=== PATIENT | male | born 1945 | race Caucasian/White ===

== ENCOUNTER 2020-09-20 12:16 | Inpatient (IN) | payer MEDICARE, MEDICAID ==
--- NOTE | 2020-09-20 12:52 | EDM.PDOC ---
ED HPI GENERAL MEDICAL PROBLEM - General Chief Complaint: General Stated Complaint: WEAK,TREMORS,BACK PAIN, NOT EATING OR DRINKING Time Seen by Provider: 09/20/20 12:36 Source of Information: Reports: Patient, Family History Limitations: Reports: No Limitations - History of Present Illness INITIAL COMMENTS - FREE TEXT/NARRATIVE: The patient presents with left lower back pain. He said he did fall a couple days ago. He has no other complaints but his family says he has generalized weakness and he is not drinking or eating much. He denies fever, headache, chest pain, cough, shortness of breath, abdominal pain, nausea or vomiting. He has a history of CABG. His family says this has been going on for about a week. His oxygen saturations are in the lower 90s. He has no known lung problems. Onset: Gradual Duration: Week(s): Severity: Moderate Improves with: Reports: None Worsens with: Reports: None Associated Symptoms: Reports: No Other Symptoms Middle Back Pain Score (Numeric/FACES): 5 - Related Data Allergies Allergy/AdvReac Type Severity Reaction Status Date / Time No Known Allergies Allergy Verified 09/20/20 12:32 Home Meds: Home Meds Allopurinol [Zyloprim] 100 mg PO DAILY 09/20/20 [History] Aspirin [Adult Aspirin Regimen] 81 mg PO DAILY 09/20/20 [History] Metoprolol Tartrate 25 mg PO BID 09/20/20 [History] Pantoprazole [ProTONIX IV] 40 mg OP DAILY 09/20/20 [History] Sertraline [Zoloft] 50 mg PO DAILY 09/20/20 [History] Simvastatin 40 mg PO DAILY 09/20/20 [History] Past Medical History Cardiovascular History: Reports: High Cholesterol, Hypertension Musculoskeletal History: Reports: Gout Social & Family History - Family History Family Medical History: No Pertinent Family History - Tobacco Use Tobacco Use Status *Q: Never Tobacco User - Caffeine Use Caffeine Use: Reports: Soda - Recreational Drug Use Recreational Drug Use: No ED ROS GENERAL - Review of Systems Review Of Systems: See Below Constitutional: Reports: Malaise, Weakness, Fatigue. Denies: Fever, Chills HEENT: Reports: No Symptoms Respiratory: Reports: No Symptoms Cardiovascular: Reports: No Symptoms Endocrine: Reports: No Symptoms GI/Abdominal: Reports: No Symptoms ED EXAM, GENERAL - Physical Exam Exam: See Below Exam Limited By: No Limitations General Appearance: Alert, No Apparent Distress Ears: Normal External Exam Nose: Normal Inspection Head: Atraumatic, Normocephalic Neck: Normal Inspection Respiratory/Chest: No Respiratory Distress, Lungs Clear, Normal Breath Sounds Cardiovascular: Regular Rate, Rhythm, No Edema, No Murmur GI/Abdominal: Soft, Non-Tender, No Organomegaly, No Mass Back Exam: Normal Inspection Extremities: Normal Inspection #1 Interpretation EKG Date: 09/20/20 Time: 13:17 Rhythm: NSR Rate (Beats/Min): 77 [place]: LAD-Left [place] Deviation P-Wave: Present QRS: Normal ST-T: Normal QT: Normal Course - Vital Signs Last Recorded V/S: Last Vital Signs Temp 99.0 F 09/20/20 14:26 Pulse 80 09/20/20 14:26 Resp 18 09/20/20 14:26 BP 137/80 09/20/20 14:26 Pulse Ox 95 09/20/20 14:26 - Orders/Labs/Meds Orders: Active Orders 24 hr Category Date Time Status Cardiac Monitoring [RC] . DIRECTED Care 09/20/20 12:59 Active EKG Documentation Completion [RC] STAT Care 09/20/20 13:00 Active Oxygen Therapy [RC] PRN Care 09/20/20 12:59 Active Peripheral IV Care [RC] . DIRECTED Care 09/20/20 13:00 Active CULTURE BLOOD [BC] Stat Lab 09/20/20 14:50 Received CULTURE BLOOD [BC] Stat Lab 09/20/20 15:00 Received CULTURE URINE [RM] Stat Lab 09/20/20 14:56 Received Sodium Chloride 0.9% [Normal Saline] 1,000 ml Med 09/20/20 13:00 Active IV .BOLUS Sodium Chloride 0.9% [Saline Flush] Med 09/20/20 12:59 Active 10 ml FLUSH ASDIRECTED PRN Blood Culture x2 Reflex Set [OM.PC] Stat Oth 09/20/20 14:21 Ordered Peripheral IV Insertion Adult [OM.PC] Stat Oth 09/20/20 12:59 Ordered Medication Orders Sodium Chloride (Normal Saline) 1,000 mls @ 1,000 mls/hr IV .BOLUS DEJA Last Admin: 09/20/20 13:40 Dose: 1,000 mls/hr Documented by: NATY Sodium Chloride (Saline Flush) 10 ml FLUSH ASDIRECTED PRN PRN Reason: Keep Vein Open Last Admin: 09/20/20 13:41 Dose: 10 ml Documented by: NATY Labs: Laboratory Tests 09/20/20 09/20/20 09/20/20 Range/Units 13:13 13:30 13:30 WBC 7.81 (4.23-9.07) K/mm3 RBC 5.17 (4.63-6.08) M/mm3 Hgb 16.2 (13.7-17.5) gm/dl Hct 45.5 (40.1-51.0) % MCV 88.0 (79.0-92.2) fl MCH 31.3 (25.7-32.2) pg MCHC 35.6 H (32.2-35.5) g/dl RDW Std Deviation 45.1 H (35.1-43.9) fL Plt Count 202 (163-337) K/mm3 MPV 10.6 (9.4-12.3) fl Neut % (Auto) 85.1 H (34.0-67.9) % Lymph % (Auto) 7.2 L (21.8-53.1) % Bee % (Auto) 7.2 (5.3-12.2) % Eos % (Auto) 0 L (0.8-7.0) Baso % (Auto) 0.1 (0.1-1.2) % Neut # (Auto) 6.65 H (1.78-5.38) K/mm3 Lymph # (Auto) 0.56 L (1.32-3.57) K/mm3 Bee # (Auto) 0.56 (0.30-0.82) K/mm3 Eos # (Auto) 0.00 L (0.04-0.54) K/mm3 Baso # (Auto) 0.01 (0.01-0.08) K/mm3 Manual Slide Review Abnormal smear D-Dimer, Quantitative (0.19-0.50) mg/L Sodium 132 L (136-145) mEq/L Potassium 3.0 L (3.5-5.1) mEq/L Chloride 98 (98-107) mEq/L Carbon Dioxide 24 (21-32) mEq/L Anion Gap 13.0 (5-15) BUN 24 H (7-18) mg/dL Creatinine 1.5 H (0.7-1.3) mg/dL Est Cr Clr Drug Dosing 38.15 mL/min Estimated GFR (MDRD) 46 (>60) mL/min BUN/Creatinine Ratio 16.0 (14-18) Glucose 105 (83-115) mg/dL Lactic Acid (0.4-2.0) mmol/L Calcium 8.9 (8.5-10.1) mg/dL Ferritin (26-388) ng/ml Total Bilirubin 2.2 H (0.2-1.0) mg/dL AST 45 H (15-37) U/L ALT 39 (16-63) U/L Alkaline Phosphatase 79 (46-116) U/L Lactate Dehydrogenase (85-227) U/L Troponin I 0.028 (0.00-0.056) ng/mL C-Reactive Protein 6.1 H* (<1.0) mg/dL Total Protein 7.5 (6.4-8.2) g/dl Albumin 3.4 (3.4-5.0) g/dl Globulin 4.1 gm/dL Albumin/Globulin Ratio 0.8 L (1-2) Urine Color (Yellow) Urine Appearance (Clear) Urine pH (5.0-8.0) Ur Specific [place] (1.005-1.030) Urine Protein (Negative) Urine Glucose (UA) (Negative) Urine Ketones (Negative) Urine Occult Blood (Negative) Urine Nitrite (Negative) Urine Bilirubin (Negative) Urine Urobilinogen (0.2-1.0) Ur Leukocyte Esterase (Negative) Urine RBC (0-5) /hpf Urine WBC (0-5) /hpf Ur Epithelial Cells (0-5) /hpf Urine Bacteria (FEW) /hpf Fine Granular Casts (0-5) /lpf Urine Mucus (FEW) /hpf SARS-CoV-2 RNA ([facility]) Positive H (NEGATIVE) 09/20/20 09/20/20 09/20/20 Range/Units 13:47 14:10 14:10 WBC (4.23-9.07) K/mm3 RBC (4.63-6.08) M/mm3 Hgb (13.7-17.5) gm/dl Hct (40.1-51.0) % MCV (79.0-92.2) fl MCH (25.7-32.2) pg MCHC (32.2-35.5) g/dl RDW Std Deviation (35.1-43.9) fL Plt Count (163-337) K/mm3 MPV (9.4-12.3) fl Neut % (Auto) (34.0-67.9) % Lymph % (Auto) (21.8-53.1) % Bee % (Auto) (5.3-12.2) % Eos % (Auto) (0.8-7.0) Baso % (Auto) (0.1-1.2) % Neut # (Auto) (1.78-5.38) K/mm3 Lymph # (Auto) (1.32-3.57) K/mm3 Bee # (Auto) (0.30-0.82) K/mm3 Eos # (Auto) (0.04-0.54) K/mm3 Baso # (Auto) (0.01-0.08) K/mm3 Manual Slide Review D-Dimer, Quantitative 1.06 H (0.19-0.50) mg/L Sodium (136-145) mEq/L Potassium (3.5-5.1) mEq/L Chloride (98-107) mEq/L Carbon Dioxide (21-32) mEq/L Anion Gap (5-15) BUN (7-18) mg/dL Creatinine (0.7-1.3) mg/dL Est Cr Clr Drug Dosing mL/min Estimated GFR (MDRD) (>60) mL/min BUN/Creatinine Ratio (14-18) Glucose (83-115) mg/dL Lactic Acid (0.4-2.0) mmol/L Calcium (8.5-10.1) mg/dL Ferritin (26-388) ng/ml Total Bilirubin (0.2-1.0) mg/dL AST (15-37) U/L ALT (16-63) U/L Alkaline Phosphatase (46-116) U/L Lactate Dehydrogenase 364 H (85-227) U/L Troponin I (0.00-0.056) ng/mL C-Reactive Protein (<1.0) mg/dL Total Protein (6.4-8.2) g/dl Albumin (3.4-5.0) g/dl Globulin gm/dL Albumin/Globulin Ratio (1-2) Urine Color Dark yellow (Yellow) Urine Appearance Clear (Clear) Urine pH 5.5 (5.0-8.0) Ur Specific [place] 1.020 (1.005-1.030) Urine Protein 1+ H (Negative) Urine Glucose (UA) Negative (Negative) Urine Ketones Trace H (Negative) Urine Occult Blood Negative (Negative) Urine Nitrite Negative (Negative) Urine Bilirubin Negative (Negative) Urine Urobilinogen 0.2 (0.2-1.0) Ur Leukocyte Esterase Negative (Negative) Urine RBC 0-5 (0-5) /hpf Urine WBC 0-5 (0-5) /hpf Ur Epithelial Cells Not seen (0-5) /hpf Urine Bacteria Many H (FEW) /hpf Fine Granular Casts 0-5 (0-5) /lpf Urine Mucus Few (FEW) /hpf SARS-CoV-2 RNA ([facility]) (NEGATIVE) 09/20/20 09/20/20 Range/Units 14:10 14:50 WBC (4.23-9.07) K/mm3 RBC (4.63-6.08) M/mm3 Hgb (13.7-17.5) gm/dl Hct (40.1-51.0) % MCV (79.0-92.2) fl MCH (25.7-32.2) pg MCHC (32.2-35.5) g/dl RDW Std Deviation (35.1-43.9) fL Plt Count (163-337) K/mm3 MPV (9.4-12.3) fl Neut % (Auto) (34.0-67.9) % Lymph % (Auto) (21.8-53.1) % Bee % (Auto) (5.3-12.2) % Eos % (Auto) (0.8-7.0) Baso % (Auto) (0.1-1.2) % Neut # (Auto) (1.78-5.38) K/mm3 Lymph # (Auto) (1.32-3.57) K/mm3 Bee # (Auto) (0.30-0.82) K/mm3 Eos # (Auto) (0.04-0.54) K/mm3 Baso # (Auto) (0.01-0.08) K/mm3 Manual Slide Review D-Dimer, Quantitative (0.19-0.50) mg/L Sodium (136-145) mEq/L Potassium (3.5-5.1) mEq/L Chloride (98-107) mEq/L Carbon Dioxide (21-32) mEq/L Anion Gap (5-15) BUN (7-18) mg/dL Creatinine (0.7-1.3) mg/dL Est Cr Clr Drug Dosing mL/min Estimated GFR (MDRD) (>60) mL/min BUN/Creatinine Ratio (14-18) Glucose (83-115) mg/dL Lactic Acid 1.7 (0.4-2.0) mmol/L Calcium (8.5-10.1) mg/dL Ferritin 1845 H (26-388) ng/ml Total Bilirubin (0.2-1.0) mg/dL AST (15-37) U/L ALT (16-63) U/L Alkaline Phosphatase (46-116) U/L Lactate Dehydrogenase (85-227) U/L Troponin I (0.00-0.056) ng/mL C-Reactive Protein (<1.0) mg/dL Total Protein (6.4-8.2) g/dl Albumin (3.4-5.0) g/dl Globulin gm/dL Albumin/Globulin Ratio (1-2) Urine Color (Yellow) Urine Appearance (Clear) Urine pH (5.0-8.0) Ur Specific [place] (1.005-1.030) Urine Protein (Negative) Urine Glucose (UA) (Negative) Urine Ketones (Negative) Urine Occult Blood (Negative) Urine Nitrite (Negative) Urine Bilirubin (Negative) Urine Urobilinogen (0.2-1.0) Ur Leukocyte Esterase (Negative) Urine RBC (0-5) /hpf Urine WBC (0-5) /hpf Ur Epithelial Cells (0-5) /hpf Urine Bacteria (FEW) /hpf Fine Granular Casts (0-5) /lpf Urine Mucus (FEW) /hpf SARS-CoV-2 RNA ([facility]) (NEGATIVE) Meds: Medications Generic Name Dose Route Start Last Admin Trade Name Freq PRN Reason Stop Dose Admin Sodium Chloride 1,000 mls @ 1,000 mls/hr 09/20/20 13:00 09/20/20 13:40 Normal Saline IV 1,000 mls/hr .BOLUS DEJA Administration Sodium Chloride 10 ml 09/20/20 12:59 09/20/20 13:41 Saline Flush FLUSH 10 ml ASDIRECTED PRN Administration Keep Vein Open Discontinued Medications Generic Name Dose Route Start Last Admin Trade Name Brad PRN Reason Stop Dose Admin Dexamethasone 6 mg 09/20/20 14:22 09/20/20 15:01 Decadron IVPUSH 09/20/20 14:23 6 mg ONETIME ONE Administration Dexamethasone Confirm 09/20/20 15:00 09/20/20 15:07 Decadron Administered 09/20/20 15:01 Not Given Dose 4 mg .ROUTE .STK-MED ONE Remdesivir 200 mg/ Sodium 250 mls @ 250 mls/hr 09/20/20 14:22 09/20/20 15:06 Chloride IV 09/20/20 14:23 250 mls/hr ONETIME ONE Administration - Re-Assessments/Exams Free Text/Narrative Re-Assessment/Exam: 09/20/20 13:46 I ordered an IV NS 1L bolus, O2 per NC as needed, EKG, CXR, CT of his back, abdomen and pelvis, labs and COVID 19. 09/20/20 15:03 His CXR shows bilateral infiltrates. His CBC looks good. His D-dimer is elevated at 1.06. His UA shows bacteria but no other sign of infection. I will culture that urine. The CT of his abdomen and pelvis shows increased density within both lung bases. Difficult to exclude bilateral pneumonia. Nothing acute is otherwise seen. CT of his lumbar spine shows diffuse degenerative change. Most prominent findings are moderate central canal stenosis at L4-5 and L3-4. Scattered areas of neural foraminal narrowing are seen. He is COVID 19 positive. I have ordered dexamethasone 6mg IV and remdesivir 200mg IV. 09/20/20 15:42 His Na is low at 132. His K is low at 3. His creatinine is elevated at 1.5. His total bili is elevated at 2.2. His AST is elevated at 45. His ferritin is elevated at 1845. His CRP is positive at 6.1. His LDH is elevated at 364. His troponin is negative. I feel he needs to be admitted. I talked to Dr Brooks and he agreed to the admission. Departure - Departure Time of Disposition: 15:50 Disposition: Admitted As Inpatient 67 Condition: Serious Clinical Impression: COVID-19, Pneumonia due to COVID-19 virus, Hypoxia, Confusion, Hypokalemia, Hyponatremia, Renal insufficiency - Discharge Information Referrals: Boone Carlisle MD [Primary Care Provider] - Forms: ED Department Discharge Sepsis Event Note (ED) - Evaluation Sepsis Screening Result: No Definite Risk - Focused Exam Vital Signs: Vital Signs Temp Pulse Resp BP Pulse Ox Pulse Ox 09/20/20 14:26 99.0 F 80 18 137/80 95 09/20/20 13:22 95 09/20/20 12:27 99.2 F 78 21 H 129/82 90 L - My Orders Last 24 Hours: My Active Orders 09/20/20 12:59 Cardiac Monitoring [RC] . DIRECTED Oxygen Therapy [RC] PRN Sodium Chloride 0.9% [Saline Flush] 10 ml FLUSH ASDIRECTED PRN Peripheral IV Insertion Adult [OM.PC] Stat 09/20/20 13:00 EKG Documentation Completion [RC] STAT Peripheral IV Care [RC] . DIRECTED Sodium Chloride 0.9% [Normal Saline] 1,000 ml IV .BOLUS 09/20/20 14:21 Blood Culture x2 Reflex Set [OM.PC] Stat 09/20/20 14:50 CULTURE BLOOD [BC] Stat 09/20/20 14:56 CULTURE URINE [RM] Stat 09/20/20 15:00 CULTURE BLOOD [BC] Stat - Assessment/Plan Last 24 Hours: My Active Orders 09/20/20 12:59 Cardiac Monitoring [RC] . DIRECTED Oxygen Therapy [RC] PRN Sodium Chloride 0.9% [Saline Flush] 10 ml FLUSH ASDIRECTED PRN Peripheral IV Insertion Adult [OM.PC] Stat 09/20/20 13:00 EKG Documentation Completion [RC] STAT Peripheral IV Care [RC] . DIRECTED Sodium Chloride 0.9% [Normal Saline] 1,000 ml IV .BOLUS 09/20/20 14:21 Blood Culture x2 Reflex Set [OM.PC] Stat 09/20/20 14:50 CULTURE BLOOD [BC] Stat 09/20/20 14:56 CULTURE URINE [RM] Stat 09/20/20 15:00 CULTURE BLOOD [BC] Stat
[2020-09-20] MEDS ORDERED: Sodium Chloride 0.9% 1,000 ML IV SCH ×2 (13:00→17:15)
[2020-09-20] MEDS: Sodium Chloride 0.9% 10 ML Syringe FLUSH PRN (13:41)
--- NOTE | 2020-09-20 14:01 | CR ---
Chest: Portable view of the chest was obtained. Comparison: No previous study. Prior chest x-ray 11/04/13 and 08/06/13. Increased density is noted within the right mid lung as well as perihilar regions. Slight increased density is seen within the left midlung and left lower lung. Heart size is stable. Tortuous thoracic aorta is noted which is stable. Previous sternotomy is seen. Bony structures are grossly intact. Impression: 1. Areas of increased density within both sides of the chest suspicious for multifocal pneumonia. Please rule out any symptoms of COVID exposure. Diagnostic code #3
[2020-09-20] MEDS ORDERED: REMDESIVIR 200 MG in Sodium Chloride 0.9% 250 ML IV ONE ×2 (14:22→19:14)
[2020-09-20] MEDS ORDERED: Dexamethasone 4 MG/ML SDV IVPUSH ONE (14:22)
--- NOTE | 2020-09-20 14:58 | CT ---
CT abdomen and pelvis Technique: Multiple axial sections were obtained from above the dome of the diaphragm inferiorly to the pubic symphysis. Intravenous and oral contrast not utilized. Study also performed in AP and lateral projections. Comparison: Previous CT abdomen and pelvis study of 11/04/13. Findings: Increased density is seen within both lung bases. Liver shows no discrete abnormality. Surgical clips are seen along the anterior liver. Gallbladder is not appreciated. Spleen appears within normal limits. Kidneys showing no hydronephrosis. There are several very minimal calcifications within the right kidney. No ureteral dilatation or ureteral stone is appreciated. Adrenal glands show no nodule. Pancreas shows no discrete abnormality. Aorta shows atherosclerotic change without aneurysm. Atherosclerotic change continues into both renal vessels and superior mesenteric artery and celiac artery. Atherosclerotic change is noted within the iliac vessels. No aneurysm is seen. No retroperitoneal adenopathy or mesenteric abnormalities are seen. No pelvic mass or adenopathy is seen. Bladder is slightly enlarged with no discrete pelvic mass or adenopathy noted. Small fat-containing right inguinal hernia is present. Appendix is not definitely visualized. No bowel wall thickening is appreciated. Bone window settings were reviewed which show degenerative change most prominent within the lower lumbar spine. No acute osseous finding is appreciated. Impression: 1. Increased density within both lung bases. Difficult to exclude bilateral pneumonia. 2. Findings as noted above. Nothing acute is otherwise seen. Diagnostic code #3
[2020-09-20] MEDS ORDERED: Dexamethasone 4 MG/ML SDV ONE (15:00)
--- NOTE | 2020-09-20 15:03 | CT ---
CT lumbar spine Technique: Multiple axial sections were obtained from above the T11-12 disc through the L5-S1 disc. Reconstructed sagittal and coronal images were obtained. Comparison: Previous MRI lumbar spine study of 12/04/14. Findings: T11-12: Mild osteophytes are seen. Posteriorly no central canal stenosis or neural foraminal stenosis is seen. T12-L1: Mild disc space narrowing is noted. No central canal stenosis or neural foraminal stenosis is seen. L1-2: Mild disc space narrowing is seen. Minimal circumferential disc bulge is present. Posterior disc maintains concave margin. Minimal degenerative apophyseal change is seen. Neural foramina appear to be patent where the nerve roots exit. L2-3: Posterior disc space narrowing is seen. Mild circumferential disc bulge is seen. Posterior disc maintains concave margin. Mild degenerative apophyseal change is noted. No central canal stenosis or discrete neural foraminal stenosis is seen. L3-4: Mild disc space narrowing is seen posteriorly. Circumferential disc bulge is seen with vacuum disc phenomena. Thickening of the ligamentum flavum is seen with moderately severe degenerative apophyseal change. Findings cause moderate central canal stenosis. Both neural foramina slightly touch a bulging disc outside the neural foramina, more prominent on the right side. L4-5: Disc space narrowing with vacuum disc phenomena is seen. Circumferential disc bulge is present. There is severe degenerative apophyseal change with thickening of the ligamentum flavum causing moderate central canal stenosis. Left-sided neural foramina is narrowed. Right nerve root appears to touch degenerative disc bulgeing/spurring outside the neural foramina. L5-S1: Severe disc space narrowing and vacuum phenomena is seen. Posterior spurring is also noted. Minimal central canal stenosis is seen. Neural foramina appear patent where the nerve roots exit. Moderate degenerative apophyseal change is seen. No acute fracture is appreciated. Diffuse endplate osteophytes are seen anteriorly. Impression: 1. Diffuse degenerative change as noted above. Most prominent findings are moderate central canal stenosis at L4-5 and L3-4. Scattered areas of neural foraminal narrowing are seen. Diagnostic code #3
[2020-09-20] MEDS: Potassium Chloride 10 MEQ in Premix Bag 1 BAG IV SCH ×4 (16:29→20:16)
--- NOTE | 2020-09-20 19:00 | PCM.HP.2 ---
H&P History of Present Illness - General Date of Service: 09/20/20 Admit Problem/Dx: Admission Diagnosis/Problem Admission Diagnosis/Problem Pneumonia/covid /weakness/anorexia Source of Information: EMS, Provider History Limitations: Reports: Altered Mental Status - History of Present Illness Initial Comments - Free Text/Narative: 74 year old gentleman who resides at [facility] has been weak and sick for about week. minimal chills and no fever but sats low 80s on room air . does not currently c/o sob at rest on o2 but poor historian. aox4 and denies vomiting but not eating for most of week. he has smell l and taste he states. [facility] of [facility] 8 years ago. no sick contacts per his hx. 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 ros essentially negative but family relates not himself and mild cough /dizzines weakness and anorexia . covid screen pos. ferritan 1800/d dimer .86. trop normala nd lactic acid normal / na 129 and k 3.0 . discussed treatments for covid and he is aware of serious illness and would like treatment . Onset of Symptoms: Reports: Gradual Symptom Onset Date: 09/12/20 Duration of Symptoms: Reports: Day(s): (7) Severity: Moderate Improves with: Reports: None Worsens with: Reports: Breathing, Movement Context: Denies: Sick Contact, Travel Associated Symptoms: Reports: Confusion, Fever/Chills, Loss of Appetite, Malaise, Nausea/Vomiting, Weakness Middle Back Pain Score (Numeric/FACES): 5 - Related Data Allergies/Adverse Reactions: Allergies Allergy/AdvReac Type Severity Reaction Status Date / Time No Known Allergies Allergy Verified 09/20/20 12:32 Home Medications: Home Meds Allopurinol [Zyloprim] 100 mg PO DAILY 09/20/20 [History] Aspirin [Adult Aspirin Regimen] 81 mg PO DAILY 09/20/20 [History] Metoprolol Tartrate 25 mg PO BID 09/20/20 [History] Pantoprazole [ProTONIX IV] 40 mg OP DAILY 09/20/20 [History] Sertraline [Zoloft] 50 mg PO DAILY 09/20/20 [History] Simvastatin 40 mg PO DAILY 09/20/20 [History] Past Medical History Cardiovascular History: Reports: High Cholesterol, Hypertension Musculoskeletal History: Reports: Gout Social & Family History - Family History Family Medical History: No Pertinent Family History - Tobacco Use Tobacco Use Status *Q: Never Tobacco User - Caffeine Use Caffeine Use: Reports: Soda - Recreational Drug Use Recreational Drug Use: No H&P Review of Systems - Review of Systems: Review Of Systems: See Below General: Reports: Chills, Malaise, Weakness, Fatigue, Decreased Appetite HEENT: Reports: No Symptoms Pulmonary: Reports: No Symptoms, Shortness of Breath Cardiovascular: Reports: Dyspnea on Exertion Gastrointestinal: Reports: Anorexia, Decreased Appetite, Nausea Genitourinary: Reports: No Symptoms Musculoskeletal: Reports: No Symptoms Skin: Reports: No Symptoms Psychiatric: Reports: Confusion Neurological: Reports: Weakness Hematologic/Lymphatic: Reports: No Symptoms Immunologic: Reports: No Symptoms Exam - Exam Exam: See Below - Vital Signs Vital Signs: Last Vital Signs Temp 36.3 C 09/20/20 17:56 Pulse 61 09/20/20 16:31 Resp 22 H 09/20/20 18:45 BP 139/75 09/20/20 18:45 Pulse Ox 95 09/20/20 18:45 Weight: 81.647 kg - Exam Quality Assessment: Supplemental Oxygen General: Alert, Oriented, 4 HEENT: PERRLA, Hearing Intact, Mucosa Moist & [place], Nares Patent, Normal Nasal Septum, Posterior Pharynx Clear, Conjunctiva Clear, EOMI, EACs Clear, TMs Clear Neck: Supple, Trachea Midline, 2 Lungs: Clear to Auscultation, Normal Respiratory Effort Cardiovascular: Regular Rate, Regular Rhythm GI/Abdominal Exam: Normal Bowel Sounds, Soft, Non-Tender, No Organomegaly, No Distention, No Abnormal Bruit, No Mass, Pelvis Stable (Male) Exam: No Hernia, Normal Inspection, Normal Prostate, Circumcised Rectal (Males) Exam: Normal Exam, Normal Rectal Tone, Prostate Normal Back Exam: Normal Inspection, Full Range of Motion, NT Extremities: Normal Inspection, Normal Range of Motion, Non-Tender, No Pedal Edema, Normal Capillary Refill Skin: Warm, Dry, Intact Neurological: Cranial Nerves Intact, Reflexes Equal Bilateral Neuro Extensive - Mental Status: Alert, Oriented x3, Normal Mood/Affect, Normal Cognition Neuro Extensive - Motor, Sensory, Reflexes: CN II-XII Intact, Normal Gait, Normal Reflexes Psychiatric: Alert, Normal Affect, Normal Mood - Patient Data Lab Results Last 24 hrs: Laboratory Results - last 24 hr 12/12/20 12/12/20 12/12/20 Range/Units 13:13 13:30 13:30 WBC 7.81 (4.23-9.07) K/mm3 RBC 5.17 (4.63-6.08) M/mm3 Hgb 16.2 (13.7-17.5) gm/dl Hct 45.5 (40.1-51.0) % MCV 88.0 (79.0-92.2) fl MCH 31.3 (25.7-32.2) pg MCHC 35.6 H (32.2-35.5) g/dl RDW Std Deviation 45.1 H (35.1-43.9) fL Plt Count 202 (163-337) K/mm3 MPV 10.6 (9.4-12.3) fl Neut % (Auto) 85.1 H (34.0-67.9) % Lymph % (Auto) 7.2 L (21.8-53.1) % [place] % (Auto) 7.2 (5.3-12.2) % Eos % (Auto) 0 L (0.8-7.0) Baso % (Auto) 0.1 (0.1-1.2) % Neut # (Auto) 6.65 H (1.78-5.38) K/mm3 Lymph # (Auto) 0.56 L (1.32-3.57) K/mm3 [place] # (Auto) 0.56 (0.30-0.82) K/mm3 Eos # (Auto) 0.00 L (0.04-0.54) K/mm3 Baso # (Auto) 0.01 (0.01-0.08) K/mm3 Manual Slide Review Abnormal smear D-Dimer, Quantitative (0.19-0.50) mg/L Sodium 132 L (136-145) mEq/L Potassium 3.0 L (3.5-5.1) mEq/L Chloride 98 (98-107) mEq/L Carbon Dioxide 24 (21-32) mEq/L Anion Gap 13.0 (5-15) BUN 24 H (7-18) mg/dL Creatinine 1.5 H (0.7-1.3) mg/dL Est Cr Clr Drug Dosing 38.15 mL/min Estimated GFR (MDRD) 46 (>60) mL/min BUN/Creatinine Ratio 16.0 (14-18) Glucose 105 (83-115) mg/dL Lactic Acid (0.4-2.0) mmol/L Calcium 8.9 (8.5-10.1) mg/dL Ferritin (26-388) ng/ml Total Bilirubin 2.2 H (0.2-1.0) mg/dL AST 45 H (15-37) U/L ALT 39 (16-63) U/L Alkaline Phosphatase 79 (46-116) U/L Lactate Dehydrogenase (85-227) U/L Troponin I 0.028 (0.00-0.056) ng/mL C-Reactive Protein 6.1 H* (<1.0) mg/dL Total Protein 7.5 (6.4-8.2) g/dl Albumin 3.4 (3.4-5.0) g/dl Globulin 4.1 gm/dL Albumin/Globulin Ratio 0.8 L (1-2) Urine Color (Yellow) Urine Appearance (Clear) Urine pH (5.0-8.0) Ur Specific [place] (1.005-1.030) Urine Protein (Negative) Urine Glucose (UA) (Negative) Urine Ketones (Negative) Urine Occult Blood (Negative) Urine Nitrite (Negative) Urine Bilirubin (Negative) Urine Urobilinogen (0.2-1.0) Ur Leukocyte Esterase (Negative) Urine RBC (0-5) /hpf Urine WBC (0-5) /hpf Ur Epithelial Cells (0-5) /hpf Urine Bacteria (FEW) /hpf Fine Granular Casts (0-5) /lpf Urine Mucus (FEW) /hpf SARS-CoV-2 RNA ([facility]) Positive H (NEGATIVE) 09/20/20 09/20/20 09/20/20 Range/Units 13:47 14:10 14:10 WBC (4.23-9.07) K/mm3 RBC (4.63-6.08) M/mm3 Hgb (13.7-17.5) gm/dl Hct (40.1-51.0) % MCV (79.0-92.2) fl MCH (25.7-32.2) pg MCHC (32.2-35.5) g/dl RDW Std Deviation (35.1-43.9) fL Plt Count (163-337) K/mm3 MPV (9.4-12.3) fl Neut % (Auto) (34.0-67.9) % Lymph % (Auto) (21.8-53.1) % [place] % (Auto) (5.3-12.2) % Eos % (Auto) (0.8-7.0) Baso % (Auto) (0.1-1.2) % Neut # (Auto) (1.78-5.38) K/mm3 Lymph # (Auto) (1.32-3.57) K/mm3 [place] # (Auto) (0.30-0.82) K/mm3 Eos # (Auto) (0.04-0.54) K/mm3 Baso # (Auto) (0.01-0.08) K/mm3 Manual Slide Review D-Dimer, Quantitative 1.06 H (0.19-0.50) mg/L Sodium (136-145) mEq/L Potassium (3.5-5.1) mEq/L Chloride (98-107) mEq/L Carbon Dioxide (21-32) mEq/L Anion Gap (5-15) BUN (7-18) mg/dL Creatinine (0.7-1.3) mg/dL Est Cr Clr Drug Dosing mL/min Estimated GFR (MDRD) (>60) mL/min BUN/Creatinine Ratio (14-18) Glucose (83-115) mg/dL Lactic Acid (0.4-2.0) mmol/L Calcium (8.5-10.1) mg/dL Ferritin (26-388) ng/ml Total Bilirubin (0.2-1.0) mg/dL AST (15-37) U/L ALT (16-63) U/L Alkaline Phosphatase (46-116) U/L Lactate Dehydrogenase 364 H (85-227) U/L Troponin I (0.00-0.056) ng/mL C-Reactive Protein (<1.0) mg/dL Total Protein (6.4-8.2) g/dl Albumin (3.4-5.0) g/dl Globulin gm/dL Albumin/Globulin Ratio (1-2) Urine Color Dark yellow (Yellow) Urine Appearance Clear (Clear) Urine pH 5.5 (5.0-8.0) Ur Specific [place] 1.020 (1.005-1.030) Urine Protein 1+ H (Negative) Urine Glucose (UA) Negative (Negative) Urine Ketones Trace H (Negative) Urine Occult Blood Negative (Negative) Urine Nitrite Negative (Negative) Urine Bilirubin Negative (Negative) Urine Urobilinogen 0.2 (0.2-1.0) Ur Leukocyte Esterase Negative (Negative) Urine RBC 0-5 (0-5) /hpf Urine WBC 0-5 (0-5) /hpf Ur Epithelial Cells Not seen (0-5) /hpf Urine Bacteria Many H (FEW) /hpf Fine Granular Casts 0-5 (0-5) /lpf Urine Mucus Few (FEW) /hpf SARS-CoV-2 RNA ([facility]) (NEGATIVE) 09/20/20 09/20/20 Range/Units 14:10 14:50 WBC (4.23-9.07) K/mm3 RBC (4.63-6.08) M/mm3 Hgb (13.7-17.5) gm/dl Hct (40.1-51.0) % MCV (79.0-92.2) fl MCH (25.7-32.2) pg MCHC (32.2-35.5) g/dl RDW Std Deviation (35.1-43.9) fL Plt Count (163-337) K/mm3 MPV (9.4-12.3) fl Neut % (Auto) (34.0-67.9) % Lymph % (Auto) (21.8-53.1) % [place] % (Auto) (5.3-12.2) % Eos % (Auto) (0.8-7.0) Baso % (Auto) (0.1-1.2) % Neut # (Auto) (1.78-5.38) K/mm3 Lymph # (Auto) (1.32-3.57) K/mm3 [place] # (Auto) (0.30-0.82) K/mm3 Eos # (Auto) (0.04-0.54) K/mm3 Baso # (Auto) (0.01-0.08) K/mm3 Manual Slide Review D-Dimer, Quantitative (0.19-0.50) mg/L Sodium (136-145) mEq/L Potassium (3.5-5.1) mEq/L Chloride (98-107) mEq/L Carbon Dioxide (21-32) mEq/L Anion Gap (5-15) BUN (7-18) mg/dL Creatinine (0.7-1.3) mg/dL Est Cr Clr Drug Dosing mL/min Estimated GFR (MDRD) (>60) mL/min BUN/Creatinine Ratio (14-18) Glucose (83-115) mg/dL Lactic Acid 1.7 (0.4-2.0) mmol/L Calcium (8.5-10.1) mg/dL Ferritin 1845 H (26-388) ng/ml Total Bilirubin (0.2-1.0) mg/dL AST (15-37) U/L ALT (16-63) U/L Alkaline Phosphatase (46-116) U/L Lactate Dehydrogenase (85-227) U/L Troponin I (0.00-0.056) ng/mL C-Reactive Protein (<1.0) mg/dL Total Protein (6.4-8.2) g/dl Albumin (3.4-5.0) g/dl Globulin gm/dL Albumin/Globulin Ratio (1-2) Urine Color (Yellow) Urine Appearance (Clear) Urine pH (5.0-8.0) Ur Specific [place] (1.005-1.030) Urine Protein (Negative) Urine Glucose (UA) (Negative) Urine Ketones (Negative) Urine Occult Blood (Negative) Urine Nitrite (Negative) Urine Bilirubin (Negative) Urine Urobilinogen (0.2-1.0) Ur Leukocyte Esterase (Negative) Urine RBC (0-5) /hpf Urine WBC (0-5) /hpf Ur Epithelial Cells (0-5) /hpf Urine Bacteria (FEW) /hpf Fine Granular Casts (0-5) /lpf Urine Mucus (FEW) /hpf SARS-CoV-2 RNA ([facility]) (NEGATIVE) Result Diagrams: 09/20/20 13:30 09/20/20 13:30 Sepsis Event Note - Evaluation Sepsis Screening Result: No Definite Risk - Focused Exam Vital Signs: Vital Signs Temp Pulse Resp BP BP Pulse Ox Pulse Ox 09/20/20 18:45 22 H 139/75 95 09/20/20 17:56 36.3 C 22 H 133/70 96 09/20/20 16:31 36.6 C 61 20 126/60 97 09/20/20 14:26 37.2 C 80 18 137/80 95 09/20/20 13:22 95 09/20/20 12:27 37.3 C 78 21 H 129/82 90 L - Problem List (1) COVID-19 SNOMED Code(s): 687413800 ICD Code: U07.1 - COVID-19 Status: Acute Priority: High Current Visit: Yes Onset Date: ~09/12/20 (2) Confusion SNOMED Code(s): 392237382 ICD Code: R41.0 - DISORIENTATION, UNSPECIFIED Status: Acute Priority: Low Current Visit: Yes Onset Date: ~09/20/20 (3) Hypokalemia SNOMED Code(s): 05940262 ICD Code: E87.6 - HYPOKALEMIA Status: Acute Priority: Medium Current Visit: Yes Onset Date: ~09/20/20 (4) Hyponatremia SNOMED Code(s): 62758166 ICD Code: E87.1 - HYPO-OSMOLALITY AND HYPONATREMIA Status: Acute Current Visit: Yes (5) Hypoxia SNOMED Code(s): 508011416 ICD Code: R09.02 - HYPOXEMIA Status: Acute Priority: Medium Current Visit: Yes Onset Date: ~09/20/20 (6) Renal insufficiency SNOMED Code(s): 173833924, 073312862 ICD Code: N28.9 - DISORDER OF KIDNEY AND URETER, UNSPECIFIED Status: Acute Priority: Medium Current Visit: Yes Onset Date: ~09/20/20 Problem List Initiated/Reviewed/Updated: Yes Orders Last 24hrs: Active Orders 24 hr Category Date Time Status Admission Status [Patient Status] [ADT] Routine ADT 09/20/20 17:27 Active Cardiac Monitoring [RC] . DIRECTED Care 09/20/20 12:59 Active Oxygen Therapy [RC] PRN Care 09/20/20 12:59 Active CULTURE BLOOD [BC] Stat Lab 09/20/20 14:50 Received CULTURE BLOOD [BC] Stat Lab 09/20/20 15:00 Received CULTURE URINE [RM] Stat Lab 09/20/20 14:56 Received Potassium Chloride [KCl 10 MEQ in Water 100 ML] 10 meq Med 09/20/20 16:00 Active Premix Bag 1 bag IV Q1H Sodium Chloride 0.9% [Normal Saline] 1,000 ml Med 09/20/20 13:00 Active IV .BOLUS Sodium Chloride 0.9% [Normal Saline] 1,000 ml Med 09/20/20 17:15 Active IV ASDIRECTED Sodium Chloride 0.9% [Saline Flush] Med 09/20/20 12:59 Active 10 ml FLUSH ASDIRECTED PRN Blood Culture x2 Reflex Set [OM.PC] Stat Oth 09/20/20 14:21 Ordered Peripheral IV Insertion Adult [OM.PC] Stat Oth 09/20/20 12:59 Ordered Medication Orders Sodium Chloride (Normal Saline) 1,000 mls @ 1,000 mls/hr IV .BOLUS DEJA Last Admin: 09/20/20 13:40 Dose: 1,000 mls/hr Documented by: NATY Potassium Chloride 10 meq/ (Premix) 100 mls @ 100 mls/hr IV Q1H DEJA Stop: 09/20/20 19:59 Last Admin: 09/20/20 18:06 Dose: 100 mls/hr Documented by: Infusion: 09/20/20 17:29 Dose: 100 mls/hr Documented by: Admin: 09/20/20 16:29 Dose: 100 mls/hr Documented by: NATY Sodium Chloride (Normal Saline) 1,000 mls @ 75 mls/hr IV ASDIRECTED DEJA Last Admin: 09/20/20 17:15 Dose: 75 mls/hr Documented by: NATY Sodium Chloride (Saline Flush) 10 ml FLUSH ASDIRECTED PRN PRN Reason: Keep Vein Open Last Admin: 09/20/20 13:41 Dose: 10 ml Documented by: NATY Assessment/Plan Comment:: 74 year old with covid pneumonia and hypoxia. mild dehydration weakness. anorexia /chills [place] and dizziness hx of cad and hypertension s/p cabg hx of hyperlipidemia - Mortality Measure Prognosis:: Good
[2020-09-20] MEDS ORDERED: diphenhydrAMINE 25 MG Cap PO ONE (19:10)
[2020-09-20] MEDS ORDERED: Acetaminophen 325 MG Tab PO ONE (19:10)
[2020-09-20] MEDS: Metoprolol Tartrate 25 MG Tab PO SCH (20:19)
[2020-09-21] MEDS ORDERED: REMDESIVIR 100 MG in Sodium Chloride 0.9% 100 ML IV SCH (09:00)
[2020-09-21] MEDS ORDERED: Pantoprazole 40 MG Vial SCH (09:00)
[2020-09-21] MEDS: Sertraline 50 MG Tab PO SCH (09:03)
[2020-09-21] MEDS: Dexamethasone 4 MG Tab PO SCH (09:04)
[2020-09-21] MEDS: Allopurinol 100 MG Tab PO SCH (09:04)
[2020-09-21] MEDS: Aspirin 81 MG Tab.EC PO SCH (09:06)
[2020-09-21] MEDS: Simvastatin 40 MG Tab PO SCH (09:13)
[2020-09-21] MEDS: Metoprolol Tartrate 25 MG Tab PO SCH (09:21)
--- NOTE | 2020-09-21 09:48 | PCM.PN ---
- General Info Date of Service: 09/21/20 Admission Dx/Problem (Free Text): Admission Diagnosis/Problem Admission Diagnosis/Problem Pneumonia/covid /weakness/anorexia Functional Status: Reports: Pain Controlled, Tolerating Diet, Ambulating, Urinating (Straight cathetered last night ), Incentive Spirometry (Ordered ), Other (Acapella ordered ). Denies: New Symptoms - Review of Systems General: Reports: Weakness, Fatigue, Malaise. Denies: Fever, Chills HEENT: Reports: No Symptoms. Denies: Headaches, Sore Throat Pulmonary: Reports: Shortness of Breath, Cough. Denies: Pleuritic Chest Pain, Sputum, Wheezing Cardiovascular: Reports: Dyspnea on Exertion. Denies: Chest Pain, Edema Gastrointestinal: Reports: No Symptoms. Denies: Abdominal Pain, Constipation, Diarrhea, Nausea, Vomiting Genitourinary: Reports: Retention. Denies: Pain Musculoskeletal: Reports: No Symptoms Skin: Reports: No Symptoms Neurological: Reports: Confusion (Unsure of baseline ), Weakness Psychiatric: Reports: No Symptoms - Patient Data Vitals - Most Recent: Last Vital Signs Temp 96.1 F L 09/21/20 04:00 Pulse 44 L 09/21/20 09:21 Resp 20 09/21/20 04:00 BP 146/74 H 09/21/20 04:00 Pulse Ox 95 09/21/20 04:00 Weight - Most Recent: 177 lb 8 oz I&O - Last 24 Hours: Intake & Output 09/20/20 09/21/20 09/21/20 22:59 06:59 14:59 Intake Total 300 1700 100 Output Total 1450 Balance 300 250 100 Lab Results Last 24 Hours: Laboratory Results - last 24 hr 09/20/20 09/20/20 09/20/20 Range/Units 13:13 13:30 13:30 WBC 7.81 (4.23-9.07) K/mm3 RBC 5.17 (4.63-6.08) M/mm3 Hgb 16.2 (13.7-17.5) gm/dl Hct 45.5 (40.1-51.0) % MCV 88.0 (79.0-92.2) fl MCH 31.3 (25.7-32.2) pg MCHC 35.6 H (32.2-35.5) g/dl RDW Std Deviation 45.1 H (35.1-43.9) fL Plt Count 202 (163-337) K/mm3 MPV 10.6 (9.4-12.3) fl Neut % (Auto) 85.1 H (34.0-67.9) % Lymph % (Auto) 7.2 L (21.8-53.1) % [place] % (Auto) 7.2 (5.3-12.2) % Eos % (Auto) 0 L (0.8-7.0) Baso % (Auto) 0.1 (0.1-1.2) % Neut # (Auto) 6.65 H (1.78-5.38) K/mm3 Lymph # (Auto) 0.56 L (1.32-3.57) K/mm3 [place] # (Auto) 0.56 (0.30-0.82) K/mm3 Eos # (Auto) 0.00 L (0.04-0.54) K/mm3 Baso # (Auto) 0.01 (0.01-0.08) K/mm3 Manual Slide Review Abnormal smear D-Dimer, Quantitative (0.19-0.50) mg/L Sodium 132 L (136-145) mEq/L Potassium 3.0 L (3.5-5.1) mEq/L Chloride 98 (98-107) mEq/L Carbon Dioxide 24 (21-32) mEq/L Anion Gap 13.0 (5-15) BUN 24 H (7-18) mg/dL Creatinine 1.5 H (0.7-1.3) mg/dL Est Cr Clr Drug Dosing 38.15 mL/min Estimated GFR (MDRD) 46 (>60) mL/min BUN/Creatinine Ratio 16.0 (14-18) Glucose 105 (83-115) mg/dL Lactic Acid (0.4-2.0) mmol/L Calcium 8.9 (8.5-10.1) mg/dL Ferritin (26-388) ng/ml Total Bilirubin 2.2 H (0.2-1.0) mg/dL AST 45 H (15-37) U/L ALT 39 (16-63) U/L Alkaline Phosphatase 79 (46-116) U/L Lactate Dehydrogenase (85-227) U/L Troponin I 0.028 (0.00-0.056) ng/mL C-Reactive Protein 6.1 H* (<1.0) mg/dL Total Protein 7.5 (6.4-8.2) g/dl Albumin 3.4 (3.4-5.0) g/dl Globulin 4.1 gm/dL Albumin/Globulin Ratio 0.8 L (1-2) Urine Color (Yellow) Urine Appearance (Clear) Urine pH (5.0-8.0) Ur Specific [place] (1.005-1.030) Urine Protein (Negative) Urine Glucose (UA) (Negative) Urine Ketones (Negative) Urine Occult Blood (Negative) Urine Nitrite (Negative) Urine Bilirubin (Negative) Urine Urobilinogen (0.2-1.0) Ur Leukocyte Esterase (Negative) Urine RBC (0-5) /hpf Urine WBC (0-5) /hpf Ur Epithelial Cells (0-5) /hpf Urine Bacteria (FEW) /hpf Fine Granular Casts (0-5) /lpf Urine Mucus (FEW) /hpf SARS-CoV-2 RNA ([facility]) Positive H (NEGATIVE) Blood Type 09/20/20 09/20/20 09/20/20 Range/Units 13:30 13:47 14:10 WBC (4.23-9.07) K/mm3 RBC (4.63-6.08) M/mm3 Hgb (13.7-17.5) gm/dl Hct (40.1-51.0) % MCV (79.0-92.2) fl MCH (25.7-32.2) pg MCHC (32.2-35.5) g/dl RDW Std Deviation (35.1-43.9) fL Plt Count (163-337) K/mm3 MPV (9.4-12.3) fl Neut % (Auto) (34.0-67.9) % Lymph % (Auto) (21.8-53.1) % [place] % (Auto) (5.3-12.2) % Eos % (Auto) (0.8-7.0) Baso % (Auto) (0.1-1.2) % Neut # (Auto) (1.78-5.38) K/mm3 Lymph # (Auto) (1.32-3.57) K/mm3 [place] # (Auto) (0.30-0.82) K/mm3 Eos # (Auto) (0.04-0.54) K/mm3 Baso # (Auto) (0.01-0.08) K/mm3 Manual Slide Review D-Dimer, Quantitative 1.06 H (0.19-0.50) mg/L Sodium (136-145) mEq/L Potassium (3.5-5.1) mEq/L Chloride (98-107) mEq/L Carbon Dioxide (21-32) mEq/L Anion Gap (5-15) BUN (7-18) mg/dL Creatinine (0.7-1.3) mg/dL Est Cr Clr Drug Dosing mL/min Estimated GFR (MDRD) (>60) mL/min BUN/Creatinine Ratio (14-18) Glucose (83-115) mg/dL Lactic Acid (0.4-2.0) mmol/L Calcium (8.5-10.1) mg/dL Ferritin (26-388) ng/ml Total Bilirubin (0.2-1.0) mg/dL AST (15-37) U/L ALT (16-63) U/L Alkaline Phosphatase (46-116) U/L Lactate Dehydrogenase (85-227) U/L Troponin I (0.00-0.056) ng/mL C-Reactive Protein (<1.0) mg/dL Total Protein (6.4-8.2) g/dl Albumin (3.4-5.0) g/dl Globulin gm/dL Albumin/Globulin Ratio (1-2) Urine Color Dark yellow (Yellow) Urine Appearance Clear (Clear) Urine pH 5.5 (5.0-8.0) Ur Specific [place] 1.020 (1.005-1.030) Urine Protein 1+ H (Negative) Urine Glucose (UA) Negative (Negative) Urine Ketones Trace H (Negative) Urine Occult Blood Negative (Negative) Urine Nitrite Negative (Negative) Urine Bilirubin Negative (Negative) Urine Urobilinogen 0.2 (0.2-1.0) Ur Leukocyte Esterase Negative (Negative) Urine RBC 0-5 (0-5) /hpf Urine WBC 0-5 (0-5) /hpf Ur Epithelial Cells Not seen (0-5) /hpf Urine Bacteria Many H (FEW) /hpf Fine Granular Casts 0-5 (0-5) /lpf Urine Mucus Few (FEW) /hpf SARS-CoV-2 RNA ([facility]) (NEGATIVE) Blood Type A POSITIVE 09/20/20 09/20/20 09/20/20 Range/Units 14:10 14:10 14:50 WBC (4.23-9.07) K/mm3 RBC (4.63-6.08) M/mm3 Hgb (13.7-17.5) gm/dl Hct (40.1-51.0) % MCV (79.0-92.2) fl MCH (25.7-32.2) pg MCHC (32.2-35.5) g/dl RDW Std Deviation (35.1-43.9) fL Plt Count (163-337) K/mm3 MPV (9.4-12.3) fl Neut % (Auto) (34.0-67.9) % Lymph % (Auto) (21.8-53.1) % [place] % (Auto) (5.3-12.2) % Eos % (Auto) (0.8-7.0) Baso % (Auto) (0.1-1.2) % Neut # (Auto) (1.78-5.38) K/mm3 Lymph # (Auto) (1.32-3.57) K/mm3 [place] # (Auto) (0.30-0.82) K/mm3 Eos # (Auto) (0.04-0.54) K/mm3 Baso # (Auto) (0.01-0.08) K/mm3 Manual Slide Review D-Dimer, Quantitative (0.19-0.50) mg/L Sodium (136-145) mEq/L Potassium (3.5-5.1) mEq/L Chloride (98-107) mEq/L Carbon Dioxide (21-32) mEq/L Anion Gap (5-15) BUN (7-18) mg/dL Creatinine (0.7-1.3) mg/dL Est Cr Clr Drug Dosing mL/min Estimated GFR (MDRD) (>60) mL/min BUN/Creatinine Ratio (14-18) Glucose (83-115) mg/dL Lactic Acid 1.7 (0.4-2.0) mmol/L Calcium (8.5-10.1) mg/dL Ferritin 1845 H (26-388) ng/ml Total Bilirubin (0.2-1.0) mg/dL AST (15-37) U/L ALT (16-63) U/L Alkaline Phosphatase (46-116) U/L Lactate Dehydrogenase 364 H (85-227) U/L Troponin I (0.00-0.056) ng/mL C-Reactive Protein (<1.0) mg/dL Total Protein (6.4-8.2) g/dl Albumin (3.4-5.0) g/dl Globulin gm/dL Albumin/Globulin Ratio (1-2) Urine Color (Yellow) Urine Appearance (Clear) Urine pH (5.0-8.0) Ur Specific [place] (1.005-1.030) Urine Protein (Negative) Urine Glucose (UA) (Negative) Urine Ketones (Negative) Urine Occult Blood (Negative) Urine Nitrite (Negative) Urine Bilirubin (Negative) Urine Urobilinogen (0.2-1.0) Ur Leukocyte Esterase (Negative) Urine RBC (0-5) /hpf Urine WBC (0-5) /hpf Ur Epithelial Cells (0-5) /hpf Urine Bacteria (FEW) /hpf Fine Granular Casts (0-5) /lpf Urine Mucus (FEW) /hpf SARS-CoV-2 RNA ([facility]) (NEGATIVE) Blood Type 09/21/20 09/21/20 09/21/20 Range/Units 05:46 05:46 05:46 WBC 5.87 (4.23-9.07) K/mm3 RBC 4.48 L (4.63-6.08) M/mm3 Hgb 13.8 D (13.7-17.5) gm/dl Hct 40.3 (40.1-51.0) % MCV 90.0 (79.0-92.2) fl MCH 30.8 (25.7-32.2) pg MCHC 34.2 (32.2-35.5) g/dl RDW Std Deviation 44.8 H (35.1-43.9) fL Plt Count 169 (163-337) K/mm3 MPV 10.1 (9.4-12.3) fl Neut % (Auto) 86.1 H (34.0-67.9) % Lymph % (Auto) 7.7 L (21.8-53.1) % [place] % (Auto) 5.6 (5.3-12.2) % Eos % (Auto) 0.2 L (0.8-7.0) Baso % (Auto) 0.2 (0.1-1.2) % Neut # (Auto) 5.06 (1.78-5.38) K/mm3 Lymph # (Auto) 0.45 L (1.32-3.57) K/mm3 [place] # (Auto) 0.33 (0.30-0.82) K/mm3 Eos # (Auto) 0.01 L (0.04-0.54) K/mm3 Baso # (Auto) 0.01 (0.01-0.08) K/mm3 Manual Slide Review Abnormal smear D-Dimer, Quantitative 0.92 H (0.19-0.50) mg/L Sodium 139 (136-145) mEq/L Potassium 3.7 (3.5-5.1) mEq/L Chloride 106 (98-107) mEq/L Carbon Dioxide 22 (21-32) mEq/L Anion Gap 14.7 (5-15) BUN 24 H (7-18) mg/dL Creatinine 1.1 (0.7-1.3) mg/dL Est Cr Clr Drug Dosing 52.03 mL/min Estimated GFR (MDRD) > 60 (>60) mL/min BUN/Creatinine Ratio 21.8 H (14-18) Glucose 130 H (83-115) mg/dL Lactic Acid (0.4-2.0) mmol/L Calcium 8.5 (8.5-10.1) mg/dL Ferritin (26-388) ng/ml Total Bilirubin 1.2 H (0.2-1.0) mg/dL AST 34 (15-37) U/L ALT 29 (16-63) U/L Alkaline Phosphatase 61 (46-116) U/L Lactate Dehydrogenase 306 H (85-227) U/L Troponin I (0.00-0.056) ng/mL C-Reactive Protein 6.6 H* (<1.0) mg/dL Total Protein 6.2 L (6.4-8.2) g/dl Albumin 2.7 L (3.4-5.0) g/dl Globulin 3.5 gm/dL Albumin/Globulin Ratio 0.8 L (1-2) Urine Color (Yellow) Urine Appearance (Clear) Urine pH (5.0-8.0) Ur Specific [place] (1.005-1.030) Urine Protein (Negative) Urine Glucose (UA) (Negative) Urine Ketones (Negative) Urine Occult Blood (Negative) Urine Nitrite (Negative) Urine Bilirubin (Negative) Urine Urobilinogen (0.2-1.0) Ur Leukocyte Esterase (Negative) Urine RBC (0-5) /hpf Urine WBC (0-5) /hpf Ur Epithelial Cells (0-5) /hpf Urine Bacteria (FEW) /hpf Fine Granular Casts (0-5) /lpf Urine Mucus (FEW) /hpf SARS-CoV-2 RNA ([facility]) (NEGATIVE) Blood Type 09/21/20 Range/Units 05:46 WBC (4.23-9.07) K/mm3 RBC (4.63-6.08) M/mm3 Hgb (13.7-17.5) gm/dl Hct (40.1-51.0) % MCV (79.0-92.2) fl MCH (25.7-32.2) pg MCHC (32.2-35.5) g/dl RDW Std Deviation (35.1-43.9) fL Plt Count (163-337) K/mm3 MPV (9.4-12.3) fl Neut % (Auto) (34.0-67.9) % Lymph % (Auto) (21.8-53.1) % [place] % (Auto) (5.3-12.2) % Eos % (Auto) (0.8-7.0) Baso % (Auto) (0.1-1.2) % Neut # (Auto) (1.78-5.38) K/mm3 Lymph # (Auto) (1.32-3.57) K/mm3 [place] # (Auto) (0.30-0.82) K/mm3 Eos # (Auto) (0.04-0.54) K/mm3 Baso # (Auto) (0.01-0.08) K/mm3 Manual Slide Review D-Dimer, Quantitative (0.19-0.50) mg/L Sodium (136-145) mEq/L Potassium (3.5-5.1) mEq/L Chloride (98-107) mEq/L Carbon Dioxide (21-32) mEq/L Anion Gap (5-15) BUN (7-18) mg/dL Creatinine (0.7-1.3) mg/dL Est Cr Clr Drug Dosing mL/min Estimated GFR (MDRD) (>60) mL/min BUN/Creatinine Ratio (14-18) Glucose (83-115) mg/dL Lactic Acid (0.4-2.0) mmol/L Calcium (8.5-10.1) mg/dL Ferritin 1551 H (26-388) ng/ml Total Bilirubin (0.2-1.0) mg/dL AST (15-37) U/L ALT (16-63) U/L Alkaline Phosphatase (46-116) U/L Lactate Dehydrogenase (85-227) U/L Troponin I (0.00-0.056) ng/mL C-Reactive Protein (<1.0) mg/dL Total Protein (6.4-8.2) g/dl Albumin (3.4-5.0) g/dl Globulin gm/dL Albumin/Globulin Ratio (1-2) Urine Color (Yellow) Urine Appearance (Clear) Urine pH (5.0-8.0) Ur Specific [place] (1.005-1.030) Urine Protein (Negative) Urine Glucose (UA) (Negative) Urine Ketones (Negative) Urine Occult Blood (Negative) Urine Nitrite (Negative) Urine Bilirubin (Negative) Urine Urobilinogen (0.2-1.0) Ur Leukocyte Esterase (Negative) Urine RBC (0-5) /hpf Urine WBC (0-5) /hpf Ur Epithelial Cells (0-5) /hpf Urine Bacteria (FEW) /hpf Fine Granular Casts (0-5) /lpf Urine Mucus (FEW) /hpf SARS-CoV-2 RNA ([facility]) (NEGATIVE) Blood Type Med Orders - Current: Current Medications Allopurinol (Zyloprim) 100 mg PO DAILY [facility] Last Admin: 09/21/20 09:04 Dose: 100 mg Documented by: Aspirin (Halfprin) 81 mg PO DAILY [facility] Last Admin: 09/21/20 09:06 Dose: 81 mg Documented by: Dexamethasone (Dexamethasone) 6 mg PO DAILY [facility] Stop: 09/30/20 09:01 Last Admin: 09/21/20 09:04 Dose: 6 mg Documented by: Sodium Chloride (Normal Saline) 1,000 mls @ 1,000 mls/hr IV .BOLUS [facility] Last Admin: 09/20/20 13:40 Dose: 1,000 mls/hr Documented by: Sodium Chloride (Normal Saline) 1,000 mls @ 75 mls/hr IV ASDIRECTED [facility] Last Admin: 09/20/20 17:15 Dose: 75 mls/hr Documented by: Remdesivir 100 mg/ Sodium (Chloride) 100 mls @ 100 mls/hr IV Q24H [facility] Stop: 09/24/20 15:59 Metoprolol Tartrate (Lopressor) 25 mg PO BID [facility] Last Admin: 09/21/20 09:21 Dose: Not Given Documented by: Pantoprazole Sodium (Protonix Iv) 40 mg .XX DAILY [facility] Last Admin: 09/21/20 09:05 Dose: 40 mg Documented by: Sertraline HCl (Zoloft) 50 mg PO DAILY [facility] Last Admin: 09/21/20 09:03 Dose: 50 mg Documented by: Simvastatin (Zocor) 40 mg PO DAILY [facility] Last Admin: 09/21/20 09:13 Dose: 40 mg Documented by: Sodium Chloride (Saline Flush) 10 ml FLUSH ASDIRECTED PRN PRN Reason: Keep Vein Open Last Admin: 09/20/20 13:41 Dose: 10 ml Documented by: Discontinued Medications Acetaminophen (Tylenol) 650 mg PO ONCALL ONE Stop: 09/20/20 19:11 Last Admin: 09/20/20 21:36 Dose: 650 mg Documented by: Dexamethasone (Decadron) 6 mg IVPUSH ONETIME ONE Stop: 09/20/20 14:23 Last Admin: 09/20/20 15:01 Dose: 6 mg Documented by: Dexamethasone (Decadron) Confirm Administered Dose 4 mg .ROUTE .STK-MED ONE Stop: 09/20/20 15:01 Last Admin: 09/20/20 15:07 Dose: Not Given Documented by: Diphenhydramine HCl (Benadryl) 25 mg PO ONCALL ONE Stop: 09/20/20 19:11 Last Admin: 09/20/20 21:37 Dose: 25 mg Documented by: Remdesivir 200 mg/ Sodium (Chloride) 250 mls @ 250 mls/hr IV ONETIME ONE Stop: 09/20/20 14:23 Last Admin: 09/20/20 15:06 Dose: 250 mls/hr Documented by: Potassium Chloride 10 meq/ (Premix) 100 mls @ 100 mls/hr IV Q1H [facility] Stop: 09/20/20 19:59 Last Admin: 09/20/20 20:16 Dose: 100 mls/hr Documented by: Remdesivir 100 mg/ Sodium (Chloride) 100 mls @ 100 mls/hr IV DAILY [facility] Stop: 09/24/20 09:59 - Exam Quality Assessment: Supplemental Oxygen (2L ), DVT Prophylaxis General: Alert, Oriented, Cooperative, No Acute Distress HEENT: Pupils Equal, Pupils Reactive, Mucous Membr. Moist/[place] Neck: Supple, Trachea Midline Lungs: Normal Respiratory Effort, Decreased Breath Sounds Cardiovascular: Regular Rhythm, Bradycardia GI/Abdominal Exam: Normal Bowel Sounds, Soft, Non-Tender, No Distention (Male) Exam: Deferred Back Exam: Normal Inspection, Full Range of Motion Extremities: Normal Inspection, Normal Range of Motion, Non-Tender, No Pedal Edema, Normal Capillary Refill Skin: Warm, Dry, Intact Neurological: No New Focal Deficit Psy/Mental Status: Alert. No: Normal Affect (Flat ) Sepsis Event Note - Evaluation Sepsis Screening Result: No Definite Risk - Focused Exam Vital Signs: Vital Signs Temp Temp Pulse Pulse Resp BP Pulse Ox 09/21/20 09:21 44 L 09/21/20 04:00 96.1 F L 49 L 20 146/74 H 95 09/20/20 22:29 97.0 F 44 L 18 110/66 - Problem List & Annotations (1) COVID-19 SNOMED Code(s): 702567692 Code(s): U07.1 - COVID-19 Status: Acute Priority: High Current Visit: Yes Onset Date: ~09/12/20 (2) Confusion SNOMED Code(s): 985044705 Code(s): R41.0 - DISORIENTATION, UNSPECIFIED Status: Acute Priority: Low Current Visit: Yes Onset Date: ~09/20/20 (3) Hypokalemia SNOMED Code(s): 60257375 Code(s): E87.6 - HYPOKALEMIA Status: Resolved Priority: Medium Current Visit: Yes Onset Date: ~09/20/20 (4) Hyponatremia SNOMED Code(s): 66567167 Code(s): E87.1 - HYPO-OSMOLALITY AND HYPONATREMIA Status: Resolved Priority: High Current Visit: Yes (5) Hypoxia SNOMED Code(s): 261872290 Code(s): R09.02 - HYPOXEMIA Status: Acute Priority: High Current Visit: Yes Onset Date: ~09/20/20 (6) Pneumonia due to COVID-19 virus SNOMED Code(s): 660514452289239580 Code(s): U07.1 - COVID-19; J12.89 - OTHER VIRAL PNEUMONIA Status: Acute Priority: High Current Visit: Yes (7) Renal insufficiency SNOMED Code(s): 858523246, 879240545 Code(s): N28.9 - DISORDER OF KIDNEY AND URETER, UNSPECIFIED Status: Resolved Priority: Medium Current Visit: Yes Onset Date: ~09/20/20 (8) Generalized weakness SNOMED Code(s): 75299454 Code(s): R53.1 - WEAKNESS Status: Acute Priority: High Current Visit: Yes (9) Bradycardia SNOMED Code(s): 77201210 Code(s): R00.1 - BRADYCARDIA, UNSPECIFIED Status: Acute Priority: High Current Visit: Yes (10) Urine retention SNOMED Code(s): 975100346 Code(s): R33.9 - RETENTION OF URINE, UNSPECIFIED Status: Acute Priority: High Current Visit: Yes - Problem List Review Problem List Initiated/Reviewed/Updated: Yes - Assessment Assessment:: 09/21/2020 * Electrolytes back WNL * D-Dimer 0.92 (improved) * CRP 6.6 * Given convalescent plasma on 09/20/2020 * Requiring 2L oxygen via NC * HR in 40's * Will decrease home metoprolol dosing * Noted to have over 1L of urine retention overnight and straight catheterized * Starting flomax * Bladder scans as needed * Patient reports often only voids once a day * No patient or nursing concerns * Reports he feels better, but still weak * Continue current treatment plan and monitor HR - Plan Plan:: COVID-19 - diagnosed 09/20/20 in ED Hypoxia Confusion Generalized Weakness * Given convalescent plasma on 09/20/2020 * Dexamethasone 6mg - day 11/19 * Remdesivir day 2/ * Acapella/IS * Consult RT * CM/SW consult * PT/OT * Consult mercury recoverer * Ambulate around room when able * Encourage proning * PRN Tylenol for fever/pain * Monitor daily labs * D-Dimer Q48 hr * Check Vitamin D, BNP, phosphorous tomorrow * Blood cultures pending * Airborne/contact precautions * Oxygen as needed with goal saturations between 88-94% Bradycardia * Decrease dosing of Metoprolol and monitor * Telemetry Urine retention * Bladder scan as needed * Start flomax * Monitor need for dale caterer * Consider urology follow-up at discharge * UA obtained in ED - Awaiting urine culture Hypokalemia, resolved Hyponatremia, resolved Renal insufficiency, resolved PCP: Dr. Carlisle Code status: DVT prophylaxis: Lovenox GI prophylaxis: Home PPI Social: Patient lives with spouse in an apartment on [address] here in [place] Disposition: Admitted to ICU as [facility] overflow for treatment of COVID-19 and electrolyte abnormalities. LOS >96 hrs anticipated due to duration of treatment. Prognosis: Good
[2020-09-21] MEDS ORDERED: Acetaminophen 325 MG Tab PO PRN (10:01)
[2020-09-21] MEDS: Enoxaparin 40 MG/0.4 ML Syringe SUBCUT SCH (11:10)
[2020-09-21] MEDS ORDERED: Metoprolol Tartrate 25 MG Tab PO SCH (11:30)
[2020-09-21] MEDS ORDERED: Tamsulosin 0.4 MG Cap.ER PO ONE (11:34)
[2020-09-21] MEDS: REMDESIVIR 100 MG in Sodium Chloride 0.9% 100 ML IV SCH (15:29)
[2020-09-21] MEDS ORDERED: Famotidine 20 MG Tab PO SCH (21:00)
[2020-09-22] MEDS: Aspirin 81 MG Tab.EC PO SCH (09:00)
[2020-09-22] MEDS: Dexamethasone 4 MG Tab PO SCH (09:01)
[2020-09-22] MEDS: Simvastatin 40 MG Tab PO SCH (09:01)
[2020-09-22] MEDS: Pantoprazole 40 MG Tab.CR PO SCH (09:02)
[2020-09-22] MEDS: Allopurinol 100 MG Tab PO SCH (09:02)
[2020-09-22] MEDS: Sertraline 50 MG Tab PO SCH (09:03)
[2020-09-22] MEDS: Enoxaparin 40 MG/0.4 ML Syringe SUBCUT SCH (09:03)
[2020-09-22 09:22] LABS: VITAMIN D,25-HYDROXY 16.1 ng/ml (30.0-100.0)
[2020-09-22] MEDS ORDERED: Tamsulosin 0.4 MG Cap.ER PO SCH (10:00)
--- NOTE | 2020-09-22 11:22 | CR ---
Chest: Portable view of the chest was obtained. Comparison: Prior CT abdomen partially showing the lung bases dated 09/20/20 and chest x-ray of 09/20/20. Increasing density is noted within the right upper and left upper lung. Slight density within both lung bases. Heart size and mediastinum are stable. Prior sternotomy is noted. Bony structures are grossly intact. Impression: 1. Increasing parenchymal densities on both sides of the chest raising the possibility of COVID pneumonia. Diagnostic code #3
[2020-09-22] MEDS: Potassium Chloride 20 MEQ Tab.ER PO SCH ×3 (11:24→17:51)
[2020-09-22] MEDS: Cholecalciferol (Vitamin D3) 5,000 UNIT Cap PO SCH (13:18)
--- NOTE | 2020-09-22 15:31 | PCM.PN ---
- General Info Date of Service: 09/22/20 Admission Dx/Problem (Free Text): Admission Diagnosis/Problem Admission Diagnosis/Problem Pneumonia/covid /weakness/anorexia Subjective Update: Patient denies having any complaints. States he feels well denies cough shortness of breath, nausea vomiting, diarrhea, or loss of taste or smell. Has been using his incentive spirometer. Arizmendi catheter was placed last evening due to patient's residual urine of around 1400 mL and inability to void. Patient will likely need to see urology as an outpatient. Reports to me that he may be only voids once a day when at home, and does not ever feel the urge to go. States when he does feel the urge and cannot void it does not bother him and that he just goes to watch TV. Functional Status: Reports: Pain Controlled, Tolerating Diet, Ambulating, Incentive Spirometry. Denies: Urinating (Arizmendi catheter) - Review of Systems General: Reports: No Symptoms HEENT: Reports: No Symptoms Pulmonary: Reports: No Symptoms. Denies: Shortness of Breath, Pleuritic Chest Pain, Cough, Sputum, Wheezing Cardiovascular: Reports: No Symptoms Gastrointestinal: Reports: No Symptoms Genitourinary: Reports: Retention Musculoskeletal: Reports: No Symptoms Skin: Reports: No Symptoms Neurological: Reports: No Symptoms Psychiatric: Reports: No Symptoms - Patient Data Vitals - Most Recent: Last Vital Signs Temp 97.3 F 09/22/20 10:00 Pulse 68 09/22/20 10:00 Resp 25 H 09/22/20 10:00 BP 132/69 09/22/20 10:00 Pulse Ox 95 09/22/20 10:00 Weight - Most Recent: 177 lb I&O - Last 24 Hours: Intake & Output 09/22/20 09/22/20 09/22/20 06:59 14:59 22:59 Intake Total 120 Output Total 750 525 Balance -750 -405 Lab Results Last 24 Hours: Laboratory Results - last 24 hr 09/22/20 09/22/20 09/22/20 Range/Units 05:24 05:24 05:24 WBC 11.29 H (4.23-9.07) K/mm3 RBC 4.38 L (4.63-6.08) M/mm3 Hgb 13.6 L (13.7-17.5) gm/dl Hct 39.2 L (40.1-51.0) % MCV 89.5 (79.0-92.2) fl MCH 31.1 (25.7-32.2) pg MCHC 34.7 (32.2-35.5) g/dl RDW Std Deviation 44.3 H (35.1-43.9) fL Plt Count 202 (163-337) K/mm3 MPV 10.7 (9.4-12.3) fl Neut % (Auto) 89.9 H (34.0-67.9) % Lymph % (Auto) 4.8 L (21.8-53.1) % [place] % (Auto) 5.0 L (5.3-12.2) % Eos % (Auto) 0 L (0.8-7.0) Baso % (Auto) 0.1 (0.1-1.2) % Neut # (Auto) 10.16 H (1.78-5.38) K/mm3 Lymph # (Auto) 0.54 L (1.32-3.57) K/mm3 [place]ctor # (Auto) 0.56 (0.30-0.82) K/mm3 Eos # (Auto) 0.00 L (0.04-0.54) K/mm3 Baso # (Auto) 0.01 (0.01-0.08) K/mm3 Manual Slide Review Abnormal smear Sodium 137 (136-145) mEq/L Potassium 3.2 L (3.5-5.1) mEq/L Chloride 106 (98-107) mEq/L Carbon Dioxide 21 (21-32) mEq/L Anion Gap 13.2 (5-15) BUN 23 H (7-18) mg/dL Creatinine 1.1 (0.7-1.3) mg/dL Est Cr Clr Drug Dosing 52.03 mL/min Estimated GFR (MDRD) > 60 (>60) mL/min BUN/Creatinine Ratio 20.9 H (14-18) Glucose 119 H (83-115) mg/dL Calcium 8.4 L (8.5-10.1) mg/dL Phosphorus 2.1 L (2.6-4.7) mg/dL Magnesium 2.1 (1.8-2.4) mg/dl Total Bilirubin 0.8 (0.2-1.0) mg/dL AST 31 (15-37) U/L ALT 25 (16-63) U/L Alkaline Phosphatase 51 (46-116) U/L C-Reactive Protein 3.7 H* (<1.0) mg/dL NT-Pro-B Natriuret Pep 1278 H (0-125) pg/mL Total Protein 5.8 L (6.4-8.2) g/dl Albumin 2.5 L (3.4-5.0) g/dl Globulin 3.3 gm/dL Albumin/Globulin Ratio 0.8 L (1-2) Vitamin D 25-Hydroxy 16.1 L (30.0-100.0) ng/ml Harsha Results Last 24 Hours: Microbiology 09/20/20 15:00 Aerobic Blood Culture - Preliminary Blood - Venous - Lab Draw NO GROWTH AFTER 2 DAYS Anaerobic Blood Culture - Preliminary NO GROWTH AFTER 2 DAYS 09/20/20 14:50 Aerobic Blood Culture - Preliminary Blood - Venous NO GROWTH AFTER 2 DAYS Anaerobic Blood Culture - Preliminary NO GROWTH AFTER 2 DAYS 09/20/20 14:56 Urine Culture - Final Urine, Catheterized NO GROWTH AFTER 2 DAYS Med Orders - Current: Current Medications Acetaminophen (Tylenol) 650 mg PO Q6H PRN PRN Reason: Fever/pain Allopurinol (Zyloprim) 100 mg PO DAILY [facility] Last Admin: 09/22/20 09:02 Dose: 100 mg Documented by: Aspirin (Halfprin) 81 mg PO DAILY [facility] Last Admin: 09/22/20 09:00 Dose: 81 mg Documented by: Cholecalciferol (Vitamin D3) 5,000 unit PO DAILY [facility] Last Admin: 09/22/20 13:18 Dose: 5,000 unit Documented by: Dexamethasone (Dexamethasone) 6 mg PO DAILY [facility] Stop: 09/29/20 09:01 Last Admin: 09/22/20 09:01 Dose: 6 mg Documented by: Enoxaparin Sodium (Lovenox) 40 mg SUBCUT DAILY [facility] Last Admin: 09/22/20 09:03 Dose: 40 mg Documented by: Sodium Chloride (Normal Saline) 1,000 mls @ 1,000 mls/hr IV .BOLUS [facility] Last Admin: 09/20/20 13:40 Dose: 1,000 mls/hr Documented by: Remdesivir 100 mg/ Sodium (Chloride) 100 mls @ 100 mls/hr IV Q24H [facility] Stop: 09/24/20 15:59 Last Admin: 09/21/20 15:29 Dose: 100 mls/hr Documented by: Pantoprazole Sodium (Protonix) 40 mg PO DAILY [facility] Last Admin: 09/22/20 09:02 Dose: 40 mg Documented by: Potassium Chloride (Klor-Con M20) 40 meq PO Q4H [facility] Stop: 09/22/20 17:16 Last Admin: 09/22/20 13:18 Dose: 40 meq Documented by: Sertraline HCl (Zoloft) 50 mg PO DAILY [facility] Last Admin: 09/22/20 09:03 Dose: 50 mg Documented by: Simvastatin (Zocor) 40 mg PO DAILY [facility] Last Admin: 09/22/20 09:01 Dose: 40 mg Documented by: Sodium Chloride (Saline Flush) 10 ml FLUSH ASDIRECTED PRN PRN Reason: Keep Vein Open Last Admin: 09/20/20 13:41 Dose: 10 ml Documented by: Tamsulosin HCl (Flomax) 0.4 mg PO PCBREAKFAST [facility] Last Admin: 09/22/20 09:02 Dose: 0.4 mg Documented by: Discontinued Medications Acetaminophen (Tylenol) 650 mg PO ONCALL ONE Stop: 09/20/20 19:11 Last Admin: 09/20/20 21:36 Dose: 650 mg Documented by: Dexamethasone (Decadron) 6 mg IVPUSH ONETIME ONE Stop: 09/20/20 14:23 Last Admin: 09/20/20 15:01 Dose: 6 mg Documented by: Dexamethasone (Decadron) Confirm Administered Dose 4 mg .ROUTE .STK-MED ONE Stop: 09/20/20 15:01 Last Admin: 09/20/20 15:07 Dose: Not Given Documented by: Diphenhydramine HCl (Benadryl) 25 mg PO ONCALL ONE Stop: 09/20/20 19:11 Last Admin: 09/20/20 21:37 Dose: 25 mg Documented by: Famotidine (Pepcid) 20 mg PO BID [facility] Remdesivir 200 mg/ Sodium (Chloride) 250 mls @ 250 mls/hr IV ONETIME ONE Stop: 09/20/20 14:23 Last Admin: 09/20/20 15:06 Dose: 250 mls/hr Documented by: Potassium Chloride 10 meq/ (Premix) 100 mls @ 100 mls/hr IV Q1H [facility] Stop: 09/20/20 19:59 Last Admin: 09/20/20 20:16 Dose: 100 mls/hr Documented by: Sodium Chloride (Normal Saline) 1,000 mls @ 75 mls/hr IV ASDIRECTED [facility] Last Admin: 09/20/20 17:15 Dose: 75 mls/hr Documented by: Remdesivir 100 mg/ Sodium (Chloride) 100 mls @ 100 mls/hr IV DAILY [facility] Stop: 09/24/20 09:59 Metoprolol Tartrate (Lopressor) 25 mg PO BID [facility] Last Admin: 09/21/20 09:21 Dose: Not Given Documented by: Metoprolol Tartrate (Lopressor) 12.5 mg PO Q12H [facility] Last Admin: 09/21/20 12:46 Dose: Not Given Documented by: Pantoprazole Sodium (Protonix Iv) 40 mg .XX DAILY [facility] Last Admin: 09/21/20 09:05 Dose: 40 mg Documented by: Tamsulosin HCl (Flomax) 0.4 mg PO ONETIME ONE Stop: 09/21/20 11:35 Last Admin: 09/21/20 12:19 Dose: 0.4 mg Documented by: - Exam Quality Assessment: Supplemental Oxygen (2 L per nasal cannula), Urine Catheter, DVT Prophylaxis (Lovenox) General: Alert, Oriented, Cooperative, No Acute Distress HEENT: Pupils Equal, Pupils Reactive, Mucous Membr. Moist/[place] Neck: Supple, Trachea Midline. No: Lymphadenopathy Lungs: Normal Respiratory Effort, Decreased Breath Sounds Cardiovascular: Regular Rate, Regular Rhythm, No Murmurs GI/Abdominal Exam: Normal Bowel Sounds, Soft, Non-Tender, No Distention (Male) Exam: Deferred Back Exam: Normal Inspection, Full Range of Motion Extremities: Normal Inspection, Normal Range of Motion, Non-Tender, No Pedal Edema, Normal Capillary Refill Peripheral Pulses: 2+: Radial (L), Radial (R), Dorsalis Pedis (L), Dorsalis Pedis (R) Skin: Warm, Dry, Intact Neurological: No New Focal Deficit Psy/Mental Status: Alert, Normal Affect, Normal Mood Sepsis Event Note - Evaluation Sepsis Screening Result: No Definite Risk - Focused Exam Vital Signs: Vital Signs Temp Pulse Resp BP Pulse Ox 09/22/20 10:00 97.3 F 68 25 H 132/69 95 09/22/20 04:00 97.3 F 18 124/70 92 L - Problem List & Annotations (1) COVID-19 SNOMED Code(s): 678080869 Code(s): U07.1 - COVID-19 Status: Acute Priority: High Current Visit: Yes Onset Date: ~09/12/20 (2) Confusion SNOMED Code(s): 358473378 Code(s): R41.0 - DISORIENTATION, UNSPECIFIED Status: Acute Priority: Low Current Visit: Yes Onset Date: ~09/20/20 (3) Generalized weakness SNOMED Code(s): 91184148 Code(s): R53.1 - WEAKNESS Status: Acute Priority: High Current Visit: Yes (4) Hypoxia SNOMED Code(s): 282742258 Code(s): R09.02 - HYPOXEMIA Status: Acute Priority: High Current Visit: Yes Onset Date: ~09/20/20 (5) Pneumonia due to COVID-19 virus SNOMED Code(s): 382702536466460976 Code(s): U07.1 - COVID-19; J12.89 - OTHER VIRAL PNEUMONIA Status: Acute Priority: High Current Visit: Yes (6) Urine retention SNOMED Code(s): 706016366 Code(s): R33.9 - RETENTION OF URINE, UNSPECIFIED Status: Acute Priority: High Current Visit: Yes (7) Hypokalemia SNOMED Code(s): 15714384 Code(s): E87.6 - HYPOKALEMIA Status: Resolved Priority: Medium Current Visit: Yes Onset Date: ~09/20/20 (8) Hyponatremia SNOMED Code(s): 05079613 Code(s): E87.1 - HYPO-OSMOLALITY AND HYPONATREMIA Status: Resolved Priority: High Current Visit: Yes (9) Renal insufficiency SNOMED Code(s): 638610124, 181327021 Code(s): N28.9 - DISORDER OF KIDNEY AND URETER, UNSPECIFIED Status: Resolved Priority: Medium Current Visit: Yes Onset Date: ~09/20/20 - Problem List Review Problem List Initiated/Reviewed/Updated: Yes - My Orders Last 24 Hours: My Active Orders 09/22/20 05:24 PROCALCITONIN [REF] Stat 09/22/20 09:15 Potassium Chloride [Klor-Con M20] 40 meq PO Q4H 09/22/20 12:45 Cholecalciferol (Vitamin D3) [Vitamin D3] 5,000 unit PO DAILY - Assessment Assessment:: 09/21/2020 * Electrolytes back WNL * D-Dimer 0.92 (improved) * CRP 6.6 * Given convalescent plasma on 09/20/2020 * Requiring 2L oxygen via [place] * HR in 40's * Will decrease home metoprolol dosing * Noted to have over 1L of urine retention overnight and straight catheterized * Starting flomax * Bladder scans as needed * Patient reports often only voids once a day * No patient or nursing concerns * Reports he feels better, but still weak * Continue current treatment plan and monitor HR 09/22/2020 * Electrolytes back WNL * Given convalescent plasma on 09/20/2020 * Requiring 2L oxygen via [place] * Arizmendi catheter placed over night due to urinary retention * Starting flomax * will need to see urology as an outpatient * Patient reports often only voids once a day * No patient or nursing concerns * Reports he feels better, but still weak * Continue current treatment plan and monitor HR * K+ 3.2 * Vitamin D level 16.1 * HR in the 50's - Plan Plan:: COVID-19 - diagnosed 09/20/20 in ED Hypoxia Confusion Generalized Weakness * Given convalescent plasma on 09/20/2020 * Dexamethasone 6mg - day 12/17 * Remdesivir day 3 * Acapella/IS * Consult RT * CM/SW consult * PT/OT * 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 Carlisle Code status: DVT prophylaxis: Lovenox GI prophylaxis: Home PPI Social: Patient lives with spouse in an apartment on [address] [place] Disposition: Admitted to ICU as [facility] overflow for treatment of COVID-19 and electrolyte abnormalities. LOS >96 hrs anticipated due to duration of treatment. Prognosis: Good
[2020-09-22] MEDS: REMDESIVIR 100 MG in Sodium Chloride 0.9% 100 ML IV SCH (16:03)
--- NOTE | 2020-09-23 07:39 | PCM.PN ---
- General Info Date of Service: 09/23/20 Admission Dx/Problem (Free Text): Admission Diagnosis/Problem Admission Diagnosis/Problem Pneumonia/covid /weakness/anorexia Subjective Update: In to see John. He reports he feels pretty good. He remains on 3L of oxygen. He has been utilizing his IS and acapella. WBC is 9.8 today. D-Dimer is 1.72. CRP is 2.8. Procalcitonin was 0.10. Will continue current treatment plan. Functional Status: Reports: Pain Controlled, Tolerating Diet, Ambulating, Urinating, Incentive Spirometry, Other (Acapella ). Denies: New Symptoms - Review of Systems General: Reports: No Symptoms. Denies: Fever, Weakness, Fatigue, Malaise, Chills HEENT: Reports: No Symptoms. Denies: Headaches, Sore Throat Pulmonary: Reports: No Symptoms. Denies: Shortness of Breath, Cough, Sputum, Wheezing Cardiovascular: Reports: No Symptoms. Denies: Chest Pain, Palpitations, Dyspnea on Exertion, Edema Gastrointestinal: Reports: No Symptoms. Denies: Abdominal Pain, Constipation, Diarrhea, Nausea, Vomiting Genitourinary: Reports: No Symptoms. Denies: Pain Musculoskeletal: Reports: No Symptoms Skin: Reports: No Symptoms. Denies: Cyanosis Neurological: Reports: No Symptoms. Denies: Confusion, Difficulty Walking, Weakness, Gait Disturbance Psychiatric: Reports: No Symptoms - Patient Data Vitals - Most Recent: Last Vital Signs Temp 98.7 F 09/23/20 03:39 Pulse 63 09/23/20 03:39 Resp 24 H 09/23/20 03:39 BP 135/94 H 09/23/20 03:39 Pulse Ox 95 09/23/20 06:25 Weight - Most Recent: 175 lb 1 oz I&O - Last 24 Hours: Intake & Output 09/22/20 09/23/20 09/23/20 22:59 06:59 14:59 Intake Total 220 400 Output Total 810 700 Balance -590 -300 Lab Results Last 24 Hours: Laboratory Results - last 24 hr 09/22/20 09/22/20 09/22/20 Range/Units 05:24 05:24 05:24 WBC (4.23-9.07) K/mm3 RBC (4.63-6.08) M/mm3 Hgb (13.7-17.5) gm/dl Hct (40.1-51.0) % MCV (79.0-92.2) fl MCH (25.7-32.2) pg MCHC (32.2-35.5) g/dl RDW Std Deviation (35.1-43.9) fL Plt Count (163-337) K/mm3 MPV (9.4-12.3) fl Neut % (Auto) (34.0-67.9) % Lymph % (Auto) (21.8-53.1) % Archuleta % (Auto) (5.3-12.2) % Eos % (Auto) (0.8-7.0) Baso % (Auto) (0.1-1.2) % Neut # (Auto) (1.78-5.38) K/mm3 Lymph # (Auto) (1.32-3.57) K/mm3 Archuleta # (Auto) (0.30-0.82) K/mm3 Eos # (Auto) (0.04-0.54) K/mm3 Baso # (Auto) (0.01-0.08) K/mm3 Manual Slide Review Sodium (136-145) mEq/L Potassium (3.5-5.1) mEq/L Chloride (98-107) mEq/L Carbon Dioxide (21-32) mEq/L Anion Gap (5-15) BUN (7-18) mg/dL Creatinine (0.7-1.3) mg/dL Est Cr Clr Drug Dosing mL/min Estimated GFR (MDRD) (>60) mL/min BUN/Creatinine Ratio (14-18) Glucose (83-115) mg/dL Calcium (8.5-10.1) mg/dL Magnesium (1.8-2.4) mg/dl Total Bilirubin (0.2-1.0) mg/dL AST (15-37) U/L ALT (16-63) U/L Alkaline Phosphatase (46-116) U/L C-Reactive Protein (<1.0) mg/dL NT-Pro-B Natriuret Pep 1278 H (0-125) pg/mL Total Protein (6.4-8.2) g/dl Albumin (3.4-5.0) g/dl Globulin gm/dL Albumin/Globulin Ratio (1-2) Vitamin D 25-Hydroxy 16.1 L (30.0-100.0) ng/ml Procalcitonin 0.10 H ng/mL 09/23/20 09/23/20 Range/Units 04:52 04:52 WBC 9.08 H (4.23-9.07) K/mm3 RBC 4.64 (4.63-6.08) M/mm3 Hgb 14.4 (13.7-17.5) gm/dl Hct 41.9 (40.1-51.0) % MCV 90.3 (79.0-92.2) fl MCH 31.0 (25.7-32.2) pg MCHC 34.4 (32.2-35.5) g/dl RDW Std Deviation 45.7 H (35.1-43.9) fL Plt Count 232 (163-337) K/mm3 MPV 10.6 (9.4-12.3) fl Neut % (Auto) 84.2 H (34.0-67.9) % Lymph % (Auto) 7.0 L (21.8-53.1) % Archule[place] % (Auto) 8.0 (5.3-12.2) % Eos % (Auto) 0 L (0.8-7.0) Baso % (Auto) 0.1 (0.1-1.2) % Neut # (Auto) 7.64 H (1.78-5.38) K/mm3 Lymph # (Auto) 0.64 L (1.32-3.57) K/mm3 Archuleta # (Auto) 0.73 (0.30-0.82) K/mm3 Eos # (Auto) 0.00 L (0.04-0.54) K/mm3 Baso # (Auto) 0.01 (0.01-0.08) K/mm3 Manual Slide Review Abnormal smear Sodium 138 (136-145) mEq/L Potassium 4.5 (3.5-5.1) mEq/L Chloride 106 (98-107) mEq/L Carbon Dioxide 20 L (21-32) mEq/L Anion Gap 16.5 H (5-15) BUN 22 H (7-18) mg/dL Creatinine 1.3 (0.7-1.3) mg/dL Est Cr Clr Drug Dosing 45.67 mL/min Estimated GFR (MDRD) 54 (>60) mL/min BUN/Creatinine Ratio 16.9 (14-18) Glucose 96 (83-115) mg/dL Calcium 8.6 (8.5-10.1) mg/dL Magnesium 2.2 (1.8-2.4) mg/dl Total Bilirubin 0.9 (0.2-1.0) mg/dL AST 32 (15-37) U/L ALT 27 (16-63) U/L Alkaline Phosphatase 59 (46-116) U/L C-Reactive Protein 2.8 H* (<1.0) mg/dL NT-Pro-B Natriuret Pep (0-125) pg/mL Total Protein 6.0 L (6.4-8.2) g/dl Albumin 2.6 L (3.4-5.0) g/dl Globulin 3.4 gm/dL Albumin/Globulin Ratio 0.8 L (1-2) Vitamin D 25-Hydroxy (30.0-100.0) ng/ml Procalcitonin ng/mL Harsha Results Last 24 Hours: Microbiology 09/20/20 15:00 Aerobic Blood Culture - Preliminary Blood - Venous - Lab Draw NO GROWTH AFTER 2 DAYS Anaerobic Blood Culture - Preliminary NO GROWTH AFTER 2 DAYS 09/20/20 14:50 Aerobic Blood Culture - Preliminary Blood - Venous NO GROWTH AFTER 2 DAYS Anaerobic Blood Culture - Preliminary NO GROWTH AFTER 2 DAYS 09/20/20 14:56 Urine Culture - Final Urine, Catheterized NO GROWTH AFTER 2 DAYS Med Orders - Current: Current Medications Acetaminophen (Tylenol) 650 mg PO Q6H PRN PRN Reason: Fever/pain Allopurinol (Zyloprim) 100 mg PO DAILY [facility] Last Admin: 09/22/20 09:02 Dose: 100 mg Documented by: Aspirin (Halfprin) 81 mg PO DAILY [facility] Last Admin: 09/22/20 09:00 Dose: 81 mg Documented by: Cholecalciferol (Vitamin D3) 5,000 unit PO DAILY [facility] Last Admin: 09/22/20 13:18 Dose: 5,000 unit Documented by: Dexamethasone (Dexamethasone) 6 mg PO DAILY [facility] Stop: 09/29/20 09:01 Last Admin: 09/22/20 09:01 Dose: 6 mg Documented by: Enoxaparin Sodium (Lovenox) 40 mg SUBCUT DAILY [facility] Last Admin: 09/22/20 09:03 Dose: 40 mg Documented by: Sodium Chloride (Normal Saline) 1,000 mls @ 1,000 mls/hr IV .BOLUS [facility] Last Admin: 09/20/20 13:40 Dose: 1,000 mls/hr Documented by: Remdesivir 100 mg/ Sodium (Chloride) 100 mls @ 100 mls/hr IV Q24H DEJA Stop: 09/24/20 15:59 Last Admin: 09/22/20 16:03 Dose: 100 mls/hr Documented by: Pantoprazole Sodium (Protonix) 40 mg PO DAILY [facility] Last Admin: 09/22/20 09:02 Dose: 40 mg Documented by: Sertraline HCl (Zoloft) 50 mg PO DAILY [facility] Last Admin: 09/22/20 09:03 Dose: 50 mg Documented by: Simvastatin (Zocor) 40 mg PO DAILY [facility] Last Admin: 09/22/20 09:01 Dose: 40 mg Documented by: Sodium Chloride (Saline Flush) 10 ml FLUSH ASDIRECTED PRN PRN Reason: Keep Vein Open Last Admin: 09/20/20 13:41 Dose: 10 ml Documented by: Tamsulosin HCl (Flomax) 0.4 mg PO PCBREAKFAST [facility] Last Admin: 09/22/20 09:02 Dose: 0.4 mg Documented by: Discontinued Medications Acetaminophen (Tylenol) 650 mg PO ONCALL ONE Stop: 09/20/20 19:11 Last Admin: 09/20/20 21:36 Dose: 650 mg Documented by: Dexamethasone (Decadron) 6 mg IVPUSH ONETIME ONE Stop: 09/20/20 14:23 Last Admin: 09/20/20 15:01 Dose: 6 mg Documented by: Dexamethasone (Decadron) Confirm Administered Dose 4 mg .ROUTE .STK-MED ONE Stop: 09/20/20 15:01 Last Admin: 09/20/20 15:07 Dose: Not Given Documented by: Diphenhydramine HCl (Benadryl) 25 mg PO ONCALL ONE Stop: 09/20/20 19:11 Last Admin: 09/20/20 21:37 Dose: 25 mg Documented by: Famotidine (Pepcid) 20 mg PO BID [facility] Remdesivir 200 mg/ Sodium (Chloride) 250 mls @ 250 mls/hr IV ONETIME ONE Stop: 09/20/20 14:23 Last Admin: 09/20/20 15:06 Dose: 250 mls/hr Documented by: Potassium Chloride 10 meq/ (Premix) 100 mls @ 100 mls/hr IV Q1H [facility] Stop: 09/20/20 19:59 Last Admin: 09/20/20 20:16 Dose: 100 mls/hr Documented by: Sodium Chloride (Normal Saline) 1,000 mls @ 75 mls/hr IV ASDIRECTED [facility] Last Admin: 09/20/20 17:15 Dose: 75 mls/hr Documented by: Remdesivir 100 mg/ Sodium (Chloride) 100 mls @ 100 mls/hr IV DAILY [facility] Stop: 09/24/20 09:59 Metoprolol Tartrate (Lopressor) 25 mg PO BID [facility] Last Admin: 09/21/20 09:21 Dose: Not Given Documented by: Metoprolol Tartrate (Lopressor) 12.5 mg PO Q12H [facility] Last Admin: 09/21/20 12:46 Dose: Not Given Documented by: Pantoprazole Sodium (Protonix Iv) 40 mg .XX DAILY [facility] Last Admin: 09/21/20 09:05 Dose: 40 mg Documented by: Potassium Chloride (Klor-Con M20) 40 meq PO Q4H [facility] Stop: 09/22/20 17:16 Last Admin: 09/22/20 17:51 Dose: 40 meq Documented by: Tamsulosin HCl (Flomax) 0.4 mg PO ONETIME ONE Stop: 09/21/20 11:35 Last Admin: 09/21/20 12:19 Dose: 0.4 mg Documented by: - Exam Quality Assessment: Supplemental Oxygen (3L ), Urine Catheter, DVT Prophylaxis General: Alert, Oriented, Cooperative, No Acute Distress HEENT: Pupils Equal, Pupils Reactive, Mucous Membr. Moist/[place] Neck: Supple, Trachea Midline Lungs: Normal Respiratory Effort, Decreased Breath Sounds. No: Crackles, Rhonchi, Wheezing Cardiovascular: Regular Rate, Regular Rhythm GI/Abdominal Exam: Normal Bowel Sounds, Soft, Non-Tender, No Organomegaly, No Distention, No Abnormal Bruit, No Mass, Pelvis Stable (Male) Exam: Deferred Back Exam: Normal Inspection, Full Range of Motion Extremities: Normal Inspection, Normal Range of Motion, Non-Tender, No Pedal Edema, Normal Capillary Refill Skin: Warm, Dry, Intact Neurological: No New Focal Deficit Psy/Mental Status: Alert, Normal Affect, Normal Mood Sepsis Event Note - Evaluation Sepsis Screening Result: No Definite Risk - Focused Exam Vital Signs: Vital Signs Temp Pulse Resp BP BP Pulse Ox Pulse Ox 09/23/20 06:25 95 09/23/20 05:28 91 L 09/23/20 03:39 98.7 F 63 24 H 135/94 H 92 L 09/22/20 20:17 94 L 09/22/20 20:11 98.6 F 59 L 24 H 154/86 H 93 L - Problem List & Annotations (1) COVID-19 SNOMED Code(s): 682688385 Code(s): U07.1 - COVID-19 Status: Acute Priority: High Current Visit: Yes Onset Date: ~09/12/20 (2) Confusion SNOMED Code(s): 441229255 Code(s): R41.0 - DISORIENTATION, UNSPECIFIED Status: Acute Priority: Low Current Visit: Yes Onset Date: ~09/20/20 (3) Hypokalemia SNOMED Code(s): 10907437 Code(s): E87.6 - HYPOKALEMIA Status: Resolved Priority: Medium Current Visit: Yes Onset Date: ~09/20/20 (4) Hyponatremia SNOMED Code(s): 38990109 Code(s): E87.1 - HYPO-OSMOLALITY AND HYPONATREMIA Status: Resolved Priority: High Current Visit: Yes (5) Hypoxia SNOMED Code(s): 623221716 Code(s): R09.02 - HYPOXEMIA Status: Acute Priority: High Current Visit: Yes Onset Date: ~09/20/20 (6) Pneumonia due to COVID-19 virus SNOMED Code(s): 404585653554230956 Code(s): U07.1 - COVID-19; J12.89 - OTHER VIRAL PNEUMONIA Status: Acute Priority: High Current Visit: Yes (7) Renal insufficiency SNOMED Code(s): 135407252, 713635770 Code(s): N28.9 - DISORDER OF KIDNEY AND URETER, UNSPECIFIED Status: Resolved Priority: Medium Current Visit: Yes Onset Date: ~09/20/20 (8) Generalized weakness SNOMED Code(s): 28434897 Code(s): R53.1 - WEAKNESS Status: Acute Priority: High Current Visit: Yes (9) Bradycardia SNOMED Code(s): 65023956 Code(s): R00.1 - BRADYCARDIA, UNSPECIFIED Status: Acute Priority: High Current Visit: Yes (10) Urine retention SNOMED Code(s): 399928417 Code(s): R33.9 - RETENTION OF URINE, UNSPECIFIED Status: Acute Priority: High Current Visit: Yes - Problem List Review Problem List Initiated/Reviewed/Updated: Yes - My Orders Last 24 Hours: My Active Orders 09/22/20 09:00 Pantoprazole [ProTONIX] 40 mg PO DAILY 09/22/20 10:00 Tamsulosin [Flomax] 0.4 mg PO PCBREAKFAST 09/23/20 04:52 DD [D-DIMER QUANTITATIVE] [COAG] Q48H 09/24/20 05:11 CBC WITH AUTO DIFF [HEME] AM CMP [COMPREHENSIVE METABOLIC PN,CMP] [CHEM] AM CRP [C-REACTIVE PROTEIN] [CHEM] AM MAGNESIUM [CHEM] AM 09/25/20 05:11 CBC WITH AUTO DIFF [HEME] AM CMP [COMPREHENSIVE METABOLIC PN,CMP] [CHEM] AM CRP [C-REACTIVE PROTEIN] [CHEM] AM MAGNESIUM [CHEM] AM 09/25/20 09:57 DD [D-DIMER QUANTITATIVE] [COAG] Q48H 09/27/20 09:57 DD [D-DIMER QUANTITATIVE] [COAG] Q48H - Assessment Assessment:: 09/21/2020 * Electrolytes back WNL * D-Dimer 0.92 (improved) * CRP 6.6 * Given convalescent plasma on 09/20/2020 * Requiring 2L oxygen via [place] * HR in 40's * Will decrease home metoprolol dosing * Noted to have over 1L of urine retention overnight and straight catheterized * Starting flomax * Bladder scans as needed * Patient reports often only voids once a day * No patient or nursing concerns * Reports he feels better, but still weak * Continue current treatment plan and monitor HR 09/22/2020 * Electrolytes back WNL * Given convalescent plasma on 09/20/2020 * Requiring 2L oxygen via [place] * Dale catheter placed over night due to urinary retention * Starting flomax * will need to see urology as an outpatient * Patient reports often only voids once a day * No patient or nursing concerns * Reports he feels better, but still weak * Continue current treatment plan and monitor HR * K+ 3.2 * Vitamin D level 16.1 * HR in the 50's 09/23/2020 * Labs remain stable * WBC 9.08 * D-dimer 1.72 * CRP 2.8 * Procalcitonin was 0.1 * UA and blood cultures negative thus far * Continue dale catheter * Reports he feels better today * HR in 60-70's with stoppage of metoprolol * On 3L oxygen * Continue current treatment plan - Plan Plan:: COVID-19 - diagnosed 09/20/20 in ED Hypoxia Confusion Generalized Weakness * Given convalescent plasma on 09/20/2020 * Dexamethasone 6mg - day 01/17 * Remdesivir day 01/12 * Acapella/IS * Consult RT * CM/SW consult * PT/OT * Consult chief compliance officer * Ambulate around room when able * Encourage proning * PRN Tylenol for fever/pain * Monitor daily labs * D-Dimer Q48 hr * Blood cultures negative * Airborne/contact precautions * Oxygen as needed with goal saturations between 88-94% Bradycardia * Stopped Metoprolol and monitor * Telemetry * HR in the 50's on admission; 60-70's now Urine retention * Start flomax * Dale catheter in place * Will need urology follow-up at discharge * UA obtained in ED - UC shows no growth Hypokalemia, resolved Hyponatremia, resolved Renal insufficiency, resolved PCP: Dr. Carlisle Code status: DVT prophylaxis: Lovenox GI prophylaxis: Home PPI Social: Patient lives with spouse in an apartment on [address] here in [place] Disposition: Admitted to ICU as MSP overflow for treatment of COVID-19 and electrolyte abnormalities. LOS >96 hrs anticipated due to duration of treatment. Prognosis: Good
[2020-09-23] MEDS: Cholecalciferol (Vitamin D3) 5,000 UNIT Cap PO SCH (08:02)
[2020-09-23] MEDS: Enoxaparin 40 MG/0.4 ML Syringe SUBCUT SCH (08:02)
[2020-09-23] MEDS: Sertraline 50 MG Tab PO SCH (08:02)
[2020-09-23] MEDS: Aspirin 81 MG Tab.EC PO SCH (08:02)
[2020-09-23] MEDS: Allopurinol 100 MG Tab PO SCH (08:03)
[2020-09-23] MEDS: Simvastatin 40 MG Tab PO SCH (08:03)
[2020-09-23] MEDS: Dexamethasone 4 MG Tab PO SCH (08:03)
[2020-09-23] MEDS: Pantoprazole 40 MG Tab.CR PO SCH (08:03)
[2020-09-23] MEDS: Tamsulosin 0.4 MG Cap.ER PO SCH (08:17)
[2020-09-23] MEDS: REMDESIVIR 100 MG in Sodium Chloride 0.9% 100 ML IV SCH (15:00)
[2020-09-24] MEDS: Allopurinol 100 MG Tab PO SCH (08:09)
[2020-09-24] MEDS: Pantoprazole 40 MG Tab.CR PO SCH (08:10)
[2020-09-24] MEDS: Aspirin 81 MG Tab.EC PO SCH (08:10)
[2020-09-24] MEDS: Cholecalciferol (Vitamin D3) 5,000 UNIT Cap PO SCH (08:11)
[2020-09-24] MEDS: Simvastatin 40 MG Tab PO SCH (08:11)
[2020-09-24] MEDS: Tamsulosin 0.4 MG Cap.ER PO SCH (08:11)
[2020-09-24] MEDS: Dexamethasone 4 MG Tab PO SCH (08:12)
[2020-09-24] MEDS: Sertraline 50 MG Tab PO SCH (08:12)
[2020-09-24] MEDS: Enoxaparin 40 MG/0.4 ML Syringe SUBCUT SCH (08:13)
[2020-09-24] MEDS: Sodium Chloride 0.9% 10 ML Syringe FLUSH PRN (08:15)
--- NOTE | 2020-09-24 09:49 | PCM.PN ---
- General Info Date of Service: 09/24/20 Admission Dx/Problem (Free Text): Admission Diagnosis/Problem Admission Diagnosis/Problem Pneumonia/covid /weakness/anorexia Subjective Update: In to see John. He reports he feels a bit better today. His oxygen demand has increased. He has been utilizing his IS and acapella. WBC remains elevated. Unsure if this is due to worsening PNA or steroids. Will start 3 days of azithromycin and 5 days of rocephin. Otherwise doing ok overall. Urine catheter remains in place. Remains bradycardic. Functional Status: Reports: Pain Controlled, Tolerating Diet, Ambulating, Urinating, Incentive Spirometry, Other (acapella ). Denies: New Symptoms - Review of Systems General: Reports: Weakness. Denies: Fever, Fatigue, Malaise, Chills HEENT: Reports: No Symptoms. Denies: Headaches, Sore Throat Pulmonary: Reports: Shortness of Breath, Cough. Denies: Sputum, Wheezing Cardiovascular: Reports: Dyspnea on Exertion. Denies: Chest Pain, Palpitations, Edema Gastrointestinal: Reports: No Symptoms. Denies: Abdominal Pain, Constipation, Diarrhea, Nausea, Vomiting Genitourinary: Reports: No Symptoms. Denies: Pain Musculoskeletal: Reports: No Symptoms Skin: Reports: No Symptoms. Denies: Cyanosis Neurological: Reports: No Symptoms. Denies: Confusion, Difficulty Walking, Gait Disturbance Psychiatric: Reports: No Symptoms - Patient Data Vitals - Most Recent: Last Vital Signs Temp 97.9 F 09/24/20 07:23 Pulse 50 L 09/24/20 07:23 Resp 24 H 09/24/20 07:23 BP 130/66 09/24/20 07:23 Pulse Ox 96 09/24/20 08:28 Weight - Most Recent: 172 lb 3.2 oz I&O - Last 24 Hours: Intake & Output 09/23/20 09/24/20 09/24/20 22:59 06:59 14:59 Intake Total 460 250 Output Total 1050 Balance 460 -800 Lab Results Last 24 Hours: Laboratory Results - last 24 hr 09/23/20 09/24/20 09/24/20 Range/Units 04:52 04:42 04:42 WBC 10.33 H (4.23-9.07) K/mm3 RBC 4.87 (4.63-6.08) M/mm3 Hgb 15.2 (13.7-17.5) gm/dl Hct 44.2 (40.1-51.0) % MCV 90.8 (79.0-92.2) fl MCH 31.2 (25.7-32.2) pg MCHC 34.4 (32.2-35.5) g/dl RDW Std Deviation 46.6 H (35.1-43.9) fL Plt Count 273 (163-337) K/mm3 MPV 10.4 (9.4-12.3) fl Neut % (Auto) 83.8 H (34.0-67.9) % Lymph % (Auto) 7.8 L (21.8-53.1) % Brooks % (Auto) 6.7 (5.3-12.2) % Eos % (Auto) 0.1 L (0.8-7.0) Baso % (Auto) 0.2 (0.1-1.2) % Neut # (Auto) 8.66 H (1.78-5.38) K/mm3 Lymph # (Auto) 0.81 L (1.32-3.57) K/mm3 Brooks # (Auto) 0.69 (0.30-0.82) K/mm3 Eos # (Auto) 0.01 L (0.04-0.54) K/mm3 Baso # (Auto) 0.02 (0.01-0.08) K/mm3 Manual Slide Review Abnormal smear D-Dimer, Quantitative 1.72 H (0.19-0.50) mg/L Sodium 139 (136-145) mEq/L Potassium 4.0 (3.5-5.1) mEq/L Chloride 106 (98-107) mEq/L Carbon Dioxide 24 (21-32) mEq/L Anion Gap 13.0 (5-15) BUN 24 H (7-18) mg/dL Creatinine 1.2 (0.7-1.3) mg/dL Est Cr Clr Drug Dosing 49.47 mL/min Estimated GFR (MDRD) 59 (>60) mL/min BUN/Creatinine Ratio 20.0 H (14-18) Glucose 119 H (83-115) mg/dL Calcium 9.1 (8.5-10.1) mg/dL Magnesium 2.4 (1.8-2.4) mg/dl Total Bilirubin 0.8 (0.2-1.0) mg/dL AST 47 H (15-37) U/L ALT 39 (16-63) U/L Alkaline Phosphatase 67 (46-116) U/L C-Reactive Protein 3.3 H* (<1.0) mg/dL Total Protein 6.4 (6.4-8.2) g/dl Albumin 2.7 L (3.4-5.0) g/dl Globulin 3.7 gm/dL Albumin/Globulin Ratio 0.7 L (1-2) Harsha Results Last 24 Hours: Microbiology 09/20/20 15:00 Aerobic Blood Culture - Preliminary Blood - Venous - Lab Draw NO GROWTH AFTER 3 DAYS Anaerobic Blood Culture - Preliminary NO GROWTH AFTER 3 DAYS 09/20/20 14:50 Aerobic Blood Culture - Preliminary Blood - Venous NO GROWTH AFTER 3 DAYS Anaerobic Blood Culture - Preliminary NO GROWTH AFTER 3 DAYS Med Orders - Current: Current Medications Acetaminophen (Tylenol) 650 mg PO Q6H PRN PRN Reason: Fever/pain Allopurinol (Zyloprim) 100 mg PO DAILY [facility] Last Admin: 09/24/20 08:09 Dose: 100 mg Documented by: Aspirin (Halfprin) 81 mg PO DAILY [facility] Last Admin: 09/24/20 08:10 Dose: 81 mg Documented by: Cholecalciferol (Vitamin D3) 5,000 unit PO DAILY [facility] Last Admin: 09/24/20 08:11 Dose: 5,000 unit Documented by: Dexamethasone (Dexamethasone) 6 mg PO DAILY [facility] Stop: 09/29/20 09:01 Last Admin: 09/24/20 08:12 Dose: 6 mg Documented by: Enoxaparin Sodium (Lovenox) 40 mg SUBCUT DAILY [facility] Last Admin: 09/24/20 08:13 Dose: 40 mg Documented by: Remdesivir 100 mg/ Sodium (Chloride) 100 mls @ 100 mls/hr IV Q24H [facility] Stop: 09/24/20 15:59 Last Infusion: 09/23/20 17:21 Dose: Infused Documented by: Pantoprazole Sodium (Protonix) 40 mg PO DAILY [facility] Last Admin: 09/24/20 08:10 Dose: 40 mg Documented by: Sertraline HCl (Zoloft) 50 mg PO DAILY [facility] Last Admin: 09/24/20 08:12 Dose: 50 mg Documented by: Simvastatin (Zocor) 40 mg PO DAILY [facility] Last Admin: 09/24/20 08:11 Dose: 40 mg Documented by: Sodium Chloride (Saline Flush) 10 ml FLUSH ASDIRECTED PRN PRN Reason: Keep Vein Open Last Admin: 09/24/20 08:15 Dose: 10 ml Documented by: Tamsulosin HCl (Flomax) 0.4 mg PO DAILY [facility] Last Admin: 09/24/20 08:11 Dose: 0.4 mg Documented by: Discontinued Medications Acetaminophen (Tylenol) 650 mg PO ONCALL ONE Stop: 09/20/20 19:11 Last Admin: 09/20/20 21:36 Dose: 650 mg Documented by: Dexamethasone (Decadron) 6 mg IVPUSH ONETIME ONE Stop: 09/20/20 14:23 Last Admin: 09/20/20 15:01 Dose: 6 mg Documented by: Dexamethasone (Decadron) Confirm Administered Dose 4 mg .ROUTE .STK-MED ONE Stop: 09/20/20 15:01 Last Admin: 09/20/20 15:07 Dose: Not Given Documented by: Diphenhydramine HCl (Benadryl) 25 mg PO ONCALL ONE Stop: 09/20/20 19:11 Last Admin: 09/20/20 21:37 Dose: 25 mg Documented by: Famotidine (Pepcid) 20 mg PO BID [facility] Sodium Chloride (Normal Saline) 1,000 mls @ 1,000 mls/hr IV .BOLUS [facility] Last Admin: 09/20/20 13:40 Dose: 1,000 mls/hr Documented by: Remdesivir 200 mg/ Sodium (Chloride) 250 mls @ 250 mls/hr IV ONETIME ONE Stop: 09/20/20 14:23 Last Admin: 09/20/20 15:06 Dose: 250 mls/hr Documented by: Potassium Chloride 10 meq/ (Premix) 100 mls @ 100 mls/hr IV Q1H [facility] Stop: 09/20/20 19:59 Last Admin: 09/20/20 20:16 Dose: 100 mls/hr Documented by: Sodium Chloride (Normal Saline) 1,000 mls @ 75 mls/hr IV ASDIRECTED [facility] Last Admin: 09/20/20 17:15 Dose: 75 mls/hr Documented by: Remdesivir 100 mg/ Sodium (Chloride) 100 mls @ 100 mls/hr IV DAILY [facility] Stop: 09/24/20 09:59 Metoprolol Tartrate (Lopressor) 25 mg PO BID [facility] Last Admin: 09/21/20 09:21 Dose: Not Given Documented by: Metoprolol Tartrate (Lopressor) 12.5 mg PO Q12H [facility] Last Admin: 09/21/20 12:46 Dose: Not Given Documented by: Pantoprazole Sodium (Protonix Iv) 40 mg .XX DAILY [facility] Last Admin: 09/21/20 09:05 Dose: 40 mg Documented by: Potassium Chloride (Klor-Con M20) 40 meq PO Q4H [facility] Stop: 09/22/20 17:16 Last Admin: 09/22/20 17:51 Dose: 40 meq Documented by: Tamsulosin HCl (Flomax) 0.4 mg PO PCBREAKFAST [facility] Last Admin: 09/22/20 09:02 Dose: 0.4 mg Documented by: Tamsulosin HCl (Flomax) 0.4 mg PO ONETIME ONE Stop: 09/21/20 11:35 Last Admin: 09/21/20 12:19 Dose: 0.4 mg Documented by: - Exam Quality Assessment: Supplemental Oxygen (4L ), Urine Catheter, DVT Prophylaxis General: Alert, Oriented, Cooperative, No Acute Distress HEENT: Pupils Equal, Pupils Reactive, Mucous Membr. Moist/[place] Neck: Supple, Trachea Midline Lungs: Normal Respiratory Effort, Decreased Breath Sounds, Rhonchi. No: Wheezing Cardiovascular: Regular Rhythm, Bradycardia GI/Abdominal Exam: Normal Bowel Sounds, Soft, Non-Tender, No Distention (Male) Exam: Deferred Back Exam: Normal Inspection, Full Range of Motion Extremities: Normal Inspection, Normal Range of Motion, Non-Tender, No Pedal Edema, Normal Capillary Refill Peripheral Pulses: 2+: Radial (L), Radial (R), Dorsalis Pedis (L), Dorsalis Pedis (R) Skin: Warm, Dry, Intact Neurological: No New Focal Deficit Psy/Mental Status: Alert, Other (flat affect ) Sepsis Event Note - Evaluation Sepsis Screening Result: No Definite Risk - Focused Exam Vital Signs: Vital Signs Temp Pulse Resp BP Pulse Ox Pulse Ox 09/24/20 08:28 96 09/24/20 07:23 97.9 F 50 L 24 H 130/66 89 L 09/24/20 06:13 92 L 09/24/20 04:38 97.9 F 54 L 20 116/60 85 L - Problem List & Annotations (1) COVID-19 SNOMED Code(s): 620367787 Code(s): U07.1 - COVID-19 Status: Acute Priority: High Current Visit: Yes Onset Date: ~09/12/20 (2) Confusion SNOMED Code(s): 955716923 Code(s): R41.0 - DISORIENTATION, UNSPECIFIED Status: Acute Priority: Low Current Visit: Yes Onset Date: ~09/20/20 (3) Hypokalemia SNOMED Code(s): 96954676 Code(s): E87.6 - HYPOKALEMIA Status: Resolved Priority: Medium Current Visit: Yes Onset Date: ~09/20/20 (4) Hyponatremia SNOMED Code(s): 60835137 Code(s): E87.1 - HYPO-OSMOLALITY AND HYPONATREMIA Status: Resolved Priority: High Current Visit: Yes (5) Hypoxia SNOMED Code(s): 491505400 Code(s): R09.02 - HYPOXEMIA Status: Acute Priority: High Current Visit: Yes Onset Date: ~09/20/20 (6) Pneumonia due to COVID-19 virus SNOMED Code(s): 006705389139557753 Code(s): U07.1 - COVID-19; J12.89 - OTHER VIRAL PNEUMONIA Status: Acute Priority: High Current Visit: Yes (7) Renal insufficiency SNOMED Code(s): 994233944, 964888191 Code(s): N28.9 - DISORDER OF KIDNEY AND URETER, UNSPECIFIED Status: Resolved Priority: Medium Current Visit: Yes Onset Date: ~09/20/20 (8) Generalized weakness SNOMED Code(s): 03165449 Code(s): R53.1 - WEAKNESS Status: Acute Priority: High Current Visit: Yes (9) Bradycardia SNOMED Code(s): 20175331 Code(s): R00.1 - BRADYCARDIA, UNSPECIFIED Status: Acute Priority: High Current Visit: Yes (10) Urine retention SNOMED Code(s): 251215852 Code(s): R33.9 - RETENTION OF URINE, UNSPECIFIED Status: Acute Priority: High Current Visit: Yes - Problem List Review Problem List Initiated/Reviewed/Updated: Yes - My Orders Last 24 Hours: My Active Orders 09/23/20 09:00 Tamsulosin [Flomax] 0.4 mg PO DAILY 09/25/20 05:11 CBC WITH AUTO DIFF [HEME] AM CMP [COMPREHENSIVE METABOLIC PN,CMP] [CHEM] AM CRP [C-REACTIVE PROTEIN] [CHEM] AM MAGNESIUM [CHEM] AM 09/25/20 09:57 DD [D-DIMER QUANTITATIVE] [COAG] Q48H 09/27/20 09:57 DD [D-DIMER QUANTITATIVE] [COAG] Q48H - Assessment Assessment:: 09/21/2020 * Electrolytes back WNL * D-Dimer 0.92 (improved) * CRP 6.6 * Given convalescent plasma on 09/20/2020 * Requiring 2L oxygen via [place] * HR in 40's * Will decrease home metoprolol dosing * Noted to have over 1L of urine retention overnight and straight catheterized * Starting flomax * Bladder scans as needed * Patient reports often only voids once a day * No patient or nursing concerns * Reports he feels better, but still weak * Continue current treatment plan and monitor HR 09/22/2020 * Electrolytes back WNL * Given convalescent plasma on 09/20/2020 * Requiring 2L oxygen via [place] * Dale catheter placed over night due to urinary retention * Starting flomax * will need to see urology as an outpatient * Patient reports often only voids once a day * No patient or nursing concerns * Reports he feels better, but still weak * Continue current treatment plan and monitor HR * K+ 3.2 * Vitamin D level 16.1 * HR in the 50's 09/23/2020 * Labs remain stable * WBC 9.08 * D-dimer 1.72 * CRP 2.8 * Procalcitonin was 0.1 * UA and blood cultures negative thus far * Continue dale catheter * Reports he feels better today * HR in 60-70's with stoppage of metoprolol * On 3L oxygen * Continue current treatment plan 09/24/2020 * Labs * WBC remains elevated at 10.33 * Creatinine 1.2 * GFR 59 * CRP 3.3 * Continue dale catheter * HR Low 50's off metoprolol * On 4L oxygen * Repeat CXR stable to mildly worse * Add azithromycin and rocephin * Continue dexamethasone - Plan Plan:: COVID-19 - diagnosed 09/20/20 in ED Hypoxia Confusion Generalized Weakness * Given convalescent plasma on 09/20/2020 * Dexamethasone 6mg - day 02/16 * Remdesivir - day 02/11 * Start Rocephin - day 10/14 * Start azithromycin - day 10/12 * Acapella/IS * Consult RT * CM/SW consult * PT/OT * Consult bottling line attendant * Ambulate around room when able * Encourage proning * PRN Tylenol for fever/pain * Monitor daily labs * D-Dimer Q48 hr * Blood cultures negative * Airborne/contact precautions * Oxygen as needed with goal saturations between 88-94% Bradycardia * Stopped Metoprolol and monitor * Telemetry * HR in the 50's on admission; 60-70's now Urine retention * Start flomax * Dale catheter in place * Will need urology follow-up at discharge * UA obtained in ED - UC shows no growth Hypokalemia, resolved Hyponatremia, resolved Renal insufficiency, resolved PCP: Dr. Carlisle Code status: DVT prophylaxis: Lovenox GI prophylaxis: Home PPI Social: Patient lives with spouse in an apartment on [address] here in [place] Disposition: Admitted to ICU as [facility] overflow for treatment of COVID-19 and electrolyte abnormalities. LOS >96 hrs anticipated due to duration of treatment. Prognosis: Good
--- NOTE | 2020-09-24 10:39 | CR ---
Chest: Portable view of the chest was obtained. Comparison: Prior chest x-ray of 09/22/20. Findings: Increased density within both sides of the chest is seen. Findings are felt to be fairly stable from prior study when allowing for differences in technique. Heart size is within normal limits. Tortuous thoracic aorta is seen. Prior sternotomy is noted. Impression: 1. Increased density within both sides of the chest believed to be stable from prior study when allowing for differences in technique. 2. Other stable findings as noted above. Diagnostic code #3
[2020-09-24] MEDS: Azithromycin 250 MG Tab PO SCH (11:45)
[2020-09-24] MEDS: cefTRIAXone 2 GM in Sodium Chloride 0.9% 100 ML IV SCH (11:45)
[2020-09-24] MEDS: REMDESIVIR 100 MG in Sodium Chloride 0.9% 100 ML IV SCH (15:19)
--- NOTE | 2020-09-25 07:31 | PCM.PN ---
- General Info Date of Service: 09/25/20 Admission Dx/Problem (Free Text): Admission Diagnosis/Problem Admission Diagnosis/Problem Pneumonia/covid /weakness/anorexia Subjective Update: In to see John. He is sitting up in the chair. He reports he feels better than yesterday. Continuing ABX and dexamethasone treatment. He is on 3L today. Will remain hospitalized until completing ABX treatment and further weaning of oxygen. WBC increased today but CRP lower. Renal function improved. D-dimer 0.59 today. Functional Status: Reports: Pain Controlled, Tolerating Diet, Ambulating, Urinating, Incentive Spirometry, Other (Acapella ). Denies: New Symptoms - Review of Systems General: Reports: No Symptoms. Denies: Fever, Weakness, Fatigue, Malaise, Chills HEENT: Reports: No Symptoms. Denies: Headaches, Sore Throat Pulmonary: Reports: Shortness of Breath, Cough. Denies: Pleuritic Chest Pain, Sputum, Wheezing Cardiovascular: Reports: Dyspnea on Exertion. Denies: Chest Pain, Palpitations, Edema Gastrointestinal: Reports: No Symptoms. Denies: Abdominal Pain, Constipation, Diarrhea, Nausea, Vomiting Genitourinary: Reports: No Symptoms. Denies: Pain Musculoskeletal: Reports: No Symptoms Skin: Reports: No Symptoms. Denies: Cyanosis Neurological: Reports: No Symptoms. Denies: Confusion, Numbness, Seizure, Syncope, Tingling, Difficulty Walking, Weakness, Gait Disturbance Psychiatric: Reports: No Symptoms - Patient Data Vitals - Most Recent: Last Vital Signs Temp 97.2 F 09/25/20 02:32 Pulse 46 L 09/25/20 02:32 Resp 16 09/25/20 02:32 BP 127/55 L 09/25/20 02:32 Pulse Ox 90 L 09/25/20 02:32 Weight - Most Recent: 174 lb 4.8 oz I&O - Last 24 Hours: Intake & Output 09/24/20 09/25/20 09/25/20 22:59 06:59 14:59 Intake Total 1440 700 Output Total 650 1050 Balance 790 -350 Lab Results Last 24 Hours: Laboratory Results - last 24 hr 09/24/20 09/25/20 09/25/20 Range/Units 04:42 04:14 04:14 WBC 11.51 H (4.23-9.07) K/mm3 RBC 4.62 L (4.63-6.08) M/mm3 Hgb 14.3 (13.7-17.5) gm/dl Hct 41.9 (40.1-51.0) % MCV 90.7 (79.0-92.2) fl MCH 31.0 (25.7-32.2) pg MCHC 34.1 (32.2-35.5) g/dl RDW Std Deviation 45.9 H (35.1-43.9) fL Plt Count 264 (163-337) K/mm3 MPV 10.4 (9.4-12.3) fl Neut % (Auto) 86.2 H (34.0-67.9) % Lymph % (Auto) 5.9 L (21.8-53.1) % [place] % (Auto) 6.1 (5.3-12.2) % Eos % (Auto) 0.3 L (0.8-7.0) Baso % (Auto) 0.1 (0.1-1.2) % Neut # (Auto) 9.93 H (1.78-5.38) K/mm3 Lymph # (Auto) 0.68 L (1.32-3.57) K/mm3 [place] # (Auto) 0.70 (0.30-0.82) K/mm3 Eos # (Auto) 0.03 L (0.04-0.54) K/mm3 Baso # (Auto) 0.01 (0.01-0.08) K/mm3 Manual Slide Review Abnormal smear Abnormal smear D-Dimer, Quantitative (0.19-0.50) mg/L Sodium 136 (136-145) mEq/L Potassium 3.8 (3.5-5.1) mEq/L Chloride 104 (98-107) mEq/L Carbon Dioxide 24 (21-32) mEq/L Anion Gap 11.8 (5-15) BUN 26 H (7-18) mg/dL Creatinine 1.1 (0.7-1.3) mg/dL Est Cr Clr Drug Dosing 53.97 mL/min Estimated GFR (MDRD) > 60 (>60) mL/min BUN/Creatinine Ratio 23.6 H (14-18) Glucose 112 (83-115) mg/dL Calcium 8.8 (8.5-10.1) mg/dL Magnesium 2.2 (1.8-2.4) mg/dl Total Bilirubin 0.5 (0.2-1.0) mg/dL AST 28 (15-37) U/L ALT 28 (16-63) U/L Alkaline Phosphatase 62 (46-116) U/L C-Reactive Protein 2.9 H* (<1.0) mg/dL Total Protein 6.0 L (6.4-8.2) g/dl Albumin 2.5 L (3.4-5.0) g/dl Globulin 3.5 gm/dL Albumin/Globulin Ratio 0.7 L (1-2) 09/25/20 Range/Units 04:14 WBC (4.23-9.07) K/mm3 RBC (4.63-6.08) M/mm3 Hgb (13.7-17.5) gm/dl Hct (40.1-51.0) % MCV (79.0-92.2) fl MCH (25.7-32.2) pg MCHC (32.2-35.5) g/dl RDW Std Deviation (35.1-43.9) fL Plt Count (163-337) K/mm3 MPV (9.4-12.3) fl Neut % (Auto) (34.0-67.9) % Lymph % (Auto) (21.8-53.1) % [place] % (Auto) (5.3-12.2) % Eos % (Auto) (0.8-7.0) Baso % (Auto) (0.1-1.2) % Neut # (Auto) (1.78-5.38) K/mm3 Lymph # (Auto) (1.32-3.57) K/mm3 [place] # (Auto) (0.30-0.82) K/mm3 Eos # (Auto) (0.04-0.54) K/mm3 Baso # (Auto) (0.01-0.08) K/mm3 Manual Slide Review D-Dimer, Quantitative 0.49 (0.19-0.50) mg/L Sodium (136-145) mEq/L Potassium (3.5-5.1) mEq/L Chloride (98-107) mEq/L Carbon Dioxide (21-32) mEq/L Anion Gap (5-15) BUN (7-18) mg/dL Creatinine (0.7-1.3) mg/dL Est Cr Clr Drug Dosing mL/min Estimated GFR (MDRD) (>60) mL/min BUN/Creatinine Ratio (14-18) Glucose (83-115) mg/dL Calcium (8.5-10.1) mg/dL Magnesium (1.8-2.4) mg/dl Total Bilirubin (0.2-1.0) mg/dL AST (15-37) U/L ALT (16-63) U/L Alkaline Phosphatase (46-116) U/L C-Reactive Protein (<1.0) mg/dL Total Protein (6.4-8.2) g/dl Albumin (3.4-5.0) g/dl Globulin gm/dL Albumin/Globulin Ratio (1-2) Harsha Results Last 24 Hours: Microbiology 09/20/20 15:00 Aerobic Blood Culture - Preliminary Blood - Venous - Lab Draw NO GROWTH AFTER 4 DAYS Anaerobic Blood Culture - Preliminary NO GROWTH AFTER 4 DAYS 09/20/20 14:50 Aerobic Blood Culture - Preliminary Blood - Venous NO GROWTH AFTER 4 DAYS Anaerobic Blood Culture - Preliminary NO GROWTH AFTER 4 DAYS Med Orders - Current: Current Medications Acetaminophen (Tylenol) 650 mg PO Q6H PRN PRN Reason: Fever/pain Allopurinol (Zyloprim) 100 mg PO DAILY [facility] Last Admin: 09/24/20 08:09 Dose: 100 mg Documented by: Aspirin (Halfprin) 81 mg PO DAILY [facility] Last Admin: 09/24/20 08:10 Dose: 81 mg Documented by: Azithromycin (Zithromax) 500 mg PO DAILY [facility] Stop: 09/26/20 09:01 Last Admin: 09/24/20 11:45 Dose: 500 mg Documented by: Cholecalciferol (Vitamin D3) 5,000 unit PO DAILY [facility] Last Admin: 09/24/20 08:11 Dose: 5,000 unit Documented by: Dexamethasone (Dexamethasone) 6 mg PO DAILY [facility] Stop: 09/29/20 09:01 Last Admin: 09/24/20 08:12 Dose: 6 mg Documented by: Enoxaparin Sodium (Lovenox) 40 mg SUBCUT DAILY [facility] Last Admin: 09/24/20 08:13 Dose: 40 mg Documented by: Ceftriaxone Sodium 2 gm/ (Sodium Chloride) 100 mls @ 200 mls/hr IV Q24H [facility] Stop: 09/28/20 11:29 Last Admin: 09/24/20 11:45 Dose: 200 mls/hr Documented by: Pantoprazole Sodium (Protonix) 40 mg PO DAILY [facility] Last Admin: 09/24/20 08:10 Dose: 40 mg Documented by: Sertraline HCl (Zoloft) 50 mg PO DAILY [facility] Last Admin: 09/24/20 08:12 Dose: 50 mg Documented by: Simvastatin (Zocor) 40 mg PO DAILY [facility] Last Admin: 09/24/20 08:11 Dose: 40 mg Documented by: Sodium Chloride (Saline Flush) 10 ml FLUSH ASDIRECTED PRN PRN Reason: Keep Vein Open Last Admin: 09/24/20 08:15 Dose: 10 ml Documented by: Tamsulosin HCl (Flomax) 0.4 mg PO DAILY [facility] Last Admin: 09/24/20 08:11 Dose: 0.4 mg Documented by: Discontinued Medications Acetaminophen (Tylenol) 650 mg PO ONCALL ONE Stop: 09/20/20 19:11 Last Admin: 09/20/20 21:36 Dose: 650 mg Documented by: Dexamethasone (Decadron) 6 mg IVPUSH ONETIME ONE Stop: 09/20/20 14:23 Last Admin: 09/20/20 15:01 Dose: 6 mg Documented by: Dexamethasone (Decadron) Confirm Administered Dose 4 mg .ROUTE .STK-MED ONE Stop: 09/20/20 15:01 Last Admin: 09/20/20 15:07 Dose: Not Given Documented by: Diphenhydramine HCl (Benadryl) 25 mg PO ONCALL ONE Stop: 09/20/20 19:11 Last Admin: 09/20/20 21:37 Dose: 25 mg Documented by: Famotidine (Pepcid) 20 mg PO BID [facility] Sodium Chloride (Normal Saline) 1,000 mls @ 1,000 mls/hr IV .BOLUS [facility] Last Admin: 09/20/20 13:40 Dose: 1,000 mls/hr Documented by: Remdesivir 200 mg/ Sodium (Chloride) 250 mls @ 250 mls/hr IV ONETIME ONE Stop: 09/20/20 14:23 Last Admin: 09/20/20 15:06 Dose: 250 mls/hr Documented by: Potassium Chloride 10 meq/ (Premix) 100 mls @ 100 mls/hr IV Q1H [facility] Stop: 09/20/20 19:59 Last Admin: 09/20/20 20:16 Dose: 100 mls/hr Documented by: Sodium Chloride (Normal Saline) 1,000 mls @ 75 mls/hr IV ASDIRECTED [facility] Last Admin: 09/20/20 17:15 Dose: 75 mls/hr Documented by: Remdesivir 100 mg/ Sodium (Chloride) 100 mls @ 100 mls/hr IV DAILY [facility] Stop: 09/24/20 09:59 Remdesivir 100 mg/ Sodium (Chloride) 100 mls @ 100 mls/hr IV Q24H [facility] Stop: 09/24/20 15:59 Last Admin: 09/24/20 15:19 Dose: 100 mls/hr Documented by: Metoprolol Tartrate (Lopressor) 25 mg PO BID [facility] Last Admin: 09/21/20 09:21 Dose: Not Given Documented by: Metoprolol Tartrate (Lopressor) 12.5 mg PO Q12H [facility] Last Admin: 09/21/20 12:46 Dose: Not Given Documented by: Pantoprazole Sodium (Protonix Iv) 40 mg .XX DAILY [facility] Last Admin: 09/21/20 09:05 Dose: 40 mg Documented by: Potassium Chloride (Klor-Con M20) 40 meq PO Q4H [facility] Stop: 09/22/20 17:16 Last Admin: 09/22/20 17:51 Dose: 40 meq Documented by: Tamsulosin HCl (Flomax) 0.4 mg PO PCBREAKFAST [facility] Last Admin: 09/22/20 09:02 Dose: 0.4 mg Documented by: Tamsulosin HCl (Flomax) 0.4 mg PO ONETIME ONE Stop: 09/21/20 11:35 Last Admin: 09/21/20 12:19 Dose: 0.4 mg Documented by: - Exam Quality Assessment: Supplemental Oxygen (3L), Urine Catheter, DVT Prophylaxis General: Alert, Oriented, Cooperative, No Acute Distress HEENT: Pupils Equal, Pupils Reactive, Mucous Membr. Moist/[place] Neck: Supple, Trachea Midline Lungs: Normal Respiratory Effort, Decreased Breath Sounds. No: Crackles, Rhonchi Cardiovascular: Regular Rate, Regular Rhythm GI/Abdominal Exam: Normal Bowel Sounds, Soft, Non-Tender, No Distention (Male) Exam: Deferred Back Exam: Normal Inspection, Full Range of Motion Extremities: Normal Inspection, Normal Range of Motion, Non-Tender, No Pedal Edema, Normal Capillary Refill Peripheral Pulses: 2+: Radial (L), Radial (R), Dorsalis Pedis (L), Dorsalis Pedis (R) Skin: Warm, Dry, Intact Neurological: No New Focal Deficit Psy/Mental Status: Alert. No: Normal Affect (flat ) Sepsis Event Note - Evaluation Sepsis Screening Result: No Definite Risk - Focused Exam Vital Signs: Vital Signs Temp Pulse Pulse Resp BP BP Pulse Ox 09/25/20 02:32 97.2 F 46 L 16 127/55 L 90 L 09/24/20 20:18 09/24/20 20:10 53 L 12 135/86 90 L 09/24/20 20:00 53 L 12 135/86 90 L Pulse Ox 09/25/20 02:32 09/24/20 20:18 90 L 09/24/20 20:10 09/24/20 20:00 - Problem List & Annotations (1) COVID-19 SNOMED Code(s): 570598811 Code(s): U07.1 - COVID-19 Status: Acute Priority: High Current Visit: Yes Onset Date: ~09/12/20 (2) Confusion SNOMED Code(s): 337272041 Code(s): R41.0 - DISORIENTATION, UNSPECIFIED Status: Acute Priority: Low Current Visit: Yes Onset Date: ~09/20/20 (3) Hypokalemia SNOMED Code(s): 01356608 Code(s): E87.6 - HYPOKALEMIA Status: Resolved Priority: Medium Current Visit: Yes Onset Date: ~09/20/20 (4) Hyponatremia SNOMED Code(s): 33960616 Code(s): E87.1 - HYPO-OSMOLALITY AND HYPONATREMIA Status: Resolved Priority: High Current Visit: Yes (5) Hypoxia SNOMED Code(s): 726074190 Code(s): R09.02 - HYPOXEMIA Status: Acute Priority: High Current Visit: Yes Onset Date: ~09/20/20 (6) Pneumonia due to COVID-19 virus SNOMED Code(s): 801928068024948064 Code(s): U07.1 - COVID-19; J12.89 - OTHER VIRAL PNEUMONIA Status: Acute Priority: High Current Visit: Yes (7) Renal insufficiency SNOMED Code(s): 222392982, 051026862 Code(s): N28.9 - DISORDER OF KIDNEY AND URETER, UNSPECIFIED Status: Resolved Priority: Medium Current Visit: Yes Onset Date: ~09/20/20 (8) Generalized weakness SNOMED Code(s): 92715395 Code(s): R53.1 - WEAKNESS Status: Acute Priority: High Current Visit: Yes (9) Bradycardia SNOMED Code(s): 81047882 Code(s): R00.1 - BRADYCARDIA, UNSPECIFIED Status: Acute Priority: High Current Visit: Yes (10) Urine retention SNOMED Code(s): 495715521 Code(s): R33.9 - RETENTION OF URINE, UNSPECIFIED Status: Acute Priority: High Current Visit: Yes - Problem List Review Problem List Initiated/Reviewed/Updated: Yes - My Orders Last 24 Hours: My Active Orders 09/24/20 11:00 Azithromycin [Zithromax] 500 mg PO DAILY cefTRIAXone [Rocephin] 2 gm Sodium Chloride 0.9% [Normal Saline] 100 ml IV Q24H 09/27/20 09:57 DD [D-DIMER QUANTITATIVE] [COAG] Q48H - Assessment Assessment:: 09/21/2020 * Electrolytes back WNL * D-Dimer 0.92 (improved) * CRP 6.6 * Given convalescent plasma on 09/20/2020 * Requiring 2L oxygen via [place] * HR in 40's * Will decrease home metoprolol dosing * Noted to have over 1L of urine retention overnight and straight catheterized * Starting flomax * Bladder scans as needed * Patient reports often only voids once a day * No patient or nursing concerns * Reports he feels better, but still weak * Continue current treatment plan and monitor HR 09/22/2020 * Electrolytes back WNL * Given convalescent plasma on 09/20/2020 * Requiring 2L oxygen via [place] * Dale catheter placed over night due to urinary retention * Starting flomax * will need to see urology as an outpatient * Patient reports often only voids once a day * No patient or nursing concerns * Reports he feels better, but still weak * Continue current treatment plan and monitor HR * K+ 3.2 * Vitamin D level 16.1 * HR in the 50's 09/23/2020 * Labs remain stable * WBC 9.08 * D-dimer 1.72 * CRP 2.8 * Procalcitonin was 0.1 * UA and blood cultures negative thus far * Continue dale catheter * Reports he feels better today * HR in 60-70's with stoppage of metoprolol * On 3L oxygen * Continue current treatment plan 09/24/2020 * Labs * WBC remains elevated at 10.33 * Creatinine 1.2 * GFR 59 * CRP 3.3 * Continue dale catheter * HR Low 50's off metoprolol * On 4L oxygen * Repeat CXR stable to mildly worse * Add azithromycin and rocephin * Continue dexamethasone 09/25/2020 * Labs * WBC elevated at 11.59 * D-dimer WNL at 0.49 * GFR >60 * CRP 2.9 * Continue dale catheter * HR upper 40-50s of metoprolol * Requiring 3L oxygen today * Continue current treatment plan * Completed remdesivir treatment - Plan Plan:: COVID-19 - diagnosed 09/20/20 in ED Hypoxia Confusion Generalized Weakness * Given convalescent plasma on 09/20/2020 * Dexamethasone 6mg - day 03/19 * Completed Remdesivir * Rocephin - day 11/14 * Azithromycin - day 2/3 * Acapella/IS * Consult RT * CM/SW consult * PT/OT * Consult sales and marketing manager * Ambulate around room when able * Encourage proning * PRN Tylenol for fever/pain * Monitor daily labs * D-Dimer Q48 hr * Blood cultures negative * Airborne/contact precautions * Oxygen as needed with goal saturations between 88-94% Bradycardia * Stopped Metoprolol and monitor * Telemetry * HR in the 50's on admission Urine retention * Continue Flomax * Dale catheter in place * Will need urology follow-up at discharge * UA obtained in ED - UC shows no growth Hypokalemia, resolved Hyponatremia, resolved Renal insufficiency, resolved PCP: Dr. Carlisle Code status: DVT prophylaxis: Lovenox GI prophylaxis: Home PPI Social: Patient lives with spouse in an apartment on [address] here in [place] Disposition: Admitted to ICU as MSP overflow for treatment of COVID-19 and electrolyte abnormalities. LOS >96 hrs due to duration of COVID-19 treatment. Prognosis: Good
[2020-09-25] MEDS: Azithromycin 250 MG Tab PO SCH (09:26)
[2020-09-25] MEDS: Simvastatin 40 MG Tab PO SCH (09:26)
[2020-09-25] MEDS: Tamsulosin 0.4 MG Cap.ER PO SCH (09:27)
[2020-09-25] MEDS: Sertraline 50 MG Tab PO SCH (09:27)
[2020-09-25] MEDS: Aspirin 81 MG Tab.EC PO SCH (09:27)
[2020-09-25] MEDS: Cholecalciferol (Vitamin D3) 5,000 UNIT Cap PO SCH (09:27)
[2020-09-25] MEDS: Pantoprazole 40 MG Tab.CR PO SCH (09:27)
[2020-09-25] MEDS: Enoxaparin 40 MG/0.4 ML Syringe SUBCUT SCH (09:28)
[2020-09-25] MEDS: Dexamethasone 4 MG Tab PO SCH (09:28)
[2020-09-25] MEDS: Allopurinol 100 MG Tab PO SCH (09:28)
[2020-09-25] MEDS: cefTRIAXone 2 GM in Sodium Chloride 0.9% 100 ML IV SCH (10:33)
--- NOTE | 2020-09-26 07:16 | PCM.PN ---
- General Info Date of Service: 09/26/20 Admission Dx/Problem (Free Text): Admission Diagnosis/Problem Admission Diagnosis/Problem Pneumonia/covid /weakness/anorexia Subjective Update: In to see John. He is lying in bed and watching TV. We discussed importance of IS/Acapella. Dale was removed yesterday after the patient reported he will not follow-up with urology and he will not be going to [place] for follow-up. He was straight catheterized this AM. Nursing will continue to monitor bladder status with bladder scans. We discussed how depending on how his goes we may have no other option than to re-insert the dale catheter. Otherwise his oxygen demand has increased to 5 overnight and 4 today. Continuing current treatment. Functional Status: Reports: Pain Controlled, Tolerating Diet, Ambulating, Urinating, Incentive Spirometry, Other (acapella ). Denies: New Symptoms - Review of Systems General: Reports: Weakness, Fatigue, Malaise. Denies: Fever, Chills HEENT: Reports: No Symptoms. Denies: Headaches, Sore Throat Pulmonary: Reports: Shortness of Breath, Cough. Denies: Pleuritic Chest Pain, Sputum, Wheezing Cardiovascular: Reports: No Symptoms, Dyspnea on Exertion. Denies: Chest Pain, Palpitations, Edema Gastrointestinal: Reports: No Symptoms. Denies: Abdominal Pain, Constipation, Diarrhea, Nausea, Vomiting Genitourinary: Reports: No Symptoms. Denies: Pain Musculoskeletal: Reports: No Symptoms Skin: Reports: No Symptoms. Denies: Cyanosis Neurological: Reports: No Symptoms. Denies: Confusion Psychiatric: Reports: No Symptoms - Patient Data Vitals - Most Recent: Last Vital Signs Temp 98.8 F 09/25/20 15:17 Pulse 67 09/25/20 15:17 Resp 16 09/25/20 15:17 BP 125/88 09/25/20 15:17 Pulse Ox 93 L 09/26/20 05:40 Weight - Most Recent: 169 lb 14.4 oz I&O - Last 24 Hours: Intake & Output 09/25/20 09/26/20 09/26/20 22:59 06:59 14:59 Intake Total 1840 120 Output Total 900 464 Balance 940 -344 Harsha Results Last 24 Hours: Microbiology 09/20/20 15:00 Aerobic Blood Culture - Preliminary Blood - Venous - Lab Draw NO GROWTH AFTER 5 DAYS Anaerobic Blood Culture - Preliminary NO GROWTH AFTER 5 DAYS 09/20/20 14:50 Aerobic Blood Culture - Preliminary Blood - Venous NO GROWTH AFTER 5 DAYS Anaerobic Blood Culture - Preliminary NO GROWTH AFTER 5 DAYS Med Orders - Current: Current Medications Acetaminophen (Tylenol) 650 mg PO Q6H PRN PRN Reason: Fever/pain Allopurinol (Zyloprim) 100 mg PO DAILY [facility] Last Admin: 09/25/20 09:28 Dose: 100 mg Documented by: Aspirin (Halfprin) 81 mg PO DAILY [facility] Last Admin: 09/25/20 09:27 Dose: 81 mg Documented by: Azithromycin (Zithromax) 500 mg PO DAILY [facility] Stop: 09/26/20 09:01 Last Admin: 09/25/20 09:26 Dose: 500 mg Documented by: Cholecalciferol (Vitamin D3) 5,000 unit PO DAILY [facility] Last Admin: 09/25/20 09:27 Dose: 5,000 unit Documented by: Dexamethasone (Dexamethasone) 6 mg PO DAILY [facility] Stop: 09/29/20 09:01 Last Admin: 09/25/20 09:28 Dose: 6 mg Documented by: Enoxaparin Sodium (Lovenox) 40 mg SUBCUT DAILY [facility] Last Admin: 09/25/20 09:28 Dose: 40 mg Documented by: Ceftriaxone Sodium 2 gm/ (Sodium Chloride) 100 mls @ 200 mls/hr IV Q24H [facility] Stop: 09/28/20 11:29 Last Admin: 09/25/20 10:33 Dose: 200 mls/hr Documented by: Pantoprazole Sodium (Protonix) 40 mg PO DAILY [facility] Last Admin: 09/25/20 09:27 Dose: 40 mg Documented by: Sertraline HCl (Zoloft) 50 mg PO DAILY [facility] Last Admin: 09/25/20 09:27 Dose: 50 mg Documented by: Simvastatin (Zocor) 40 mg PO DAILY [facility] Last Admin: 09/25/20 09:26 Dose: 40 mg Documented by: Sodium Chloride (Saline Flush) 10 ml FLUSH ASDIRECTED PRN PRN Reason: Keep Vein Open Last Admin: 09/24/20 08:15 Dose: 10 ml Documented by: Tamsulosin HCl (Flomax) 0.4 mg PO DAILY [facility] Last Admin: 09/25/20 09:27 Dose: 0.4 mg Documented by: Discontinued Medications Acetaminophen (Tylenol) 650 mg PO ONCALL ONE Stop: 09/20/20 19:11 Last Admin: 09/20/20 21:36 Dose: 650 mg Documented by: Dexamethasone (Decadron) 6 mg IVPUSH ONETIME ONE Stop: 09/20/20 14:23 Last Admin: 09/20/20 15:01 Dose: 6 mg Documented by: Dexamethasone (Decadron) Confirm Administered Dose 4 mg .ROUTE .STK-MED ONE Stop: 09/20/20 15:01 Last Admin: 09/20/20 15:07 Dose: Not Given Documented by: Diphenhydramine HCl (Benadryl) 25 mg PO ONCALL ONE Stop: 09/20/20 19:11 Last Admin: 09/20/20 21:37 Dose: 25 mg Documented by: Famotidine (Pepcid) 20 mg PO BID [facility] Sodium Chloride (Normal Saline) 1,000 mls @ 1,000 mls/hr IV .BOLUS [facility] Last Admin: 09/20/20 13:40 Dose: 1,000 mls/hr Documented by: Remdesivir 200 mg/ Sodium (Chloride) 250 mls @ 250 mls/hr IV ONETIME ONE Stop: 09/20/20 14:23 Last Admin: 09/20/20 15:06 Dose: 250 mls/hr Documented by: Potassium Chloride 10 meq/ (Premix) 100 mls @ 100 mls/hr IV Q1H [facility] Stop: 09/20/20 19:59 Last Admin: 09/20/20 20:16 Dose: 100 mls/hr Documented by: Sodium Chloride (Normal Saline) 1,000 mls @ 75 mls/hr IV ASDIRECTED [facility] Last Admin: 09/20/20 17:15 Dose: 75 mls/hr Documented by: Remdesivir 100 mg/ Sodium (Chloride) 100 mls @ 100 mls/hr IV DAILY [facility] Stop: 09/24/20 09:59 Remdesivir 100 mg/ Sodium (Chloride) 100 mls @ 100 mls/hr IV Q24H [facility] Stop: 09/24/20 15:59 Last Admin: 09/24/20 15:19 Dose: 100 mls/hr Documented by: Metoprolol Tartrate (Lopressor) 25 mg PO BID [facility] Last Admin: 09/21/20 09:21 Dose: Not Given Documented by: Metoprolol Tartrate (Lopressor) 12.5 mg PO Q12H [facility] Last Admin: 09/21/20 12:46 Dose: Not Given Documented by: Pantoprazole Sodium (Protonix Iv) 40 mg .XX DAILY [facility] Last Admin: 09/21/20 09:05 Dose: 40 mg Documented by: Potassium Chloride (Klor-Con M20) 40 meq PO Q4H [facility] Stop: 09/22/20 17:16 Last Admin: 09/22/20 17:51 Dose: 40 meq Documented by: Tamsulosin HCl (Flomax) 0.4 mg PO PCBREAKFAST [facility] Last Admin: 09/22/20 09:02 Dose: 0.4 mg Documented by: Tamsulosin HCl (Flomax) 0.4 mg PO ONETIME ONE Stop: 09/21/20 11:35 Last Admin: 09/21/20 12:19 Dose: 0.4 mg Documented by: - Exam Quality Assessment: Supplemental Oxygen (4L ), DVT Prophylaxis. No: Urine Catheter General: Alert, Oriented, Cooperative, No Acute Distress HEENT: Pupils Equal, Pupils Reactive, Mucous Membr. Moist/[place]: Supple, Trachea Midline Lungs: Normal Respiratory Effort, Decreased Breath Sounds Cardiovascular: Regular Rate, Regular Rhythm GI/Abdominal Exam: Normal Bowel Sounds, Soft, Non-Tender, No Distention (Male) Exam: Deferred Back Exam: Normal Inspection, Full Range of Motion Extremities: Normal Inspection, Normal Range of Motion, Non-Tender, No Pedal Edema, Normal Capillary Refill Skin: Warm, Dry, Intact Neurological: No New Focal Deficit Psy/Mental Status: Alert. No: Normal Affect (flat ) Sepsis Event Note - Evaluation Sepsis Screening Result: No Definite Risk - Focused Exam Vital Signs: Vital Signs Pulse Ox 09/26/20 05:40 93 L 09/25/20 21:41 90 L - Problem List & Annotations (1) COVID-19 SNOMED Code(s): 931027609 Code(s): U07.1 - COVID-19 Status: Acute Priority: High Current Visit: Yes Onset Date: ~09/12/20 (2) Confusion SNOMED Code(s): 621085034 Code(s): R41.0 - DISORIENTATION, UNSPECIFIED Status: Acute Priority: Low Current Visit: Yes Onset Date: ~09/20/20 (3) Hypokalemia SNOMED Code(s): 32595885 Code(s): E87.6 - HYPOKALEMIA Status: Resolved Priority: Medium Current Visit: Yes Onset Date: ~09/20/20 (4) Hyponatremia SNOMED Code(s): 58891661 Code(s): E87.1 - HYPO-OSMOLALITY AND HYPONATREMIA Status: Resolved Priority: High Current Visit: Yes (5) Hypoxia SNOMED Code(s): 287476554 Code(s): R09.02 - HYPOXEMIA Status: Acute Priority: High Current Visit: Yes Onset Date: ~09/20/20 (6) Pneumonia due to COVID-19 virus SNOMED Code(s): 608319585467167586 Code(s): U07.1 - COVID-19; J12.89 - OTHER VIRAL PNEUMONIA Status: Acute Priority: High Current Visit: Yes (7) Renal insufficiency SNOMED Code(s): 277141260, 942030691 Code(s): N28.9 - DISORDER OF KIDNEY AND URETER, UNSPECIFIED Status: Resolved Priority: Medium Current Visit: Yes Onset Date: ~09/20/20 (8) Generalized weakness SNOMED Code(s): 78718854 Code(s): R53.1 - WEAKNESS Status: Acute Priority: High Current Visit: Yes (9) Bradycardia SNOMED Code(s): 86685775 Code(s): R00.1 - BRADYCARDIA, UNSPECIFIED Status: Acute Priority: High Current Visit: Yes (10) Urine retention SNOMED Code(s): 443036219 Code(s): R33.9 - RETENTION OF URINE, UNSPECIFIED Status: Acute Priority: High Current Visit: Yes - Problem List Review Problem List Initiated/Reviewed/Updated: Yes - My Orders Last 24 Hours: My Active Orders 09/27/20 05:11 BASIC METABOLIC PANEL,BMP [CHEM] AM CBC WITH AUTO DIFF [HEME] AM MAGNESIUM [CHEM] AM 09/27/20 09:57 DD [D-DIMER QUANTITATIVE] [COAG] Q48H - Assessment Assessment:: 09/21/2020 * Electrolytes back WNL * D-Dimer 0.92 (improved) * CRP 6.6 * Given convalescent plasma on 09/20/2020 * Requiring 2L oxygen via [place] * HR in 40's * Will decrease home metoprolol dosing * Noted to have over 1L of urine retention overnight and straight catheterized * Starting flomax * Bladder scans as needed * Patient reports often only voids once a day * No patient or nursing concerns * Reports he feels better, but still weak * Continue current treatment plan and monitor HR 09/22/2020 * Electrolytes back WNL * Given convalescent plasma on 09/20/2020 * Requiring 2L oxygen via [place] * Dale catheter placed over night due to urinary retention * Starting flomax * will need to see urology as an outpatient * Patient reports often only voids once a day * No patient or nursing concerns * Reports he feels better, but still weak * Continue current treatment plan and monitor HR * K+ 3.2 * Vitamin D level 16.1 * HR in the 50's 09/23/2020 * Labs remain stable * WBC 9.08 * D-dimer 1.72 * CRP 2.8 * Procalcitonin was 0.1 * UA and blood cultures negative thus far * Continue dale catheter * Reports he feels better today * HR in 60-70's with stoppage of metoprolol * On 3L oxygen * Continue current treatment plan 09/24/2020 * Labs * WBC remains elevated at 10.33 * Creatinine 1.2 * GFR 59 * CRP 3.3 * Continue dale catheter * HR Low 50's off metoprolol * On 4L oxygen * Repeat CXR stable to mildly worse * Add azithromycin and rocephin * Continue dexamethasone 09/25/2020 * Labs * WBC elevated at 11.59 * D-dimer WNL at 0.49 * GFR >60 * CRP 2.9 * Continue dale catheter * HR upper 40-50s of metoprolol * Requiring 3L oxygen today * Continue current treatment plan * Completed remdesivir treatment 09/26/2020 * No labs obtained today * Repeat labs tomorrow * Dale catheter pulled yesterday, continue to monitor need for replacement * Requiring 4L oxygen today * Continue current treatment plan * Completed remdesivir * HR remains in 50's * Completed azithromycin * No complaints and reports he feels better today. - Plan Plan:: COVID-19 - diagnosed 09/20/20 in ED Hypoxia Confusion Generalized Weakness * Given convalescent plasma on 09/20/2020 * Dexamethasone 6mg - day 04/18 * Completed Remdesivir * Rocephin - day 3 * Completed Azithromycin * Acapella/IS * Consult RT * CM/SW consult * PT/OT * Consult [employer] * Ambulate around room when able * Encourage proning * PRN Tylenol for fever/pain * Monitor daily labs * D-Dimer Q48 hr * Blood cultures negative * Airborne/contact precautions * Oxygen as needed with goal saturations between 88-94% Bradycardia * Stopped Metoprolol and monitor * Telemetry * HR in the 50's on admission Urine retention * Continue Flomax * Dale catheter removed 09/25/20 * Will need urology follow-up at discharge * UA obtained in ED - UC shows no growth Hypokalemia, resolved Hyponatremia, resolved Renal insufficiency, resolved PCP: Dr. Carlisle Code status: DVT prophylaxis: Lovenox GI prophylaxis: Home PPI Social: Patient lives with spouse in an apartment on [address] [facility]. here in [place] Disposition: Admitted to ICU as MSP overflow for treatment of COVID-19 and electrolyte abnormalities. LOS >96 hrs due to duration of COVID-19 treatment. Prognosis: Good
[2020-09-26] MEDS: Enoxaparin 40 MG/0.4 ML Syringe SUBCUT SCH (08:13)
[2020-09-26] MEDS: Aspirin 81 MG Tab.EC PO SCH (08:15)
[2020-09-26] MEDS: Pantoprazole 40 MG Tab.CR PO SCH (08:15)
[2020-09-26] MEDS: Azithromycin 250 MG Tab PO SCH (08:15)
[2020-09-26] MEDS: Dexamethasone 4 MG Tab PO SCH (08:15)
[2020-09-26] MEDS: Simvastatin 40 MG Tab PO SCH (08:16)
[2020-09-26] MEDS: Tamsulosin 0.4 MG Cap.ER PO SCH (08:16)
[2020-09-26] MEDS: Allopurinol 100 MG Tab PO SCH (08:16)
[2020-09-26] MEDS: Sertraline 50 MG Tab PO SCH (08:16)
[2020-09-26] MEDS: Cholecalciferol (Vitamin D3) 5,000 UNIT Cap PO SCH (08:17)
[2020-09-26] MEDS: cefTRIAXone 2 GM in Sodium Chloride 0.9% 100 ML IV SCH (11:23)
--- NOTE | 2020-09-27 06:28 | PCM.PN ---
- General Info Date of Service: 09/27/20 Admission Dx/Problem (Free Text): Admission Diagnosis/Problem Admission Diagnosis/Problem Pneumonia/covid /weakness/anorexia Subjective Update: No significant overnight issues except he was not able to void on his own. Urinary catheter was put in this AM due to urinary retention. He is afebrile. He remains on 4L NC sating adequately. He has no fever or chills. He has no complaints. Functional Status: Reports: Pain Controlled, Tolerating Diet, Ambulating, Urinating, New Symptoms - Review of Systems General: Reports: Malaise. Denies: Fever Pulmonary: Denies: Shortness of Breath, Cough Cardiovascular: Denies: Chest Pain Gastrointestinal: Denies: Abdominal Pain, Nausea, Vomiting Genitourinary: Reports: Retention Musculoskeletal: Denies: Joint Pain Skin: Denies: Rash Neurological: Denies: Weakness Psychiatric: Denies: Depression, Anxiety - Patient Data Vitals - Most Recent: Last Vital Signs Temp 36.4 C 09/26/20 15:57 Pulse 51 L 09/26/20 15:57 Resp 16 09/26/20 15:57 BP 126/81 09/26/20 15:57 Pulse Ox 95 09/26/20 20:51 Weight - Most Recent: 76.294 kg I&O - Last 24 Hours: Intake & Output 09/26/20 09/26/20 09/27/20 14:59 22:59 06:59 Intake Total 400 1000 480 Output Total 820 2 Balance 400 180 478 Lab Results Last 24 Hours: Laboratory Results - last 24 hr 09/27/20 Range/Units 05:24 WBC 13.10 H (4.23-9.07) K/mm3 RBC 5.24 (4.63-6.08) M/mm3 Hgb 16.0 D (13.7-17.5) gm/dl Hct 48.1 (40.1-51.0) % MCV 91.8 (79.0-92.2) fl MCH 30.5 (25.7-32.2) pg MCHC 33.3 (32.2-35.5) g/dl RDW Std Deviation 47.2 H (35.1-43.9) fL Plt Count 433 H D (163-337) K/mm3 MPV 10.2 (9.4-12.3) fl Neut % (Auto) 78.9 H (34.0-67.9) % Lymph % (Auto) 7.7 L (21.8-53.1) % [place] % (Auto) 8.8 (5.3-12.2) % Eos % (Auto) 0.4 L (0.8-7.0) Baso % (Auto) 0.2 (0.1-1.2) % Neut # (Auto) 10.35 H (1.78-5.38) K/mm3 Lymph # (Auto) 1.01 L (1.32-3.57) K/mm3 [place] # (Auto) 1.15 H (0.30-0.82) K/mm3 Eos # (Auto) 0.05 (0.04-0.54) K/mm3 Baso # (Auto) 0.02 (0.01-0.08) K/mm3 [place] Results Last 24 Hours: Microbiology 09/20/20 15:00 Aerobic Blood Culture - Preliminary Blood - Venous - Lab Draw NO GROWTH AFTER 6 DAYS Anaerobic Blood Culture - Preliminary NO GROWTH AFTER 6 DAYS 09/20/20 14:50 Aerobic Blood Culture - Preliminary Blood - Venous NO GROWTH AFTER 6 DAYS Anaerobic Blood Culture - Preliminary NO GROWTH AFTER 6 DAYS Med Orders - Current: Current Medications Acetaminophen (Tylenol) 650 mg PO Q6H PRN PRN Reason: Fever/pain Allopurinol (Zyloprim) 100 mg PO DAILY [facility] Last Admin: 09/26/20 08:16 Dose: 100 mg Documented by: Aspirin (Halfprin) 81 mg PO DAILY [facility] Last Admin: 09/26/20 08:15 Dose: 81 mg Documented by: Cholecalciferol (Vitamin D3) 5,000 unit PO DAILY [facility] Last Admin: 09/26/20 08:17 Dose: 5,000 unit Documented by: Dexamethasone (Dexamethasone) 6 mg PO DAILY [facility] Stop: 09/29/20 09:01 Last Admin: 09/26/20 08:15 Dose: 6 mg Documented by: Enoxaparin Sodium (Lovenox) 40 mg SUBCUT DAILY [facility] Last Admin: 09/26/20 08:13 Dose: 40 mg Documented by: Ceftriaxone Sodium 2 gm/ (Sodium Chloride) 100 mls @ 200 mls/hr IV Q24H [facility] Stop: 09/28/20 11:29 Last Admin: 09/26/20 11:23 Dose: 200 mls/hr Documented by: Pantoprazole Sodium (Protonix) 40 mg PO DAILY [facility] Last Admin: 09/26/20 08:15 Dose: 40 mg Documented by: Sertraline HCl (Zoloft) 50 mg PO DAILY [facility] Last Admin: 09/26/20 08:16 Dose: 50 mg Documented by: Simvastatin (Zocor) 40 mg PO DAILY [facility] Last Admin: 09/26/20 08:16 Dose: 40 mg Documented by: Sodium Chloride (Saline Flush) 10 ml FLUSH ASDIRECTED PRN PRN Reason: Keep Vein Open Last Admin: 09/24/20 08:15 Dose: 10 ml Documented by: Tamsulosin HCl (Flomax) 0.4 mg PO DAILY [facility] Last Admin: 09/26/20 08:16 Dose: 0.4 mg Documented by: Discontinued Medications Acetaminophen (Tylenol) 650 mg PO ONCALL ONE Stop: 09/20/20 19:11 Last Admin: 09/20/20 21:36 Dose: 650 mg Documented by: Azithromycin (Zithromax) 500 mg PO DAILY [facility] Stop: 09/26/20 09:01 Last Admin: 09/26/20 08:15 Dose: 500 mg Documented by: Dexamethasone (Decadron) 6 mg IVPUSH ONETIME ONE Stop: 09/20/20 14:23 Last Admin: 09/20/20 15:01 Dose: 6 mg Documented by: Dexamethasone (Decadron) Confirm Administered Dose 4 mg .ROUTE .STK-MED ONE Stop: 09/20/20 15:01 Last Admin: 09/20/20 15:07 Dose: Not Given Documented by: Diphenhydramine HCl (Benadryl) 25 mg PO ONCALL ONE Stop: 09/20/20 19:11 Last Admin: 09/20/20 21:37 Dose: 25 mg Documented by: Famotidine (Pepcid) 20 mg PO BID [facility] Sodium Chloride (Normal Saline) 1,000 mls @ 1,000 mls/hr IV .BOLUS [facility] Last Admin: 09/20/20 13:40 Dose: 1,000 mls/hr Documented by: Remdesivir 200 mg/ Sodium (Chloride) 250 mls @ 250 mls/hr IV ONETIME ONE Stop: 09/20/20 14:23 Last Admin: 09/20/20 15:06 Dose: 250 mls/hr Documented by: Potassium Chloride 10 meq/ (Premix) 100 mls @ 100 mls/hr IV Q1H [facility] Stop: 09/20/20 19:59 Last Admin: 09/20/20 20:16 Dose: 100 mls/hr Documented by: Sodium Chloride (Normal Saline) 1,000 mls @ 75 mls/hr IV ASDIRECTED [facility] Last Admin: 09/20/20 17:15 Dose: 75 mls/hr Documented by: Remdesivir 100 mg/ Sodium (Chloride) 100 mls @ 100 mls/hr IV DAILY [facility] Stop: 09/24/20 09:59 Remdesivir 100 mg/ Sodium (Chloride) 100 mls @ 100 mls/hr IV Q24H [facility] Stop: 09/24/20 15:59 Last Admin: 09/24/20 15:19 Dose: 100 mls/hr Documented by: Metoprolol Tartrate (Lopressor) 25 mg PO BID [facility] Last Admin: 09/21/20 09:21 Dose: Not Given Documented by: Metoprolol Tartrate (Lopressor) 12.5 mg PO Q12H [facility] Last Admin: 09/21/20 12:46 Dose: Not Given Documented by: Pantoprazole Sodium (Protonix Iv) 40 mg .XX DAILY [facility] Last Admin: 09/21/20 09:05 Dose: 40 mg Documented by: Potassium Chloride (Klor-Con M20) 40 meq PO Q4H [facility] Stop: 09/22/20 17:16 Last Admin: 09/22/20 17:51 Dose: 40 meq Documented by: Tamsulosin HCl (Flomax) 0.4 mg PO PCBREAKFAST [facility] Last Admin: 09/22/20 09:02 Dose: 0.4 mg Documented by: Tamsulosin HCl (Flomax) 0.4 mg PO ONETIME ONE Stop: 09/21/20 11:35 Last Admin: 09/21/20 12:19 Dose: 0.4 mg Documented by: - Exam Quality Assessment: Supplemental Oxygen General: Alert, Cooperative, No Acute Distress HEENT: Pupils Equal, Pupils Reactive, EOMI, Mucous Membr. Moist/[place] Neck: Supple Lungs: Clear to Auscultation, Normal Respiratory Effort Cardiovascular: Regular Rate, Regular Rhythm GI/Abdominal Exam: Normal Bowel Sounds, Soft, Non-Tender, No Organomegaly, No Distention, No Abnormal Bruit (Male) Exam: Other (urinary catheter) Back Exam: Normal Inspection, Decreased Range of Motion Extremities: Normal Inspection, Normal Range of Motion, Non-Tender, No Pedal Edema, Normal Capillary Refill Peripheral Pulses: 2+: Dorsalis Pedis (L), Dorsalis Pedis (R) Skin: Warm, Dry, Intact Neurological: No New Focal Deficit Psy/Mental Status: Alert, Normal Affect, Normal Mood Sepsis Event Note - Evaluation Sepsis Screening Result: No Definite Risk - Focused Exam Vital Signs: Vital Signs Pulse Ox 09/26/20 20:51 95 - Problem List Review Problem List Initiated/Reviewed/Updated: Yes - My Orders Last 24 Hours: My Active Orders 09/26/20 20:15 Insert Urinary Catheter [OM.PC] PRN 09/27/20 06:04 Urinary Catheter Assessment [RC] ASDIRECTED 09/27/20 06:15 Insert Dale Catheter [Insert Urinary Catheter] [OM.PC] Q24H - Assessment Assessment:: 09/21/2020 * Electrolytes back WNL * D-Dimer 0.92 (improved) * CRP 6.6 * Given convalescent plasma on 09/20/2020 * Requiring 2L oxygen via NC * HR in 40's * Will decrease home metoprolol dosing * Noted to have over 1L of urine retention overnight and straight catheterized * Starting flomax * Bladder scans as needed * Patient reports often only voids once a day * No patient or nursing concerns * Reports he feels better, but still weak * Continue current treatment plan and monitor HR 09/22/2020 * Electrolytes back WNL * Given convalescent plasma on 09/20/2020 * Requiring 2L oxygen via [place] * Dale catheter placed over night due to urinary retention * Starting flomax * will need to see urology as an outpatient * Patient reports often only voids once a day * No patient or nursing concerns * Reports he feels better, but still weak * Continue current treatment plan and monitor HR * K+ 3.2 * Vitamin D level 16.1 * HR in the 50's 09/23/2020 * Labs remain stable * WBC 9.08 * D-dimer 1.72 * CRP 2.8 * Procalcitonin was 0.1 * UA and blood cultures negative thus far * Continue dale catheter * Reports he feels better today * HR in 60-70's with stoppage of metoprolol * On 3L oxygen * Continue current treatment plan 09/24/2020 * Labs * WBC remains elevated at 10.33 * Creatinine 1.2 * GFR 59 * CRP 3.3 * Continue dale catheter * HR Low 50's off metoprolol * On 4L oxygen * Repeat CXR stable to mildly worse * Add azithromycin and rocephin * Continue dexamethasone 09/25/2020 * Labs * WBC elevated at 11.59 * D-dimer WNL at 0.49 * GFR >60 * CRP 2.9 * Continue dale catheter * HR upper 40-50s of metoprolol * Requiring 3L oxygen today * Continue current treatment plan * Completed remdesivir treatment 09/26/2020 * No labs obtained today * Repeat labs tomorrow * Dale catheter pulled yesterday, continue to monitor need for replacement * Requiring 4L oxygen today * Continue current treatment plan * Completed remdesivir * HR remains in 50's * Completed azithromycin * No complaints and reports he feels better today. 09/27/2020 * Continue current treatment * He was retaining urine considerably, dale catheter was re-inserted early this morning * Still on requiring 4L oxygen to achieve adequate oxygenation * Continue current treatment plan * Completed remdesivir and azithromycin * Start zinc oral supplement * IS as directed and encourage beside pulmo exercise * HR remains in the upper 40s-50's * Encourage proning * DVT prophylaxis: Lovenox 40mg subQ BID * LOS > 96hrs, he needs more time with treatment; unable to wean down to lower level of required O2 - Plan Plan:: COVID-19 - diagnosed 09/20/20 in ED Hypoxia, on 4L [place] Confusion, resolved Vit D Deficiency, POA Leukocytosis, POA Generalized Weakness, 2/2 acute illness * Given convalescent plasma on 09/20/2020 * Dexamethasone 6mg - day 05/19 * Completed Remdesivir and azithromycin * Rocephin - day 01/12 * Acapella/IS * Consult RT/PT/OT * CM/SW consult for d/c planning * Consult warehouse analyst * Ambulate around room when able * Encourage proning * PRN Tylenol for fever/pain * Monitor daily labs * D-Dimer Q48 hr * Blood cultures negative * Airborne/contact precautions * Titrate to come off supplemental O2 * Oxygen as needed with goal saturations between 88-94% Bradycardia * Stopped Metoprolol and monitor * Telemetry * HR in the upper 40s-50's Urine retention * Continue Flomax * Dale catheter removed 09/25/20-but unable to void and was retaining urine considerably * Catheter re-inserted mixer runner hours * Will need urology follow-up at discharge * UA obtained in ED - UC shows no growth Hypokalemia, resolved Hyponatremia, resolved Renal insufficiency, resolved PCP: Dr. Carlisle Code status: DVT prophylaxis: Lovenox GI prophylaxis: Home PPI Social: Patient lives with spouse in an apartment on [address] here in [place] Disposition: Admitted to ICU as [facility]SP overflow for treatment of COVID-19 and electrolyte abnormalities. LOS >96 hrs due to duration of COVID-19 treatment. Prognosis: Good
[2020-09-27] MEDS: Enoxaparin 40 MG/0.4 ML Syringe SUBCUT SCH (08:38)
[2020-09-27] MEDS: Cholecalciferol (Vitamin D3) 5,000 UNIT Cap PO SCH (08:38)
[2020-09-27] MEDS: Aspirin 81 MG Tab.EC PO SCH (08:38)
[2020-09-27] MEDS: Dexamethasone 4 MG Tab PO SCH (08:39)
[2020-09-27] MEDS: Tamsulosin 0.4 MG Cap.ER PO SCH (08:39)
[2020-09-27] MEDS: Pantoprazole 40 MG Tab.CR PO SCH (08:39)
[2020-09-27] MEDS: Allopurinol 100 MG Tab PO SCH (08:40)
[2020-09-27] MEDS: Sertraline 50 MG Tab PO SCH (08:41)
[2020-09-27] MEDS: Simvastatin 40 MG Tab PO SCH (08:41)
[2020-09-27] MEDS: cefTRIAXone 2 GM in Sodium Chloride 0.9% 100 ML IV SCH (10:51)
[2020-09-28] MEDS: Cholecalciferol (Vitamin D3) 5,000 UNIT Cap PO SCH (10:14)
[2020-09-28] MEDS: Aspirin 81 MG Tab.EC PO SCH (10:14)
[2020-09-28] MEDS: Enoxaparin 40 MG/0.4 ML Syringe SUBCUT SCH (10:14)
[2020-09-28] MEDS: Pantoprazole 40 MG Tab.CR PO SCH (10:14)
[2020-09-28] MEDS: Dexamethasone 4 MG Tab PO SCH (10:14)
[2020-09-28] MEDS: Sertraline 50 MG Tab PO SCH (10:14)
[2020-09-28] MEDS: cefTRIAXone 2 GM in Sodium Chloride 0.9% 100 ML IV SCH (10:15)
[2020-09-28] MEDS: Allopurinol 100 MG Tab PO SCH (10:15)
[2020-09-28] MEDS: Simvastatin 40 MG Tab PO SCH (10:15)
[2020-09-28] MEDS: Tamsulosin 0.4 MG Cap.ER PO SCH (10:15)
[2020-09-28] MEDS: Zinc Sulfate 220 MG Cap PO SCH (10:28)
--- NOTE | 2020-09-28 13:46 | PCM.PN ---
- General Info Date of Service: 09/28/20 Admission Dx/Problem (Free Text): Admission Diagnosis/Problem Admission Diagnosis/Problem Pneumonia/covid /weakness/anorexia Subjective Update: He had an uneventful night. He states he feels pretty good. He has no acute issues or complaints. He remains on 4L NC sating adequately. He has no fever or chills. No GI/ complaints. Per nurse he had dark stool on 2 separate BMs last night. His Hgb is stable at 16.0. He is afebrile with WBC of 13.10. Functional Status: Reports: Pain Controlled, Tolerating Diet, Urinating, New Symptoms (melena) - Review of Systems General: Denies: Fever, Weakness, Chills HEENT: Denies: Contact Lenses Pulmonary: Denies: Shortness of Breath, Cough Cardiovascular: Denies: Chest Pain, Palpitations Gastrointestinal: Denies: Abdominal Pain, Constipation, Diarrhea, Hematochezia, Melena, Nausea, Vomiting Genitourinary: Reports: Retention. Denies: Frequency, Incontinence Musculoskeletal: Denies: Joint Pain Skin: Denies: Pruritis, Rash Neurological: Reports: Gait Disturbance. Denies: Confusion, Dizziness, Trouble Speaking Psychiatric: Denies: Depression, Anxiety, Agitation - Patient Data Vitals - Most Recent: Last Vital Signs Temp 36.4 C 09/28/20 07:43 Pulse 45 L 09/28/20 07:43 Resp 18 09/28/20 07:43 BP 151/78 H 09/28/20 07:43 Pulse Ox 93 L 09/28/20 07:43 Weight - Most Recent: 76.43 kg I&O - Last 24 Hours: Intake & Output 09/27/20 09/28/20 09/28/20 22:59 06:59 14:59 Intake Total 1320 120 240 Output Total 350 722 Balance 970 -602 240 Harsha Results Last 24 Hours: Microbiology 09/20/20 15:00 Aerobic Blood Culture - Final Blood - Venous - Lab Draw NO GROWTH AFTER 7 DAYS Anaerobic Blood Culture - Final NO GROWTH AFTER 7 DAYS 09/20/20 14:50 Aerobic Blood Culture - Final Blood - Venous NO GROWTH AFTER 7 DAYS Anaerobic Blood Culture - Final NO GROWTH AFTER 7 DAYS Med Orders - Current: Current Medications Acetaminophen (Tylenol) 650 mg PO Q6H PRN PRN Reason: Fever/pain Allopurinol (Zyloprim) 100 mg PO DAILY [facility] Last Admin: 09/28/20 10:15 Dose: 100 mg Documented by: Aspirin (Halfprin) 81 mg PO DAILY [facility] Last Admin: 09/28/20 10:14 Dose: 81 mg Documented by: Cholecalciferol (Vitamin D3) 5,000 unit PO DAILY [facility] Last Admin: 09/28/20 10:14 Dose: 5,000 unit Documented by: Dexamethasone (Dexamethasone) 6 mg PO DAILY [facility] Stop: 09/29/20 09:01 Last Admin: 09/28/20 10:14 Dose: 6 mg Documented by: Enoxaparin Sodium (Lovenox) 40 mg SUBCUT DAILY [facility] Last Admin: 09/28/20 10:14 Dose: 40 mg Documented by: Pantoprazole Sodium (Protonix) 40 mg PO DAILY [facility] Last Admin: 09/28/20 10:14 Dose: 40 mg Documented by: Sertraline HCl (Zoloft) 50 mg PO DAILY [facility] Last Admin: 09/28/20 10:14 Dose: 50 mg Documented by: Simvastatin (Zocor) 40 mg PO DAILY [facility] Last Admin: 09/28/20 10:15 Dose: 40 mg Documented by: Sodium Chloride (Saline Flush) 10 ml FLUSH ASDIRECTED PRN PRN Reason: Keep Vein Open Last Admin: 09/24/20 08:15 Dose: 10 ml Documented by: Tamsulosin HCl (Flomax) 0.4 mg PO DAILY [facility] Last Admin: 09/28/20 10:15 Dose: 0.4 mg Documented by: Zinc Sulfate (Zincate) 220 mg PO DAILY [facility] Last Admin: 09/28/20 10:28 Dose: 220 mg Documented by: Discontinued Medications Acetaminophen (Tylenol) 650 mg PO ONCALL ONE Stop: 09/20/20 19:11 Last Admin: 09/20/20 21:36 Dose: 650 mg Documented by: Azithromycin (Zithromax) 500 mg PO DAILY [facility] Stop: 09/26/20 09:01 Last Admin: 09/26/20 08:15 Dose: 500 mg Documented by: Dexamethasone (Decadron) 6 mg IVPUSH ONETIME ONE Stop: 09/20/20 14:23 Last Admin: 09/20/20 15:01 Dose: 6 mg Documented by: Dexamethasone (Decadron) Confirm Administered Dose 4 mg .ROUTE .[facility] ONE Stop: 09/20/20 15:01 Last Admin: 09/20/20 15:07 Dose: Not Given Documented by: Diphenhydramine HCl (Benadryl) 25 mg PO ONCALL ONE Stop: 09/20/20 19:11 Last Admin: 09/20/20 21:37 Dose: 25 mg Documented by: Famotidine (Pepcid) 20 mg PO BID [facility] Sodium Chloride (Normal Saline) 1,000 mls @ 1,000 mls/hr IV .BOLUS [facility] Last Admin: 09/20/20 13:40 Dose: 1,000 mls/hr Documented by: Remdesivir 200 mg/ Sodium (Chloride) 250 mls @ 250 mls/hr IV ONETIME ONE Stop: 09/20/20 14:23 Last Admin: 09/20/20 15:06 Dose: 250 mls/hr Documented by: Potassium Chloride 10 meq/ (Premix) 100 mls @ 100 mls/hr IV Q1H [facility] Stop: 09/20/20 19:59 Last Admin: 09/20/20 20:16 Dose: 100 mls/hr Documented by: Sodium Chloride (Normal Saline) 1,000 mls @ 75 mls/hr IV ASDIRECTED [facility] Last Admin: 09/20/20 17:15 Dose: 75 mls/hr Documented by: Remdesivir 100 mg/ Sodium (Chloride) 100 mls @ 100 mls/hr IV DAILY [facility] Stop: 09/24/20 09:59 Remdesivir 100 mg/ Sodium (Chloride) 100 mls @ 100 mls/hr IV Q24H [facility] Stop: 09/24/20 15:59 Last Admin: 09/24/20 15:19 Dose: 100 mls/hr Documented by: Ceftriaxone Sodium 2 gm/ (Sodium Chloride) 100 mls @ 200 mls/hr IV Q24H [facility] Stop: 09/28/20 11:29 Last Admin: 09/28/20 10:15 Dose: 200 mls/hr Documented by: Metoprolol Tartrate (Lopressor) 25 mg PO BID [facility] Last Admin: 09/21/20 09:21 Dose: Not Given Documented by: Metoprolol Tartrate (Lopressor) 12.5 mg PO Q12H [facility] Last Admin: 09/21/20 12:46 Dose: Not Given Documented by: Pantoprazole Sodium (Protonix Iv) 40 mg .XX DAILY [facility] Last Admin: 09/21/20 09:05 Dose: 40 mg Documented by: Potassium Chloride (Klor-Con M20) 40 meq PO Q4H [facility] Stop: 09/22/20 17:16 Last Admin: 09/22/20 17:51 Dose: 40 meq Documented by: Tamsulosin HCl (Flomax) 0.4 mg PO PCBREAKFAST [facility] Last Admin: 09/22/20 09:02 Dose: 0.4 mg Documented by: Tamsulosin HCl (Flomax) 0.4 mg PO ONETIME ONE Stop: 09/21/20 11:35 Last Admin: 09/21/20 12:19 Dose: 0.4 mg Documented by: - Exam Quality Assessment: Supplemental Oxygen, Urine Catheter, DVT Prophylaxis General: Alert, Cooperative, No Acute Distress HEENT: Pupils Equal, Pupils Reactive, EOMI, Mucous Membr. Moist/[place] Neck: Supple Lungs: Normal Respiratory Effort, Decreased Breath Sounds Cardiovascular: Regular Rate, Regular Rhythm GI/Abdominal Exam: Normal Bowel Sounds, Soft, Non-Tender, No Organomegaly, No Distention, No Abnormal Bruit, No Mass (Male) Exam: Deferred, Other (has urinary catheter) Back Exam: Normal Inspection, Decreased Range of Motion Extremities: Normal Inspection, Normal Range of Motion, Non-Tender, No Pedal Edema, Normal Capillary Refill Peripheral Pulses: 2+: Dorsalis Pedis (L), Dorsalis Pedis (R) Skin: Warm, Dry, Intact Neurological: No New Focal Deficit Psy/Mental Status: Alert, Normal Affect, Normal Mood Sepsis Event Note - Evaluation Sepsis Screening Result: No Definite Risk - Focused Exam Vital Signs: Vital Signs Temp Pulse Resp BP Pulse Ox Pulse Ox 09/28/20 07:43 36.4 C 45 L 18 151/78 H 93 L 09/28/20 06:17 92 L 09/28/20 05:22 36.7 C 51 L 23 H 127/65 95 - Problem List Review Problem List Initiated/Reviewed/Updated: Yes - My Orders Last 24 Hours: My Active Orders 09/28/20 09:00 Zinc Sulfate [Zincate] 220 mg PO DAILY - Assessment Assessment:: 09/21/2020 * Electrolytes back WNL * D-Dimer 0.92 (improved) * CRP 6.6 * Given convalescent plasma on 09/20/2020 * Requiring 2L oxygen via NC * HR in 40's * Will decrease home metoprolol dosing * Noted to have over 1L of urine retention overnight and straight catheterized * Starting flomax * Bladder scans as needed * Patient reports often only voids once a day * No patient or nursing concerns * Reports he feels better, but still weak * Continue current treatment plan and monitor HR 09/22/2020 * Electrolytes back WNL * Given convalescent plasma on 09/20/2020 * Requiring 2L oxygen via NC * Dale catheter placed over night due to urinary retention * Starting flomax * will need to see urology as an outpatient * Patient reports often only voids once a day * No patient or nursing concerns * Reports he feels better, but still weak * Continue current treatment plan and monitor HR * K+ 3.2 * Vitamin D level 16.1 * HR in the 50's 09/23/2020 * Labs remain stable * WBC 9.08 * D-dimer 1.72 * CRP 2.8 * Procalcitonin was 0.1 * UA and blood cultures negative thus far * Continue dale catheter * Reports he feels better today * HR in 60-70's with stoppage of metoprolol * On 3L oxygen * Continue current treatment plan 09/24/2020 * Labs * WBC remains elevated at 10.33 * Creatinine 1.2 * GFR 59 * CRP 3.3 * Continue dale catheter * HR Low 50's off metoprolol * On 4L oxygen * Repeat CXR stable to mildly worse * Add azithromycin and rocephin * Continue dexamethasone 09/25/2020 * Labs * WBC elevated at 11.59 * D-dimer WNL at 0.49 * GFR >60 * CRP 2.9 * Continue dale catheter * HR upper 40-50s of metoprolol * Requiring 3L oxygen today * Continue current treatment plan * Completed remdesivir treatment 09/26/2020 * No labs obtained today * Repeat labs tomorrow * Dale catheter pulled yesterday, continue to monitor need for replacement * Requiring 4L oxygen today * Continue current treatment plan * Completed remdesivir * HR remains in 50's * Completed azithromycin * No complaints and reports he feels better today. 09/27/2020 * Continue current treatment * He was retaining urine considerably, dale catheter was re-inserted early this morning * Still on requiring 4L oxygen to achieve adequate oxygenation * Continue current treatment plan * Completed remdesivir and azithromycin * Start zinc oral supplement * IS as directed and encourage beside pulmo exercise * HR remains in the upper 40s-50's * Encourage proning * DVT prophylaxis: Lovenox 40mg subQ BID * LOS > 96hrs, he needs more time with treatment; unable to wean down to lower level of required O2 09/28/2020 * Continue current treatment * He was retaining urine considerably, dale catheter was re-inserted early this morning * Still on 4L oxygen * Continue current treatment plan * Completed remdesivir and azithromycin * Continue zinc oral supplement * Encourage to use IS as directed and encourage beside pulmo exercise * HR remains in the upper 40s-50's * Encourage proning * DVT prophylaxis: Lovenox 40mg subQ BID * SW/CM for d/c planning * May benefit with rehab/snf if patient is agreeable * LOS > 96hrs, he needs more time with treatment; unable to wean down to lower level of required O2 - Plan Plan:: COVID-19 - diagnosed 09/20/20 in ED Hypoxia, on 4L NC Confusion, resolved Vit D Deficiency, POA Leukocytosis, POA Generalized Weakness, 2/2 acute illness * Given convalescent plasma on 09/20/2020 * Dexamethasone 6mg - day 05/19 * Completed Remdesivir and azithromycin * Rocephin - day 01/12 * Acapella/IS * Consult RT/PT/OT * CM/SW consult for d/c planning * Consult nursing program director * Ambulate around room when able * Encourage proning * PRN Tylenol for fever/pain * Monitor daily labs * D-Dimer Q48 hr * Blood cultures negative * Airborne/contact precautions * Titrate to come off supplemental O2 * Oxygen as needed with goal saturations between 88-94% Bradycardia * Stopped Metoprolol and monitor * Telemetry * HR in the upper 40s-50's * Repeat EKG * Consider 2D echo Urine retention * Continue Flomax * Dale catheter removed 09/25/20-but unable to void and was retaining urine considerably * Catheter re-inserted octave board assembler hours * Will need urology follow-up at discharge * UA obtained in ED - shows no growth Hypokalemia, resolved Hyponatremia, resolved Renal insufficiency, resolved PCP: Dr. Carlisle Code status: DVT prophylaxis: Lovenox GI prophylaxis: Home PPI Social: Patient lives with spouse in an apartment on [address] here in [place] Disposition: Admitted to ICU as MSP overflow for treatment of COVID-19 and electrolyte abnormalities. LOS >96 hrs due to duration of COVID-19 treatment. Prognosis: Good
--- NOTE | 2020-09-29 08:12 | PCM.PN ---
- General Info Date of Service: 09/29/20 Admission Dx/Problem (Free Text): Admission Diagnosis/Problem Admission Diagnosis/Problem Pneumonia/covid /weakness/anorexia Subjective Update: In to see John. He is laying in bed watching TV. He is down to 2L on oxygen. No complaints or concerns. Continue to encourage frequent IS/Acapella usage. No nursing concerns or complaints. Will re-check labs tomorrow. Functional Status: Reports: Pain Controlled, Tolerating Diet, Ambulating, Urinating (dale in place. ). Denies: Incentive Spirometry - Review of Systems General: Reports: No Symptoms. Denies: Fever, Weakness, Fatigue, Malaise, Chills, Night Sweats HEENT: Reports: No Symptoms. Denies: Headaches, Sore Throat Pulmonary: Reports: No Symptoms. Denies: Shortness of Breath, Wheezing Cardiovascular: Reports: Dyspnea on Exertion. Denies: Chest Pain, Palpitations Gastrointestinal: Reports: No Symptoms. Denies: Abdominal Pain, Constipation, Diarrhea, Nausea Genitourinary: Reports: Retention, Other (Dale in place ). Denies: Pain Musculoskeletal: Reports: No Symptoms Skin: Reports: No Symptoms. Denies: Cyanosis Neurological: Reports: No Symptoms. Denies: Confusion, Difficulty Walking, Gait Disturbance Psychiatric: Reports: No Symptoms - Patient Data Vitals - Most Recent: Last Vital Signs Temp 97.3 F 09/29/20 07:53 Pulse 59 L 09/29/20 07:53 Resp 20 09/29/20 07:53 BP 131/72 09/29/20 07:53 Pulse Ox 92 L 09/29/20 07:53 Weight - Most Recent: 170 lb 8 oz I&O - Last 24 Hours: Intake & Output 09/28/20 09/29/20 09/29/20 22:59 06:59 14:59 Intake Total 1460 575 Output Total 350 1050 Balance 1110 -475 Med Orders - Current: Current Medications Acetaminophen (Tylenol) 650 mg PO Q6H PRN PRN Reason: Fever/pain Allopurinol (Zyloprim) 100 mg PO DAILY [facility] Last Admin: 09/28/20 10:15 Dose: 100 mg Documented by: Aspirin (Halfprin) 81 mg PO DAILY [facility] Last Admin: 09/28/20 10:14 Dose: 81 mg Documented by: Cholecalciferol (Vitamin D3) 5,000 unit PO DAILY [facility] Last Admin: 09/28/20 10:14 Dose: 5,000 unit Documented by: Dexamethasone (Dexamethasone) 6 mg PO DAILY [facility] Stop: 09/29/20 09:01 Last Admin: 09/28/20 10:14 Dose: 6 mg Documented by: Enoxaparin Sodium (Lovenox) 40 mg SUBCUT DAILY [facility] Last Admin: 09/28/20 10:14 Dose: 40 mg Documented by: Pantoprazole Sodium (Protonix) 40 mg PO DAILY [facility] Last Admin: 09/28/20 10:14 Dose: 40 mg Documented by: Sertraline HCl (Zoloft) 50 mg PO DAILY [facility] Last Admin: 09/28/20 10:14 Dose: 50 mg Documented by: Simvastatin (Zocor) 40 mg PO DAILY [facility] Last Admin: 09/28/20 10:15 Dose: 40 mg Documented by: Sodium Chloride (Saline Flush) 10 ml FLUSH ASDIRECTED PRN PRN Reason: Keep Vein Open Last Admin: 09/24/20 08:15 Dose: 10 ml Documented by: Tamsulosin HCl (Flomax) 0.4 mg PO DAILY [facility] Last Admin: 09/28/20 10:15 Dose: 0.4 mg Documented by: Zinc Sulfate (Zincate) 220 mg PO DAILY [facility] Last Admin: 09/28/20 10:28 Dose: 220 mg Documented by: Discontinued Medications Acetaminophen (Tylenol) 650 mg PO ONCALL ONE Stop: 09/20/20 19:11 Last Admin: 09/20/20 21:36 Dose: 650 mg Documented by: Azithromycin (Zithromax) 500 mg PO DAILY [facility] Stop: 09/26/20 09:01 Last Admin: 09/26/20 08:15 Dose: 500 mg Documented by: Dexamethasone (Decadron) 6 mg IVPUSH ONETIME ONE Stop: 09/20/20 14:23 Last Admin: 09/20/20 15:01 Dose: 6 mg Documented by: Dexamethasone (Decadron) Confirm Administered Dose 4 mg .ROUTE .STK-MED ONE Stop: 09/20/20 15:01 Last Admin: 09/20/20 15:07 Dose: Not Given Documented by: Diphenhydramine HCl (Benadryl) 25 mg PO ONCALL ONE Stop: 09/20/20 19:11 Last Admin: 09/20/20 21:37 Dose: 25 mg Documented by: Famotidine (Pepcid) 20 mg PO BID [facility] Sodium Chloride (Normal Saline) 1,000 mls @ 1,000 mls/hr IV .BOLUS [facility] Last Admin: 09/20/20 13:40 Dose: 1,000 mls/hr Documented by: Remdesivir 200 mg/ Sodium (Chloride) 250 mls @ 250 mls/hr IV ONETIME ONE Stop: 09/20/20 14:23 Last Admin: 09/20/20 15:06 Dose: 250 mls/hr Documented by: Potassium Chloride 10 meq/ (Premix) 100 mls @ 100 mls/hr IV Q1H [facility] Stop: 09/20/20 19:59 Last Admin: 09/20/20 20:16 Dose: 100 mls/hr Documented by: Sodium Chloride (Normal Saline) 1,000 mls @ 75 mls/hr IV ASDIRECTED [facility] Last Admin: 09/20/20 17:15 Dose: 75 mls/hr Documented by: Remdesivir 100 mg/ Sodium (Chloride) 100 mls @ 100 mls/hr IV DAILY [facility] Stop: 09/24/20 09:59 Remdesivir 100 mg/ Sodium (Chloride) 100 mls @ 100 mls/hr IV Q24H [facility] Stop: 09/24/20 15:59 Last Admin: 09/24/20 15:19 Dose: 100 mls/hr Documented by: Ceftriaxone Sodium 2 gm/ (Sodium Chloride) 100 mls @ 200 mls/hr IV Q24H [facility] Stop: 09/28/20 11:29 Last Admin: 09/28/20 10:15 Dose: 200 mls/hr Documented by: Metoprolol Tartrate (Lopressor) 25 mg PO BID [facility] Last Admin: 09/21/20 09:21 Dose: Not Given Documented by: Metoprolol Tartrate (Lopressor) 12.5 mg PO Q12H [facility] Last Admin: 09/21/20 12:46 Dose: Not Given Documented by: Pantoprazole Sodium (Protonix Iv) 40 mg .XX DAILY [facility] Last Admin: 09/21/20 09:05 Dose: 40 mg Documented by: Potassium Chloride (Klor-Con M20) 40 meq PO Q4H [facility] Stop: 09/22/20 17:16 Last Admin: 09/22/20 17:51 Dose: 40 meq Documented by: Tamsulosin HCl (Flomax) 0.4 mg PO PCBREAKFAST DEJA Last Admin: 09/22/20 09:02 Dose: 0.4 mg Documented by: Tamsulosin HCl (Flomax) 0.4 mg PO ONETIME ONE Stop: 09/21/20 11:35 Last Admin: 09/21/20 12:19 Dose: 0.4 mg Documented by: - Exam Quality Assessment: Supplemental Oxygen (2L ), Urine Catheter, DVT Prophylaxis General: Alert, Cooperative, No Acute Distress HEENT: Pupils Equal, Pupils Reactive, Mucous Membr. Moist/[place] Neck: Supple, Trachea Midline Lungs: Normal Respiratory Effort, Decreased Breath Sounds Cardiovascular: Regular Rate, Regular Rhythm GI/Abdominal Exam: Normal Bowel Sounds, Soft, Non-Tender, No Organomegaly (Male) Exam: Deferred Back Exam: Normal Inspection, Full Range of Motion Extremities: Normal Inspection, Normal Range of Motion, Non-Tender, No Pedal Edema, Normal Capillary Refill Peripheral Pulses: 2+: Radial (L), Radial (R), Dorsalis Pedis (L), Dorsalis Pedis (R) Skin: Warm, Dry, Intact Neurological: No New Focal Deficit Psy/Mental Status: Alert, Normal Affect, Normal Mood Sepsis Event Note - Evaluation Sepsis Screening Result: No Definite Risk - Focused Exam Vital Signs: Vital Signs Temp Temp Pulse Resp BP Pulse Ox 09/29/20 07:53 97.3 F 59 L 20 131/72 92 L 09/29/20 04:46 97.9 F 45 L 12 134/74 91 L 09/29/20 01:56 97.6 F 09/29/20 00:59 52 L 12 133/74 95 09/28/20 22:11 97.2 F 51 L 16 130/71 93 L - Problem List & Annotations (1) COVID-19 SNOMED Code(s): 707978423 Code(s): U07.1 - COVID-19 Status: Acute Priority: High Current Visit: Yes Onset Date: ~09/12/20 (2) Confusion SNOMED Code(s): 560406031 Code(s): R41.0 - DISORIENTATION, UNSPECIFIED Status: Acute Priority: Low Current Visit: Yes Onset Date: ~09/20/20 (3) Hypokalemia SNOMED Code(s): 17212033 Code(s): E87.6 - HYPOKALEMIA Status: Resolved Priority: Medium Current Visit: Yes Onset Date: ~09/20/20 (4) Hyponatremia SNOMED Code(s): 48571895 Code(s): E87.1 - HYPO-OSMOLALITY AND HYPONATREMIA Status: Resolved Priority: High Current Visit: Yes (5) Hypoxia SNOMED Code(s): 233714555 Code(s): R09.02 - HYPOXEMIA Status: Acute Priority: High Current Visit: Yes Onset Date: ~09/20/20 (6) Pneumonia due to COVID-19 virus SNOMED Code(s): 210829390136897202 Code(s): U07.1 - COVID-19; J12.89 - OTHER VIRAL PNEUMONIA Status: Acute Priority: High Current Visit: Yes (7) Renal insufficiency SNOMED Code(s): 723070459, 562610813 Code(s): N28.9 - DISORDER OF KIDNEY AND URETER, UNSPECIFIED Status: R esolved Priority: Medium Current Visit: Yes Onset Date: ~09/20/20 (8) Generalized weakness SNOMED Code(s): 28807924 Code(s): R53.1 - WEAKNESS Status: Acute Priority: High Current Visit: Yes (9) Bradycardia SNOMED Code(s): 66940591 Code(s): R00.1 - BRADYCARDIA, UNSPECIFIED Status: Acute Priority: High Current Visit: Yes (10) Urine retention SNOMED Code(s): 739141776 Code(s): R33.9 - RETENTION OF URINE, UNSPECIFIED Status: Acute Priority: High Current Visit: Yes - Problem List Review Problem List Initiated/Reviewed/Updated: Yes - Assessment Assessment:: 09/21/2020 * Electrolytes back WNL * D-Dimer 0.92 (improved) * CRP 6.6 * Given convalescent plasma on 09/20/2020 * Requiring 2L oxygen via [place] * HR in 40's * Will decrease home metoprolol dosing * Noted to have over 1L of urine retention overnight and straight catheterized * Starting flomax * Bladder scans as needed * Patient reports often only voids once a day * No patient or nursing concerns * Reports he feels better, but still weak * Continue current treatment plan and monitor HR 09/22/2020 * Electrolytes back WNL * Given convalescent plasma on 09/20/2020 * Requiring 2L oxygen via [place] * Dale catheter placed over night due to urinary retention * Starting flomax * will need to see urology as an outpatient * Patient reports often only voids once a day * No patient or nursing concerns * Reports he feels better, but still weak * Continue current treatment plan and monitor HR * K+ 3.2 * Vitamin D level 16.1 * HR in the 50's 09/23/2020 * Labs remain stable * WBC 9.08 * D-dimer 1.72 * CRP 2.8 * Procalcitonin was 0.1 * UA and blood cultures negative thus far * Continue dale catheter * Reports he feels better today * HR in 60-70's with stoppage of metoprolol * On 3L oxygen * Continue current treatment plan 09/24/2020 * Labs * WBC remains elevated at 10.33 * Creatinine 1.2 * GFR 59 * CRP 3.3 * Continue dale catheter * HR Low 50's off metoprolol * On 4L oxygen * Repeat CXR stable to mildly worse * Add azithromycin and rocephin * Continue dexamethasone 09/25/2020 * Labs * WBC elevated at 11.59 * D-dimer WNL at 0.49 * GFR >60 * CRP 2.9 * Continue dale catheter * HR upper 40-50s of metoprolol * Requiring 3L oxygen today * Continue current treatment plan * Completed remdesivir treatment 09/26/2020 * No labs obtained today * Repeat labs tomorrow * Dale catheter pulled yesterday, continue to monitor need for replacement * Requiring 4L oxygen today * Continue current treatment plan * Completed remdesivir * HR remains in 50's * Completed azithromycin * No complaints and reports he feels better today. 09/27/2020 * Continue current treatment * He was retaining urine considerably, dale catheter was re-inserted early this morning * Still on requiring 4L oxygen to achieve adequate oxygenation * Continue current treatment plan * Completed remdesivir and azithromycin * Start zinc oral supplement * IS as directed and encourage beside pulmo exercise * HR remains in the upper 40s-50's * Encourage proning * DVT prophylaxis: Lovenox 40mg subQ BID * LOS > 96hrs, he needs more time with treatment; unable to wean down to lower level of required O2 09/28/2020 * Continue current treatment * He was retaining urine considerably, dale catheter was re-inserted early this morning * Still on 4L oxygen * Continue current treatment plan * Completed remdesivir and azithromycin * Continue zinc oral supplement * Encourage to use IS as directed and encourage beside pulmo exercise * HR remains in the upper 40s-50's * Encourage proning * DVT prophylaxis: Lovenox 40mg subQ BID * SW/CM for d/c planning * May benefit with rehab/snf if patient is agreeable * LOS > 96hrs, he needs more time with treatment; unable to wean down to lower level of required O2 09/29/2020 * Continue attempting to wean oxygen * Continue dale catheter * Urology consultation needed at discharge * Completed dexamethasone, remdesivier, azithromycin, and Rocephin * Continues to utilize IS/Acapella * Remains bradycardic * 12-lead EKG obtained yesterday * Echo obtained today and pending * No complaints today and states he feels ok * Repeat labs tomorrow - Plan Plan:: COVID-19 - diagnosed 09/20/20 in ED Hypoxia, on 4L [place] Confusion, resolved Vit D Deficiency, POA Leukocytosis, POA Generalized Weakness, 2/2 acute illness * Given convalescent plasma on 09/20/2020 * Completed Remdesivir, dexamethasone, rocephin and azithromycin * Acapella/IS * Consult RT/PT/OT * CM/SW consult for d/c planning * Consult document management analyst * Ambulate around room when able * Encourage proning * PRN Tylenol for fever/pain * Monitor daily labs * D-Dimer Q48 hr * Blood cultures negative * Airborne/contact precautions * Titrate to come off supplemental O2 * Oxygen as needed with goal saturations between 88-94% Bradycardia * Stopped Metoprolol and monitor * Telemetry * HR in the upper 40s-50's * Obtain echo - pending Urine retention * Continue Flomax * Dale catheter removed 09/25/20-but unable to void and was retaining urine considerably * Catheter re-inserted engineering mechanic hours * Will need urology follow-up at discharge * UA obtained in ED - UC shows no growth Hypokalemia, resolved Hyponatremia, resolved Renal insufficiency, resolved PCP: Dr. Carlisle Code status: DVT prophylaxis: Lovenox GI prophylaxis: Home PPI Social: Patient lives with spouse in an [address] here in [place] Disposition: Admitted to ICU as [facility] overflow for treatment of COVID-19 and electrolyte abnormalities. LOS >96 hrs due to duration of COVID-19 treatment. Prognosis: Good
[2020-09-29] MEDS: Enoxaparin 40 MG/0.4 ML Syringe SUBCUT SCH (08:30)
[2020-09-29] MEDS: Aspirin 81 MG Tab.EC PO SCH (08:30)
[2020-09-29] MEDS: Dexamethasone 4 MG Tab PO SCH (08:31)
[2020-09-29] MEDS: Simvastatin 40 MG Tab PO SCH (08:31)
[2020-09-29] MEDS: Cholecalciferol (Vitamin D3) 5,000 UNIT Cap PO SCH (08:32)
[2020-09-29] MEDS: Tamsulosin 0.4 MG Cap.ER PO SCH (08:32)
[2020-09-29] MEDS: Pantoprazole 40 MG Tab.CR PO SCH (08:32)
[2020-09-29] MEDS: Zinc Sulfate 220 MG Cap PO SCH (08:32)
[2020-09-29] MEDS: Allopurinol 100 MG Tab PO SCH (08:32)
[2020-09-29] MEDS: Sertraline 50 MG Tab PO SCH (08:32)
--- NOTE | 2020-09-30 08:14 | PCM.PN ---
- General Info Date of Service: 09/30/20 Admission Dx/Problem (Free Text): Admission Diagnosis/Problem Admission Diagnosis/Problem Pneumonia/covid /weakness/anorexia Subjective Update: In to see John. He is doing very well and was weaned off of oxygen today. He has completed his COVID-19 treatment. The concern has been discharge disposition as the patient lives at home with his , who is currently hospitalized. It is felt by the patients that he will not do well alone at home by himself. It is reported that a local [employer] group has been providing a significant amount of assistance for John and his prior to this hospitalization. Social work has been working on placement at [facility] for both the patient and his . He will likely be ready for discharge pending placement tomorrow. Dale remains in place. Echo returned today and results are noted. He has had several large periods of bradycardia with HR in the 40's-50's, however he is asymptomatic at these times. Nursing reports 4 watery stools in past 24 hours. This is likely COVID-19 related but will check for C-diff as patient has had antibiotics. Functional Status: Reports: Pain Controlled, Tolerating Diet, Ambulating, Urinating, Incentive Spirometry, Other (acapella). Denies: New Symptoms - Review of Systems General: Reports: No Symptoms. Denies: Fever, Weakness, Fatigue, Malaise, Chills HEENT: Reports: No Symptoms. Denies: Headaches, Sore Throat Pulmonary: Reports: No Symptoms. Denies: Shortness of Breath, Cough, Sputum, Wheezing Cardiovascular: Reports: No Symptoms, Dyspnea on Exertion. Denies: Chest Pain, Palpitations, Edema Gastrointestinal: Reports: Diarrhea. Denies: Abdominal Pain, Constipation, Nausea, Vomiting Genitourinary: Reports: Retention. Denies: Pain Musculoskeletal: Reports: No Symptoms. Denies: Neck Pain Skin: Reports: No Symptoms Neurological: Reports: No Symptoms. Denies: Confusion, Difficulty Walking, Gait Disturbance Psychiatric: Reports: No Symptoms - Patient Data Vitals - Most Recent: Last Vital Signs Temp 98.2 F 09/30/20 03:58 Pulse 52 L 09/30/20 04:02 Resp 14 09/30/20 03:58 BP 152/81 H 09/30/20 03:58 Pulse Ox 90 L 09/30/20 06:09 Weight - Most Recent: 169 lb 9.6 oz I&O - Last 24 Hours: Intake & Output 09/29/20 09/30/20 09/30/20 22:59 06:59 14:59 Intake Total 1120 600 Output Total 650 850 Balance 470 -250 Lab Results Last 24 Hours: Laboratory Results - last 24 hr 09/30/20 09/30/20 Range/Units 04:48 04:48 WBC 17.27 H (4.23-9.07) K/mm3 RBC 4.73 (4.63-6.08) M/mm3 Hgb 14.7 (13.7-17.5) gm/dl Hct 44.1 (40.1-51.0) % MCV 93.2 H (79.0-92.2) fl MCH 31.1 (25.7-32.2) pg MCHC 33.3 (32.2-35.5) g/dl RDW Std Deviation 46.6 H (35.1-43.9) fL Plt Count 365 H (163-337) K/mm3 MPV 10.0 (9.4-12.3) fl Neut % (Auto) 87.0 H (34.0-67.9) % Lymph % (Auto) 4.5 L (21.8-53.1) % [place] % (Auto) 5.7 (5.3-12.2) % Eos % (Auto) 0.1 L (0.8-7.0) Baso % (Auto) 0.1 (0.1-1.2) % Neut # (Auto) 15.05 H (1.78-5.38) K/mm3 Lymph # (Auto) 0.77 L (1.32-3.57) K/mm3 [place] # (Auto) 0.98 H (0.30-0.82) K/mm3 Eos # (Auto) 0.01 L (0.04-0.54) K/mm3 Baso # (Auto) 0.01 (0.01-0.08) K/mm3 Manual Slide Review Abnormal smear Sodium 137 (136-145) mEq/L Potassium 4.0 (3.5-5.1) mEq/L Chloride 104 (98-107) mEq/L Carbon Dioxide 27 (21-32) mEq/L Anion Gap 10.0 (5-15) BUN 31 H (7-18) mg/dL Creatinine 1.2 (0.7-1.3) mg/dL Est Cr Clr Drug Dosing 49.47 mL/min Estimated GFR (MDRD) 59 (>60) mL/min BUN/Creatinine Ratio 25.8 H (14-18) Glucose 121 H (83-115) mg/dL Calcium 9.0 (8.5-10.1) mg/dL Phosphorus 3.2 (2.6-4.7) mg/dL Magnesium 2.3 (1.8-2.4) mg/dl Med Orders - Current: Current Medications Acetaminophen (Tylenol) 650 mg PO Q6H PRN PRN Reason: Fever/pain Allopurinol (Zyloprim) 100 mg PO DAILY [facility] Last Admin: 09/29/20 08:32 Dose: 100 mg Documented by: Aspirin (Halfprin) 81 mg PO DAILY [facility] Last Admin: 09/29/20 08:30 Dose: 81 mg Documented by: Cholecalciferol (Vitamin D3) 5,000 unit PO DAILY [facility] Last Admin: 09/29/20 08:32 Dose: 5,000 unit Documented by: Enoxaparin Sodium (Lovenox) 40 mg SUBCUT DAILY [facility] Last Admin: 09/29/20 08:30 Dose: 40 mg Documented by: Pantoprazole Sodium (Protonix) 40 mg PO DAILY [facility] Last Admin: 09/29/20 08:32 Dose: 40 mg Documented by: Sertraline HCl (Zoloft) 50 mg PO DAILY [facility] Last Admin: 09/29/20 08:32 Dose: 50 mg Documented by: Simvastatin (Zocor) 40 mg PO DAILY [facility] Last Admin: 09/29/20 08:31 Dose: 40 mg Documented by: Sodium Chloride (Saline Flush) 10 ml FLUSH ASDIRECTED PRN PRN Reason: Keep Vein Open Last Admin: 09/24/20 08:15 Dose: 10 ml Documented by: Tamsulosin HCl (Flomax) 0.4 mg PO DAILY [facility] Last Admin: 09/29/20 08:32 Dose: 0.4 mg Documented by: Zinc Sulfate (Zincate) 220 mg PO DAILY [facility] Last Admin: 09/29/20 08:32 Dose: 220 mg Documented by: Discontinued Medications Acetaminophen (Tylenol) 650 mg PO ONCALL ONE Stop: 09/20/20 19:11 Last Admin: 09/20/20 21:36 Dose: 650 mg Documented by: Azithromycin (Zithromax) 500 mg PO DAILY DEJA Stop: 09/26/20 09:01 Last Admin: 09/26/20 08:15 Dose: 500 mg Documented by: Dexamethasone (Decadron) 6 mg IVPUSH ONETIME ONE Stop: 09/20/20 14:23 Last Admin: 09/20/20 15:01 Dose: 6 mg Documented by: Dexamethasone (Decadron) Confirm Administered Dose 4 mg .ROUTE .STK-MED ONE Stop: 09/20/20 15:01 Last Admin: 09/20/20 15:07 Dose: Not Given Documented by: Dexamethasone (Dexamethasone) 6 mg PO DAILY DEJA Stop: 09/29/20 09:01 Last Admin: 09/29/20 08:31 Dose: 6 mg Documented by: Diphenhydramine HCl (Benadryl) 25 mg PO ONCALL ONE Stop: 09/20/20 19:11 Last Admin: 09/20/20 21:37 Dose: 25 mg Documented by: Famotidine (Pepcid) 20 mg PO BID [facility] Sodium Chloride (Normal Saline) 1,000 mls @ 1,000 mls/hr IV .BOLUS [facility] Last Admin: 09/20/20 13:40 Dose: 1,000 mls/hr Documented by: Remdesivir 200 mg/ Sodium (Chloride) 250 mls @ 250 mls/hr IV ONETIME ONE Stop: 09/20/20 14:23 Last Admin: 09/20/20 15:06 Dose: 250 mls/hr Documented by: Potassium Chloride 10 meq/ (Premix) 100 mls @ 100 mls/hr IV Q1H DEJA Stop: 09/20/20 19:59 Last Admin: 09/20/20 20:16 Dose: 100 mls/hr Documented by: Sodium Chloride (Normal Saline) 1,000 mls @ 75 mls/hr IV ASDIRECTED [facility] Last Admin: 09/20/20 17:15 Dose: 75 mls/hr Documented by: Remdesivir 100 mg/ Sodium (Chloride) 100 mls @ 100 mls/hr IV DAILY DEJA Stop: 09/24/20 09:59 Remdesivir 100 mg/ Sodium (Chloride) 100 mls @ 100 mls/hr IV Q24H [facility] Stop: 09/24/20 15:59 Last Admin: 09/24/20 15:19 Dose: 100 mls/hr Documented by: Ceftriaxone Sodium 2 gm/ (Sodium Chloride) 100 mls @ 200 mls/hr IV Q24H [facility] Stop: 09/28/20 11:29 Last Admin: 09/28/20 10:15 Dose: 200 mls/hr Documented by: Metoprolol Tartrate (Lopressor) 25 mg PO BID [facility] Last Admin: 09/21/20 09:21 Dose: Not Given Documented by: Metoprolol Tartrate (Lopressor) 12.5 mg PO Q12H [facility] Last Admin: 09/21/20 12:46 Dose: Not Given Documented by: Pantoprazole Sodium (Protonix Iv) 40 mg .XX DAILY [facility] Last Admin: 09/21/20 09:05 Dose: 40 mg Documented by: Potassium Chloride (Klor-Con M20) 40 meq PO Q4H [facility] Stop: 09/22/20 17:16 Last Admin: 09/22/20 17:51 Dose: 40 meq Documented by: Tamsulosin HCl (Flomax) 0.4 mg PO PCBREAKFAST [facility] Last Admin: 09/22/20 09:02 Dose: 0.4 mg Documented by: Tamsulosin HCl (Flomax) 0.4 mg PO ONETIME ONE Stop: 09/21/20 11:35 Last Admin: 09/21/20 12:19 Dose: 0.4 mg Documented by: - Exam Quality Assessment: Urine Catheter, DVT Prophylaxis. No: Supplemental Oxygen General: Alert, Oriented, Cooperative, No Acute Distress HEENT: Pupils Equal, Pupils Reactive, Mucous Membr. Moist/[place] Neck: Supple, Trachea Midline Lungs: Normal Respiratory Effort, Decreased Breath Sounds Cardiovascular: Regular Rate, Regular Rhythm GI/Abdominal Exam: Normal Bowel Sounds, Soft, Non-Tender, No Distention, No Abnormal Bruit (Male) Exam: Deferred Back Exam: Normal Inspection, Full Range of Motion Extremities: Normal Inspection, Normal Range of Motion, Non-Tender, No Pedal Edema, Normal Capillary Refill Skin: Warm, Dry, Intact Neurological: No New Focal Deficit Psy/Mental Status: Alert, Normal Affect, Normal Mood Sepsis Event Note - Evaluation Sepsis Screening Result: No Definite Risk - Focused Exam Vital Signs: Vital Signs Temp Pulse Resp BP Pulse Ox Pulse Ox 09/30/20 06:09 90 L 09/30/20 04:02 52 L 90 L 09/30/20 04:00 90 L 09/30/20 03:58 98.2 F 50 L 14 152/81 H 93 L 09/29/20 21:11 94 L 09/29/20 20:48 65 12 137/77 93 L - Problem List & Annotations (1) COVID-19 SNOMED Code(s): 928583453 Code(s): U07.1 - COVID-19 Status: Acute Priority: High Current Visit: Yes Onset Date: ~09/12/20 (2) Confusion SNOMED Code(s): 561457963 Code(s): R41.0 - DISORIENTATION, UNSPECIFIED Status: Acute Priority: Low Current Visit: Yes Onset Date: ~09/20/20 (3) Hypokalemia SNOMED Code(s): 18274182 Code(s): E87.6 - HYPOKALEMIA Status: Resolved Priority: Medium Current Visit: Yes Onset Date: ~09/20/20 (4) Hyponatremia SNOMED Code(s): 68671814 Code(s): E87.1 - HYPO-OSMOLALITY AND HYPONATREMIA Status: Resolved Priority: High Current Visit: Yes (5) Hypoxia SNOMED Code(s): 122727696 Code(s): R09.02 - HYPOXEMIA Status: Acute Priority: High Current Visit: Yes Onset Date: ~09/20/20 (6) Pneumonia due to COVID-19 virus SNOMED Code(s): 992734099304047838 Code(s): U07.1 - COVID-19; J12.89 - OTHER VIRAL PNEUMONIA Status: Acute Priority: High Current Visit: Yes (7) Renal insufficiency SNOMED Code(s): 867029470, 004124514 Code(s): N28.9 - DISORDER OF KIDNEY AND URETER, UNSPECIFIED Status: Resolved Priority: Medium Current Visit: Yes Onset Date: ~09/20/20 (8) Generalized weakness SNOMED Code(s): 18216841 Code(s): R53.1 - WEAKNESS Status: Acute Priority: High Current Visit: Yes (9) Bradycardia SNOMED Code(s): 07700108 Code(s): R00.1 - BRADYCARDIA, UNSPECIFIED Status: Acute Priority: High Current Visit: Yes (10) Urine retention SNOMED Code(s): 675209434 Code(s): R33.9 - RETENTION OF URINE, UNSPECIFIED Status: Acute Priority: High Current Visit: Yes (11) Diarrhea SNOMED Code(s): 43877978 Code(s): R19.7 - DIARRHEA, UNSPECIFIED Status: Acute Priority: High Current Visit: Yes Qualifiers: Diarrhea type: unspecified type Qualified Code(s): R19.7 - Diarrhea, unspecified - Problem List Review Problem List Initiated/Reviewed/Updated: Yes - Assessment Assessment:: 09/21/2020 * Electrolytes back WNL * D-Dimer 0.92 (improved) * CRP 6.6 * Given convalescent plasma on 09/20/2020 * Requiring 2L oxygen via NC * HR in 40's * Will decrease home metoprolol dosing * Noted to have over 1L of urine retention overnight and straight catheterized * Starting flomax * Bladder scans as needed * Patient reports often only voids once a day * No patient or nursing concerns * Reports he feels better, but still weak * Continue current treatment plan and monitor HR 09/22/2020 * Electrolytes back WNL * Given convalescent plasma on 09/20/2020 * Requiring 2L oxygen via NC * Dale catheter placed over night due to urinary retention * Starting flomax * will need to see urology as an outpatient * Patient reports often only voids once a day * No patient or nursing concerns * Reports he feels better, but still weak * Continue current treatment plan and monitor HR * K+ 3.2 * Vitamin D level 16.1 * HR in the 50's 09/23/2020 * Labs remain stable * WBC 9.08 * D-dimer 1.72 * CRP 2.8 * Procalcitonin was 0.1 * UA and blood cultures negative thus far * Continue dale catheter * Reports he feels better today * HR in 60-70's with stoppage of metoprolol * On 3L oxygen * Continue current treatment plan 09/24/2020 * Labs * WBC remains elevated at 10.33 * Creatinine 1.2 * GFR 59 * CRP 3.3 * Continue dale catheter * HR Low 50's off metoprolol * On 4L oxygen * Repeat CXR stable to mildly worse * Add azithromycin and rocephin * Continue dexamethasone 09/25/2020 * Labs * WBC elevated at 11.59 * D-dimer WNL at 0.49 * GFR >60 * CRP 2.9 * Continue dale catheter * HR upper 40-50s of metoprolol * Requiring 3L oxygen today * Continue current treatment plan * Completed remdesivir treatment 09/26/2020 * No labs obtained today * Repeat labs tomorrow * Dale catheter pulled yesterday, continue to monitor need for replacement * Requiring 4L oxygen today * Continue current treatment plan * Completed remdesivir * HR remains in 50's * Completed azithromycin * No complaints and reports he feels better today. 09/27/2020 * Continue current treatment * He was retaining urine considerably, dale catheter was re-inserted early this morning * Still on requiring 4L oxygen to achieve adequate oxygenation * Continue current treatment plan * Completed remdesivir and azithromycin * Start zinc oral supplement * IS as directed and encourage beside pulmo exercise * HR remains in the upper 40s-50's * Encourage proning * DVT prophylaxis: Lovenox 40mg subQ BID * LOS > 96hrs, he needs more time with treatment; unable to wean down to lower level of required O2 09/28/2020 * Continue current treatment * He was retaining urine considerably, dale catheter was re-inserted early this morning * Still on 4L oxygen * Continue current treatment plan * Completed remdesivir and azithromycin * Continue zinc oral supplement * Encourage to use IS as directed and encourage beside pulmo exercise * HR remains in the upper 40s-50's * Encourage proning * DVT prophylaxis: Lovenox 40mg subQ BID * SW/ for d/c planning * May benefit with rehab/snf if patient is agreeable * LOS > 96hrs, he needs more time with treatment; unable to wean down to lower level of required O2 09/29/2020 * Continue attempting to wean oxygen * Continue dale catheter * Urology consultation needed at discharge * Completed dexamethasone, remdesivier, azithromycin, and Rocephin * Continues to utilize IS/Acapella * Remains bradycardic * 12-lead EKG obtained yesterday * Echo obtained today and pending * No complaints today and states he feels ok * Repeat labs tomorrow 09/30/2020 * Was weaned off of oxygen today * Continues to need dale catheter * Continues to utilize IS/Acapella * No complaints today * Echo obtained 09/20/2020 * 1. LVEF, by visual estimation, is 55 to 60% * 2. Impaired relaxation (Grade 1) pattern of LV diastolic filling * 3. Normal right ventricular systolic function * 4. The aortic valve is structurally normal and tricuspid * 5. Trace mitral valve regurgitation * 6. Trace tricuspid valve regurgitation * 7. No regional wall motion abnormalities * Labs today: * WBC 17.27 (steroids) * Hgb 14.7 * Sodium 137 * Potassium 4.0 * GFR 59 * Phosphorous 3.2 * Magnesium 2.3 * No need for lab draw tomorrow - Plan Plan:: COVID-19 - diagnosed 09/20/20 in ED Hypoxia, on 4L NC Confusion, resolved Vit D Deficiency, POA Leukocytosis, POA Generalized Weakness, 2/2 acute illness * Given convalescent plasma on 09/20/2020 * Completed Remdesivir, dexamethasone, rocephin and azithromycin * Acapella/IS * Consult RT/PT/OT * CM/SW consult for d/c planning * Consult plaster block layer * Ambulate around room when able * Encourage proning * PRN Tylenol for fever/pain * Monitor daily labs * D-Dimer Q48 hr * Blood cultures negative * Airborne/contact precautions * Titrate to come off supplemental O2 * Oxygen as needed with goal saturations between 88-94% Bradycardia * Stopped Metoprolol and monitor * Telemetry * HR in the upper 40s-50's * Obtained echo * Asymptomatic - will continue to monitor Diarrhea * 4 watery stools in past 24 hours * Likely COVID-19 related * Will test for C-Diff as patient has had antibiotics * Contact precautions Urine retention * Continue Flomax * Dale catheter removed 09/25/20-but unable to void and was retaining urine con siderably * 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 Carlisle Code status: DVT prophylaxis: Lovenox GI prophylaxis: Home PPI Social: Patient lives with spouse in an apartment on [address] here in [place] Disposition: Admitted to ICU as MSP overflow for treatment of COVID-19 and electrolyte abnormalities. LOS >96 hrs due to duration of COVID-19 treatment. Prognosis: Good
[2020-09-30] MEDS: Enoxaparin 40 MG/0.4 ML Syringe SUBCUT SCH (08:39)
[2020-09-30] MEDS: Allopurinol 100 MG Tab PO SCH (08:40)
[2020-09-30] MEDS: Tamsulosin 0.4 MG Cap.ER PO SCH (08:40)
[2020-09-30] MEDS: Cholecalciferol (Vitamin D3) 5,000 UNIT Cap PO SCH (08:40)
[2020-09-30] MEDS: Zinc Sulfate 220 MG Cap PO SCH (08:40)
[2020-09-30] MEDS: Aspirin 81 MG Tab.EC PO SCH (08:40)
[2020-09-30] MEDS: Simvastatin 40 MG Tab PO SCH (08:40)
[2020-09-30] MEDS: Pantoprazole 40 MG Tab.CR PO SCH (08:40)
[2020-09-30] MEDS: Sertraline 50 MG Tab PO SCH (08:40)
--- NOTE | 2020-10-01 07:19 | PCM.PN ---
- General Info Date of Service: 10/01/20 Admission Dx/Problem (Free Text): Admission Diagnosis/Problem Admission Diagnosis/Problem Pneumonia/covid /weakness/anorexia Subjective Update: In to see John. He has no complaints. Nursing reports his diarrhea has lessened substantially. He did not have any BMs until today. He remains off of oxygen. He is cleared for discharge pending placement. Functional Status: Reports: Pain Controlled, Tolerating Diet, Ambulating, Urinating, Incentive Spirometry, Other (Acapella ). Denies: New Symptoms - Review of Systems General: Reports: No Symptoms. Denies: Fever, Weakness, Fatigue, Malaise, Chills HEENT: Reports: No Symptoms. Denies: Headaches, Sore Throat Pulmonary: Reports: No Symptoms. Denies: Shortness of Breath, Cough, Sputum, Wheezing Cardiovascular: Reports: No Symptoms. Denies: Chest Pain, Palpitations, Dyspnea on Exertion, Edema Gastrointestinal: Reports: No Symptoms. Denies: Abdominal Pain, Constipation, Diarrhea, Nausea, Vomiting Genitourinary: Reports: No Symptoms. Denies: Pain Musculoskeletal: Reports: No Symptoms Skin: Reports: No Symptoms. Denies: Cyanosis Neurological: Reports: No Symptoms. Denies: Difficulty Walking, Gait Di sturbance Psychiatric: Reports: No Symptoms - Patient Data Vitals - Most Recent: Last Vital Signs Temp 97.5 F 10/01/20 02:51 Pulse 67 10/01/20 02:51 Resp 18 10/01/20 02:51 BP 113/74 10/01/20 02:51 Pulse Ox 92 L 10/01/20 02:51 Weight - Most Recent: 170 lb I&O - Last 24 Hours: Intake & Output 09/30/20 10/01/20 10/01/20 22:59 06:59 14:59 Intake Total 1240 Output Total 500 Balance 740 Med Orders - Current: Current Medications Acetaminophen (Tylenol) 650 mg PO Q6H PRN PRN Reason: Fever/pain Allopurinol (Zyloprim) 100 mg PO DAILY [facility] Last Admin: 09/30/20 08:40 Dose: 100 mg Documented by: Aspirin (Halfprin) 81 mg PO DAILY [facility] Last Admin: 09/30/20 08:40 Dose: 81 mg Documented by: Cholecalciferol (Vitamin D3) 5,000 unit PO DAILY [facility] Last Admin: 09/30/20 08:40 Dose: 5,000 unit Documented by: Enoxaparin Sodium (Lovenox) 40 mg SUBCUT DAILY [facility] Last Admin: 09/30/20 08:39 Dose: 40 mg Documented by: Pantoprazole Sodium (Protonix) 40 mg PO DAILY [facility] Last Admin: 09/30/20 08:40 Dose: 40 mg Documented by: Sertraline HCl (Zoloft) 50 mg PO DAILY [facility] Last Admin: 09/30/20 08:40 Dose: 50 mg Documented by: Simvastatin (Zocor) 40 mg PO DAILY [facility] Last Admin: 09/30/20 08:40 Dose: 40 mg Documented by: Sodium Chloride (Saline Flush) 10 ml FLUSH ASDIRECTED PRN PRN Reason: Keep Vein Open Last Admin: 09/24/20 08:15 Dose: 10 ml Documented by: Tamsulosin HCl (Flomax) 0.4 mg PO DAILY [facility] Last Admin: 09/30/20 08:40 Dose: 0.4 mg Documented by: Zinc Sulfate (Zincate) 220 mg PO DAILY [facility] Last Admin: 09/30/20 08:40 Dose: 220 mg Documented by: Discontinued Medications Acetaminophen (Tylenol) 650 mg PO ONCALL ONE Stop: 09/20/20 19:11 Last Admin: 09/20/20 21:36 Dose: 650 mg Documented by: Azithromycin (Zithromax) 500 mg PO DAILY [facility] Stop: 09/26/20 09:01 Last Admin: 09/26/20 08:15 Dose: 500 mg Documented by: Dexamethasone (Decadron) 6 mg IVPUSH ONETIME ONE Stop: 09/20/20 14:23 Last Admin: 09/20/20 15:01 Dose: 6 mg Documented by: Dexamethasone (Decadron) Confirm Administered Dose 4 mg .ROUTE .STK-MED ONE Stop: 09/20/20 15:01 Last Admin: 09/20/20 15:07 Dose: Not Given Documented by: Dexamethasone (Dexamethasone) 6 mg PO DAILY [facility] Stop: 09/29/20 09:01 Last Admin: 09/29/20 08:31 Dose: 6 mg Documented by: Diphenhydramine HCl (Benadryl) 25 mg PO ONCALL ONE Stop: 09/20/20 19:11 Last Admin: 09/20/20 21:37 Dose: 25 mg Documented by: Famotidine (Pepcid) 20 mg PO BID [facility] Sodium Chloride (Normal Saline) 1,000 mls @ 1,000 mls/hr IV .BOLUS [facility] Last Admin: 09/20/20 13:40 Dose: 1,000 mls/hr Documented by: Remdesivir 200 mg/ Sodium (Chloride) 250 mls @ 250 mls/hr IV ONETIME ONE Stop: 09/20/20 14:23 Last Admin: 09/20/20 15:06 Dose: 250 mls/hr Documented by: Potassium Chloride 10 meq/ (Premix) 100 mls @ 100 mls/hr IV Q1H [facility] Stop: 09/20/20 19:59 Last Admin: 09/20/20 20:16 Dose: 100 mls/hr Documented by: Sodium Chloride (Normal Saline) 1,000 mls @ 75 mls/hr IV ASDIRECTED [facility] Last Admin: 09/20/20 17:15 Dose: 75 mls/hr Documented by: Remdesivir 100 mg/ Sodium (Chloride) 100 mls @ 100 mls/hr IV DAILY [facility] Stop: 09/24/20 09:59 Remdesivir 100 mg/ Sodium (Chloride) 100 mls @ 100 mls/hr IV Q24H [facility] Stop: 09/24/20 15:59 Last Admin: 09/24/20 15:19 Dose: 100 mls/hr Documented by: Ceftriaxone Sodium 2 gm/ (Sodium Chloride) 100 mls @ 200 mls/hr IV Q24H [facility] Stop: 09/28/20 11:29 Last Admin: 09/28/20 10:15 Dose: 200 mls/hr Documented by: Metoprolol Tartrate (Lopressor) 25 mg PO BID [facility] Last Admin: 09/21/20 09:21 Dose: Not Given Documented by: Metoprolol Tartrate (Lopressor) 12.5 mg PO Q12H [facility] Last Admin: 09/21/20 12:46 Dose: Not Given Documented by: Pantoprazole Sodium (Protonix Iv) 40 mg .XX DAILY [facility] Last Admin: 09/21/20 09:05 Dose: 40 mg Documented by: Potassium Chloride (Klor-Con M20) 40 meq PO Q4H [facility] Stop: 09/22/20 17:16 Last Admin: 09/22/20 17:51 Dose: 40 meq Documented by: Tamsulosin HCl (Flomax) 0.4 mg PO PCBREAKFAST DEJA Last Admin: 09/22/20 09:02 Dose: 0.4 mg Documented by: Tamsulosin HCl (Flomax) 0.4 mg PO ONETIME ONE Stop: 09/21/20 11:35 Last Admin: 09/21/20 12:19 Dose: 0.4 mg Documented by: - Exam Quality Assessment: Urine Catheter, DVT Prophylaxis. No: Supplemental Oxygen General: Alert, Cooperative, No Acute Distress HEENT: Pupils Equal, Pupils Reactive, Mucous Membr. Moist/[place] Neck: Supple, Trachea Midline Lungs: Normal Respiratory Effort, Decreased Breath Sounds Cardiovascular: Regular Rate, Regular Rhythm GI/Abdominal Exam: Normal Bowel Sounds, Soft, Non-Tender, No Distention (Male) Exam: Deferred Back Exam: Normal Inspection, Full Range of Motion Extremities: Normal Inspection, Normal Range of Motion, Non-Tender, No Pedal Edema, Normal Capillary Refill Skin: Warm, Dry, Intact Neurological: No New Focal Deficit Psy/Mental Status: Alert, Normal Affect, Normal Mood Sepsis Event Note - Evaluation Sepsis Screening Result: No Definite Risk - Focused Exam Vital Signs: Vital Signs Temp Pulse Resp BP Pulse Ox 10/01/20 02:51 97.5 F 67 18 113/74 92 L 09/30/20 22:52 97.7 F 56 L 17 112/68 92 L - Problem List & Annotations (1) COVID-19 SNOMED Code(s): 376238549 Code(s): U07.1 - COVID-19 Status: Acute Priority: High Current Visit: Yes Onset Date: ~09/12/20 (2) Confusion SNOMED Code(s): 988445773 Code(s): R41.0 - DISORIENTATION, UNSPECIFIED Status: Acute Priority: Low Current Visit: Yes Onset Date: ~09/20/20 (3) Hypokalemia SNOMED Code(s): 17569733 Code(s): E87.6 - HYPOKALEMIA Status: Resolved Priority: Medium Current Visit: Yes Onset Date: ~09/20/20 (4) Hyponatremia SNOMED Code(s): 24858540 Code(s): E87.1 - HYPO-OSMOLALITY AND HYPONATREMIA Status: Resolved Priority: High Current Visit: Yes (5) Hypoxia SNOMED Code(s): 397718724 Code(s): R09.02 - HYPOXEMIA Status: Acute Priority: High Current Visit: Yes Onset Date: ~09/20/20 (6) Pneumonia due to COVID-19 virus SNOMED Code(s): 390580031067175354 Code(s): U07.1 - COVID-19; J12.89 - OTHER VIRAL PNEUMONIA Status: Acute Priority: High Current Visit: Yes (7) Renal insufficiency SNOMED Code(s): 507332092, 507270701 Code(s): N28.9 - DISORDER OF KIDNEY AND URETER, UNSPECIFIED Status: Resolved Priority: Medium Current Visit: Yes Onset Date: ~09/20/20 (8) Generalized weakness SNOMED Code(s): 19505023 Code(s): R53.1 - WEAKNESS Status: Acute Priority: High Current Visit: Yes (9) Bradycardia SNOMED Code(s): 58626411 Code(s): R00.1 - BRADYCARDIA, UNSPECIFIED Status: Acute Priority: High Current Visit: Yes (10) Urine retention SNOMED Code(s): 069302323 Code(s): R33.9 - RETENTION OF URINE, UNSPECIFIED Status: Acute Priority: High Current Visit: Yes (11) Diarrhea SNOMED Code(s): 17109957 Code(s): R19.7 - DIARRHEA, UNSPECIFIED Status: Acute Priority: High Current Visit: Yes Qualifiers: Diarrhea type: unspecified type Qualified Code(s): R19.7 - Diarrhea, unspecified - Problem List Review Problem List Initiated/Reviewed/Updated: Yes - My Orders Last 24 Hours: My Active Orders 09/30/20 15:29 C DIFFICILE PCR W/REFLEX [MOLEC] Routine - Assessment Assessment:: 09/21/2020 * Electrolytes back WNL * D-Dimer 0.92 (improved) * CRP 6.6 * Given convalescent plasma on 09/20/2020 * Requiring 2L oxygen via [place] * HR in 40's * Will decrease home metoprolol dosing * Noted to have over 1L of urine retention overnight and straight catheterized * Starting flomax * Bladder scans as needed * Patient reports often only voids once a day * No patient or nursing concerns * Reports he feels better, but still weak * Continue current treatment plan and monitor HR 09/22/2020 * Electrolytes back WNL * Given convalescent plasma on 09/20/2020 * Requiring 2L oxygen via NC * Dale catheter placed over night due to urinary retention * Starting flomax * will need to see urology as an outpatient * Patient reports often only voids once a day * No patient or nursing concerns * Reports he feels better, but still weak * Continue current treatment plan and monitor HR * K+ 3.2 * Vitamin D level 16.1 * HR in the 50's 09/23/2020 * Labs remain stable * WBC 9.08 * D-dimer 1.72 * CRP 2.8 * Procalcitonin was 0.1 * UA and blood cultures negative thus far * Continue dale catheter * Reports he feels better today * HR in 60-70's with stoppage of metoprolol * On 3L oxygen * Continue current treatment plan 09/24/2020 * Labs * WBC remains elevated at 10.33 * Creatinine 1.2 * GFR 59 * CRP 3.3 * Continue dale catheter * HR Low 50's off metoprolol * On 4L oxygen * Repeat CXR stable to mildly worse * Add azithromycin and rocephin * Continue dexamethasone 09/25/2020 * Labs * WBC elevated at 11.59 * D-dimer WNL at 0.49 * GFR >60 * CRP 2.9 * Continue dale catheter * HR upper 40-50s of metoprolol * Requiring 3L oxygen today * Continue current treatment plan * Completed remdesivir treatment 09/26/2020 * No labs obtained today * Repeat labs tomorrow * Dale catheter pulled yesterday, continue to monitor need for replacement * Requiring 4L oxygen today * Continue current treatment plan * Completed remdesivir * HR remains in 50's * Completed azithromycin * No complaints and reports he feels better today. 09/27/2020 * Continue current treatment * He was retaining urine considerably, dale catheter was re-inserted early this morning * Still on requiring 4L oxygen to achieve adequate oxygenation * Continue current treatment plan * Completed remdesivir and azithromycin * Start zinc oral supplement * IS as directed and encourage beside pulmo exercise * HR remains in the upper 40s-50's * Encourage proning * DVT prophylaxis: Lovenox 40mg subQ BID * LOS > 96hrs, he needs more time with treatment; unable to wean down to lower level of required O2 09/28/2020 * Continue current treatment * He was retaining urine considerably, dale catheter was re-inserted early this morning * Still on 4L oxygen * Continue current treatment plan * Completed remdesivir and azithromycin * Continue zinc oral supplement * Encourage to use IS as directed and encourage beside pulmo exercise * HR remains in the upper 40s-50's * Encourage proning * DVT prophylaxis: Lovenox 40mg subQ BID * SW/ for d/c planning * May benefit with rehab/snf if patient is agreeable * LOS > 96hrs, he needs more time with treatment; unable to wean down to lower level of required O2 09/29/2020 * Continue attempting to wean oxygen * Continue dale catheter * Urology consultation needed at discharge * Completed dexamethasone, remdesivier, azithromycin, and Rocephin * Continues to utilize IS/Acapella * Remains bradycardic * 12-lead EKG obtained yesterday * Echo obtained today and pending * No complaints today and states he feels ok * Repeat labs tomorrow 09/30/2020 * Was weaned off of oxygen today * Continues to need dale catheter * Continues to utilize IS/Acapella * No complaints today * Echo obtained 09/20/2020 * 1. LVEF, by visual estimation, is 55 to 60% * 2. Impaired relaxation (Grade 1) pattern of LV diastolic filling * 3. Normal right ventricular systolic function * 4. The aortic valve is structurally normal and tricuspid * 5. Trace mitral valve regurgitation * 6. Trace tricuspid valve regurgitation * 7. No regional wall motion abnormalities * Labs today: * WBC 17.27 (steroids) * Hgb 14.7 * Sodium 137 * Potassium 4.0 * GFR 59 * Phosphorous 3.2 * Magnesium 2.3 * No need for lab draw tomorrow 10/01/2020 * Continues to remain off of oxygen * Continues to require dale catheter * Continues to utilize IS/Acapella * No complaints today * No labs today * Remains stable pending placement * NOEL working on [place] [facility] placement. - Plan Plan:: COVID-19 - diagnosed 09/20/20 in ED Hypoxia, on 4L NC Confusion, resolved Vit D Deficiency, POA Leukocytosis, POA Generalized Weakness, 2/2 acute illness * Given convalescent plasma on 09/20/2020 * Completed Remdesivir, dexamethasone, rocephin and azithromycin * Acapella/IS * Consult RT/PT/OT * CM/SW consult for d/c planning * Consult binman * Ambulate around room when able * Encourage proning * PRN Tylenol for fever/pain * PRN labs as indicated * Blood cultures negative * Airborne/contact precautions * Titrate to come off supplemental O2 * Oxygen as needed with goal saturations between 88-94% Bradycardia * Stopped Metoprolol and monitor * Telemetry * HR in the upper 40s-50's * Obtained echo as above * Asymptomatic - will continue to monitor Diarrhea, resolved * Resolved prior to C-diff test being collected. 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 Carlisle Code status: DVT prophylaxis: Lovenox GI prophylaxis: Home PPI Social: Patient lives with spouse in an apartment on [address] here in [place] Disposition: Admitted to ICU as MSP overflow for treatment of COVID-19 and electrolyte abnormalities. LOS >96 hrs due to duration of COVID-19 treatment. Prognosis: Good
[2020-10-01] MEDS: Aspirin 81 MG Tab.EC PO SCH (08:01)
[2020-10-01] MEDS: Cholecalciferol (Vitamin D3) 5,000 UNIT Cap PO SCH (08:01)
[2020-10-01] MEDS: Zinc Sulfate 220 MG Cap PO SCH (08:01)
[2020-10-01] MEDS: Pantoprazole 40 MG Tab.CR PO SCH (08:02)
[2020-10-01] MEDS: Sertraline 50 MG Tab PO SCH (08:02)
[2020-10-01] MEDS: Simvastatin 40 MG Tab PO SCH (08:02)
[2020-10-01] MEDS: Tamsulosin 0.4 MG Cap.ER PO SCH (08:02)
[2020-10-01] MEDS: Allopurinol 100 MG Tab PO SCH (08:02)
[2020-10-01] MEDS: Enoxaparin 40 MG/0.4 ML Syringe SUBCUT SCH (08:02)
--- NOTE | 2020-10-02 07:10 | PCM.PN ---
<Swapnil Spring - Last Filed: 10/02/20 11:49> - General Info Date of Service: 10/02/20 Admission Dx/Problem (Free Text): Admission Diagnosis/Problem Admission Diagnosis/Problem Pneumonia/covid /weakness/anorexia Subjective Update: In to see John. He is off of precautions now. He reports he feels pretty good. He remains off of oxygen. Encouraged to ambulate in hallway and continue IS/Acapella. Per patient has been accepted at [facility] and the earliest they can take him is 10/07/2020. Remains cleared for discharge pending placement. Functional Status: Reports: Pain Controlled, Tolerating Diet, Ambulating, Urinating, Incentive Spirometry, Other (Acapella ). Denies: New Symptoms - Review of Systems General: Reports: No Symptoms. Denies: Fever, Weakness, Fatigue, Malaise, Chills HEENT: Reports: No Symptoms. Denies: Headaches, Sore Throat Pulmonary: Reports: No Symptoms. Denies: Shortness of Breath, Pleuritic Chest Pain, Cough, Sputum Cardiovascular: Reports: No Symptoms. Denies: Chest Pain, Palpitations, Dyspnea on Exertion, Edema Gastrointestinal: Reports: No Symptoms. Denies: Abdominal Pain, Constipation, Diarrhea, Nausea, Vomiting Genitourinary: Reports: Retention, Other (Dale in place. ) Musculoskeletal: Reports: No Symptoms Skin: Reports: No Symptoms. Denies: Cyanosis Neurological: Reports: No Symptoms. Denies: Difficulty Walking, Weakness, Gait Disturbance Psychiatric: Reports: No Symptoms - Patient Data Vitals - Most Recent: Last Vital Signs Temp 97.9 F 10/02/20 04:46 Pulse 60 10/02/20 04:46 Resp 18 10/02/20 04:46 BP 148/80 H 10/02/20 04:46 Pulse Ox 93 L 10/02/20 04:46 Weight - Most Recent: 77.247 kg I&O - Last 24 Hours: Intake & Output 10/01/20 10/02/20 10/02/20 22:59 06:59 14:59 Intake Total 1518 400 Output Total 650 1000 Balance 868 -600 Med Orders - Current: Current Medications Acetaminophen (Tylenol) 650 mg PO Q6H PRN PRN Reason: Fever/pain Allopurinol (Zyloprim) 100 mg PO DAILY [facility] Last Admin: 10/01/20 08:02 Dose: 100 mg Documented by: Aspirin (Halfprin) 81 mg PO DAILY [facility] Last Admin: 10/01/20 08:01 Dose: 81 mg Documented by: Cholecalciferol (Vitamin D3) 5,000 unit PO DAILY [facility] Last Admin: 10/01/20 08:01 Dose: 5,000 unit Documented by: Enoxaparin Sodium (Lovenox) 40 mg SUBCUT DAILY [facility] Last Admin: 10/01/20 08:02 Dose: 40 mg Documented by: Pantoprazole Sodium (Protonix) 40 mg PO DAILY [facility] Last Admin: 10/01/20 08:02 Dose: 40 mg Documented by: Sertraline HCl (Zoloft) 50 mg PO DAILY [facility] Last Admin: 10/01/20 08:02 Dose: 50 mg Documented by: Simvastatin (Zocor) 40 mg PO DAILY [facility] Last Admin: 10/01/20 08:02 Dose: 40 mg Documented by: Sodium Chloride (Saline Flush) 10 ml FLUSH ASDIRECTED PRN PRN Reason: Keep Vein Open Last Admin: 09/24/20 08:15 Dose: 10 ml Documented by: Tamsulosin HCl (Flomax) 0.4 mg PO DAILY [facility] Last Admin: 10/01/20 08:02 Dose: 0.4 mg Documented by: Zinc Sulfate (Zincate) 220 mg PO DAILY [facility] Last Admin: 10/01/20 08:01 Dose: 220 mg Documented by: Discontinued Medications Acetaminophen (Tylenol) 650 mg PO ONCALL ONE Stop: 09/20/20 19:11 Last Admin: 09/20/20 21:36 Dose: 650 mg Documented by: Azithromycin (Zithromax) 500 mg PO DAILY [facility] Stop: 09/26/20 09:01 Last Admin: 09/26/20 08:15 Dose: 500 mg Documented by: Dexamethasone (Decadron) 6 mg IVPUSH ONETIME ONE Stop: 09/20/20 14:23 Last Admin: 09/20/20 15:01 Dose: 6 mg Documented by: Dexamethasone (Decadron) Confirm Administered Dose 4 mg .ROUTE .STK-MED ONE Stop: 09/20/20 15:01 Last Admin: 09/20/20 15:07 Dose: Not Given Documented by: Dexamethasone (Dexamethasone) 6 mg PO DAILY [facility] Stop: 09/29/20 09:01 Last Admin: 09/29/20 08:31 Dose: 6 mg Documented by: Diphenhydramine HCl (Benadryl) 25 mg PO ONCALL ONE Stop: 09/20/20 19:11 Last Admin: 09/20/20 21:37 Dose: 25 mg Documented by: Famotidine (Pepcid) 20 mg PO BID [facility] Sodium Chloride (Normal Saline) 1,000 mls @ 1,000 mls/hr IV .BOLUS [facility] Last Admin: 09/20/20 13:40 Dose: 1,000 mls/hr Documented by: Remdesivir 200 mg/ Sodium (Chloride) 250 mls @ 250 mls/hr IV ONETIME ONE Stop: 09/20/20 14:23 Last Admin: 09/20/20 15:06 Dose: 250 mls/hr Documented by: Potassium Chloride 10 meq/ (Premix) 100 mls @ 100 mls/hr IV Q1H [facility] Stop: 09/20/20 19:59 Last Admin: 09/20/20 20:16 Dose: 100 mls/hr Documented by: Sodium Chloride (Normal Saline) 1,000 mls @ 75 mls/hr IV ASDIRECTED [facility] Last Admin: 09/20/20 17:15 Dose: 75 mls/hr Documented by: Remdesivir 100 mg/ Sodium (Chloride) 100 mls @ 100 mls/hr IV DAILY [facility] Stop: 09/24/20 09:59 Remdesivir 100 mg/ Sodium (Chloride) 100 mls @ 100 mls/hr IV Q24H [facility] Stop: 09/24/20 15:59 Last Admin: 09/24/20 15:19 Dose: 100 mls/hr Documented by: Ceftriaxone Sodium 2 gm/ (Sodium Chloride) 100 mls @ 200 mls/hr IV Q24H [facility] Stop: 09/28/20 11:29 Last Admin: 09/28/20 10:15 Dose: 200 mls/hr Documented by: Metoprolol Tartrate (Lopressor) 25 mg PO BID [facility] Last Admin: 09/21/20 09:21 Dose: Not Given Documented by: Metoprolol Tartrate (Lopressor) 12.5 mg PO Q12H [facility] Last Admin: 09/21/20 12:46 Dose: Not Given Documented by: Pantoprazole Sodium (Protonix Iv) 40 mg .XX DAILY [facility] Last Admin: 09/21/20 09:05 Dose: 40 mg Documented by: Potassium Chloride (Klor-Con M20) 40 meq PO Q4H DEJA Stop: 09/22/20 17:16 Last Admin: 09/22/20 17:51 Dose: 40 meq Documented by: Tamsulosin HCl (Flomax) 0.4 mg PO PCBREAKFAST [facility] Last Admin: 09/22/20 09:02 Dose: 0.4 mg Documented by: Tamsulosin HCl (Flomax) 0.4 mg PO ONETIME ONE Stop: 09/21/20 11:35 Last Admin: 09/21/20 12:19 Dose: 0.4 mg Documented by: - Exam Quality Assessment: Urine Catheter, DVT Prophylaxis. No: Supplemental Oxygen General: Alert, Cooperative, No Acute Distress HEENT: Pupils Equal, Pupils Reactive, Mucous Membr. Moist/[place] Neck: Supple, Trachea Midline Lungs: Normal Respiratory Effort, Decreased Breath Sounds (greatly improved ) Cardiovascular: Regular Rate, Regular Rhythm GI/Abdominal Exam: Normal Bowel Sounds, Soft, Non-Tender, No Distention, No Abnormal Bruit (Male) Exam: Deferred Back Exam: Normal Inspection, Full Range of Motion Extremities: Normal Inspection, Normal Range of Motion, Non-Tender, No Pedal Edema, Normal Capillary Refill Skin: Warm, Dry, Intact Neurological: No New Focal Deficit Psy/Mental Status: Alert. No: Normal Affect (Flat) Sepsis Event Note - Evaluation Sepsis Screening Result: No Definite Risk - Focused Exam Vital Signs: Vital Signs Temp Pulse Resp BP Pulse Ox 10/02/20 04:46 97.9 F 60 18 148/80 H 93 L 10/01/20 19:21 97.3 F 81 16 116/60 93 L - Problem List & Annotations (1) COVID-19 SNOMED Code(s): 521447217 Code(s): U07.1 - COVID-19 Status: Acute Priority: High Current Visit: Yes Onset Date: ~09/12/20 (2) Confusion SNOMED Code(s): 102508645 Code(s): R41.0 - DISORIENTATION, UNSPECIFIED Status: Acute Priority: Low Current Visit: Yes Onset Date: ~09/20/20 (3) Hypokalemia SNOMED Code(s): 06546452 Code(s): E87.6 - HYPOKALEMIA Status: Resolved Priority: Medium Current Visit: Yes Onset Date: ~09/20/20 (4) Hyponatremia SNOMED Code(s): 14086658 Code(s): E87.1 - HYPO-OSMOLALITY AND HYPONATREMIA Status: Resolved Priority: High Current Visit: Yes (5) Hypoxia SNOMED Code(s): 182874610 Code(s): R09.02 - HYPOXEMIA Status: Acute Priority: High Current Visit: Yes Onset Date: ~09/20/20 (6) Pneumonia due to COVID-19 virus SNOMED Code(s): 951770392526495678 Code(s): U07.1 - COVID-19; J12.89 - OTHER VIRAL PNEUMONIA Status: Acute Priority: High Current Visit: Yes (7) Renal insufficiency SNOMED Code(s): 114254923, 011961459 Code(s): N28.9 - DISORDER OF KIDNEY AND URETER, UNSPECIFIED Status: Resolved Priority: Medium Current Visit: Yes Onset Date: ~09/20/20 (8) Generalized weakness SNOMED Code(s): 77006568 Code(s): R53.1 - WEAKNESS Status: Acute Priority: High Current Visit: Yes (9) Bradycardia SNOMED Code(s): 91436161 Code(s): R00.1 - BRADYCARDIA, UNSPECIFIED Status: Acute Priority: High Current Visit: Yes (10) Urine retention SNOMED Code(s): 432292108 Code(s): R33.9 - RETENTION OF URINE, UNSPECIFIED Status: Acute Priority: High Current Visit: Yes (11) Diarrhea SNOMED Code(s): 24850514 Code(s): R19.7 - DIARRHEA, UNSPECIFIED Status: Acute Priority: High Current Visit: Yes Qualifiers: Diarrhea type: unspecified type Qualified Code(s): R19.7 - Diarrhea, unspecified - Problem List Review Problem List Initiated/Reviewed/Updated: Yes - Assessment Assessment:: 09/21/2020 * Electrolytes back WNL * D-Dimer 0.92 (improved) * CRP 6.6 * Given convalescent plasma on 09/20/2020 * Requiring 2L oxygen via NC * HR in 40's * Will decrease home metoprolol dosing * Noted to have over 1L of urine retention overnight and straight catheterized * Starting flomax * Bladder scans as needed * Patient reports often only voids once a day * No patient or nursing concerns * Reports he feels better, but still weak * Continue current treatment plan and monitor HR 09/22/2020 * Electrolytes back WNL * Given convalescent plasma on 09/20/2020 * Requiring 2L oxygen via NC * Dale catheter placed over night due to urinary retention * Starting flomax * will need to see urology as an outpatient * Patient reports often only voids once a day * No patient or nursing concerns * Reports he feels better, but still weak * Continue current treatment plan and monitor HR * K+ 3.2 * Vitamin D level 16.1 * HR in the 50's 09/23/2020 * Labs remain stable * WBC 9.08 * D-dimer 1.72 * CRP 2.8 * Procalcitonin was 0.1 * UA and blood cultures negative thus far * Continue dale catheter * Reports he feels better today * HR in 60-70's with stoppage of metoprolol * On 3L oxygen * Continue current treatment plan 09/24/2020 * Labs * WBC remains elevated at 10.33 * Creatinine 1.2 * GFR 59 * CRP 3.3 * Continue dale catheter * HR Low 50's off metoprolol * On 4L oxygen * Repeat CXR stable to mildly worse * Add azithromycin and rocephin * Continue dexamethasone 09/25/2020 * Labs * WBC elevated at 11.59 * D-dimer WNL at 0.49 * GFR >60 * CRP 2.9 * Continue dale catheter * HR upper 40-50s of metoprolol * Requiring 3L oxygen today * Continue current treatment plan * Completed remdesivir treatment 09/26/2020 * No labs obtained today * Repeat labs tomorrow * Dale catheter pulled yesterday, continue to monitor need for replacement * Requiring 4L oxygen today * Continue current treatment plan * Completed remdesivir * HR remains in 50's * Completed azithromycin * No complaints and reports he feels better today. 09/27/2020 * Continue current treatment * He was retaining urine considerably, dale catheter was re-inserted early this morning * Still on requiring 4L oxygen to achieve adequate oxygenation * Continue current treatment plan * Completed remdesivir and azithromycin * Start zinc oral supplement * IS as directed and encourage beside pulmo exercise * HR remains in the upper 40s-50's * Encourage proning * DVT prophylaxis: Lovenox 40mg subQ BID * LOS > 96hrs, he needs more time with treatment; unable to wean down to lower level of required O2 09/28/2020 * Continue current treatment * He was retaining urine considerably, dale catheter was re-inserted early this morning * Still on 4L oxygen * Continue current treatment plan * Completed remdesivir and azithromycin * Continue zinc oral supplement * Encourage to use IS as directed and encourage beside pulmo exercise * HR remains in the upper 40s-50's * Encourage proning * DVT prophylaxis: Lovenox 40mg subQ BID * SW/ for d/c planning * May benefit with rehab/snf if patient is agreeable * LOS > 96hrs, he needs more time with treatment; unable to wean down to lower level of required O2 09/29/2020 * Continue attempting to wean oxygen * Continue dale catheter * Urology consultation needed at discharge * Completed dexamethasone, remdesivier, azithromycin, and Rocephin * Continues to utilize IS/Acapella * Remains bradycardic * 12-lead EKG obtained yesterday * Echo obtained today and pending * No complaints today and states he feels ok * Repeat labs tomorrow 09/30/2020 * Was weaned off of oxygen today * Continues to need dale catheter * Continues to utilize IS/Acapella * No complaints today * Echo obtained 09/20/2020 * 1. LVEF, by visual estimation, is 55 to 60% * 2. Impaired relaxation (Grade 1) pattern of LV diastolic filling * 3. Normal right ventricular systolic function * 4. The aortic valve is structurally normal and tricuspid * 5. Trace mitral valve regurgitation * 6. Trace tricuspid valve regurgitation * 7. No regional wall motion abnormalities * Labs today: * WBC 17.27 (steroids) * Hgb 14.7 * Sodium 137 * Potassium 4.0 * GFR 59 * Phosphorous 3.2 * Magnesium 2.3 * No need for lab draw tomorrow 10/01/2020 * Continues to remain off of oxygen * Continues to require dale catheter * Continues to utilize IS/Acapella * No complaints today * No labs today * Remains stable pending placement * SW working on [place] [facility] placement. 10/02/2020 * Remains off of oxygen * Continue dale catheter for retention * Continues to utilize acapella/IS * Removed from isolation today * Encourage ambulation outside of room * No labs obtained today * Accepted at [facility] for 10/07/2020 * Will remain inpatient until then * Completed COVID-19 treatment * Discharge pending placement * No patient or nursing concerns today. - Plan Plan:: COVID-19 - diagnosed 09/20/20 in ED Hypoxia, on 4L NC Confusion, resolved Vit D Deficiency, POA Leukocytosis, POA Generalized Weakness, 2/2 acute illness * Given convalescent plasma on 09/20/2020 * Completed Remdesivir, dexamethasone, rocephin and azithromycin * Acapella/IS * Consult RT/PT/OT * CM/SW consult for d/c planning * Consult industrial training specialist * Ambulate in hallway * Removed from isolation * Encourage proning * PRN Tylenol for fever/pain * PRN labs as indicated * Blood cultures negative * Oxygen as needed with goal saturations between 88-94% Bradycardia * Stopped Metoprolol and monitor * Telemetry * HR in the upper 40s-50's * Obtained echo as above * Asymptomatic - will continue to monitor * HR noted in 60-80's today (10/02/2020) Diarrhea, resolved * Resolved prior to C-diff test being collected. 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 Carlisle Code status: DVT prophylaxis: Lovenox GI prophylaxis: Home PPI Social: Patient lives with spouse in an apartment on [address] here in [place] Disposition: Admitted to ICU as [facility] overflow for treatment of COVID-19 and electrolyte abnormalities. LOS >96 hrs due to duration of COVID-19 treatment. Prognosis: Good <Sudhakar Mancini - Last Filed: 10/02/20 15:41> - Patient Data Vitals - Most Recent: Last Vital Signs Temp 36.5 C 10/02/20 12:17 Pulse 74 10/02/20 12:17 Resp 18 10/02/20 12:17 BP 122/71 10/02/20 12:17 Pulse Ox 91 L 10/02/20 12:17 I&O - Last 24 Hours: Intake & Output 10/02/20 10/02/20 10/02/20 06:59 14:59 22:59 Intake Total 400 360 360 Output Total 1000 Balance -600 360 360 Med Orders - Current: Current Medications Acetaminophen (Tylenol) 650 mg PO Q6H PRN PRN Reason: Fever/pain Allopurinol (Zyloprim) 100 mg PO DAILY [facility] Last Admin: 10/02/20 08:23 Dose: 100 mg Documented by: Aspirin (Halfprin) 81 mg PO DAILY [facility] Last Admin: 10/02/20 08:28 Dose: 81 mg Documented by: Cholecalciferol (Vitamin D3) 5,000 unit PO DAILY [facility] Last Admin: 10/02/20 08:22 Dose: 5,000 unit Documented by: Enoxaparin Sodium (Lovenox) 40 mg SUBCUT DAILY [facility] Last Admin: 10/02/20 08:24 Dose: 40 mg Documented by: Pantoprazole Sodium (Protonix) 40 mg PO DAILY [facility] Last Admin: 10/02/20 08:23 Dose: 40 mg Documented by: Sertraline HCl (Zoloft) 50 mg PO DAILY [facility] Last Admin: 10/02/20 08:23 Dose: 50 mg Documented by: Simvastatin (Zocor) 40 mg PO DAILY [facility] Last Admin: 10/02/20 08:23 Dose: 40 mg Documented by: Sodium Chloride (Saline Flush) 10 ml FLUSH ASDIRECTED PRN PRN Reason: Keep Vein Open Last Admin: 09/24/20 08:15 Dose: 10 ml Documented by: Tamsulosin HCl (Flomax) 0.4 mg PO DAILY [facility] Last Admin: 10/02/20 08:22 Dose: 0.4 mg Documented by: Zinc Sulfate (Zincate) 220 mg PO DAILY [facility] Last Admin: 10/02/20 08:21 Dose: 220 mg Documented by: Discontinued Medications Acetaminophen (Tylenol) 650 mg PO ONCALL ONE Stop: 09/20/20 19:11 Last Admin: 09/20/20 21:36 Dose: 650 mg Documented by: Azithromycin (Zithromax) 500 mg PO DAILY [facility] Stop: 09/26/20 09:01 Last Admin: 09/26/20 08:15 Dose: 500 mg Documented by: Dexamethasone (Decadron) 6 mg IVPUSH ONETIME ONE Stop: 09/20/20 14:23 Last Admin: 09/20/20 15:01 Dose: 6 mg Documented by: Dexamethasone (Decadron) Confirm Administered Dose 4 mg .ROUTE .STK-MED ONE Stop: 09/20/20 15:01 Last Admin: 09/20/20 15:07 Dose: Not Given Documented by: Dexamethasone (Dexamethasone) 6 mg PO DAILY [facility] Stop: 09/29/20 09:01 Last Admin: 09/29/20 08:31 Dose: 6 mg Documented by: Diphenhydramine HCl (Benadryl) 25 mg PO ONCALL ONE Stop: 09/20/20 19:11 Last Admin: 09/20/20 21:37 Dose: 25 mg Documented by: Famotidine (Pepcid) 20 mg PO BID [facility] Sodium Chloride (Normal Saline) 1,000 mls @ 1,000 mls/hr IV .BOLUS [facility] Last Admin: 09/20/20 13:40 Dose: 1,000 mls/hr Documented by: Remdesivir 200 mg/ Sodium (Chloride) 250 mls @ 250 mls/hr IV ONETIME ONE Stop: 09/20/20 14:23 Last Admin: 09/20/20 15:06 Dose: 250 mls/hr Documented by: Potassium Chloride 10 meq/ (Premix) 100 mls @ 100 mls/hr IV Q1H [facility] Stop: 09/20/20 19:59 Last Admin: 09/20/20 20:16 Dose: 100 mls/hr Documented by: Sodium Chloride (Normal Saline) 1,000 mls @ 75 mls/hr IV ASDIRECTED [facility] Last Admin: 09/20/20 17:15 Dose: 75 mls/hr Documented by: Remdesivir 100 mg/ Sodium (Chloride) 100 mls @ 100 mls/hr IV DAILY [facility] Stop: 09/24/20 09:59 Remdesivir 100 mg/ Sodium (Chloride) 100 mls @ 100 mls/hr IV Q24H [facility] Stop: 09/24/20 15:59 Last Admin: 09/24/20 15:19 Dose: 100 mls/hr Documented by: Ceftriaxone Sodium 2 gm/ (Sodium Chloride) 100 mls @ 200 mls/hr IV Q24H [facility] Stop: 09/28/20 11:29 Last Admin: 09/28/20 10:15 Dose: 200 mls/hr Documented by: Metoprolol Tartrate (Lopressor) 25 mg PO BID [facility] Last Admin: 09/21/20 09:21 Dose: Not Given Documented by: Metoprolol Tartrate (Lopressor) 12.5 mg PO Q12H [facility] Last Admin: 09/21/20 12:46 Dose: Not Given Documented by: Pantoprazole Sodium (Protonix Iv) 40 mg .XX DAILY [facility] Last Admin: 09/21/20 09:05 Dose: 40 mg Documented by: Potassium Chloride (Klor-Con M20) 40 meq PO Q4H [facility] Stop: 09/22/20 17:16 Last Admin: 09/22/20 17:51 Dose: 40 meq Documented by: Tamsulosin HCl (Flomax) 0.4 mg PO PCBREAKFAST [facility] Last Admin: 09/22/20 09:02 Dose: 0.4 mg Documented by: Tamsulosin HCl (Flomax) 0.4 mg PO ONETIME ONE Stop: 09/21/20 11:35 Last Admin: 09/21/20 12:19 Dose: 0.4 mg Documented by: Sepsis Event Note - Focused Exam Vital Signs: Vital Signs Temp Pulse Resp BP Pulse Ox 10/02/20 12:17 36.5 C 74 18 122/71 91 L 10/02/20 07:32 36.8 C 63 19 100/67 93 L 10/02/20 04:46 36.6 C 60 18 148/80 H 93 L - Plan Plan:: I have seen and evaluated the patient independently of Swapnil Spring PA-C. I have reviewed and agree with the plan of care as outlined by him for this patient. Please see orders.
[2020-10-02] MEDS: Zinc Sulfate 220 MG Cap PO SCH (08:21)
[2020-10-02] MEDS: Cholecalciferol (Vitamin D3) 5,000 UNIT Cap PO SCH (08:22)
[2020-10-02] MEDS: Tamsulosin 0.4 MG Cap.ER PO SCH (08:22)
[2020-10-02] MEDS: Simvastatin 40 MG Tab PO SCH (08:23)
[2020-10-02] MEDS: Allopurinol 100 MG Tab PO SCH (08:23)
[2020-10-02] MEDS: Sertraline 50 MG Tab PO SCH (08:23)
[2020-10-02] MEDS: Pantoprazole 40 MG Tab.CR PO SCH (08:23)
[2020-10-02] MEDS: Enoxaparin 40 MG/0.4 ML Syringe SUBCUT SCH (08:24)
[2020-10-02] MEDS: Aspirin 81 MG Tab.EC PO SCH (08:28)
[2020-10-03] MEDS: Cholecalciferol (Vitamin D3) 5,000 UNIT Cap PO SCH (08:19)
[2020-10-03] MEDS: Zinc Sulfate 220 MG Cap PO SCH (08:20)
[2020-10-03] MEDS: Tamsulosin 0.4 MG Cap.ER PO SCH (08:20)
[2020-10-03] MEDS: Simvastatin 40 MG Tab PO SCH (08:20)
[2020-10-03] MEDS: Aspirin 81 MG Tab.EC PO SCH (08:20)
[2020-10-03] MEDS: Sertraline 50 MG Tab PO SCH (08:20)
[2020-10-03] MEDS: Enoxaparin 40 MG/0.4 ML Syringe SUBCUT SCH (08:21)
[2020-10-03] MEDS: Pantoprazole 40 MG Tab.CR PO SCH (08:21)
[2020-10-03] MEDS: Allopurinol 100 MG Tab PO SCH (08:21)
--- NOTE | 2020-10-03 08:38 | PCM.PN ---
- General Info Date of Service: 10/03/20 Admission Dx/Problem (Free Text): Admission Diagnosis/Problem Admission Diagnosis/Problem Pneumonia/covid /weakness/anorexia Subjective Update: The patient is a 74-year-old gentleman who is currently on day 3 of hospitalization. He was admitted secondary to pneumonia with COVID-19 infection. The patient is off oxygen. He says that he feels pretty good. The patient says that he has been tolerating his diet and he is not in any pain. The patient is currently awaiting placement. The patient's is also in the hospital as well. Functional Status: Reports: Pain Controlled, Tolerating Diet - Review of Systems General: Reports: Weakness HEENT: Reports: No Symptoms Pulmonary: Reports: No Symptoms Cardiovascular: Reports: No Symptoms Gastrointestinal: Reports: No Symptoms Genitourinary: Reports: No Symptoms Musculoskeletal: Reports: No Symptoms Skin: Reports: No Symptoms Neurological: Reports: No Symptoms Psychiatric: Reports: No Symptoms - Patient Data Vitals - Most Recent: Last Vital Signs Temp 36.4 C 10/03/20 04:22 Pulse 57 L 10/03/20 04:22 Resp 16 10/03/20 04:22 BP 132/72 10/03/20 04:22 Pulse Ox 91 L 10/03/20 04:22 Weight - Most Recent: 77.836 kg I&O - Last 24 Hours: Intake & Output 10/02/20 10/03/20 10/03/20 22:59 06:59 14:59 Intake Total 860 450 Output Total 725 600 Balance 135 -150 Lab Results Last 24 Hours: Laboratory Results - last 24 hr 10/02/20 10/03/20 Range/Units 16:35 04:45 WBC 10.00 H (4.23-9.07) K/mm3 RBC 4.51 L (4.63-6.08) M/mm3 Hgb 14.0 (13.7-17.5) gm/dl Hct 42.2 (40.1-51.0) % MCV 93.6 H (79.0-92.2) fl MCH 31.0 (25.7-32.2) pg MCHC 33.2 (32.2-35.5) g/dl RDW Std Deviation 47.1 H (35.1-43.9) fL Plt Count 257 D (163-337) K/mm3 MPV 9.9 (9.4-12.3) fl Neut % (Auto) 75.7 H (34.0-67.9) % Lymph % (Auto) 12.0 L (21.8-53.1) % Desha % (Auto) 10.3 (5.3-12.2) % Eos % (Auto) 1.2 (0.8-7.0) Baso % (Auto) 0.1 (0.1-1.2) % Neut # (Auto) 7.57 H (1.78-5.38) K/mm3 Lymph # (Auto) 1.20 L (1.32-3.57) K/mm3 Desha # (Auto) 1.03 H (0.30-0.82) K/mm3 Eos # (Auto) 0.12 (0.04-0.54) K/mm3 Baso # (Auto) 0.01 (0.01-0.08) K/mm3 Sodium 135 L (136-145) mEq/L Potassium 4.2 (3.5-5.1) mEq/L Chloride 101 (98-107) mEq/L Carbon Dioxide 26 (21-32) mEq/L Anion Gap 12.2 (5-15) BUN 27 H (7-18) mg/dL Creatinine 1.4 H (0.7-1.3) mg/dL Est Cr Clr Drug Dosing 42.41 mL/min Estimated GFR (MDRD) 50 (>60) mL/min BUN/Creatinine Ratio 19.3 H (14-18) Glucose 118 H (83-115) mg/dL Calcium 9.2 (8.5-10.1) mg/dL Total Bilirubin 0.6 (0.2-1.0) mg/dL AST 28 (15-37) U/L ALT 40 (16-63) U/L Alkaline Phosphatase 63 (46-116) U/L Total Protein 6.2 L (6.4-8.2) g/dl Albumin 2.6 L (3.4-5.0) g/dl Globulin 3.6 gm/dL Albumin/Globulin Ratio 0.7 L (1-2) Med Orders - Current: Current Medications Acetaminophen (Tylenol) 650 mg PO Q6H PRN PRN Reason: Fever/pain Allopurinol (Zyloprim) 100 mg PO DAILY [facility] Last Admin: 10/03/20 08:21 Dose: 100 mg Documented by: Aspirin (Halfprin) 81 mg PO DAILY [facility] Last Admin: 10/03/20 08:20 Dose: 81 mg Documented by: Cholecalciferol (Vitamin D3) 5,000 unit PO DAILY [facility] Last Admin: 10/03/20 08:19 Dose: 5,000 unit Documented by: Enoxaparin Sodium (Lovenox) 40 mg SUBCUT DAILY [facility] Last Admin: 10/03/20 08:21 Dose: 40 mg Documented by: Pantoprazole Sodium (Protonix) 40 mg PO DAILY [facility] Last Admin: 10/03/20 08:21 Dose: 40 mg Documented by: Sertraline HCl (Zoloft) 50 mg PO DAILY [facility] Last Admin: 10/03/20 08:20 Dose: 50 mg Documented by: Simvastatin (Zocor) 40 mg PO DAILY [facility] Last Admin: 10/03/20 08:20 Dose: 40 mg Documented by: Sodium Chloride (Saline Flush) 10 ml FLUSH ASDIRECTED PRN PRN Reason: Keep Vein Open Last Admin: 09/24/20 08:15 Dose: 10 ml Documented by: Tamsulosin HCl (Flomax) 0.4 mg PO DAILY [facility] Last Admin: 10/03/20 08:20 Dose: 0.4 mg Documented by: Zinc Sulfate (Zincate) 220 mg PO DAILY [facility] Last Admin: 10/03/20 08:20 Dose: 220 mg Documented by: Discontinued Medications Acetaminophen (Tylenol) 650 mg PO ONCALL ONE Stop: 09/20/20 19:11 Last Admin: 09/20/20 21:36 Dose: 650 mg Documented by: Azithromycin (Zithromax) 500 mg PO DAILY [facility] Stop: 09/26/20 09:01 Last Admin: 09/26/20 08:15 Dose: 500 mg Documented by: Dexamethasone (Decadron) 6 mg IVPUSH ONETIME ONE Stop: 09/20/20 14:23 Last Admin: 09/20/20 15:01 Dose: 6 mg Documented by: Dexamethasone (Decadron) Confirm Administered Dose 4 mg .ROUTE .STK-MED ONE Stop: 09/20/20 15:01 Last Admin: 09/20/20 15:07 Dose: Not Given Documented by: Dexamethasone (Dexamethasone) 6 mg PO DAILY [facility] Stop: 09/29/20 09:01 Last Admin: 09/29/20 08:31 Dose: 6 mg Documented by: Diphenhydramine HCl (Benadryl) 25 mg PO ONCALL ONE Stop: 09/20/20 19:11 Last Admin: 09/20/20 21:37 Dose: 25 mg Documented by: Famotidine (Pepcid) 20 mg PO BID [facility] Sodium Chloride (Normal Saline) 1,000 mls @ 1,000 mls/hr IV .BOLUS [facility] Last Admin: 09/20/20 13:40 Dose: 1,000 mls/hr Documented by: Remdesivir 200 mg/ Sodium (Chloride) 250 mls @ 250 mls/hr IV ONETIME ONE Stop: 09/20/20 14:23 Last Admin: 09/20/20 15:06 Dose: 250 mls/hr Documented by: Potassium Chloride 10 meq/ (Premix) 100 mls @ 100 mls/hr IV Q1H [facility] Stop: 09/20/20 19:59 Last Admin: 09/20/20 20:16 Dose: 100 mls/hr Documented by: Sodium Chloride (Normal Saline) 1,000 mls @ 75 mls/hr IV ASDIRECTED [facility] Last Admin: 09/20/20 17:15 Dose: 75 mls/hr Documented by: Remdesivir 100 mg/ Sodium (Chloride) 100 mls @ 100 mls/hr IV DAILY [facility] Stop: 09/24/20 09:59 Remdesivir 100 mg/ Sodium (Chloride) 100 mls @ 100 mls/hr IV Q24H [facility] Stop: 09/24/20 15:59 Last Admin: 09/24/20 15:19 Dose: 100 mls/hr Documented by: Ceftriaxone Sodium 2 gm/ (Sodium Chloride) 100 mls @ 200 mls/hr IV Q24H [facility] Stop: 09/28/20 11:29 Last Admin: 09/28/20 10:15 Dose: 200 mls/hr Documented by: Metoprolol Tartrate (Lopressor) 25 mg PO BID [facility] Last Admin: 09/21/20 09:21 Dose: Not Given Documented by: Metoprolol Tartrate (Lopressor) 12.5 mg PO Q12H [facility] Last Admin: 09/21/20 12:46 Dose: Not Given Documented by: Pantoprazole Sodium (Protonix Iv) 40 mg .XX DAILY [facility] Last Admin: 09/21/20 09:05 Dose: 40 mg Documented by: Potassium Chloride (Klor-Con M20) 40 meq PO Q4H [facility] Stop: 09/22/20 17:16 Last Admin: 09/22/20 17:51 Dose: 40 meq Documented by: Tamsulosin HCl (Flomax) 0.4 mg PO PCBREAKFAST [facility] Last Admin: 09/22/20 09:02 Dose: 0.4 mg Documented by: Tamsulosin HCl (Flomax) 0.4 mg PO ONETIME ONE Stop: 09/21/20 11:35 Last Admin: 09/21/20 12:19 Dose: 0.4 mg Documented by: - Exam Quality Assessment: Urine Catheter, DVT Prophylaxis. No: Supplemental Oxygen General: Alert, Oriented, Cooperative, No Acute Distress HEENT: Pupils Equal, Pupils Reactive, EOMI. No: Mucous Membr. Moist/Pump Back (Dry) Neck: Supple, Trachea Midline Lungs: Clear to Auscultation, Normal Respiratory Effort Cardiovascular: Regular Rate, Regular Rhythm GI/Abdominal Exam: Normal Bowel Sounds, Soft, Non-Tender, No Distention (Male) Exam: Deferred Back Exam: Normal Inspection, Full Range of Motion Extremities: Normal Inspection, No Pedal Edema Skin: Warm, Dry, Intact Neurological: No New Focal Deficit Psy/Mental Status: Alert, Normal Affect, Normal Mood Sepsis Event Note - Evaluation Sepsis Screening Result: No Definite Risk - Focused Exam Vital Signs: Vital Signs Temp Pulse Resp BP Pulse Ox 10/03/20 04:22 36.4 C 57 L 16 132/72 91 L 10/03/20 00:07 36.8 C 86 18 128/73 89 L - Problem List & Annotations (1) Pneumonia due to COVID-19 virus SNOMED Code(s): 646323793467586413 Code(s): U07.1 - COVID-19; J12.89 - OTHER VIRAL PNEUMONIA Status: Acute Priority: High Current Visit: Yes (2) Hypokalemia SNOMED Code(s): 05219359 Code(s): E87.6 - HYPOKALEMIA Status: Resolved Priority: Medium Current Visit: Yes Onset Date: ~09/20/20 (3) Renal insufficiency SNOMED Code(s): 720658429, 986548597 Code(s): N28.9 - DISORDER OF KIDNEY AND URETER, UNSPECIFIED Status: Resolved Priority: Medium Current Visit: Yes Onset Date: ~09/20/20 (4) Generalized weakness SNOMED Code(s): 58792958 Code(s): R53.1 - WEAKNESS Status: Chronic Priority: High Current Visit: Yes - Problem List Review Problem List Initiated/Reviewed/Updated: Yes - Assessment Assessment:: 09/21/2020 * Electrolytes back WNL * D-Dimer 0.92 (improved) * CRP 6.6 * Given convalescent plasma on 09/20/2020 * Requiring 2L oxygen via [place] * HR in 40's * Will decrease home metoprolol dosing * Noted to have over 1L of urine retention overnight and straight catheterized * Starting flomax * Bladder scans as needed * Patient reports often only voids once a day * No patient or nursing concerns * Reports he feels better, but still weak * Continue current treatment plan and monitor HR 09/22/2020 * Electrolytes back WNL * Given convalescent plasma on 09/20/2020 * Requiring 2L oxygen via [place] * Dale catheter placed over night due to urinary retention * Starting flomax * will need to see urology as an outpatient * Patient reports often only voids once a day * No patient or nursing concerns * Reports he feels better, but still weak * Continue current treatment plan and monitor HR * K+ 3.2 * Vitamin D level 16.1 * HR in the 50's 09/23/2020 * Labs remain stable * WBC 9.08 * D-dimer 1.72 * CRP 2.8 * Procalcitonin was 0.1 * UA and blood cultures negative thus far * Continue dale catheter * Reports he feels better today * HR in 60-70's with stoppage of metoprolol * On 3L oxygen * Continue current treatment plan 09/24/2020 * Labs * WBC remains elevated at 10.33 * Creatinine 1.2 * GFR 59 * CRP 3.3 * Continue dale catheter * HR Low 50's off metoprolol * On 4L oxygen * Repeat CXR stable to mildly worse * Add azithromycin and rocephin * Continue dexamethasone 09/25/2020 * Labs * WBC elevated at 11.59 * D-dimer WNL at 0.49 * GFR >60 * CRP 2.9 * Continue dale catheter * HR upper 40-50s of metoprolol * Requiring 3L oxygen today * Continue current treatment plan * Completed remdesivir treatment 09/26/2020 * No labs obtained today * Repeat labs tomorrow * Dale catheter pulled yesterday, continue to monitor need for replacement * Requiring 4L oxygen today * Continue current treatment plan * Completed remdesivir * HR remains in 50's * Completed azithromycin * No complaints and reports he feels better today. 09/27/2020 * Continue current treatment * He was retaining urine considerably, dale catheter was re-inserted early this morning * Still on requiring 4L oxygen to achieve adequate oxygenation * Continue current treatment plan * Completed remdesivir and azithromycin * Start zinc oral supplement * IS as directed and encourage beside pulmo exercise * HR remains in the upper 40s-50's * Encourage proning * DVT prophylaxis: Lovenox 40mg subQ BID * LOS > 96hrs, he needs more time with treatment; unable to wean down to lower level of required O2 09/28/2020 * Continue current treatment * He was retaining urine considerably, dale catheter was re-inserted early this morning * Still on 4L oxygen * Continue current treatment plan * Completed remdesivir and azithromycin * Continue zinc oral supplement * Encourage to use IS as directed and encourage beside pulmo exercise * HR remains in the upper 40s-50's * Encourage proning * DVT prophylaxis: Lovenox 40mg subQ BID * SW/CM for d/c planning * May benefit with rehab/snf if patient is agreeable * LOS > 96hrs, he needs more time with treatment; unable to wean down to lower level of required O2 09/29/2020 * Continue attempting to wean oxygen * Continue dale catheter * Urology consultation needed at discharge * Completed dexamethasone, remdesivier, azithromycin, and Rocephin * Continues to utilize IS/Acapella * Remains bradycardic * 12-lead EKG obtained yesterday * Echo obtained today and pending * No complaints today and states he feels ok * Repeat labs tomorrow 09/30/2020 * Was weaned off of oxygen today * Continues to need dale catheter * Continues to utilize IS/Acapella * No complaints today * Echo obtained 09/20/2020 * 1. LVEF, by visual estimation, is 55 to 60% * 2. Impaired relaxation (Grade 1) pattern of LV diastolic filling * 3. Normal right ventricular systolic function * 4. The aortic valve is structurally normal and tricuspid * 5. Trace mitral valve regurgitation * 6. Trace tricuspid valve regurgitation * 7. No regional wall motion abnormalities * Labs today: * WBC 17.27 (steroids) * Hgb 14.7 * Sodium 137 * Potassium 4.0 * GFR 59 * Phosphorous 3.2 * Magnesium 2.3 * No need for lab draw tomorrow 10/01/2020 * Continues to remain off of oxygen * Continues to require dale catheter * Continues to utilize IS/Acapella * No complaints today * No labs today * Remains stable pending placement * SW working on [facility] placement. 10/02/2020 * Remains off of oxygen * Continue dale catheter for retention * Continues to utilize acapella/IS * Removed from isolation today * Encourage ambulation outside of room * No labs obtained today * Accepted at [facility] for 10/07/2020 * Will remain inpatient until then * Completed COVID-19 treatment * Discharge pending placement * No patient or nursing concerns today. [id number] The patient is a 74-year-old gentleman who is currently awaiting placement. He still has general fatigue and weakness. I have ordered repeat laboratory studies for the morning. The patient's previously noted hypokalemia has resolved. We will continue to monitor his electrolytes and replace as necessary. The patient also had been removed from isolation yesterday he has been encouraged to ambulate. The patient's Dale catheter will also be continued for now. - Plan Plan:: I have seen and evaluated the patient independently of Swapnil Spring PA-C. I have reviewed and agree with the plan of care as outlined by him for this patient. Please see orders.
[2020-10-04] MEDS: Aspirin 81 MG Tab.EC PO SCH (08:37)
[2020-10-04] MEDS: Tamsulosin 0.4 MG Cap.ER PO SCH (08:37)
[2020-10-04] MEDS: Allopurinol 100 MG Tab PO SCH (08:37)
[2020-10-04] MEDS: Cholecalciferol (Vitamin D3) 5,000 UNIT Cap PO SCH (08:37)
[2020-10-04] MEDS: Simvastatin 40 MG Tab PO SCH (08:38)
[2020-10-04] MEDS: Zinc Sulfate 220 MG Cap PO SCH (08:39)
[2020-10-04] MEDS: Pantoprazole 40 MG Tab.CR PO SCH (08:39)
[2020-10-04] MEDS: Enoxaparin 40 MG/0.4 ML Syringe SUBCUT SCH (08:39)
[2020-10-04] MEDS: Sertraline 50 MG Tab PO SCH (08:39)
--- NOTE | 2020-10-04 08:42 | PCM.PN ---
- General Info Date of Service: 10/04/20 Admission Dx/Problem (Free Text): Admission Diagnosis/Problem Admission Diagnosis/Problem Pneumonia/covid /weakness/anorexia Subjective Update: The patient is a 74-year-old gentleman who was admitted to acute hospitalization on September 20, 2020 due to Covid pneumonia. The patient has since recovered and is currently awaiting placement. The patient says that he is doing well today. He is denied any pain. The patient also has been tolerating his diet. Functional Status: Reports: Pain Controlled, Tolerating Diet - Review of Systems General: Reports: Weakness, Fatigue HEENT: Reports: No Symptoms Pulmonary: Reports: No Symptoms Cardiovascular: Reports: No Symptoms Gastrointestinal: Reports: No Symptoms Genitourinary: Reports: No Symptoms Musculoskeletal: Reports: No Symptoms Skin: Reports: No Symptoms Neurological: Reports: No Symptoms Psychiatric: Reports: No Symptoms - Patient Data Vitals - Most Recent: Last Vital Signs Temp 36.6 C 10/04/20 04:43 Pulse 92 10/04/20 04:43 Resp 16 10/04/20 04:43 BP 110/96 H 10/04/20 04:43 Pulse Ox 91 L 10/04/20 04:43 Weight - Most Recent: 76.793 kg I&O - Last 24 Hours: Intake & Output 10/03/20 10/04/20 10/04/20 22:59 06:59 14:59 Intake Total 1210 200 Output Total 500 550 Balance 710 -350 Med Orders - Current: Current Medications Acetaminophen (Tylenol) 650 mg PO Q6H PRN PRN Reason: Fever/pain Allopurinol (Zyloprim) 100 mg PO DAILY [facility] Last Admin: 10/03/20 08:21 Dose: 100 mg Documented by: Aspirin (Halfprin) 81 mg PO DAILY [facility] Last Admin: 10/03/20 08:20 Dose: 81 mg Documented by: Cholecalciferol (Vitamin D3) 5,000 unit PO DAILY [facility] Last Admin: 10/03/20 08:19 Dose: 5,000 unit Documented by: Enoxaparin Sodium (Lovenox) 40 mg SUBCUT DAILY [facility] Last Admin: 10/03/20 08:21 Dose: 40 mg Documented by: Pantoprazole Sodium (Protonix) 40 mg PO DAILY [facility] Last Admin: 10/03/20 08:21 Dose: 40 mg Documented by: Sertraline HCl (Zoloft) 50 mg PO DAILY [facility] Last Admin: 10/03/20 08:20 Dose: 50 mg Documented by: Simvastatin (Zocor) 40 mg PO DAILY [facility] Last Admin: 10/03/20 08:20 Dose: 40 mg Documented by: Sodium Chloride (Saline Flush) 10 ml FLUSH ASDIRECTED PRN PRN Reason: Keep Vein Open Last Admin: 09/24/20 08:15 Dose: 10 ml Documented by: Tamsulosin HCl (Flomax) 0.4 mg PO DAILY [facility] Last Admin: 10/03/20 08:20 Dose: 0.4 mg Documented by: Zinc Sulfate (Zincate) 220 mg PO DAILY [facility] Last Admin: 10/03/20 08:20 Dose: 220 mg Documented by: Discontinued Medications Acetaminophen (Tylenol) 650 mg PO ONCALL ONE Stop: 09/20/20 19:11 Last Admin: 09/20/20 21:36 Dose: 650 mg Documented by: Azithromycin (Zithromax) 500 mg PO DAILY [facility] Stop: 09/26/20 09:01 Last Admin: 09/26/20 08:15 Dose: 500 mg Documented by: Dexamethasone (Decadron) 6 mg IVPUSH ONETIME ONE Stop: 09/20/20 14:23 Last Admin: 09/20/20 15:01 Dose: 6 mg Documented by: Dexamethasone (Decadron) Confirm Administered Dose 4 mg .ROUTE .STK-MED ONE Stop: 09/20/20 15:01 Last Admin: 09/20/20 15:07 Dose: Not Given Documented by: Dexamethasone (Dexamethasone) 6 mg PO DAILY [facility] Stop: 09/29/20 09:01 Last Admin: 09/29/20 08:31 Dose: 6 mg Documented by: Diphenhydramine HCl (Benadryl) 25 mg PO ONCALL ONE Stop: 09/20/20 19:11 Last Admin: 09/20/20 21:37 Dose: 25 mg Documented by: Famotidine (Pepcid) 20 mg PO BID [facility] Sodium Chloride (Normal Saline) 1,000 mls @ 1,000 mls/hr IV .BOLUS [facility] Last Admin: 09/20/20 13:40 Dose: 1,000 mls/hr Documented by: Remdesivir 200 mg/ Sodium (Chloride) 250 mls @ 250 mls/hr IV ONETIME ONE Stop: 09/20/20 14:23 Last Admin: 09/20/20 15:06 Dose: 250 mls/hr Documented by: Potassium Chloride 10 meq/ (Premix) 100 mls @ 100 mls/hr IV Q1H [facility] Stop: 09/20/20 19:59 Last Admin: 09/20/20 20:16 Dose: 100 mls/hr Documented by: Sodium Chloride (Normal Saline) 1,000 mls @ 75 mls/hr IV ASDIRECTED [facility] Last Admin: 09/20/20 17:15 Dose: 75 mls/hr Documented by: Remdesivir 100 mg/ Sodium (Chloride) 100 mls @ 100 mls/hr IV DAILY [facility] Stop: 09/24/20 09:59 Remdesivir 100 mg/ Sodium (Chloride) 100 mls @ 100 mls/hr IV Q24H [facility] Stop: 09/24/20 15:59 Last Admin: 09/24/20 15:19 Dose: 100 mls/hr Documented by: Ceftriaxone Sodium 2 gm/ (Sodium Chloride) 100 mls @ 200 mls/hr IV Q24H [facility] Stop: 09/28/20 11:29 Last Admin: 09/28/20 10:15 Dose: 200 mls/hr Documented by: Metoprolol Tartrate (Lopressor) 25 mg PO BID [facility] Last Admin: 09/21/20 09:21 Dose: Not Given Documented by: Metoprolol Tartrate (Lopressor) 12.5 mg PO Q12H [facility] Last Admin: 09/21/20 12:46 Dose: Not Given Documented by: Pantoprazole Sodium (Protonix Iv) 40 mg .XX DAILY [facility] Last Admin: 09/21/20 09:05 Dose: 40 mg Documented by: Potassium Chloride (Klor-Con M20) 40 meq PO Q4H [facility] Stop: 09/22/20 17:16 Last Admin: 09/22/20 17:51 Dose: 40 meq Documented by: Tamsulosin HCl (Flomax) 0.4 mg PO PCBREAKFAST [facility] Last Admin: 09/22/20 09:02 Dose: 0.4 mg Documented by: Tamsulosin HCl (Flomax) 0.4 mg PO ONETIME ONE Stop: 09/21/20 11:35 Last Admin: 09/21/20 12:19 Dose: 0.4 mg Documented by: - Exam Quality Assessment: No: Supplemental Oxygen General: Alert, Oriented, Cooperative, No Acute Distress HEENT: Pupils Equal, Pupils Reactive, EOMI, Mucous Membr. Moist/[place] Neck: Supple, Trachea Midline Lungs: Clear to Auscultation, Normal Respiratory Effort Cardiovascular: Regular Rate, Regular Rhythm GI/Abdominal Exam: Normal Bowel Sounds, Soft, Non-Tender, No Distention (Male) Exam: Deferred Back Exam: Normal Inspection, Full Range of Motion Extremities: Normal Inspection, No Pedal Edema Skin: Warm, Dry, Intact Neurological: No New Focal Deficit Psy/Mental Status: Alert, Normal Affect, Normal Mood Sepsis Event Note - Evaluation Sepsis Screening Result: No Definite Risk - Focused Exam Vital Signs: Vital Signs Temp Pulse Resp BP Pulse Ox 10/04/20 04:43 36.6 C 92 16 110/96 H 91 L 10/04/20 00:11 36.8 C 54 L 16 132/69 93 L - Problem List & Annotations (1) Pneumonia due to COVID-19 virus SNOMED Code(s): 934194550792011865 Code(s): U07.1 - COVID-19; J12.89 - OTHER VIRAL PNEUMONIA Status: Resolved Priority: High Current Visit: Yes (2) Hypokalemia SNOMED Code(s): 62137792 Code(s): E87.6 - HYPOKALEMIA Status: Resolved Priority: Medium Current Visit: Yes Onset Date: ~09/20/20 (3) Renal insufficiency SNOMED Code(s): 685413395, 315262799 Code(s): N28.9 - DISORDER OF KIDNEY AND URETER, UNSPECIFIED Status: Resolved Priority: Medium Current Visit: Yes Onset Date: ~09/20/20 (4) Generalized weakness SNOMED Code(s): 21079196 Code(s): R53.1 - WEAKNESS Status: Chronic Priority: High Current Visit: Yes - Problem List Review Problem List Initiated/Reviewed/Updated: Yes - My Orders Last 24 Hours: My Active Orders 10/03/20 10:00 Patient Status [ADT] Routine - Assessment Assessment:: 09/21/2020 * Electrolytes back WNL * D-Dimer 0.92 (improved) * CRP 6.6 * Given convalescent plasma on 09/20/2020 * Requiring 2L oxygen via [place] * HR in 40's * Will decrease home metoprolol dosing * Noted to have over 1L of urine retention overnight and straight catheterized * Starting flomax * Bladder scans as needed * Patient reports often only voids once a day * No patient or nursing concerns * Reports he feels better, but still weak * Continue current treatment plan and monitor HR 09/22/2020 * Electrolytes back WNL * Given convalescent plasma on 09/20/2020 * Requiring 2L oxygen via [place] * Dale catheter placed over night due to urinary retention * Starting flomax * will need to see urology as an outpatient * Patient reports often only voids once a day * No patient or nursing concerns * Reports he feels better, but still weak * Continue current treatment plan and monitor HR * K+ 3.2 * Vitamin D level 16.1 * HR in the 50's 09/23/2020 * Labs remain stable * WBC 9.08 * D-dimer 1.72 * CRP 2.8 * Procalcitonin was 0.1 * UA and blood cultures negative thus far * Continue dale catheter * Reports he feels better today * HR in 60-70's with stoppage of metoprolol * On 3L oxygen * Continue current treatment plan 09/24/2020 * Labs * WBC remains elevated at 10.33 * Creatinine 1.2 * GFR 59 * CRP 3.3 * Continue dale catheter * HR Low 50's off metoprolol * On 4L oxygen * Repeat CXR stable to mildly worse * Add azithromycin and rocephin * Continue dexamethasone 09/25/2020 * Labs * WBC elevated at 11.59 * D-dimer WNL at 0.49 * GFR >60 * CRP 2.9 * Continue dale catheter * HR upper 40-50s of metoprolol * Requiring 3L oxygen today * Continue current treatment plan * Completed remdesivir treatment 09/26/2020 * No labs obtained today * Repeat labs tomorrow * Dale catheter pulled yesterday, continue to monitor need for replacement * Requiring 4L oxygen today * Continue current treatment plan * Completed remdesivir * HR remains in 50's * Completed azithromycin * No complaints and reports he feels better today. 09/27/2020 * Continue current treatment * He was retaining urine considerably, dale catheter was re-inserted early this morning * Still on requiring 4L oxygen to achieve adequate oxygenation * Continue current treatment plan * Completed remdesivir and azithromycin * Start zinc oral supplement * IS as directed and encourage beside pulmo exercise * HR remains in the upper 40s-50's * Encourage proning * DVT prophylaxis: Lovenox 40mg subQ BID * LOS > 96hrs, he needs more time with treatment; unable to wean down to lower level of required O2 09/28/2020 * Continue current treatment * He was retaining urine considerably, dale catheter was re-inserted early this morning * Still on 4L oxygen * Continue current treatment plan * Completed remdesivir and azithromycin * Continue zinc oral supplement * Encourage to use IS as directed and encourage beside pulmo exercise * HR remains in the upper 40s-50's * Encourage proning * DVT prophylaxis: Lovenox 40mg subQ BID * SW/ for d/c planning * May benefit with rehab/snf if patient is agreeable * LOS > 96hrs, he needs more time with treatment; unable to wean down to lower level of required O2 09/29/2020 * Continue attempting to wean oxygen * Continue dale catheter * Urology consultation needed at discharge * Completed dexamethasone, remdesivier, azithromycin, and Rocephin * Continues to utilize IS/Acapella * Remains bradycardic * 12-lead EKG obtained yesterday * Echo obtained today and pending * No complaints today and states he feels ok * Repeat labs tomorrow 09/30/2020 * Was weaned off of oxygen today * Continues to need dale catheter * Continues to utilize IS/Acapella * No complaints today * Echo obtained 09/20/2020 * 1. LVEF, by visual estimation, is 55 to 60% * 2. Impaired relaxation (Grade 1) pattern of LV diastolic filling * 3. Normal right ventricular systolic function * 4. The aortic valve is structurally normal and tricuspid * 5. Trace mitral valve regurgitation * 6. Trace tricuspid valve regurgitation * 7. No regional wall motion abnormalities * Labs today: * WBC 17.27 (steroids) * Hgb 14.7 * Sodium 137 * Potassium 4.0 * GFR 59 * Phosphorous 3.2 * Magnesium 2.3 * No need for lab draw tomorrow 10/01/2020 * Continues to remain off of oxygen * Continues to require dale catheter * Continues to utilize IS/Acapella * No complaints today * No labs today * Remains stable pending placement * SW working on [place] SHELTER placement. 10/02/2020 * Remains off of oxygen * Continue dale catheter for retention * Continues to utilize acapella/IS * Removed from isolation today * Encourage ambulation outside of room * No labs obtained today * Accepted at [facility] for 10/07/2020 * Will remain inpatient until then * Completed COVID-19 treatment * Discharge pending placement * No patient or nursing concerns today. [id number] The patient is a 74-year-old gentleman who is currently awaiting placement. He still has general fatigue and weakness. I have ordered repeat laboratory studies for the morning. The patient's previously noted hypokalemia has resolved. We will continue to monitor his electrolytes and replace as necessary. The patient also had been removed from isolation yesterday he has been encouraged to ambulate. The patient's Dale catheter will also be continued for now. 10/04/2020 The patient is a 74-year-old gentleman is currently awaiting placement. He is doing well. He has recovered from the COVID-19 pneumonia. The patient's metabolic abnormalities of also improved. Patient does have a Dale catheter and this will be continued for now. He also has been encouraged to continue to ambulate. Continue with current diet as tolerated. - Plan Plan:: I have seen and evaluated the patient independently of Swapnil Spring PA-C. I have reviewed and agree with the plan of care as outlined by him for this patient. Please see orders.
[2020-10-04] MEDS ORDERED: Ondansetron 4 MG/2 ML SDV IVPUSH PRN (09:42)
[2020-10-04] MEDS ORDERED: Sodium Chloride 0.9% 1,000 ML ONE (09:58)
[2020-10-04] MEDS ORDERED: Sodium Chloride 0.9% 500 ML IV ONE (10:45)
[2020-10-05] MEDS: Enoxaparin 40 MG/0.4 ML Syringe SUBCUT SCH (08:50)
[2020-10-05] MEDS: Pantoprazole 40 MG Tab.CR PO SCH (08:52)
[2020-10-05] MEDS: Zinc Sulfate 220 MG Cap PO SCH (08:52)
[2020-10-05] MEDS: Simvastatin 40 MG Tab PO SCH (08:52)
[2020-10-05] MEDS: Tamsulosin 0.4 MG Cap.ER PO SCH (08:52)
[2020-10-05] MEDS: Cholecalciferol (Vitamin D3) 5,000 UNIT Cap PO SCH (08:52)
[2020-10-05] MEDS: Aspirin 81 MG Tab.EC PO SCH (08:52)
[2020-10-05] MEDS: Sertraline 50 MG Tab PO SCH (08:52)
[2020-10-05] MEDS: Allopurinol 100 MG Tab PO SCH (08:52)
--- NOTE | 2020-10-05 10:12 | PCM.PN ---
- General Info Date of Service: 10/05/20 Admission Dx/Problem (Free Text): Admission Diagnosis/Problem Admission Diagnosis/Problem Pneumonia/covid /weakness/anorexia Subjective Update: The Patient is a 74-year-old gentleman who was admitted to acute hospitalization on September 20, 2020 due to pneumonia associated with COVID-19. The patient has improved. He does not require oxygen. He is currently awaiting placement. The patient has been tolerating his diet and he has denied any pain. Functional Status: Reports: Pain Controlled, Tolerating Diet - Review of Systems General: Reports: No Symptoms HEENT: Reports: No Symptoms Pulmonary: Reports: No Symptoms Cardiovascular: Reports: No Symptoms Gastrointestinal: Reports: No Symptoms Genitourinary: Reports: No Symptoms Musculoskeletal: Reports: No Symptoms Skin: Reports: No Symptoms Neurological: Reports: No Symptoms Psychiatric: Reports: No Symptoms - Patient Data Vitals - Most Recent: Last Vital Signs Temp 36.7 C 10/05/20 04:05 Pulse 59 L 10/05/20 04:05 Resp 16 10/05/20 04:05 BP 113/64 10/05/20 04:05 Pulse Ox 91 L 10/05/20 04:05 Weight - Most Recent: 77.927 kg I&O - Last 24 Hours: Intake & Output 10/04/20 10/05/20 10/05/20 22:59 06:59 14:59 Intake Total 1600 350 Output Total 550 750 Balance 1050 -400 Med Orders - Current: Current Medications Acetaminophen (Tylenol) 650 mg PO Q6H PRN PRN Reason: Fever/pain Allopurinol (Zyloprim) 100 mg PO DAILY [facility] Last Admin: 10/05/20 08:52 Dose: 100 mg Documented by: Aspirin (Halfprin) 81 mg PO DAILY [facility] Last Admin: 10/05/20 08:52 Dose: 81 mg Documented by: Cholecalciferol (Vitamin D3) 5,000 unit PO DAILY [facility] Last Admin: 10/05/20 08:52 Dose: 5,000 unit Documented by: Enoxaparin Sodium (Lovenox) 40 mg SUBCUT DAILY [facility] Last Admin: 10/05/20 08:50 Dose: 40 mg Documented by: Ondansetron HCl (Zofran) 4 mg IVPUSH Q4H PRN PRN Reason: Nausea/Vomiting Last Admin: 10/04/20 10:07 Dose: 4 mg Documented by: Pantoprazole Sodium (Protonix) 40 mg PO DAILY [facility] Last Admin: 10/05/20 08:52 Dose: 40 mg Documented by: Sertraline HCl (Zoloft) 50 mg PO DAILY [facility] Last Admin: 10/05/20 08:52 Dose: 50 mg Documented by: Simvastatin (Zocor) 40 mg PO DAILY [facility] Last Admin: 10/05/20 08:52 Dose: 40 mg Documented by: Sodium Chloride (Saline Flush) 10 ml FLUSH ASDIRECTED PRN PRN Reason: Keep Vein Open Last Admin: 09/24/20 08:15 Dose: 10 ml Documented by: Tamsulosin HCl (Flomax) 0.4 mg PO DAILY [facility] Last Admin: 10/05/20 08:52 Dose: 0.4 mg Documented by: Zinc Sulfate (Zincate) 220 mg PO DAILY [facility] Last Admin: 10/05/20 08:52 Dose: 220 mg Documented by: Discontinued Medications Acetaminophen (Tylenol) 650 mg PO ONCALL ONE Stop: 09/20/20 19:11 Last Admin: 09/20/20 21:36 Dose: 650 mg Documented by: Azithromycin (Zithromax) 500 mg PO DAILY [facility] Stop: 09/26/20 09:01 Last Admin: 09/26/20 08:15 Dose: 500 mg Documented by: Dexamethasone (Decadron) 6 mg IVPUSH ONETIME ONE Stop: 09/20/20 14:23 Last Admin: 09/20/20 15:01 Dose: 6 mg Documented by: Dexamethasone (Decadron) Confirm Administered Dose 4 mg .ROUTE .STK-MED ONE Stop: 09/20/20 15:01 Last Admin: 09/20/20 15:07 Dose: Not Given Documented by: Dexamethasone (Dexamethasone) 6 mg PO DAILY [facility] Stop: 09/29/20 09:01 Last Admin: 09/29/20 08:31 Dose: 6 mg Documented by: Diphenhydramine HCl (Benadryl) 25 mg PO ONCALL ONE Stop: 09/20/20 19:11 Last Admin: 09/20/20 21:37 Dose: 25 mg Documented by: Famotidine (Pepcid) 20 mg PO BID [facility] Sodium Chloride (Normal Saline) 1,000 mls @ 1,000 mls/hr IV .BOLUS [facility] Last Admin: 09/20/20 13:40 Dose: 1,000 mls/hr Documented by: Remdesivir 200 mg/ Sodium (Chloride) 250 mls @ 250 mls/hr IV ONETIME ONE Stop: 09/20/20 14:23 Last Admin: 09/20/20 15:06 Dose: 250 mls/hr Documented by: Potassium Chloride 10 meq/ (Premix) 100 mls @ 100 mls/hr IV Q1H [facility] Stop: 09/20/20 19:59 Last Admin: 09/20/20 20:16 Dose: 100 mls/hr Documented by: Sodium Chloride (Normal Saline) 1,000 mls @ 75 mls/hr IV ASDIRECTED [facility] Last Admin: 09/20/20 17:15 Dose: 75 mls/hr Documented by: Remdesivir 100 mg/ Sodium (Chloride) 100 mls @ 100 mls/hr IV DAILY [facility] Stop: 09/24/20 09:59 Remdesivir 100 mg/ Sodium (Chloride) 100 mls @ 100 mls/hr IV Q24H [facility] Stop: 09/24/20 15:59 Last Admin: 09/24/20 15:19 Dose: 100 mls/hr Documented by: Ceftriaxone Sodium 2 gm/ (Sodium Chloride) 100 mls @ 200 mls/hr IV Q24H [facility] Stop: 09/28/20 11:29 Last Admin: 09/28/20 10:15 Dose: 200 mls/hr Documented by: Sodium Chloride (Normal Saline) Confirm Administered Dose 1,000 mls @ as directed .ROUTE .STK-MED ONE Stop: 10/04/20 09:59 Last Admin: 10/04/20 10:04 Dose: 500 mls/hr Documented by: Sodium Chloride (Normal Saline) 500 mls @ 999 mls/hr IV .BOLUS ONE Stop: 10/04/20 11:15 Last Admin: 10/05/20 05:31 Dose: Not Given Documented by: Metoprolol Tartrate (Lopressor) 25 mg PO BID [facility] Last Admin: 09/21/20 09:21 Dose: Not Given Documented by: Metoprolol Tartrate (Lopressor) 12.5 mg PO Q12H [facility] Last Admin: 09/21/20 12:46 Dose: Not Given Documented by: Pantoprazole Sodium (Protonix Iv) 40 mg .XX DAILY [facility] Last Admin: 09/21/20 09:05 Dose: 40 mg Documented by: Potassium Chloride (Klor-Con M20) 40 meq PO Q4H [facility] Stop: 09/22/20 17:16 Last Admin: 09/22/20 17:51 Dose: 40 meq Documented by: Tamsulosin HCl (Flomax) 0.4 mg PO PCBREAKFAST [facility] Last Admin: 09/22/20 09:02 Dose: 0.4 mg Documented by: Tamsulosin HCl (Flomax) 0.4 mg PO ONETIME ONE Stop: 09/21/20 11:35 Last Admin: 09/21/20 12:19 Dose: 0.4 mg Documented by: - Exam Quality Assessment: No: Supplemental Oxygen General: Alert, Oriented, Severe Distress HEENT: Pupils Equal, Pupils Reactive, EOMI Neck: Supple, Trachea Midline Lungs: Clear to Auscultation, Normal Respiratory Effort Cardiovascular: Regular Rate, Regular Rhythm GI/Abdominal Exam: Normal Bowel Sounds, Soft, Non-Tender, No Distention (Male) Exam: Deferred Back Exam: Normal Inspection, Full Range of Motion Extremities: Normal Inspection, No Pedal Edema Skin: Warm, Dry, Intact Neurological: No New Focal Deficit Psy/Mental Status: Alert, Normal Affect Sepsis Event Note - Evaluation Sepsis Screening Result: No Definite Risk - Focused Exam Vital Signs: Vital Signs Temp Pulse Resp BP Pulse Ox 10/05/20 04:05 36.7 C 59 L 16 113/64 91 L - Problem List & Annotations (1) Pneumonia due to COVID-19 virus SNOMED Code(s): 723916279455661371 Code(s): U07.1 - COVID-19; J12.89 - OTHER VIRAL PNEUMONIA Status: Resolved Priority: High Current Visit: Yes (2) Hypokalemia SNOMED Code(s): 65906354 Code(s): E87.6 - HYPOKALEMIA Status: Resolved Priority: Medium Current Visit: Yes Onset Date: ~09/20/20 (3) Renal insufficiency SNOMED Code(s): 615878918, 984106887 Code(s): N28.9 - DISORDER OF KIDNEY AND URETER, UNSPECIFIED Status: Resolved Priority: Medium Current Visit: Yes Onset Date: ~09/20/20 (4) Generalized weakness SNOMED Code(s): 72969135 Code(s): R53.1 - WEAKNESS Status: Chronic Priority: High Current Visit: Yes - Problem List Review Problem List Initiated/Reviewed/Updated: Yes - My Orders Last 24 Hours: My Active Orders 10/04/20 09:42 Ondansetron [Zofran] 4 mg IVPUSH Q4H PRN - Assessment Assessment:: 09/21/2020 * Electrolytes back WNL * D-Dimer 0.92 (improved) * CRP 6.6 * Given convalescent plasma on 09/20/2020 * Requiring 2L oxygen via [place] * HR in 40's * Will decrease home metoprolol dosing * Noted to have over 1L of urine retention overnight and straight catheterized * Starting flomax * Bladder scans as needed * Patient reports often only voids once a day * No patient or nursing concerns * Reports he feels better, but still weak * Continue current treatment plan and monitor HR 09/22/2020 * Electrolytes back WNL * Given convalescent plasma on 09/20/2020 * Requiring 2L oxygen via [place] * Dale catheter placed over night due to urinary retention * Starting flomax * will need to see urology as an outpatient * Patient reports often only voids once a day * No patient or nursing concerns * Reports he feels better, but still weak * Continue current treatment plan and monitor HR * K+ 3.2 * Vitamin D level 16.1 * HR in the 50's 09/23/2020 * Labs remain stable * WBC 9.08 * D-dimer 1.72 * CRP 2.8 * Procalcitonin was 0.1 * UA and blood cultures negative thus far * Continue dale catheter * Reports he feels better today * HR in 60-70's with stoppage of metoprolol * On 3L oxygen * Continue current treatment plan 09/24/2020 * Labs * WBC remains elevated at 10.33 * Creatinine 1.2 * GFR 59 * CRP 3.3 * Continue dale catheter * HR Low 50's off metoprolol * On 4L oxygen * Repeat CXR stable to mildly worse * Add azithromycin and rocephin * Continue dexamethasone 09/25/2020 * Labs * WBC elevated at 11.59 * D-dimer WNL at 0.49 * GFR >60 * CRP 2.9 * Continue dale catheter * HR upper 40-50s of metoprolol * Requiring 3L oxygen today * Continue current treatment plan * Completed remdesivir treatment 09/26/2020 * No labs obtained today * Repeat labs tomorrow * Dale catheter pulled yesterday, continue to monitor need for replacement * Requiring 4L oxygen today * Continue current treatment plan * Completed remdesivir * HR remains in 50's * Completed azithromycin * No complaints and reports he feels better today. 09/27/2020 * Continue current treatment * He was retaining urine considerably, dale catheter was re-inserted early this morning * Still on requiring 4L oxygen to achieve adequate oxygenation * Continue current treatment plan * Completed remdesivir and azithromycin * Start zinc oral supplement * IS as directed and encourage beside pulmo exercise * HR remains in the upper 40s-50's * Encourage proning * DVT prophylaxis: Lovenox 40mg subQ BID * LOS > 96hrs, he needs more time with treatment; unable to wean down to lower level of required O2 09/28/2020 * Continue current treatment * He was retaining urine considerably, dale catheter was re-inserted early this morning * Still on 4L oxygen * Continue current treatment plan * Completed remdesivir and azithromycin * Continue zinc oral supplement * Encourage to use IS as directed and encourage beside pulmo exercise * HR remains in the upper 40s-50's * Encourage proning * DVT prophylaxis: Lovenox 40mg subQ BID * SW/CM for d/c planning * May benefit with rehab/snf if patient is agreeable * LOS > 96hrs, he needs more time with treatment; unable to wean down to lower level of required O2 09/29/2020 * Continue attempting to wean oxygen * Continue dale catheter * Urology consultation needed at discharge * Completed dexamethasone, remdesivier, azithromycin, and Rocephin * Continues to utilize IS/Acapella * Remains bradycardic * 12-lead EKG obtained yesterday * Echo obtained today and pending * No complaints today and states he feels ok * Repeat labs tomorrow 09/30/2020 * Was weaned off of oxygen today * Continues to need dale catheter * Continues to utilize IS/Acapella * No complaints today * Echo obtained 09/20/2020 * 1. LVEF, by visual estimation, is 55 to 60% * 2. Impaired relaxation (Grade 1) pattern of LV diastolic filling * 3. Normal right ventricular systolic function * 4. The aortic valve is structurally normal and tricuspid * 5. Trace mitral valve regurgitation * 6. Trace tricuspid valve regurgitation * 7. No regional wall motion abnormalities * Labs today: * WBC 17.27 (steroids) * Hgb 14.7 * Sodium 137 * Potassium 4.0 * GFR 59 * Phosphorous 3.2 * Magnesium 2.3 * No need for lab draw tomorrow 10/01/2020 * Continues to remain off of oxygen * Continues to require dale catheter * Continues to utilize IS/Acapella * No complaints today * No labs today * Remains stable pending placement * SW working on [facility] placement. 10/02/2020 * Remains off of oxygen * Continue dale catheter for retention * Continues to utilize acapella/IS * Removed from isolation today * Encourage ambulation outside of room * No labs obtained today * Accepted at [facility] for 10/07/2020 * Will remain inpatient until then * Completed COVID-19 treatment * Discharge pending placement * No patient or nursing concerns today. [id number] The patient is a 74-year-old gentleman who is currently awaiting placement. He still has general fatigue and weakness. I have ordered repeat laboratory studies for the morning. The patient's previously noted hypokalemia has resolved. We will continue to monitor his electrolytes and replace as necessary. The patient also had been removed from isolation yesterday he has been encouraged to ambulate. The patient's Dale catheter will also be continued for now. 10/04/2020 The patient is a 74-year-old gentleman is currently awaiting placement. He is doing well. He has recovered from the COVID-19 pneumonia. The patient's metabolic abnormalities of also improved. Patient does have a Dale catheter and this will be continued for now. He also has been encouraged to continue to ambulate. Continue with current diet as tolerated. 10/05/2020 The patient is currently awaiting placement. He has been doing well. The patient has recovered from the COVID-19 pneumonia. He has improved overall. The patient's Dale catheter will be continued for now. He is currently excited to go to placement. The patient also has been encouraged to ambulate. The patient will continue on his diet as tolerated. Anticipate discharge 10/06/2020. - Plan Plan:: I have seen and evaluated the patient independently of Swapnil Spring PA-C. I have reviewed and agree with the plan of care as outlined by him for this patient. Please see orders.
--- NOTE | 2020-10-06 07:41 | PCM.PN ---
- General Info Date of Service: 10/06/20 Admission Dx/Problem (Free Text): Admission Diagnosis/Problem Admission Diagnosis/Problem Pneumonia/covid /weakness/anorexia Functional Status: Reports: Pain Controlled, Tolerating Diet, Ambulating, Urinating, Incentive Spirometry. Denies: New Symptoms - Review of Systems General: Reports: No Symptoms. Denies: Fever, Weakness, Fatigue, Malaise, Chills HEENT: Reports: No Symptoms. Denies: Headaches, Sore Throat Pulmonary: Reports: No Symptoms. Denies: Shortness of Breath, Cough, Sputum, Wheezing Cardiovascular: Reports: No Symptoms. Denies: Chest Pain, Palpitations, Dyspnea on Exertion, Edema Gastrointestinal: Reports: No Symptoms. Denies: Abdominal Pain, Constipation, Diarrhea, Nausea, Vomiting Genitourinary: Reports: No Symptoms. Denies: Pain Musculoskeletal: Reports: No Symptoms Skin: Reports: No Symptoms. Denies: Cyanosis Neurological: Reports: No Symptoms. Denies: Confusion, Difficulty Walking, Gait Disturbance Psychiatric: Reports: No Symptoms - Patient Data Vitals - Most Recent: Last Vital Signs Temp 98.1 F 10/06/20 04:48 Pulse 51 L 10/06/20 04:48 Resp 16 10/06/20 04:48 BP 120/66 10/06/20 04:48 Pulse Ox 94 L 10/06/20 04:48 Weight - Most Recent: 172 lb 4.8 oz I&O - Last 24 Hours: Intake & Output 10/05/20 10/06/20 10/06/20 22:59 06:59 14:59 Intake Total 900 700 Output Total 250 1500 Balance 650 -800 Lab Results Last 24 Hours: Laboratory Results - last 24 hr 10/06/20 10/06/20 Range/Units 04:12 04:12 WBC 6.89 (4.23-9.07) K/mm3 RBC 4.16 L (4.63-6.08) M/mm3 Hgb 12.9 L (13.7-17.5) gm/dl Hct 39.3 L (40.1-51.0) % MCV 94.5 H (79.0-92.2) fl MCH 31.0 (25.7-32.2) pg MCHC 32.8 (32.2-35.5) g/dl RDW Std Deviation 47.7 H (35.1-43.9) fL Plt Count 195 (163-337) K/mm3 MPV 9.7 (9.4-12.3) fl Neut % (Auto) 66.4 (34.0-67.9) % Lymph % (Auto) 17.6 L (21.8-53.1) % Gilchrist % (Auto) 12.8 H (5.3-12.2) % Eos % (Auto) 2.8 (0.8-7.0) Baso % (Auto) 0.1 (0.1-1.2) % Neut # (Auto) 4.58 (1.78-5.38) K/mm3 Lymph # (Auto) 1.21 L (1.32-3.57) K/mm3 Gilchrist # (Auto) 0.88 H (0.30-0.82) K/mm3 Eos # (Auto) 0.19 (0.04-0.54) K/mm3 Baso # (Auto) 0.01 (0.01-0.08) K/mm3 Sodium 138 (136-145) mEq/L Potassium 4.0 (3.5-5.1) mEq/L Chloride 104 (98-107) mEq/L Carbon Dioxide 28 (21-32) mEq/L Anion Gap 10.0 (5-15) BUN 20 H (7-18) mg/dL Creatinine 1.3 (0.7-1.3) mg/dL Est Cr Clr Drug Dosing 45.67 mL/min Estimated GFR (MDRD) 54 (>60) mL/min BUN/Creatinine Ratio 15.4 (14-18) Glucose 99 (83-115) mg/dL Calcium 8.4 L (8.5-10.1) mg/dL Med Orders - Current: Current Medications Acetaminophen (Tylenol) 650 mg PO Q6H PRN PRN Reason: Fever/pain Allopurinol (Zyloprim) 100 mg PO DAILY [facility] Last Admin: 10/05/20 08:52 Dose: 100 mg Documented by: Aspirin (Halfprin) 81 mg PO DAILY [facility] Last Admin: 10/05/20 08:52 Dose: 81 mg Documented by: Cholecalciferol (Vitamin D3) 5,000 unit PO DAILY [facility] Last Admin: 10/05/20 08:52 Dose: 5,000 unit Documented by: Enoxaparin Sodium (Lovenox) 40 mg SUBCUT DAILY [facility] Last Admin: 10/05/20 08:50 Dose: 40 mg Documented by: Ondansetron HCl (Zofran) 4 mg IVPUSH Q4H PRN PRN Reason: Nausea/Vomiting Last Admin: 10/04/20 10:07 Dose: 4 mg Documented by: Pantoprazole Sodium (Protonix) 40 mg PO DAILY [facility] Last Admin: 10/05/20 08:52 Dose: 40 mg Documented by: Sertraline HCl (Zoloft) 50 mg PO DAILY [facility] Last Admin: 10/05/20 08:52 Dose: 50 mg Documented by: Simvastatin (Zocor) 40 mg PO DAILY [facility] Last Admin: 10/05/20 08:52 Dose: 40 mg Documented by: Sodium Chloride (Saline Flush) 10 ml FLUSH ASDIRECTED PRN PRN Reason: Keep Vein Open Last Admin: 09/24/20 08:15 Dose: 10 ml Documented by: Tamsulosin HCl (Flomax) 0.4 mg PO DAILY [facility] Last Admin: 10/05/20 08:52 Dose: 0.4 mg Documented by: Zinc Sulfate (Zincate) 220 mg PO DAILY [facility] Last Admin: 10/05/20 08:52 Dose: 220 mg Documented by: Discontinued Medications Acetaminophen (Tylenol) 650 mg PO ONCALL ONE Stop: 09/20/20 19:11 Last Admin: 09/20/20 21:36 Dose: 650 mg Documented by: Azithromycin (Zithromax) 500 mg PO DAILY [facility] Stop: 09/26/20 09:01 Last Admin: 09/26/20 08:15 Dose: 500 mg Documented by: Dexamethasone (Decadron) 6 mg IVPUSH ONETIME ONE Stop: 09/20/20 14:23 Last Admin: 09/20/20 15:01 Dose: 6 mg Documented by: Dexamethasone (Decadron) Confirm Administered Dose 4 mg .ROUTE .STK-MED ONE Stop: 09/20/20 15:01 Last Admin: 09/20/20 15:07 Dose: Not Given Documented by: Dexamethasone (Dexamethasone) 6 mg PO DAILY [facility] Stop: 09/29/20 09:01 Last Admin: 09/29/20 08:31 Dose: 6 mg Documented by: Diphenhydramine HCl (Benadryl) 25 mg PO ONCALL ONE Stop: 09/20/20 19:11 Last Admin: 09/20/20 21:37 Dose: 25 mg Documented by: Famotidine (Pepcid) 20 mg PO BID [facility] Sodium Chloride (Normal Saline) 1,000 mls @ 1,000 mls/hr IV .BOLUS [facility] Last Admin: 09/20/20 13:40 Dose: 1,000 mls/hr Documented by: Remdesivir 200 mg/ Sodium (Chloride) 250 mls @ 250 mls/hr IV ONETIME ONE Stop: 09/20/20 14:23 Last Admin: 09/20/20 15:06 Dose: 250 mls/hr Documented by: Potassium Chloride 10 meq/ (Premix) 100 mls @ 100 mls/hr IV Q1H [facility] Stop: 09/20/20 19:59 Last Admin: 09/20/20 20:16 Dose: 100 mls/hr Documented by: Sodium Chloride (Normal Saline) 1,000 mls @ 75 mls/hr IV ASDIRECTED [facility] Last Admin: 09/20/20 17:15 Dose: 75 mls/hr Documented by: Remdesivir 100 mg/ Sodium (Chloride) 100 mls @ 100 mls/hr IV DAILY [facility] Stop: 09/24/20 09:59 Remdesivir 100 mg/ Sodium (Chloride) 100 mls @ 100 mls/hr IV Q24H [facility] Stop: 09/24/20 15:59 Last Admin: 09/24/20 15:19 Dose: 100 mls/hr Documented by: Ceftriaxone Sodium 2 gm/ (Sodium Chloride) 100 mls @ 200 mls/hr IV Q24H [facility] Stop: 09/28/20 11:29 Last Admin: 09/28/20 10:15 Dose: 200 mls/hr Documented by: Sodium Chloride (Normal Saline) Confirm Administered Dose 1,000 mls @ as directed .ROUTE .STK-MED ONE Stop: 10/04/20 09:59 Last Admin: 10/04/20 10:04 Dose: 500 mls/hr Documented by: Sodium Chloride (Normal Saline) 500 mls @ 999 mls/hr IV .BOLUS ONE Stop: 10/04/20 11:15 Last Admin: 10/05/20 05:31 Dose: Not Given Documented by: Metoprolol Tartrate (Lopressor) 25 mg PO BID [facility] Last Admin: 09/21/20 09:21 Dose: Not Given Documented by: Metoprolol Tartrate (Lopressor) 12.5 mg PO Q12H [facility] Last Admin: 09/21/20 12:46 Dose: Not Given Documented by: Pantoprazole Sodium (Protonix Iv) 40 mg .XX DAILY [facility] Last Admin: 09/21/20 09:05 Dose: 40 mg Documented by: Potassium Chloride (Klor-Con M20) 40 meq PO Q4H [facility] Stop: 09/22/20 17:16 Last Admin: 09/22/20 17:51 Dose: 40 meq Documented by: Tamsulosin HCl (Flomax) 0.4 mg PO PCBREAKFAST [facility] Last Admin: 09/22/20 09:02 Dose: 0.4 mg Documented by: Tamsulosin HCl (Flomax) 0.4 mg PO ONETIME ONE Stop: 09/21/20 11:35 Last Admin: 09/21/20 12:19 Dose: 0.4 mg Documented by: - Exam Quality Assessment: DVT Prophylaxis General: Alert, Cooperative, No Acute Distress HEENT: Pupils Equal, Pupils Reactive, Mucous Membr. Moist/[place] Lungs: Clear to Auscultation, Normal Respiratory Effort Cardiovascular: Regular Rate, Regular Rhythm GI/Abdominal Exam: Normal Bowel Sounds, Soft, Non-Tender, No Distention (Male) Exam: Deferred Back Exam: Normal Inspection, Full Range of Motion Extremities: Normal Inspection, Normal Range of Motion, Non-Tender, No Pedal Edema, Normal Capillary Refill Skin: Warm, Dry, Intact Neurological: No New Focal Deficit Psy/Mental Status: Alert. No: Normal Affect (Flat ) Sepsis Event Note - Evaluation Sepsis Screening Result: No Definite Risk - Focused Exam Vital Signs: Vital Signs Temp Pulse Resp BP Pulse Ox 10/06/20 04:48 98.1 F 51 L 16 120/66 94 L - Problem List & Annotations (1) COVID-19 SNOMED Code(s): 562311366 Code(s): U07.1 - COVID-19 Status: Acute Priority: High Current Visit: Yes Onset Date: ~09/12/20 (2) Confusion SNOMED Code(s): 255268359 Code(s): R41.0 - DISORIENTATION, UNSPECIFIED Status: Acute Priority: Low Current Visit: Yes Onset Date: ~09/20/20 (3) Hypokalemia SNOMED Code(s): 72000269 Code(s): E87.6 - HYPOKALEMIA Status: Resolved Priority: Medium Current Visit: Yes Onset Date: ~09/20/20 (4) Hyponatremia SNOMED Code(s): 02826460 Code(s): E87.1 - HYPO-OSMOLALITY AND HYPONATREMIA Status: Resolved Priority: High Current Visit: Yes (5) Hypoxia SNOMED Code(s): 795717270 Code(s): R09.02 - HYPOXEMIA Status: Resolved Priority: High Current Visit: Yes Onset Date: ~09/20/20 (6) Pneumonia due to COVID-19 virus SNOMED Code(s): 201657160359065321 Code(s): U07.1 - COVID-19; J12.89 - OTHER VIRAL PNEUMONIA Status: Resolved Priority: High Current Visit: Yes (7) Renal insufficiency SNOMED Code(s): 973260488, 182487904 Code(s): N28.9 - DISORDER OF KIDNEY AND URETER, UNSPECIFIED Status: Resolved Priority: Medium Current Visit: Yes Onset Date: ~09/20/20 (8) Generalized weakness SNOMED Code(s): 69268285 Code(s): R53.1 - WEAKNESS Status: Chronic Priority: High Current Visit: Yes (9) Bradycardia SNOMED Code(s): 09100173 Code(s): R00.1 - BRADYCARDIA, UNSPECIFIED Status: Acute Priority: High Current Visit: Yes (10) Urine retention SNOMED Code(s): 408399059 Code(s): R33.9 - RETENTION OF URINE, UNSPECIFIED Status: Acute Priority: High Current Visit: Yes (11) Diarrhea SNOMED Code(s): 55882369 Code(s): R19.7 - DIARRHEA, UNSPECIFIED Status: Acute Priority: High Current Visit: Yes Qualifiers: Diarrhea type: unspecified type Qualified Code(s): R19.7 - Diarrhea, unspecified - Problem List Review Problem List Initiated/Reviewed/Updated: Yes - Assessment Assessment:: 09/21/2020 * Electrolytes back WNL * D-Dimer 0.92 (improved) * CRP 6.6 * Given convalescent plasma on 09/20/2020 * Requiring 2L oxygen via NC * HR in 40's * Will decrease home metoprolol dosing * Noted to have over 1L of urine retention overnight and straight catheterized * Starting flomax * Bladder scans as needed * Patient reports often only voids once a day * No patient or nursing concerns * Reports he feels better, but still weak * Continue current treatment plan and monitor HR 09/22/2020 * Electrolytes back WNL * Given convalescent plasma on 09/20/2020 * Requiring 2L oxygen via NC * Dale catheter placed over night due to urinary retention * Starting flomax * will need to see urology as an outpatient * Patient reports often only voids once a day * No patient or nursing concerns * Reports he feels better, but still weak * Continue current treatment plan and monitor HR * K+ 3.2 * Vitamin D level 16.1 * HR in the 50's 09/23/2020 * Labs remain stable * WBC 9.08 * D-dimer 1.72 * CRP 2.8 * Procalcitonin was 0.1 * UA and blood cultures negative thus far * Continue dale catheter * Reports he feels better today * HR in 60-70's with stoppage of metoprolol * On 3L oxygen * Continue current treatment plan 09/24/2020 * Labs * WBC remains elevated at 10.33 * Creatinine 1.2 * GFR 59 * CRP 3.3 * Continue dale catheter * HR Low 50's off metoprolol * On 4L oxygen * Repeat CXR stable to mildly worse * Add azithromycin and rocephin * Continue dexamethasone 09/25/2020 * Labs * WBC elevated at 11.59 * D-dimer WNL at 0.49 * GFR >60 * CRP 2.9 * Continue dale catheter * HR upper 40-50s of metoprolol * Requiring 3L oxygen today * Continue current treatment plan * Completed remdesivir treatment 09/26/2020 * No labs obtained today * Repeat labs tomorrow * Dale catheter pulled yesterday, continue to monitor need for replacement * Requiring 4L oxygen today * Continue current treatment plan * Completed remdesivir * HR remains in 50's * Completed azithromycin * No complaints and reports he feels better today. 09/27/2020 * Continue current treatment * He was retaining urine considerably, dale catheter was re-inserted early this morning * Still on requiring 4L oxygen to achieve adequate oxygenation * Continue current treatment plan * Completed remdesivir and azithromycin * Start zinc oral supplement * IS as directed and encourage beside pulmo exercise * HR remains in the upper 40s-50's * Encourage proning * DVT prophylaxis: Lovenox 40mg subQ BID * LOS > 96hrs, he needs more time with treatment; unable to wean down to lower level of required O2 09/28/2020 * Continue current treatment * He was retaining urine considerably, dale catheter was re-inserted early this morning * Still on 4L oxygen * Continue current treatment plan * Completed remdesivir and azithromycin * Continue zinc oral supplement * Encourage to use IS as directed and encourage beside pulmo exercise * HR remains in the upper 40s-50's * Encourage proning * DVT prophylaxis: Lovenox 40mg subQ BID * SW/ for d/c planning * May benefit with rehab/snf if patient is agreeable * LOS > 96hrs, he needs more time with treatment; unable to wean down to lower level of required O2 09/29/2020 * Continue attempting to wean oxygen * Continue dale catheter * Urology consultation needed at discharge * Completed dexamethasone, remdesivier, azithromycin, and Rocephin * Continues to utilize IS/Acapella * Remains bradycardic * 12-lead EKG obtained yesterday * Echo obtained today and pending * No complaints today and states he feels ok * Repeat labs tomorrow 09/30/2020 * Was weaned off of oxygen today * Continues to need dale catheter * Continues to utilize IS/Acapella * No complaints today * Echo obtained 09/20/2020 * 1. LVEF, by visual estimation, is 55 to 60% * 2. Impaired relaxation (Grade 1) pattern of LV diastolic filling * 3. Normal right ventricular systolic function * 4. The aortic valve is structurally normal and tricuspid * 5. Trace mitral valve regurgitation * 6. Trace tricuspid valve regurgitation * 7. No regional wall motion abnormalities * Labs today: * WBC 17.27 (steroids) * Hgb 14.7 * Sodium 137 * Potassium 4.0 * GFR 59 * Phosphorous 3.2 * Magnesium 2.3 * No need for lab draw tomorrow 10/01/2020 * Continues to remain off of oxygen * Continues to require dale catheter * Continues to utilize IS/Acapella * No complaints today * No labs today * Remains stable pending placement * SW working on [facility] [place] [facility] placement. 10/02/2020 * Remains off of oxygen * Continue dale catheter for retention * Continues to utilize acapella/IS * Removed from isolation today * Encourage ambulation outside of room * No labs obtained today * Accepted at [facility] for 10/07/2020 * Will remain inpatient until then * Completed COVID-19 treatment * Discharge pending placement * No patient or nursing concerns today. 52872/2019 The patient is a 74-year-old gentleman who is currently awaiting placement. He still has general fatigue and weakness. I have ordered repeat laboratory studies for the morning. The patient's previously noted hypokalemia has resolved. We will continue to monitor his electrolytes and replace as necessary. The patient also had been removed from isolation yesterday he has been encouraged to ambulate. The patient's Dale catheter will also be continued for now. 10/04/2020 The patient is a 74-year-old gentleman is currently awaiting placement. He is doing well. He has recovered from the COVID-19 pneumonia. The patient's metabolic abnormalities of also improved. Patient does have a Dale catheter and this will be continued for now. He also has been encouraged to continue to ambulate. Continue with current diet as tolerated. 10/05/2020 The patient is currently awaiting placement. He has been doing well. The patient has recovered from the COVID-19 pneumonia. He has improved overall. The patient's Dale catheter will be continued for now. He is currently excited to go to placement. The patient also has been encouraged to ambulate. The patient will continue on his diet as tolerated. Anticipate discharge 10/06/2020. 10/06/2020 * Remains off of oxygen * Continue dale catheter * Completed COVID-19 treatment * Accepted to [facility] with plan for discharge 10/07/2020 * Outpatient urology * Labs * WBC 6.89 * Hgb 12.9 * Plt 195 * Sodium 138 * Creatinie 1.3 * GFR 54 * Cleared for discharge pending placement * No nee for repeat labs tomorrow. - Plan Plan:: COVID-19 - diagnosed 09/20/20 in ED Hypoxia, on 4L NC Confusion, resolved Vit D Deficiency, POA Leukocytosis, POA Generalized Weakness, 2/2 acute illness * Given convalescent plasma on 09/20/2020 * Completed Remdesivir, dexamethasone, rocephin and azithromycin * Acapella/IS * Consult RT/PT/OT * CM/SW consult for d/c planning * Consult spar finisher * Ambulate in hallway * Removed from isolation * Encourage proning * PRN Tylenol for fever/pain * PRN labs as indicated * Blood cultures negative * Oxygen as needed with goal saturations between 88-94% Bradycardia * Stopped Metoprolol and monitor * Telemetry * HR in the upper 40s-50's * Obtained echo as above * Asymptomatic - will continue to monitor Diarrhea, resolved * Resolved prior to C-diff test being collected. Urine retention * Continue Flomax * Dale catheter removed 09/25/20-but unable to void and was retaining urine considerably * Catheter re-inserted hogshead hooper hours * Will need urology follow-up at discharge * UA obtained in ED - UC shows no growth Hypokalemia, resolved Hyponatremia, resolved Renal insufficiency, resolved PCP: Dr. Carlisle Code status: DVT prophylaxis: Lovenox GI prophylaxis: Home PPI Social: Patient lives with spouse in an apartment on [address] here in [place]. Planning discharge to [facility]. Disposition: Admitted to ICU as [facility] overflow for treatment of COVID-19 and electrolyte abnormalities. LOS >96 hrs due to duration of COVID-19 treatment. Prognosis: Good
[2020-10-06] MEDS: Cholecalciferol (Vitamin D3) 5,000 UNIT Cap PO SCH (08:42)
[2020-10-06] MEDS: Simvastatin 40 MG Tab PO SCH (08:42)
[2020-10-06] MEDS: Zinc Sulfate 220 MG Cap PO SCH (08:43)
[2020-10-06] MEDS: Sertraline 50 MG Tab PO SCH (08:43)
[2020-10-06] MEDS: Pantoprazole 40 MG Tab.CR PO SCH (08:43)
[2020-10-06] MEDS: Allopurinol 100 MG Tab PO SCH (08:47)
[2020-10-06] MEDS: Aspirin 81 MG Tab.EC PO SCH (08:47)
[2020-10-06] MEDS: Enoxaparin 40 MG/0.4 ML Syringe SUBCUT SCH (08:47)
[2020-10-06] MEDS: Tamsulosin 0.4 MG Cap.ER PO SCH (08:47)
[2020-10-07] MEDS: Aspirin 81 MG Tab.EC PO SCH (08:34)
[2020-10-07] MEDS: Sertraline 50 MG Tab PO SCH (08:35)
[2020-10-07] MEDS: Zinc Sulfate 220 MG Cap PO SCH (08:35)
[2020-10-07] MEDS: Pantoprazole 40 MG Tab.CR PO SCH (08:35)
[2020-10-07] MEDS: Allopurinol 100 MG Tab PO SCH (08:35)
[2020-10-07] MEDS: Cholecalciferol (Vitamin D3) 5,000 UNIT Cap PO SCH (08:35)
[2020-10-07] MEDS: Simvastatin 40 MG Tab PO SCH (08:35)
[2020-10-07] MEDS: Enoxaparin 40 MG/0.4 ML Syringe SUBCUT SCH (08:35)
[2020-10-07] MEDS: Tamsulosin 0.4 MG Cap.ER PO SCH (08:35)
--- NOTE | 2020-10-07 09:15 | PCM.DCSUM1 ---
Discharge Summary - Hospital Course HPI Initial Comments: 74 year old gentleman who resides at [facility] has been weak and sick for about week. minimal chills and no fever but sats low 80s on room air . does not currently c/o sob at rest on o2 but poor historian. aox4 and denies vomiting but not eating for most of week. he has smell l and taste he states. [facility] 8 years ago. no sick contacts per his hx. 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 ros essentially negative but family relates not himself and mild cough /dizzines weakness and anorexia . covid screen pos. ferritan 1800/d dimer .86. trop normala nd lactic acid normal / na 129 and k 3.0 . discussed treatments for covid and he is aware of serious illness and would like treatment . Diagnosis: Stroke: No - Discharge Data Discharge Date: 10/07/20 (Admit date: 09/20/2020) Discharge Disposition: DC/Tfer to Other 70 Condition: Good - Referral to Home Health Primary Care Physician: Boone Carlisle MD - Discharge Diagnosis/Problem(s) (1) COVID-19 SNOMED Code(s): 744175540 ICD Code: U07.1 - COVID-19 Status: Acute Priority: High Current Visit: Yes Onset Date: ~09/12/20 (2) Confusion SNOMED Code(s): 348934337 ICD Code: R41.0 - DISORIENTATION, UNSPECIFIED Status: Acute Priority: Low Current Visit: Yes Onset Date: ~09/20/20 (3) Hypokalemia SNOMED Code(s): 13209109 ICD Code: E87.6 - HYPOKALEMIA Status: Resolved Priority: Medium Current Visit: Yes Onset Date: ~09/20/20 (4) Hyponatremia SNOMED Code(s): 73153108 ICD Code: E87.1 - HYPO-OSMOLALITY AND HYPONATREMIA Status: Resolved Priority: High Current Visit: Yes (5) Hypoxia SNOMED Code(s): 828783018 ICD Code: R09.02 - HYPOXEMIA Status: Resolved Priority: High Current Visit: Yes Onset Date: ~09/20/20 (6) Pneumonia due to COVID-19 virus SNOMED Code(s): 381224163091087036 ICD Code: U07.1 - COVID-19; J12.89 - OTHER VIRAL PNEUMONIA Status: Resolved Priority: High Current Visit: Yes (7) Renal insufficiency SNOMED Code(s): 929270404, 156828757 ICD Code: N28.9 - DISORDER OF KIDNEY AND URETER, UNSPECIFIED Status: Resolved Priority: Medium Current Visit: Yes Onset Date: ~09/20/20 (8) Generalized weakness SNOMED Code(s): 78391678 ICD Code: R53.1 - WEAKNESS Status: Chronic Priority: High Current Visit: Yes (9) Bradycardia SNOMED Code(s): 20191725 ICD Code: R00.1 - BRADYCARDIA, UNSPECIFIED Status: Acute Priority: High Current Visit: Yes (10) Urine retention SNOMED Code(s): 829457545 ICD Code: R33.9 - RETENTION OF URINE, UNSPECIFIED Status: Acute Priority: High Current Visit: Yes (11) Diarrhea SNOMED Code(s): 79217664 ICD Code: R19.7 - DIARRHEA, UNSPECIFIED Status: Acute Priority: High Current Visit: Yes Qualifiers: Diarrhea type: unspecified type Qualified Code(s): R19.7 - Diarrhea, unspecified - Patient Summary/Data Consults: Consultations 09/21/20 09:59 Consult to Case Management/Avionics Mechanic [CONS] Routine Consult to Manager Labor Relations [CONS] Routine Consult to Occupational Therapy [OT Evaluation and Treatment] [CONS] Routine PT Evaluation and Treatment [CONS] Routine Respiratory Care Assess and Treatment [CONS] Routine Labs Pending at D/C: None Recommended Follow-up Testing/Procedures: Follow-up with primary care provider within 7-10 days of discharge, sooner if needed. Follow-up with urology as scheduled regarding dale catheter. Hospital Course: Patient was admitted to the hospital for management of his COVID-19 symptoms. He was given convalescent plasma. On admission he was noted to have his heart rate in the 40s and was on home metoprolol. This was discontinued although his heart rate was noted to be somewhat variable from 40s to 80s. On admission he was noted to have significant urine retention of over 1 L. Patient reports that he will sometimes only urinate once a day. Dale catheter was placed and he was started on Flomax. Attempted to remove Dale catheter with no success and catheter was replaced after several days. Prior to discharge appointment was made with urology in [place]. Electrolytes were replaced. Vitamin D level was quite low at 16.1 and this was supplemented. He was noted to have worsening oxygen demand and chest x-ray was stable to mildly worse. Because of this he received 3 days of azithromycin and 5 days of Rocephin. He completed 5 days of remdesivir treatment and 10 days of dexamethasone. He was also started on zinc supplement. Lovenox was increased to 40 mg subcutaneous twice daily due to his elevated D-dimer and worsening oxygen demand. Responded well to this. Echocardiogram was obtained on 09/20/2020 given his continuing bradycardia. The results were: 1. LVEF, by visual estimation, is 55 to 60% 2. Impaired relaxation (Grade 1) pattern of LV diastolic filling 3. Normal right ventricular systolic function 4. The aortic valve is structurally normal and tricuspid 5. Trace mitral valve regurgitation 6. Trace tricuspid valve regurgitation 7. No regional wall motion abnormalities. Even with his bradycardia he would remain asymptomatic. Patient's is also required to be hospitalized and in discussions with them both it came to light that they were receiving a lot of assistance at home. Apparently a local [facility] group has been doing a lot of the ADLs for them. Team was recommending assisted living and patient was ultimately accepted at [facility]. He was weaned off oxygen prior to discharge. Labs and vital signs otherwise remained stable. As mentioned prior his metoprolol was discontinued. He was discharged on 5000 unit s daily vitamin D supplementation. Was also discharged on 220 mg daily zinc supplementation. He was started on Flomax for his urinary retention at 0.4 mg daily. He does have an appointment scheduled with urology as mentioned prior after discharge. Recommend follow-up with PCP within 7 to 10 days of discharge, sooner if needed. Recommend repeat CBC, CMP, magnesium at that appointment. Consider repeat chest x-ray. Patient was instructed to continue to utilize his incentive spirometry and Acapella for at least 1 week or until symptoms resolve. He was feeling very good prior to discharge. Discharged to [place] today. - Patient Instructions Diet: Usual Diet as Tolerated Activity: As Tolerated Driving: Do Not Drive Showering/Bathing: May Shower Notify Provider of: Fever, Increased Pain, Nausea and/or Vomiting Other/Special Instructions: Follow-up with primary care provider within 7-10 days of discharge, sooner if needed. Follow-up with urology as scheduled in [place]. It is very improtant you do this as they may be able to remove your Dale Catheter. Dale care as directed. You completed treatment for your COVID-19 pneumonia while here. No new medications will be prescribed. You were taken off of isolation while here due to the length of time you had COVID-19 symptoms. Follow the rules of [place] regarding this. Resume home medications as directed. Your heart rate here was quite low so we stopped your Metoprolol. Do not continue to take this. Continue to utilize your incentive spirometer (Clear/Blue device you inhale through) and Acapella (green tube you blow through) for 1 more week minimum or until symptoms are gone. Should symtpoms return or worsen contact your primary care provider or return to the Emergency Department - Discharge Plan *PRESCRIPTION DRUG MONITORING PROGRAM REVIEWED*: No *COPY OF PRESCRIPTION DRUG MONITORING REPORT IN PATIENT KAYE: No Prescriptions/Med Rec: Tamsulosin [Flomax] 0.4 mg PO DAILY #20 cap.er Cholecalciferol (Vitamin D3) [Vitamin D3] 5,000 unit PO DAILY #20 cap Zinc Sulfate [Zincate] 220 mg PO DAILY #20 cap Home Medications: Home Meds Allopurinol [Zyloprim] 100 mg PO DAILY 09/20/20 [History] Aspirin [Adult Aspirin Regimen] 81 mg PO DAILY 09/20/20 [History] Sertraline [Zoloft] 50 mg PO DAILY 09/20/20 [History] Simvastatin 40 mg PO DAILY 09/20/20 [History] Pantoprazole Sodium [Protonix] 40 mg PO DAILY 09/21/20 [History] Cholecalciferol (Vitamin D3) [Vitamin D3] 5,000 unit PO DAILY #20 cap 10/07/20 [Rx] Tamsulosin [Flomax] 0.4 mg PO DAILY #20 cap.er 10/07/20 [Rx] Zinc Sulfate [Zincate] 220 mg PO DAILY #20 cap 10/07/20 [Rx] Oxygen Therapy Mode: Room Air Patient Handouts: Indwelling Urinary Catheter Care, Adult, COVID-19, Sepsis, Diagnosis, Adult, Acute Urinary Retention, Male, [id number] Forms: ED Department Discharge Referrals: Boone Carlisle MD [Primary Care Provider] - 10/16/20 2:30 pm (please attend the scheduled follow up appointment as listed) Shlomo Carter MD [Ordering Only Provider] - 10/21/20 11:45 am (Please arrive 15-30 minutes prior to appt. at 11:45, This appt. is in [facility] time.Bring photo ID and insurance cards.) - Discharge Summary/Plan Comment DC Time >30 min.: Yes (45 mins) - General Info Date of Service: 10/07/20 Admission Dx/Problem (Free Text: Admission Diagnosis/Problem Admission Diagnosis/Problem Pneumonia/covid /weakness/anorexia Functional Status: Reports: Pain Controlled, Tolerating Diet, Ambulating, Urinating, Incentive Spirometry, Other (acapella ). Denies: New Symptoms - Review of Systems General: Reports: No Symptoms. Denies: Fever, Weakness, Fatigue, Malaise, C hills HEENT: Reports: No Symptoms. Denies: Headaches, Sore Throat Pulmonary: Reports: No Symptoms. Denies: Shortness of Breath, Pleuritic Chest Pain, Cough, Sputum, Wheezing Cardiovascular: Reports: No Symptoms. Denies: Chest Pain, Palpitations, Dyspnea on Exertion, Edema Gastrointestinal: Reports: No Symptoms. Denies: Abdominal Pain, Constipation, Diarrhea, Nausea, Vomiting Genitourinary: Reports: No Symptoms. Denies: Pain Musculoskeletal: Reports: No Symptoms Skin: Reports: No Symptoms. Denies: Cyanosis Neurological: Reports: No Symptoms. Denies: Difficulty Walking, Gait Disturbance Psychiatric: Reports: No Symptoms - Patient Data Vitals - Most Recent: Last Vital Signs Temp 99.2 F 10/07/20 04:08 Pulse 62 10/07/20 03:44 Resp 18 10/07/20 03:44 BP 136/62 10/07/20 03:44 Pulse Ox 94 L 10/07/20 06:13 Weight - Most Recent: 170 lb I&O - Last 24 hours: Intake & Output 10/06/20 10/07/20 10/07/20 22:59 06:59 14:59 Intake Total 1220 360 Output Total 650 1200 Balance 570 -840 Med Orders - Current: Current Medications Acetaminophen (Tylenol) 650 mg PO Q6H PRN PRN Reason: Fever/pain Allopurinol (Zyloprim) 100 mg PO DAILY DEJA Last Admin: 10/07/20 08:35 Dose: 100 mg Documented by: Aspirin (Halfprin) 81 mg PO DAILY [facility] Last Admin: 10/07/20 08:34 Dose: 81 mg Documented by: Cholecalciferol (Vitamin D3) 5,000 unit PO DAILY [facility] Last Admin: 10/07/20 08:35 Dose: 5,000 unit Documented by: Enoxaparin Sodium (Lovenox) 40 mg SUBCUT DAILY [facility] Last Admin: 10/07/20 08:35 Dose: 40 mg Documented by: Ondansetron HCl (Zofran) 4 mg IVPUSH Q4H PRN PRN Reason: Nausea/Vomiting Last Admin: 10/04/20 10:07 Dose: 4 mg Documented by: Pantoprazole Sodium (Protonix) 40 mg PO DAILY [facility] Last Admin: 10/07/20 08:35 Dose: 40 mg Documented by: Sertraline HCl (Zoloft) 50 mg PO DAILY [facility] Last Admin: 10/07/20 08:35 Dose: 50 mg Documented by: Simvastatin (Zocor) 40 mg PO DAILY [facility] Last Admin: 10/07/20 08:35 Dose: 40 mg Documented by: Sodium Chloride (Saline Flush) 10 ml FLUSH ASDIRECTED PRN PRN Reason: Keep Vein Open Last Admin: 09/24/20 08:15 Dose: 10 ml Documented by: Tamsulosin HCl (Flomax) 0.4 mg PO DAILY [facility] Last Admin: 10/07/20 08:35 Dose: 0.4 mg Documented by: Zinc Sulfate (Zincate) 220 mg PO DAILY [facility] Last Admin: 10/07/20 08:35 Dose: 220 mg Documented by: Discontinued Medications Acetaminophen (Tylenol) 650 mg PO ONCALL ONE Stop: 09/20/20 19:11 Last Admin: 09/20/20 21:36 Dose: 650 mg Documented by: Azithromycin (Zithromax) 500 mg PO DAILY [facility] Stop: 09/26/20 09:01 Last Admin: 09/26/20 08:15 Dose: 500 mg Documented by: Dexamethasone (Decadron) 6 mg IVPUSH ONETIME ONE Stop: 09/20/20 14:23 Last Admin: 09/20/20 15:01 Dose: 6 mg Documented by: Dexamethasone (Decadron) Confirm Administered Dose 4 mg .ROUTE .STK-MED ONE Stop: 09/20/20 15:01 Last Admin: 09/20/20 15:07 Dose: Not Given Documented by: Dexamethasone (Dexamethasone) 6 mg PO DAILY [facility]JA Stop: 09/29/20 09:01 Last Admin: 09/29/20 08:31 Dose: 6 mg Documented by: Diphenhydramine HCl (Benadryl) 25 mg PO ONCALL ONE Stop: 09/20/20 19:11 Last Admin: 09/20/20 21:37 Dose: 25 mg Documented by: Famotidine (Pepcid) 20 mg PO BID [facility] Sodium Chloride (Normal Saline) 1,000 mls @ 1,000 mls/hr IV .BOLUS [facility] Last Admin: 09/20/20 13:40 Dose: 1,000 mls/hr Documented by: Remdesivir 200 mg/ Sodium (Chloride) 250 mls @ 250 mls/hr IV ONETIME ONE Stop: 09/20/20 14:23 Last Admin: 09/20/20 15:06 Dose: 250 mls/hr Documented by: Potassium Chloride 10 meq/ (Premix) 100 mls @ 100 mls/hr IV Q1H [facility]JA Stop: 09/20/20 19:59 Last Admin: 09/20/20 20:16 Dose: 100 mls/hr Documented by: Sodium Chloride (Normal Saline) 1,000 mls @ 75 mls/hr IV ASDIRECTED [facility] Last Admin: 09/20/20 17:15 Dose: 75 mls/hr Documented by: Remdesivir 100 mg/ Sodium (Chloride) 100 mls @ 100 mls/hr IV DAILY [facility] Stop: 09/24/20 09:59 Remdesivir 100 mg/ Sodium (Chloride) 100 mls @ 100 mls/hr IV Q24H [facility] Stop: 09/24/20 15:59 Last Admin: 09/24/20 15:19 Dose: 100 mls/hr Documented by: Ceftriaxone Sodium 2 gm/ (Sodium Chloride) 100 mls @ 200 mls/hr IV Q24H [facility] Stop: 09/28/20 11:29 Last Admin: 09/28/20 10:15 Dose: 200 mls/hr Documented by: Sodium Chloride (Normal Saline) Confirm Administered Dose 1,000 mls @ as directed .ROUTE .STK-MED ONE Stop: 10/04/20 09:59 Last Admin: 10/04/20 10:04 Dose: 500 mls/hr Documented by: Sodium Chloride (Normal Saline) 500 mls @ 999 mls/hr IV .BOLUS ONE Stop: 10/04/20 11:15 Last Admin: 10/05/20 05:31 Dose: Not Given Documented by: Metoprolol Tartrate (Lopressor) 25 mg PO BID [facility] Last Admin: 09/21/20 09:21 Dose: Not Given Documented by: Metoprolol Tartrate (Lopressor) 12.5 mg PO Q12H [facility] Last Admin: 09/21/20 12:46 Dose: Not Given Documented by: Pantoprazole Sodium (Protonix Iv) 40 mg .XX DAILY [facility] Last Admin: 09/21/20 09:05 Dose: 40 mg Documented by: Potassium Chloride (Klor-Con M20) 40 meq PO Q4H [facility] Stop: 09/22/20 17:16 Last Admin: 09/22/20 17:51 Dose: 40 meq Documented by: Tamsulosin HCl (Flomax) 0.4 mg PO PCBREAKFAST [facility] Last Admin: 09/22/20 09:02 Dose: 0.4 mg Documented by: Tamsulosin HCl (Flomax) 0.4 mg PO ONETIME ONE Stop: 09/21/20 11:35 Last Admin: 09/21/20 12:19 Dose: 0.4 mg Documented by: - Exam Quality Assessment: Reports: Urine Catheter, DVT Prophylaxis. Denies: Supplemental Oxygen General: Reports: Alert, Cooperative, No Acute Distress HEENT: Reports: Pupils Equal, Pupils Reactive, Mucous Membr. Moist/[place] Neck: Reports: Supple, Trachea Midline Lungs: Reports: Clear to Auscultation, Normal Respiratory Effort Cardiovascular: Reports: Regular Rate, Regular Rhythm GI/Abdominal Exam: Normal Bowel Sounds, Soft, Non-Tender, No Distention (Male) Exam: Deferred Rectal (Males) Exam: Deferred Back Exam: Reports: Normal Inspection, Full Range of Motion Extremities: Normal Inspection, Normal Range of Motion, Non-Tender, No Pedal Edema, Normal Capillary Refill Skin: Reports: Warm, Dry, Intact Neurological: Reports: No New Focal Deficit Psy/Mental Status: Reports: Alert. Denies: Normal Affect (Flat )
[2020-10-07 09:17] VITALS: BP 124/70; PULSE 56
== END 2020-10-07 10:00 | disposition other institution (70) | DRG 177 ==
LOC: JD.ED 12:16 → JD.ICU 17:27 → JD.MS 09-23 12:23
PROVIDERS: ADMIT Pediatrics; ATTEND Pediatrics
PROC: XW13325 Transfusion of Convalescent Plasma (Nonautologous) into Peripheral Vein, Percutaneous Approach, New Technology Group 5 (ICD-10-PCS; principal; 2020-09-20)
PROC: XW033E5 Introduction of Remdesivir Anti-infective into Peripheral Vein, Percutaneous Approach, New Technology Group 5 (ICD-10-PCS; 2020-09-20)
PROC: 8E0ZXY6 Isolation (ICD-10-PCS; 2020-09-20)
DX: U07.1 COVID-19 (principal); J12.89 Other viral pneumonia; R09.02 Hypoxemia; E87.1 Hypo-osmolality and hyponatremia; E87.6 Hypokalemia; R33.9 Retention of urine, unspecified; R41.0 Disorientation, unspecified; E78.00 Pure hypercholesterolemia, unspecified; I10 Essential (primary) hypertension; M10.9 Gout, unspecified; E86.0 Dehydration; N28.9 Disorder of kidney and ureter, unspecified; Z79.82 Long term (current) use of aspirin; Z79.899 Other long term (current) drug therapy; E55.9 Vitamin D deficiency, unspecified; R00.1 Bradycardia, unspecified
CPT/HCPCS: 36415; 71045; 72131; 74176; 80053; 81001; 82728; 83605; 83615; 84484; 85025; 85379; 86140; 86900; 86901; 87040 ×2; 87086; 93005; 94762; 96365; 96367; 96375; 99285; J1100; J3480; J7030 ×2; J7050; U0002; 36430; 51701; 51702; 51798; 80048; 82306; 83735; 83880; 84100; 84145; 93010; 93306; 94667; 94668; 94761; 97110-GO; 97110-GP; 97116-GP; 97162-GP; 97165-GO; 97530-GO; 97530-GP; 97535-GO; 99232; 99239; 99284; A9270-GY; C9113; J0696; J1650; J2405; J8540; P9017

== ENCOUNTER 2020-10-31 20:45 | Emergency (ER) | payer MEDICARE, MEDICAID ==
[2020-10-31 21:01] VITALS: BP 152/88; PULSE 76
--- NOTE | 2020-10-31 21:14 | EDM.PDOC ---
ED HPI GENERAL MEDICAL PROBLEM - General Chief Complaint: Genitourinary Problem Stated Complaint: [place] Time Seen by Provider: 10/31/20 20:49 Source of Information: Reports: Patient, Detention Records, RN Notes Reviewed History Limitations: Reports: No Limitations - History of Present Illness INITIAL COMMENTS - FREE TEXT/NARRATIVE: Patient is a 74-year-old male presenting to the emergency department with complaints of his Arizmendi catheter not draining. He is a resident of [place] assisted [facility]. Staff reports that has not been draining throughout the day. They gave him 1400 mils of fluid and no urine was returned. Bladder scan was completed in triage found to have 873 mls of urine. Patient denies fever, chills, back pain, nausea, vomiting, or abdominal pain. - Related Data Allergies Allergy/AdvReac Type Severity Reaction Status Date / Time No Known Allergies Allergy Verified 10/31/20 21:01 Home Meds: Home Meds Allopurinol [Zyloprim] 100 mg PO DAILY 09/20/20 [History] Aspirin [Adult Aspirin Regimen] 81 mg PO DAILY 09/20/20 [History] Sertraline [Zoloft] 50 mg PO DAILY 09/20/20 [History] Simvastatin 40 mg PO DAILY 09/20/20 [History] Pantoprazole Sodium [Protonix] 40 mg PO DAILY 09/21/20 [History] Cholecalciferol (Vitamin D3) [Vitamin D3] 5,000 unit PO DAILY #20 cap 10/07/20 [Rx] Tamsulosin [Flomax] 0.4 mg PO DAILY #20 cap.er 10/07/20 [Rx] Zinc Sulfate [Zincate] 220 mg PO DAILY #20 cap 10/07/20 [Rx] Past Medical History Cardiovascular History: Reports: High Cholesterol, Hypertension Genitourinary History: Reports: Retention, Urinary Musculoskeletal History: Reports: Gout - Infectious Disease History Infectious Disease History: Reports: Novel Coronavirus Social & Family History - Family History Family Medical History: No Pertinent Family History - Caffeine Use Caffeine Use: Reports: Soda ED ROS GENERAL - Review of Systems Review Of Systems: Comprehensive ROS is negative, except as noted in HPI. ED EXAM, RENAL/ - Physical Exam Exam: See Below Exam Limited By: No Limitations General Appearance: Alert, WD/WN, No Apparent Distress Respiratory/Chest: No Respiratory Distress, Lungs Clear, Normal Breath Sounds, No Accessory Muscle Use, Chest Non-Tender Cardiovascular: Normal Peripheral Pulses, Regular Rate, Rhythm, No Edema, No Gallop, No JVD, No Murmur, No Rub GI/Abdominal: Normal Bowel Sounds, Soft, Non-Tender, No Organomegaly, No Distention, No Abnormal Bruit, No Mass (Male) Exam: Other (Arizmendi catheter.) Neurological: Alert, Oriented, CN II-XII Intact, Normal Cognition, Normal Gait, Normal Reflexes, No Motor/Sensory Deficits Psychiatric: Normal Affect, Normal Mood Skin Exam: Warm, Dry, Intact, Normal Color, No Rash Course - Vital Signs Last Recorded V/S: Last Vital Signs Temp 97.6 F 10/31/20 20:50 Pulse 76 10/31/20 20:50 Resp 16 10/31/20 20:50 BP 152/88 H 10/31/20 20:50 Pulse Ox 95 10/31/20 20:50 - Re-Assessments/Exams Free Text/Narrative Re-Assessment/Exam: 10/31/20 21:11 Arizmendi catheter was irrigated and repositioned by [place] GARCIA. 900 mils of urine was drained from the bladder. Patient is comfortable and ready to go home. We will discharge him back to assisted living. Departure - Departure Time of Disposition: 21:14 Disposition: Home, Self-Care 01 Condition: Good Clinical Impression: Arizmendi catheter problem Qualifiers: Encounter type: initial encounter Qualified Code(s): T83.9XXA - Unspecified complication of genitourinary prosthetic device, implant and graft, initial encounter - Discharge Information *PRESCRIPTION DRUG MONITORING PROGRAM REVIEWED*: No *COPY OF PRESCRIPTION DRUG MONITORING REPORT IN PATIENT KAYE: No Instructions: Indwelling Urinary Catheter Care, Adult Additional Instructions: You were seen in the emergency department this evening for your Arizmendi catheter not draining. The catheter was repositioned and irrigated and 900 mils of urine were drained. It is now draining well. Recommend routine catheter care. Return to ER as needed. Sepsis Event Note (ED) - Evaluation Sepsis Screening Result: No Definite Risk - Focused Exam Vital Signs: Vital Signs Temp Pulse Resp BP Pulse Ox 10/31/20 20:50 97.6 F 76 16 152/88 H 95
== END 2020-10-31 21:40 | disposition home or self-care (01) ==
LOC: JD.ED 20:45
DX: T83.091A Other mechanical complication of indwelling urethral catheter, initial encounter (principal); E78.00 Pure hypercholesterolemia, unspecified; I10 Essential (primary) hypertension; M10.9 Gout, unspecified; Z79.82 Long term (current) use of aspirin; Z79.899 Other long term (current) drug therapy
CPT/HCPCS: 99283

== ENCOUNTER 2020-11-18 17:28 | Inpatient (IN) | payer MEDICARE, MEDICAID ==
[2020-11-18] MEDS ORDERED: Sodium Chloride 0.9% 10 ML Syringe FLUSH PRN (17:42)
[2020-11-18] MEDS ORDERED: Acetaminophen 325 MG Tab PO ONE (17:51)
--- NOTE | 2020-11-18 17:53 | EDM.PDOC ---
ED HPI GENERAL MEDICAL PROBLEM - General Chief Complaint: Fever Stated Complaint: [facility] Time Seen by Provider: 11/18/20 17:40 Source of Information: Reports: Patient, EMS Notes Reviewed, Residential Records, RN Notes Reviewed (Vital signs: Heart rate 110, temperature 101.8 F, respiratory rate of 14 breaths/min, blood pressure is 142/79, O2 sats 94% on room air.) History Limitations: Reports: Altered Mental Status - History of Present Illness INITIAL COMMENTS - FREE TEXT/NARRATIVE: Patient is a 74-year-old male who is brought into the ER by [facility] for the evaluation of a fever, weakness, and being unable to walk. Patient lives at [facility]. And it was made known that the patient was able to walk earlier today, and he had breakfast and lunch and nothing was out of sorts for him however throughout the day he began to develop a fever, we found a temperature of 101.8 F, he was reported to have been shaking. Patient himself cannot recall his current age, the current month, or the day of the week. He subsequently does not know where he is when he is asked. Patient did have COVID-19 in September 2020, and recently got his second COVID-19 vaccination on 11/17/2019, yesterday. He has not had any nausea/vomiting/diarrhea, and was able to eat everything without much difficulty. He was not given any sort of medications for the fever. Primary care provider is Dr. Carlisle. - Related Data Allergies Allergy/AdvReac Type Severity Reaction Status Date / Time No Known Allergies Allergy Verified 10/31/20 21:01 Home Meds: Home Meds Allopurinol [Zyloprim] 100 mg PO DAILY 09/20/20 [History] Aspirin [Adult Aspirin Regimen] 81 mg PO DAILY 09/20/20 [History] Sertraline [Zoloft] 50 mg PO DAILY 09/20/20 [History] Simvastatin 40 mg PO DAILY 09/20/20 [History] Pantoprazole Sodium [Protonix] 40 mg PO DAILY 09/21/20 [History] Cholecalciferol (Vitamin D3) [Vitamin D3] 5,000 unit PO DAILY #20 cap 10/07/20 [Rx] Tamsulosin [Flomax] 0.4 mg PO DAILY #20 cap.er 10/07/20 [Rx] Zinc Sulfate [Zincate] 220 mg PO DAILY #20 cap 10/07/20 [Rx] Past Medical History Cardiovascular History: Reports: High Cholesterol, Hypertension Genitourinary History: Reports: Retention, Urinary Musculoskeletal History: Reports: Gout - Infectious Disease History Infectious Disease History: Reports: Novel Coronavirus (09/20/2020) Social & Family History - Family History Family Medical History: No Pertinent Family History - Caffeine Use Caffeine Use: Reports: Soda ED ROS ENT - Review of Systems Review Of Systems: Comprehensive ROS is negative, except as noted in HPI. ED EXAM, ENT - Physical Exam Exam: See Below Exam Limited By: No Limitations General Appearance: Alert, WD/WN, No Apparent Distress Eye Exam: Bilateral Eye: EOMI, Normal Inspection, PERRL Mouth/Throat: Normal Inspection, Normal Gums, Normal Lips, Normal Oropharynx, Normal Teeth Head: Atraumatic, Normocephalic Neck: Normal Inspection, Supple, Non-Tender, Full Range of Motion Respiratory/Chest: No Respiratory Distress, Lungs Clear, Normal Breath Sounds, No Accessory Muscle Use, Chest Non-Tender Cardiovascular: Normal Peripheral Pulses, Regular Rate, Rhythm, No Edema GI/Abdominal: Normal Bowel Sounds, Soft, Non-Tender, No Distention, No Mass Extremities: Normal Inspection, Normal Capillary Refill Neurological: Alert, CN II-XII Intact (grossly), No Motor/Sensory Deficits Psychiatric: Normal Affect, Normal Mood Skin: Warm, Dry, Intact, Normal Color, No Rash #1 Interpretation EKG Date: 11/18/20 Time: 19:27 Rhythm: NSR Rate (Beats/Min): 99 [place]: Normal P-Wave: Present QRS: Normal ST-T: Normal QT: Normal EKG Interpretation Comments: No obvious ischemia or acute ST changes noted, reviewed by myself and Dr. Shah. Course - Vital Signs Last Recorded V/S: Last Vital Signs Temp 101.8 F H 11/18/20 18:40 Pulse 110 H 11/18/20 17:28 Resp 14 11/18/20 17:28 BP 142/79 H 11/18/20 17:28 Pulse Ox 94 L 11/18/20 17:28 - Orders/Labs/Meds Orders: Active Orders 24 hr Category Date Time Status EKG Documentation Completion [RC] STAT Care 11/18/20 19:17 Active Insert Arizmendi Catheter [Insert Urinary Catheter] [OM.PC] Care 11/18/20 18:50 Ordered Stat Peripheral IV Care [RC] . DIRECTED Care 11/18/20 17:44 Active Urinary Catheter Assessment [RC] ASDIRECTED Care 11/18/20 18:50 Active Chest 2V [CR] Stat Exams 11/18/20 17:43 Taken CULTURE BLOOD [BC] Stat Lab 11/18/20 18:00 Received CULTURE BLOOD [BC] Stat Lab 11/18/20 18:12 Received CULTURE URINE [RM] Routine Lab 11/18/20 18:50 Received Sodium Chloride 0.9% [Saline Flush] Med 11/18/20 17:42 Active 10 ml FLUSH ASDIRECTED PRN Blood Culture x2 Reflex Set [OM.PC] Stat Oth 11/18/20 17:43 Ordered Peripheral IV Insertion Adult [OM.PC] Routine Oth 11/18/20 17:44 Ordered Saline Lock Insert [OM.PC] Stat Oth 11/18/20 17:43 Ordered Medication Orders Sodium Chloride (Saline Flush) 10 ml FLUSH ASDIRECTED PRN PRN Reason: Keep Vein Open Last Admin: 11/18/20 18:00 Dose: 10 ml Documented by: MARLENE Labs: Laboratory Tests 11/18/20 11/18/20 11/18/20 Range/Units 18:00 18:00 18:00 WBC 12.16 H (4.23-9.07) K/mm3 RBC 4.47 L (4.63-6.08) M/mm3 Hgb 12.8 L (13.7-17.5) gm/dl Hct 39.9 L (40.1-51.0) % MCV 89.3 D (79.0-92.2) fl MCH 28.6 (25.7-32.2) pg MCHC 32.1 L (32.2-35.5) g/dl RDW Std Deviation 50.5 H (35.1-43.9) fL Plt Count 312 D (163-337) K/mm3 MPV 9.4 (9.4-12.3) fl Neutrophils % (Manual) 84 H (40-60) % Band Neutrophils % 0 (0-10) % Lymphocytes % (Manual) 8 L (20-40) % Atypical Lymphs % 0 % Monocytes % (Manual) 7 (2-10) % Eosinophils % (Manual) 0 L (0.8-7.0) % Basophils % (Manual) 1 (0.2-1.2) Toxic Granulation Few Platelet Estimate Adequate Plt Morphology Comment Normal Anisocytosis 1+ slight RBC Morph Comment Not Reportable PT 13.3 H (9.7-12.0) SECONDS INR 1.25 Sodium 137 (136-145) mEq/L Potassium 4.1 (3.5-5.1) mEq/L Chloride 102 (98-107) mEq/L Carbon Dioxide 21 (21-32) mEq/L Anion Gap 18.1 H (5-15) BUN 18 (7-18) mg/dL Creatinine 1.4 H (0.7-1.3) mg/dL Est Cr Clr Drug Dosing 42.41 mL/min Estimated GFR (MDRD) 50 (>60) mL/min BUN/Creatinine Ratio 12.9 L (14-18) Glucose 122 H (83-115) mg/dL Lactic Acid (0.4-2.0) mmol/L Calcium 9.2 (8.5-10.1) mg/dL Total Bilirubin 1.3 H (0.2-1.0) mg/dL AST 16 (15-37) U/L ALT 19 (16-63) U/L Alkaline Phosphatase 87 (46-116) U/L C-Reactive Protein 5.3 H* (<1.0) mg/dL Total Protein 7.3 (6.4-8.2) g/dl Albumin 3.2 L (3.4-5.0) g/dl Globulin 4.1 gm/dL Albumin/Globulin Ratio 0.8 L (1-2) Urine Color (Yellow) Urine Appearance (Clear) Urine pH (5.0-8.0) Ur Specific [place] (1.005-1.030) Urine Protein (Negative) Urine Glucose (UA) (Negative) Urine Ketones (Negative) Urine Occult Blood (Negative) Urine Nitrite (Negative) Urine Bilirubin (Negative) Urine Urobilinogen (0.2-1.0) Ur Leukocyte Esterase (Negative) Urine RBC (0-5) /hpf Urine WBC (0-5) /hpf Ur Squamous Epith Cells (0-5) /hpf Urine Bacteria (FEW) /hpf Urine Mucus (FEW) /hpf 11/18/20 11/18/20 Range/Units 18:00 18:50 WBC (4.23-9.07) K/mm3 RBC (4.63-6.08) M/mm3 Hgb (13.7-17.5) gm/dl Hct (40.1-51.0) % MCV (79.0-92.2) fl MCH (25.7-32.2) pg MCHC (32.2-35.5) g/dl RDW Std Deviation (35.1-43.9) fL Plt Count (163-337) K/mm3 MPV (9.4-12.3) fl Neutrophils % (Manual) (40-60) % Band Neutrophils % (0-10) % Lymphocytes % (Manual) (20-40) % Atypical Lymphs % % Monocytes % (Manual) (2-10) % Eosinophils % (Manual) (0.8-7.0) % Basophils % (Manual) (0.2-1.2) Toxic Granulation Platelet Estimate Plt Morphology Comment Anisocytosis RBC Morph Comment PT (9.7-12.0) SECONDS INR Sodium (136-145) mEq/L Potassium (3.5-5.1) mEq/L Chloride (98-107) mEq/L Carbon Dioxide (21-32) mEq/L Anion Gap (5-15) BUN (7-18) mg/dL Creatinine (0.7-1.3) mg/dL Est Cr Clr Drug Dosing mL/min Estimated GFR (MDRD) (>60) mL/min BUN/Creatinine Ratio (14-18) Glucose (83-115) mg/dL Lactic Acid 1.0 (0.4-2.0) mmol/L Calcium (8.5-10.1) mg/dL Total Bilirubin (0.2-1.0) mg/dL AST (15-37) U/L ALT (16-63) U/L Alkaline Phosphatase (46-116) U/L C-Reactive Protein (<1.0) mg/dL Total Protein (6.4-8.2) g/dl Albumin (3.4-5.0) g/dl Globulin gm/dL Albumin/Globulin Ratio (1-2) Urine Color Yellow (Yellow) Urine Appearance Slt cloudy H (Clear) Urine pH 6.0 (5.0-8.0) Ur Specific [place] 1.025 (1.005-1.030) Urine Protein 2+ H (Negative) Urine Glucose (UA) Negative (Negative) Urine Ketones Negative (Negative) Urine Occult Blood 1+ H (Negative) Urine Nitrite Positive H (Negative) Urine Bilirubin Negative (Negative) Urine Urobilinogen 0.2 (0.2-1.0) Ur Leukocyte Esterase 2+ H (Negative) Urine RBC 0-5 (0-5) /hpf Urine WBC >100 H (0-5) /hpf Ur Squamous Epith Cells 0-5 (0-5) /hpf Urine Bacteria Moderate H (FEW) /hpf Urine Mucus Not seen (FEW) /hpf Meds: Medications Generic Name Dose Route Start Last Admin Trade Name Freq PRN Reason Stop Dose Admin Sodium Chloride 10 ml 11/18/20 17:42 11/18/20 18:00 Saline Flush FLUSH 10 ml ASDIRECTED PRN Administration Keep Vein Open Discontinued Medications Generic Name Dose Route Start Last Admin Trade Name Freq PRN Reason Stop Dose Admin Acetaminophen 650 mg 11/18/20 17:51 11/18/20 18:40 Tylenol PO 11/18/20 17:52 650 mg NOW ONE Administration Ceftriaxone Sodium 2 gm/ 100 mls @ 200 mls/hr 11/18/20 19:21 11/18/20 19:56 Sodium Chloride IV 11/18/20 19:50 200 mls/hr ONETIME ONE Administration - Re-Assessments/Exams Free Text/Narrative Re-Assessment/Exam: 11/18/20 17:52 Patient presents to the ED for evaluation of his fever, being unable to walk, and generalized weakness. We will go ahead and check some labs, get IV established, give him 650 mg p.o. Tylenol for ongoing management. Highly likely this could just be a vaccine reaction however we will make sure there is no underlying infection causing issues at today's visit. 11/18/20 19:12 Patient's labs have started to result, CBC is back and is slightly elevated patient's white cell count is 12.16 with 84% neutrophils and 0 bands. Metabolic panel does show some dehydration, and his urine is grossly positive for UTI. Due to the patient's weakness and not being able to stand by himself, I do believe he would be a candidate for hospitalization. We will go ahead and do 2 g Rocephin initially, and consult with the hospitalist for admission. Patient did recently have Covid at the middle of September 2020, so we should not need to reswab him for COVID-19 at this time. 11/18/20 19:18 I did speak with Dr. Gallagher, our hospitalist collections curator, and he requested EKG be performed but does tentatively accept the patient for admission. Still waiting for the chest x-ray read at this time. 11/18/20 19:28 Patient's chest x-ray has been read, there is nothing acute appreciated on the AP chest x-ray, there were some slight densities within the left lung base I was concerned about, but our radiologist believes these are chronic. Departure - Departure Time of Disposition: 19:14 Disposition: Admitted As Inpatient 67 Condition: Good Clinical Impression: UTI (urinary tract infection) Qualifiers: Urinary tract infection type: site unspecified Hematuria presence: without hematuria Qualified Code(s): N39.0 - Urinary tract infection, site not specified - Discharge Information Referrals: Boone Carlisle MD [Primary Care Provider] - Forms: ED Department Discharge Sepsis Event Note (ED) - Evaluation Sepsis Screening Result: Possible Severe Sepsis Risk - Focused Exam Vital Signs: Vital Signs Temp Temp Pulse Resp BP Pulse Ox 11/18/20 18:40 101.8 F H 11/18/20 17:28 101.8 F H 110 H 14 142/79 H 94 L - My Orders Last 24 Hours: My Active Orders 11/18/20 17:42 Sodium Chloride 0.9% [Saline Flush] 10 ml FLUSH ASDIRECTED PRN 11/18/20 17:43 Chest 2V [CR] Stat Blood Culture x2 Reflex Set [OM.PC] Stat Saline Lock Insert [OM.PC] Stat 11/18/20 17:44 Peripheral IV Care [RC] . DIRECTED Peripheral IV Insertion Adult [OM.PC] Routine 11/18/20 18:00 CULTURE BLOOD [BC] Stat 11/18/20 18:12 CULTURE BLOOD [BC] Stat 11/18/20 18:50 Insert Arizmendi Catheter [Insert Urinary Catheter] [OM.PC] Stat Urinary Catheter Assessment [RC] ASDIRECTED CULTURE URINE [RM] Routine 11/18/20 19:17 EKG Documentation Completion [RC] STAT - Assessment/Plan Last 24 Hours: My Active Orders 11/18/20 17:42 Sodium Chloride 0.9% [Saline Flush] 10 ml FLUSH ASDIRECTED PRN 11/18/20 17:43 Chest 2V [CR] Stat Blood Culture x2 Reflex Set [OM.PC] Stat Saline Lock Insert [OM.PC] Stat 11/18/20 17:44 Peripheral IV Care [RC] . DIRECTED Peripheral IV Insertion Adult [OM.PC] Routine 11/18/20 18:00 CULTURE BLOOD [BC] Stat 11/18/20 18:12 CULTURE BLOOD [BC] Stat 11/18/20 18:50 Insert Arizmendi Catheter [Insert Urinary Catheter] [OM.PC] Stat Urinary Catheter Assessment [RC] ASDIRECTED CULTURE URINE [RM] Routine 11/18/20 19:17 EKG Documentation Completion [RC] STAT
[2020-11-18] MEDS ORDERED: cefTRIAXone 2 GM in Sodium Chloride 0.9% 100 ML IV ONE (19:21)
[2020-11-18] MEDS ORDERED: Docusate Sodium 100 MG Cap PO PRN (19:50)
[2020-11-18] MEDS ORDERED: oxyCODONE 5 MG Tab PO PRN (19:50)
[2020-11-18] MEDS ORDERED: Albuterol/Ipratropium 3.0-0.5 MG/3 ML Neb Soln NEB PRN (19:50)
[2020-11-18] MEDS ORDERED: Morphine 2 MG/ML SYRINGE IVPUSH PRN (19:50)
[2020-11-18] MEDS ORDERED: Promethazine 12.5 MG in Sodium Chloride 0.9% 50 ML IV PRN (19:50)
[2020-11-18] MEDS ORDERED: Acetaminophen 325 MG Tab PO PRN (19:50)
[2020-11-18] MEDS ORDERED: hydrALAZINE 20 MG/ML SDV IVPUSH PRN (20:03)
--- NOTE | 2020-11-18 20:14 | PCM.HP.2 ---
H&P History of Present Illness - General Date of Service: 11/18/20 Admit Problem/Dx: Admission Diagnosis/Problem Admission Diagnosis/Problem Pneumonia Source of Information: Patient, Other (ER notes) - History of Present Illness Initial Comments - Free Text/Narative: Pt is a 74 yom with a hx of positive covid 19 who was brought to the ER from [place] [facility] due to fever, generalized weakness and being unable to walk. He was found to have oxygen desaturation. Pt is confused and almost all information is obtained from ER notes. Pt was unable to walk earlier today. He had a positive covid 19 test in Sep 2020 and was hospitalized for respiratory failure and covid 19 pneumonia. In the ER, CXR possible LL infiltrate. UA was performed, compatible with UTI. One dose of rocephin was given. - Related Data Allergies/Adverse Reactions: Allergies Allergy/AdvReac Type Severity Reaction Status Date / Time No Known Allergies Allergy Verified 10/31/20 21:01 Home Medications: Home Meds Allopurinol [Zyloprim] 100 mg PO DAILY 09/20/20 [History] Aspirin [Adult Aspirin Regimen] 81 mg PO DAILY 09/20/20 [History] Sertraline [Zoloft] 50 mg PO DAILY 09/20/20 [History] Simvastatin 40 mg PO DAILY 09/20/20 [History] Pantoprazole Sodium [Protonix] 40 mg PO DAILY 09/21/20 [History] Tamsulosin [Flomax] 0.4 mg PO DAILY #20 cap.er 10/07/20 [Rx] Zinc Sulfate [Zincate] 220 mg PO DAILY #20 cap 10/07/20 [Rx] Bismuth Subsalicylate [Kaopectate] 262 mg PO ASDIRECTED PRN 11/18/20 [History] Cholecalciferol (Vitamin D3) [Vitamin D3] 1,000 unit PO DAILY 11/18/20 [History] Past Medical History HEENT History: Reports: Impaired Vision Other HEENT History: wears eyeglasses. Cardiovascular History: Reports: High Cholesterol, Hypertension Gastrointestinal History: Reports: GERD Genitourinary History: Reports: Retention, Urinary Musculoskeletal History: Reports: Gout - Infectious Disease History Infectious Disease History: Reports: Novel Coronavirus (09/20/2020) - Past Surgical History Cardiovascular Surgical History: Reports: Other (See Below) Other Cardiovascular Surgeries/Procedures: surgical scar to mid chest, pt cannot recall reason for surgery. Social & Family History - Family History Family Medical History: No Pertinent Family History - Tobacco Use Tobacco Use Status *Q: Never Tobacco User Second Hand Smoke Exposure: No - Caffeine Use Caffeine Use: Reports: None - Recreational Drug Use Recreational Drug Use: No H&P Review of Systems - Review of Systems: Review Of Systems: Unable To Obtain (due to AMS) Reason Not Obtained: ams Exam - Exam Exam: See Below - Vital Signs Vital Signs: Last Vital Signs Temp 38.8 C H 11/18/20 18:40 Pulse 110 H 11/18/20 17:28 Resp 14 11/18/20 17:28 BP 142/79 H 11/18/20 17:28 Pulse Ox 94 L 11/18/20 17:28 Weight: 79.832 kg - Exam Physical Exam Comments:: Physical Exam: General: No acute distress Eyes: Conjunctival clear, no nystagmus HEENT: no JVD, no thyromegaly Lung: Diminished breath sound, no wheezing. Heart: RRR, no m/r/g Abd: BS present, soft, no palpable mass Ext: No edema or cyanosis. Neurolog: disorientated. Psych: unable to completed due to ams - Patient Data Lab Results Last 24 hrs: Laboratory Results - last 24 hr 11/18/20 11/18/20 11/18/20 Range/Units 18:00 18:00 18:00 WBC 12.16 H (4.23-9.07) K/mm3 RBC 4.47 L (4.63-6.08) M/mm3 Hgb 12.8 L (13.7-17.5) gm/dl Hct 39.9 L (40.1-51.0) % MCV 89.3 D (79.0-92.2) fl MCH 28.6 (25.7-32.2) pg MCHC 32.1 L (32.2-35.5) g/dl RDW Std Deviation 50.5 H (35.1-43.9) fL Plt Count 312 D (163-337) K/mm3 MPV 9.4 (9.4-12.3) fl Neutrophils % (Manual) 84 H (40-60) % Band Neutrophils % 0 (0-10) % Lymphocytes % (Manual) 8 L (20-40) % Atypical Lymphs % 0 % Monocytes % (Manual) 7 (2-10) % Eosinophils % (Manual) 0 L (0.8-7.0) % Basophils % (Manual) 1 (0.2-1.2) Toxic Granulation Few Platelet Estimate Adequate Plt Morphology Comment Normal Anisocytosis 1+ slight RBC Morph Comment Not Reportable PT 13.3 H (9.7-12.0) SECONDS INR 1.25 Sodium 137 (136-145) mEq/L Potassium 4.1 (3.5-5.1) mEq/L Chloride 102 (98-107) mEq/L Carbon Dioxide 21 (21-32) mEq/L Anion Gap 18.1 H (5-15) BUN 18 (7-18) mg/dL Creatinine 1.4 H (0.7-1.3) mg/dL Est Cr Clr Drug Dosing 42.41 mL/min Estimated GFR (MDRD) 50 (>60) mL/min BUN/Creatinine Ratio 12.9 L (14-18) Glucose 122 H (83-115) mg/dL Lactic Acid (0.4-2.0) mmol/L Calcium 9.2 (8.5-10.1) mg/dL Total Bilirubin 1.3 H (0.2-1.0) mg/dL AST 16 (15-37) U/L ALT 19 (16-63) U/L Alkaline Phosphatase 87 (46-116) U/L C-Reactive Protein 5.3 H* (<1.0) mg/dL Total Protein 7.3 (6.4-8.2) g/dl Albumin 3.2 L (3.4-5.0) g/dl Globulin 4.1 gm/dL Albumin/Globulin Ratio 0.8 L (1-2) Urine Color (Yellow) Urine Appearance (Clear) Urine pH (5.0-8.0) Ur Specific Jewett (1.005-1.030) Urine Protein (Negative) Urine Glucose (UA) (Negative) Urine Ketones (Negative) Urine Occult Blood (Negative) Urine Nitrite (Negative) Urine Bilirubin (Negative) Urine Urobilinogen (0.2-1.0) Ur Leukocyte Esterase (Negative) Urine RBC (0-5) /hpf Urine WBC (0-5) /hpf Ur Squamous Epith Cells (0-5) /hpf Urine Bacteria (FEW) /hpf Urine Mucus (FEW) /hpf 11/18/20 11/18/20 Range/Units 18:00 18:50 WBC (4.23-9.07) K/mm3 RBC (4.63-6.08) M/mm3 Hgb (13.7-17.5) gm/dl Hct (40.1-51.0) % MCV (79.0-92.2) fl MCH (25.7-32.2) pg MCHC (32.2-35.5) g/dl RDW Std Deviation (35.1-43.9) fL Plt Count (163-337) K/mm3 MPV (9.4-12.3) fl Neutrophils % (Manual) (40-60) % Band Neutrophils % (0-10) % Lymphocytes % (Manual) (20-40) % Atypical Lymphs % % Monocytes % (Manual) (2-10) % Eosinophils % (Manual) (0.8-7.0) % Basophils % (Manual) (0.2-1.2) Toxic Granulation Platelet Estimate Plt Morphology Comment Anisocytosis RBC Morph Comment PT (9.7-12.0) SECONDS INR Sodium (136-145) mEq/L Potassium (3.5-5.1) mEq/L Chloride (98-107) mEq/L Carbon Dioxide (21-32) mEq/L Anion Gap (5-15) BUN (7-18) mg/dL Creatinine (0.7-1.3) mg/dL Est Cr Clr Drug Dosing mL/min Estimated GFR (MDRD) (>60) mL/min BUN/Creatinine Ratio (14-18) Glucose (83-115) mg/dL Lactic Acid 1.0 (0.4-2.0) mmol/L Calcium (8.5-10.1) mg/dL Total Bilirubin (0.2-1.0) mg/dL AST (15-37) U/L ALT (16-63) U/L Alkaline Phosphatase (46-116) U/L C-Reactive Protein (<1.0) mg/dL Total Protein (6.4-8.2) g/dl Albumin (3.4-5.0) g/dl Globulin gm/dL Albumin/Globulin Ratio (1-2) Urine Color Yellow (Yellow) Urine Appearance Slt cloudy H (Clear) Urine pH 6.0 (5.0-8.0) Ur Specific Jewett 1.025 (1.005-1.030) Urine Protein 2+ H (Negative) Urine Glucose (UA) Negative (Negative) Urine Ketones Negative (Negative) Urine Occult Blood 1+ H (Negative) Urine Nitrite Positive H (Negative) Urine Bilirubin Negative (Negative) Urine Urobilinogen 0.2 (0.2-1.0) Ur Leukocyte Esterase 2+ H (Negative) Urine RBC 0-5 (0-5) /hpf Urine WBC >100 H (0-5) /hpf Ur Squamous Epith Cells 0-5 (0-5) /hpf Urine Bacteria Moderate H (FEW) /hpf Urine Mucus Not seen (FEW) /hpf Result Diagrams: 11/18/20 18:00 11/18/20 18:00 Sepsis Event Note - Evaluation Sepsis Screening Result: Sepsis Risk - Focused Exam Vital Signs: Vital Signs Temp Temp Pulse Resp BP Pulse Ox 11/18/20 18:40 38.8 C H 11/18/20 17:28 38.8 C H 110 H 14 142/79 H 94 L Problem List Initiated/Reviewed/Updated: Yes Orders Last 24hrs: Active Orders 24 hr Category Date Time Status Patient Status [ADT] Routine ADT 11/18/20 19:50 Active Bedrest Bedside Commode [RC] ASDIRECTED Care 11/18/20 19:50 Active Cardiac Monitoring [RC] CONTINUOUS Care 11/18/20 19:52 Active EKG Documentation Completion [RC] STAT Care 11/18/20 19:17 Active Insert Arizmendi Catheter [Insert Urinary Catheter] [OM.PC] Care 11/18/20 18:50 Ordered Stat Intake and Output [RC] QSHIFT Care 11/18/20 19:52 Active Oxygen Therapy [RC] PRN Care 11/18/20 19:50 Active Peripheral IV Care [RC] . DIRECTED Care 11/18/20 17:44 Active Pulse Oximetry [RC] CONTINUOUS Care 11/18/20 19:52 Active RT Aerosol Therapy [RC] ASDIRECTED Care 11/18/20 19:54 Active Urinary Catheter Assessment [RC] ASDIRECTED Care 11/18/20 18:50 Active VTE/DVT Education [RC] PER UNIT ROUTINE Care 11/18/20 19:50 Active Vital Signs [RC] Q4H Care 11/18/20 19:50 Active OT Evaluation and Treatment [CONS] Routine Cons 11/18/20 19:55 Active PT Evaluation and Treatment [CONS] Routine Cons 11/18/20 19:55 Active Nothing per Oral Now Diet [DIET] Diet 11/18/20 Dinner Active Chest 2V [CR] Stat Exams 11/18/20 17:43 Taken Head wo Cont [CT] Stat Exams 11/18/20 19:50 Ordered C-REACTIVE PROTEIN [CHEM] DAILY Lab 11/19/20 05:00 Ordered C-REACTIVE PROTEIN [CHEM] DAILY Lab 11/20/20 05:00 Ordered C-REACTIVE PROTEIN [CHEM] DAILY Lab 11/21/20 05:00 Ordered C-REACTIVE PROTEIN [CHEM] DAILY Lab 11/22/20 05:00 Ordered C-REACTIVE PROTEIN [CHEM] DAILY Lab 11/23/20 05:00 Ordered CBC WITH AUTO DIFF [HEME] DAILY Lab 11/19/20 05:00 Ordered CBC WITH AUTO DIFF [HEME] DAILY Lab 11/20/20 05:00 Ordered CBC WITH AUTO DIFF [HEME] DAILY Lab 11/21/20 05:00 Ordered CBC WITH AUTO DIFF [HEME] DAILY Lab 11/22/20 05:00 Ordered CBC WITH AUTO DIFF [HEME] DAILY Lab 11/23/20 05:00 Ordered COMPREHENSIVE METABOLIC PN,CMP [CHEM] DAILY Lab 11/19/20 05:00 Ordered COMPREHENSIVE METABOLIC PN,CMP [CHEM] DAILY Lab 11/20/20 05:00 Ordered COMPREHENSIVE METABOLIC PN,CMP [CHEM] DAILY Lab 11/21/20 05:00 Ordered COMPREHENSIVE METABOLIC PN,CMP [CHEM] DAILY Lab 11/22/20 05:00 Ordered COMPREHENSIVE METABOLIC PN,CMP [CHEM] DAILY Lab 11/23/20 05:00 Ordered CULTURE BLOOD [BC] Stat Lab 11/18/20 18:00 Received CULTURE BLOOD [BC] Stat Lab 11/18/20 18:12 Received CULTURE MRSA [RM] Stat Lab 11/18/20 19:55 Ordered CULTURE SPUTUM + SMEAR [RM] Stat Lab 11/18/20 19:55 Ordered CULTURE URINE [RM] Routine Lab 11/18/20 18:50 Received D-DIMER QUANTITATIVE [COAG] DAILY Lab 11/19/20 05:00 Ordered D-DIMER QUANTITATIVE [COAG] DAILY Lab 11/20/20 05:00 Ordered D-DIMER QUANTITATIVE [COAG] DAILY Lab 11/21/20 05:00 Ordered D-DIMER QUANTITATIVE [COAG] DAILY Lab 11/22/20 05:00 Ordered D-DIMER QUANTITATIVE [COAG] DAILY Lab 11/23/20 05:00 Ordered MAGNESIUM [CHEM] Routine Lab 11/18/20 19:55 Ordered TROPONIN I [CHEM] Routine Lab 11/18/20 19:55 Ordered VITAMIN D,25-HYDROXY [CHEM] Stat Lab 11/19/20 05:00 Ordered Acetaminophen [TylenoL] Med 11/18/20 19:50 Active 650 mg PO Q6H PRN Albuterol/Ipratropium [DuoNeb 3.0-0.5 MG/3 ML] Med 11/18/20 19:50 Active 3 ml NEB Q4H PRN Aspirin [Halfprin] Med 11/19/20 09:00 Active 81 mg PO DAILY Cholecalciferol (Vitamin D3) [Vitamin D3] Med 11/19/20 09:00 Active 5,000 unit PO DAILY Docusate Sodium [Colace] Med 11/18/20 19:50 Active 100 mg PO BID PRN Heparin Sodium Med 11/18/20 20:00 Active 5,000 units SUBCUT Q8H Insulin Lispro [HumaLOG] Med 11/18/20 22:00 Active See Protocol SUBCUT QIDACANDBED Levofloxacin/Dextrose 5%-Water [Levaquin in D5W 500 MG/ Med 11/18/20 20:00 Active 100 ML] 500 mg Premix Bag 1 bag IV Q24H Morphine Med 11/18/20 19:50 Active 2 mg IVPUSH Q4H PRN Pantoprazole Med 11/19/20 09:00 Active 40 mg PO DAILY Promethazine [Phenergan] 12.5 mg Med 11/18/20 19:50 Active Sodium Chloride 0.9% [Normal Saline] 50 ml IV Q6H Sertraline [Zoloft] Med 11/19/20 09:00 Active 50 mg PO DAILY Simvastatin [Zocor] Med 11/19/20 09:00 Active 40 mg PO DAILY Sodium Chloride 0.9% [Normal Saline] 1,000 ml Med 11/18/20 20:00 Active IV ASDIRECTED Sodium Chloride 0.9% [Saline Flush] Med 11/18/20 17:42 Active 10 ml FLUSH ASDIRECTED PRN Tamsulosin [Flomax] Med 11/19/20 09:00 Active 0.4 mg PO DAILY Zinc Sulfate [Zincate] Med 11/19/20 09:00 Active 220 mg PO DAILY allopurinoL [Zyloprim] Med 11/19/20 09:00 Active 100 mg PO DAILY dexAMETHasone Med 11/19/20 09:00 Active 6 mg PO DAILY hydrALAZINE [Apresoline] Med 11/18/20 20:03 Active 10 mg IVPUSH Q4H PRN oxyCODONE Med 11/18/20 19:50 Active 5 mg PO Q6H PRN Blood Culture x2 Reflex Set [OM.PC] Stat Ot 11/18/20 17:43 Ordered Peripheral IV Insertion Adult [OM.PC] Routine Oth 11/18/20 17:44 Ordered Saline Lock Insert [OM.PC] Stat Ot 11/18/20 17:43 Ordered Medication Orders Acetaminophen (Tylenol) 650 mg PO Q6H PRN PRN Reason: Pain (Mild 1-3)/fever Albuterol/Ipratropium (Duoneb 3.0-0.5 Mg/3 Ml) 3 ml NEB Q4H PRN PRN Reason: Shortness Of Breath/wheezing Allopurinol (Zyloprim) 100 mg PO DAILY [facility] Aspirin (Halfprin) 81 mg PO DAILY [facility] Cholecalciferol (Vitamin D3) 5,000 unit PO DAILY [facility] Dexamethasone (Dexamethasone) 6 mg PO DAILY [facility] Docusate Sodium (Colace) 100 mg PO BID PRN PRN Reason: Constipation Heparin Sodium (Porcine) (Heparin Sodium) 5,000 units SUBCUT Q8H [facility] Hydralazine HCl (Apresoline) 10 mg IVPUSH Q4H PRN PRN Reason: Hypertension Sodium Chloride (Normal Saline) 1,000 mls @ 75 mls/hr IV ASDIRECTED [facility] Promethazine HCl 12.5 mg/ (Sodium Chloride) 50.5 mls @ 100 mls/hr IV Q6H PRN PRN Reason: Nausea/Vomiting Levofloxacin/Dextrose 500 mg/ (Premix) 100 mls @ 100 mls/hr IV Q24H [facility] Insulin Human Lispro (Humalog) 0 unit SUBCUT QIDACANDBED [facility]; Protocol Morphine Sulfate (Morphine) 2 mg IVPUSH Q4H PRN PRN Reason: Pain (severe 7-10) Stop: 11/19/20 19:54 Non-Formulary Medication (Pantoprazole) 40 mg PO DAILY [facility] Oxycodone HCl (Oxycodone) 5 mg PO Q6H PRN PRN Reason: Pain (moderate 4-6) Sertraline HCl (Zoloft) 50 mg PO DAILY [facility] Simvastatin (Zocor) 40 mg PO DAILY [facility] Sodium Chloride (Saline Flush) 10 ml FLUSH ASDIRECTED PRN PRN Reason: Keep Vein Open Last Admin: 11/18/20 18:00 Dose: 10 ml Documented by: MARLENE Tamsulosin HCl (Flomax) 0.4 mg PO DAILY [facility] Zinc Sulfate (Zincate) 220 mg PO DAILY [facility] Assessment/Plan Comment:: Assessment and plan: 1. AMS Etiology unknown. Could be due to infection. CT of head 2. Acute on chronic hypoxic respiratory failure3= pulse ox O2 therapy. Keep SpO2 > 92 3. Pneumonia, Covid 19? or CAP? 4. Covid 19 was positive in He was treated for respiratory failure and covid 19 pnuemonia in Sep 2020. CXR - LL infiltrate (formal report pending) Blood culture Sputum culture MRSA screen CRP 5.3 LA 1.0 considering hx of treatment, I will start her on levaquin 500mg iv daily Dexamethasone 6mg po daily I have not ordered anticoagulation. may order it based on CT of head and D-dimer result Inhalers CRP and D-dimer daily 4. DAMARIS? creatinine 1.2 on 09/30/2020 Avoid nephrotoxic meds repeat renal function in am IVF 5. UTI levaquin 500mg iv daily. Pending urine culture 6. GI and DVT prophylaxis: PPI and heparin - Mortality Measure Prognosis:: Poor
--- NOTE | 2020-11-18 20:15 | CR ---
Chest: 2 views of the chest were obtained. Comparison: Prior chest x-ray of 09/24/20. Heart size and mediastinum are normal. Less than optimal inspiratory effort is seen. Slight density is noted within left lung base which is believed to be chronic. No acute parenchymal change is appreciated. Bony structures are grossly intact. Impression: 1. Nothing acute is appreciated on AP chest x-ray. Diagnostic code #1
[2020-11-18] MEDS: Heparin Sodium 5,000 Units/ML Vial SUBCUT SCH (21:48)
[2020-11-18] MEDS: Levofloxacin/Dextrose 5%-Water 500 MG in Premix Bag 1 BAG IV SCH (21:48)
[2020-11-18] MEDS: Sodium Chloride 0.9% 1,000 ML IV SCH (22:47)
[2020-11-18] MEDS ORDERED: FLU Vacc QV2020-21(65YR UP)/PF 240 MCG/0.7 ML Syringe IM ONE (23:45)
[2020-11-19] MEDS: Heparin Sodium 5,000 Units/ML Vial SUBCUT SCH ×3 (04:14→20:51)
[2020-11-19] MEDS: Pantoprazole 40 MG Tab.CR PO SCH (05:55)
--- NOTE | 2020-11-19 08:21 | PCM.PN ---
- General Info Date of Service: 11/19/20 Admission Dx/Problem (Free Text): Admission Diagnosis/Problem Admission Diagnosis/Problem Pneumonia Subjective Update: In to see John. He is doing very well today. He is alert and orientated. When he came in he was reportedly lethargic. CT scan was obtained which showed senescent change and nothing acute. He was noted to have a urinary tract infection and Levaquin was started for this. Urine culture is pending. Given the patient's prior EMS nursing bedside swallow screen was not ordered and patient passes. Will therefore advance him from n.p.o. to heart healthy diet. There were still some concerns about the patient's respiratory status and whether or not he has a pneumonia. Chest x-ray did show a questionable infiltrate but our radiologist feels that this is chronic and nothing acute. Patient has not been requiring oxygen and has had saturations in the upper 90s. Denies any shortness of breath. Therefore we will not treat patient for pneumonia and not rescreen patient for Covid as he was diagnosed less than 90 days prior. Patient will continue to receive treatment for his acute urinary tract infection and mild DAMARIS. He does have a elevated D-dimer of 1.22. And this was discussed with Dr. Maria, hospitalist attending, who agrees this is likely secondary to the patient's prior Covid infection and as he is not currently having any respiratory symptoms whatsoever we will not follow this fur ther. Will discontinue continuous pulse oximetry and telemetry as patient has been very stable. Awaiting urine cultures and sensitivities. Gram-negative rods thus far. Awaiting return of blood cultures. Patient likely to discharge within 1 to 2 days Pending continued improvement. Functional Status: Reports: Pain Controlled, Tolerating Diet, Ambulating, Urinating. Denies: New Symptoms - Review of Systems General: Reports: No Symptoms. Denies: Fever, Weakness, Fatigue, Malaise, Chills HEENT: Reports: No Symptoms. Denies: Headaches, Sore Throat Pulmonary: Reports: No Symptoms. Denies: Shortness of Breath, Pleuritic Chest Pain, Cough, Sputum, Wheezing Cardiovascular: Reports: No Symptoms. Denies: Chest Pain, Palpitations, Dyspnea on Exertion, Edema Gastrointestinal: Reports: No Symptoms. Denies: Abdominal Pain, Constipation, Diarrhea, Nausea, Vomiting Genitourinary: Reports: No Symptoms. Denies: Pain Musculoskeletal: Reports: No Symptoms Skin: Reports: No Symptoms. Denies: Cyanosis Neurological: Reports: No Symptoms. Denies: Difficulty Walking, Gait Disturbance Psychiatric: Reports: No Symptoms - Patient Data Vitals - Most Recent: Last Vital Signs Temp 98.8 F 11/19/20 03:59 Pulse 88 11/19/20 03:59 Resp 16 11/19/20 03:59 BP 123/83 11/19/20 03:59 Pulse Ox 96 11/19/20 06:03 Weight - Most Recent: 169 lb 4.8 oz I&O - Last 24 Hours: Intake & Output 11/18/20 11/19/20 11/19/20 22:59 06:59 14:59 Intake Total 644 Output Total 950 100 Balance -950 544 Lab Results Last 24 Hours: Laboratory Results - last 24 hr 11/18/20 11/18/20 11/18/20 Range/Units 18:00 18:00 18:00 WBC 12.16 H (4.23-9.07) K/mm3 RBC 4.47 L (4.63-6.08) M/mm3 Hgb 12.8 L (13.7-17.5) gm/dl Hct 39.9 L (40.1-51.0) % MCV 89.3 D (79.0-92.2) fl MCH 28.6 (25.7-32.2) pg MCHC 32.1 L (32.2-35.5) g/dl RDW Std Deviation 50.5 H (35.1-43.9) fL Plt Count 312 D (163-337) K/mm3 MPV 9.4 (9.4-12.3) fl Neut % (Auto) (34.0-67.9) % Lymph % (Auto) (21.8-53.1) % Lanier % (Auto) (5.3-12.2) % Eos % (Auto) (0.8-7.0) Baso % (Auto) (0.1-1.2) % Neut # (Auto) (1.78-5.38) K/mm3 Lymph # (Auto) (1.32-3.57) K/mm3 Lanier # (Auto) (0.30-0.82) K/mm3 Eos # (Auto) (0.04-0.54) K/mm3 Baso # (Auto) (0.01-0.08) K/mm3 Neutrophils % (Manual) 84 H (40-60) % Band Neutrophils % 0 (0-10) % Lymphocytes % (Manual) 8 L (20-40) % Atypical Lymphs % 0 % Monocytes % (Manual) 7 (2-10) % Eosinophils % (Manual) 0 L (0.8-7.0) % Basophils % (Manual) 1 (0.2-1.2) Manual Slide Review Toxic Granulation Few Platelet Estimate Adequate Plt Morphology Comment Normal Anisocytosis 1+ slight RBC Morph Comment Not Reportable PT 13.3 H (9.7-12.0) SECONDS INR 1.25 D-Dimer, Quantitative (0.19-0.50) mg/L Sodium 137 (136-145) mEq/L Potassium 4.1 (3.5-5.1) mEq/L Chloride 102 (98-107) mEq/L Carbon Dioxide 21 (21-32) mEq/L Anion Gap 18.1 H (5-15) BUN 18 (7-18) mg/dL Creatinine 1.4 H (0.7-1.3) mg/dL Est Cr Clr Drug Dosing 42.41 mL/min Estimated GFR (MDRD) 50 (>60) mL/min BUN/Creatinine Ratio 12.9 L (14-18) Glucose 122 H (83-115) mg/dL POC Glucose (83-110) mg/dL Lactic Acid (0.4-2.0) mmol/L Calcium 9.2 (8.5-10.1) mg/dL Magnesium (1.8-2.4) mg/dl Total Bilirubin 1.3 H (0.2-1.0) mg/dL AST 16 (15-37) U/L ALT 19 (16-63) U/L Alkaline Phosphatase 87 (46-116) U/L Troponin I (0.00-0.056) ng/mL C-Reactive Protein 5.3 H* (<1.0) mg/dL Total Protein 7.3 (6.4-8.2) g/dl Albumin 3.2 L (3.4-5.0) g/dl Globulin 4.1 gm/dL Albumin/Globulin Ratio 0.8 L (1-2) Urine Color (Yellow) Urine Appearance (Clear) Urine pH (5.0-8.0) Ur Specific Roscoe (1.005-1.030) Urine Protein (Negative) Urine Glucose (UA) (Negative) Urine Ketones (Negative) Urine Occult Blood (Negative) Urine Nitrite (Negative) Urine Bilirubin (Negative) Urine Urobilinogen (0.2-1.0) Ur Leukocyte Esterase (Negative) Urine RBC (0-5) /hpf Urine WBC (0-5) /hpf Ur Squamous Epith Cells (0-5) /hpf Urine Bacteria (FEW) /hpf Urine Mucus (FEW) /hpf MRSA (PCR) 11/18/20 11/18/20 11/18/20 Range/Units 18:00 18:00 18:50 WBC (4.23-9.07) K/mm3 RBC (4.63-6.08) M/mm3 Hgb (13.7-17.5) gm/dl Hct (40.1-51.0) % MCV (79.0-92.2) fl MCH (25.7-32.2) pg MCHC (32.2-35.5) g/dl RDW Std Deviation (35.1-43.9) fL Plt Count (163-337) K/mm3 MPV (9.4-12.3) fl Neut % (Auto) (34.0-67.9) % Lymph % (Auto) (21.8-53.1) % Lanier % (Auto) (5.3-12.2) % Eos % (Auto) (0.8-7.0) Baso % (Auto) (0.1-1.2) % Neut # (Auto) (1.78-5.38) K/mm3 Lymph # (Auto) (1.32-3.57) K/mm3 Lanier # (Auto) (0.30-0.82) K/mm3 Eos # (Auto) (0.04-0.54) K/mm3 Baso # (Auto) (0.01-0.08) K/mm3 Neutrophils % (Manual) (40-60) % Band Neutrophils % (0-10) % Lymphocytes % (Manual) (20-40) % Atypical Lymphs % % Monocytes % (Manual) (2-10) % Eosinophils % (Manual) (0.8-7.0) % Basophils % (Manual) (0.2-1.2) Manual Slide Review Toxic Granulation Platelet Estimate Plt Morphology Comment Anisocytosis RBC Morph Comment PT (9.7-12.0) SECONDS INR D-Dimer, Quantitative (0.19-0.50) mg/L Sodium (136-145) mEq/L Potassium (3.5-5.1) mEq/L Chloride (98-107) mEq/L Carbon Dioxide (21-32) mEq/L Anion Gap (5-15) BUN (7-18) mg/dL Creatinine (0.7-1.3) mg/dL Est Cr Clr Drug Dosing mL/min Estimated GFR (MDRD) (>60) mL/min BUN/Creatinine Ratio (14-18) Glucose (83-115) mg/dL POC Glucose (83-110) mg/dL Lactic Acid 1.0 (0.4-2.0) mmol/L Calcium (8.5-10.1) mg/dL Magnesium 2.1 (1.8-2.4) mg/dl Total Bilirubin (0.2-1.0) mg/dL AST (15-37) U/L ALT (16-63) U/L Alkaline Phosphatase (46-116) U/L Troponin I < 0.017 (0.00-0.056) ng/mL C-Reactive Protein (<1.0) mg/dL Total Protein (6.4-8.2) g/dl Albumin (3.4-5.0) g/dl Globulin gm/dL Albumin/Globulin Ratio (1-2) Urine Color Yellow (Yellow) Urine Appearance Slt cloudy H (Clear) Urine pH 6.0 (5.0-8.0) Ur Specific Roscoe 1.025 (1.005-1.030) Urine Protein 2+ H (Negative) Urine Glucose (UA) Negative (Negative) Urine Ketones Negative (Negative) Urine Occult Blood 1+ H (Negative) Urine Nitrite Positive H (Negative) Urine Bilirubin Negative (Negative) Urine Urobilinogen 0.2 (0.2-1.0) Ur Leukocyte Esterase 2+ H (Negative) Urine RBC 0-5 (0-5) /hpf Urine WBC >100 H (0-5) /hpf Ur Squamous Epith Cells 0-5 (0-5) /hpf Urine Bacteria Moderate H (FEW) /hpf Urine Mucus Not seen (FEW) /hpf MRSA (PCR) 11/18/20 11/19/20 11/19/20 Range/Units 23:25 00:08 06:36 WBC 10.33 H (4.23-9.07) K/mm3 RBC 4.15 L (4.63-6.08) M/mm3 Hgb 11.9 L (13.7-17.5) gm/dl Hct 37.5 L (40.1-51.0) % MCV 90.4 (79.0-92.2) fl MCH 28.7 (25.7-32.2) pg MCHC 31.7 L (32.2-35.5) g/dl RDW Std Deviation 51.1 H (35.1-43.9) fL Plt Count 282 (163-337) K/mm3 MPV 9.5 (9.4-12.3) fl Neut % (Auto) 82.8 H (34.0-67.9) % Lymph % (Auto) 7.4 L (21.8-53.1) % Lanier % (Auto) 8.4 (5.3-12.2) % Eos % (Auto) 0.8 (0.8-7.0) Baso % (Auto) 0.3 (0.1-1.2) % Neut # (Auto) 8.56 H (1.78-5.38) K/mm3 Lymph # (Auto) 0.76 L (1.32-3.57) K/mm3 Lanier # (Auto) 0.87 H (0.30-0.82) K/mm3 Eos # (Auto) 0.08 (0.04-0.54) K/mm3 Baso # (Auto) 0.03 (0.01-0.08) K/mm3 Neutrophils % (Manual) (40-60) % Band Neutrophils % (0-10) % Lymphocytes % (Manual) (20-40) % Atypical Lymphs % % Monocytes % (Manual) (2-10) % Eosinophils % (Manual) (0.8-7.0) % Basophils % (Manual) (0.2-1.2) Manual Slide Review Normal smear Toxic Granulation Platelet Estimate Plt Morphology Comment Anisocytosis RBC Morph Comment PT (9.7-12.0) SECONDS INR D-Dimer, Quantitative (0.19-0.50) mg/L Sodium (136-145) mEq/L Potassium (3.5-5.1) mEq/L Chloride (98-107) mEq/L Carbon Dioxide (21-32) mEq/L Anion Gap (5-15) BUN (7-18) mg/dL Creatinine (0.7-1.3) mg/dL Est Cr Clr Drug Dosing mL/min Estimated GFR (MDRD) (>60) mL/min BUN/Creatinine Ratio (14-18) Glucose (83-115) mg/dL POC Glucose 115 H (83-110) mg/dL Lactic Acid (0.4-2.0) mmol/L Calcium (8.5-10.1) mg/dL Magnesium (1.8-2.4) mg/dl Total Bilirubin (0.2-1.0) mg/dL AST (15-37) U/L ALT (16-63) U/L Alkaline Phosphatase (46-116) U/L Troponin I (0.00-0.056) ng/mL C-Reactive Protein (<1.0) mg/dL Total Protein (6.4-8.2) g/dl Albumin (3.4-5.0) g/dl Globulin gm/dL Albumin/Globulin Ratio (1-2) Urine Color (Yellow) Urine Appearance (Clear) Urine pH (5.0-8.0) Ur Specific Roscoe (1.005-1.030) Urine Protein (Negative) Urine Glucose (UA) (Negative) Urine Ketones (Negative) Urine Occult Blood (Negative) Urine Nitrite (Negative) Urine Bilirubin (Negative) Urine Urobilinogen (0.2-1.0) Ur Leukocyte Esterase (Negative) Urine RBC (0-5) /hpf Urine WBC (0-5) /hpf Ur Squamous Epith Cells (0-5) /hpf Urine Bacteria (FEW) /hpf Urine Mucus (FEW) /hpf MRSA (PCR) Negative 11/19/20 Range/Units 06:36 WBC (4.23-9.07) K/mm3 RBC (4.63-6.08) M/mm3 Hgb (13.7-17.5) gm/dl Hct (40.1-51.0) % MCV (79.0-92.2) fl MCH (25.7-32.2) pg MCHC (32.2-35.5) g/dl RDW Std Deviation (35.1-43.9) fL Plt Count (163-337) K/mm3 MPV (9.4-12.3) fl Neut % (Auto) (34.0-67.9) % Lymph % (Auto) (21.8-53.1) % Lanier % (Auto) (5.3-12.2) % Eos % (Auto) (0.8-7.0) Baso % (Auto) (0.1-1.2) % Neut # (Auto) (1.78-5.38) K/mm3 Lymph # (Auto) (1.32-3.57) K/mm3 Lanier # (Auto) (0.30-0.82) K/mm3 Eos # (Auto) (0.04-0.54) K/mm3 Baso # (Auto) (0.01-0.08) K/mm3 Neutrophils % (Manual) (40-60) % Band Neutrophils % (0-10) % Lymphocytes % (Manual) (20-40) % Atypical Lymphs % % Monocytes % (Manual) (2-10) % Eosinophils % (Manual) (0.8-7.0) % Basophils % (Manual) (0.2-1.2) Manual Slide Review Toxic Granulation Platelet Estimate Plt Morphology Comment Anisocytosis RBC Morph Comment PT (9.7-12.0) SECONDS INR D-Dimer, Quantitative 1.22 H (0.19-0.50) mg/L Sodium (136-145) mEq/L Potassium (3.5-5.1) mEq/L Chloride (98-107) mEq/L Carbon Dioxide (21-32) mEq/L Anion Gap (5-15) BUN (7-18) mg/dL Creatinine (0.7-1.3) mg/dL Est Cr Clr Drug Dosing mL/min Estimated GFR (MDRD) (>60) mL/min BUN/Creatinine Ratio (14-18) Glucose (83-115) mg/dL POC Glucose (83-110) mg/dL Lactic Acid (0.4-2.0) mmol/L Calcium (8.5-10.1) mg/dL Magnesium (1.8-2.4) mg/dl Total Bilirubin (0.2-1.0) mg/dL AST (15-37) U/L ALT (16-63) U/L Alkaline Phosphatase (46-116) U/L Troponin I (0.00-0.056) ng/mL C-Reactive Protein (<1.0) mg/dL Total Protein (6.4-8.2) g/dl Albumin (3.4-5.0) g/dl Globulin gm/dL Albumin/Globulin Ratio (1-2) Urine Color (Yellow) Urine Appearance (Clear) Urine pH (5.0-8.0) Ur Specific Roscoe (1.005-1.030) Urine Protein (Negative) Urine Glucose (UA) (Negative) Urine Ketones (Negative) Urine Occult Blood (Negative) Urine Nitrite (Negative) Urine Bilirubin (Negative) Urine Urobilinogen (0.2-1.0) Ur Leukocyte Esterase (Negative) Urine RBC (0-5) /hpf Urine WBC (0-5) /hpf Ur Squamous Epith Cells (0-5) /hpf Urine Bacteria (FEW) /hpf Urine Mucus (FEW) /hpf MRSA (PCR) Med Orders - Current: Current Medications Acetaminophen (Tylenol) 650 mg PO Q6H PRN PRN Reason: Pain (Mild 1-3)/fever Albuterol/Ipratropium (Duoneb 3.0-0.5 Mg/3 Ml) 3 ml NEB Q4H PRN PRN Reason: Shortness Of Breath/wheezing Allopurinol (Zyloprim) 100 mg PO DAILY [facility] Aspirin (Halfprin) 81 mg PO DAILY [facility] Cholecalciferol (Vitamin D3) 5,000 unit PO DAILY [facility] Dexamethasone (Dexamethasone) 6 mg PO DAILY [facility] Docusate Sodium (Colace) 100 mg PO BID PRN PRN Reason: Constipation Heparin Sodium (Porcine) (Heparin Sodium) 5,000 units SUBCUT Q8H [facility] Last Admin: 11/19/20 04:14 Dose: 5,000 units Documented by: Hydralazine HCl (Apresoline) 10 mg IVPUSH Q4H PRN PRN Reason: Hypertension Sodium Chloride (Normal Saline) 1,000 mls @ 75 mls/hr IV ASDIRECTED [facility] Last Admin: 11/18/20 22:47 Dose: 75 mls/hr Documented by: Promethazine HCl 12.5 mg/ (Sodium Chloride) 50.5 mls @ 100 mls/hr IV Q6H PRN PRN Reason: Nausea/Vomiting Levofloxacin/Dextrose 500 mg/ (Premix) 100 mls @ 100 mls/hr IV Q24H [facility] Last Admin: 11/18/20 21:48 Dose: 100 mls/hr Documented by: Insulin Human Lispro (Humalog) 0 unit SUBCUT QIDACANDBED [facility]; Protocol Last Admin: 11/19/20 06:51 Dose: Not Given Documented by: Morphine Sulfate (Morphine) 2 mg IVPUSH Q4H PRN PRN Reason: Pain (severe 7-10) Stop: 11/19/20 19:54 Oxycodone HCl (Oxycodone) 5 mg PO Q6H PRN PRN Reason: Pain (moderate 4-6) Pantoprazole Sodium (Protonix) 40 mg PO ACBREAKFAST [facility] Last Admin: 11/19/20 05:55 Dose: 40 mg Documented by: Sertraline HCl (Zoloft) 50 mg PO DAILY [facility] Simvastatin (Zocor) 40 mg PO DAILY [facility] Sodium Chloride (Saline Flush) 10 ml FLUSH ASDIRECTED PRN PRN Reason: Keep Vein Open Last Admin: 11/18/20 18:00 Dose: 10 ml Documented by: Tamsulosin HCl (Flomax) 0.4 mg PO DAILY [facility] Zinc Sulfate (Zincate) 220 mg PO DAILY [facility] Discontinued Medications Acetaminophen (Tylenol) 650 mg PO NOW ONE Stop: 11/18/20 17:52 Last Admin: 11/18/20 18:40 Dose: 650 mg Documented by: Ceftriaxone Sodium 2 gm/ (Sodium Chloride) 100 mls @ 200 mls/hr IV ONETIME ONE Stop: 11/18/20 19:50 Last Admin: 11/18/20 19:56 Dose: 200 mls/hr Documented by: Influenza Virus Vaccine (Pharmacy To Dose - Influenza Vaccine) 1 each IM ONETIME ONE Stop: 11/18/20 23:57 Influenza Virus Vaccine (Fluzone High-Dose Quad ) 240 mcg IM .ONCE ONE Stop: 11/18/20 23:46 Non-Formulary Medication (Pantoprazole) 40 mg PO DAILY [facility] Non-Formulary Medication (Cholecalciferol (Vitamin D3) [Vitamin D3]) 1,000 unit PO DAILY [facility] - Exam Quality Assessment: DVT Prophylaxis. No: Supplemental Oxygen, Urine Catheter General: Alert, Oriented, Cooperative, No Acute Distress HEENT: Pupils Equal, Pupils Reactive, Mucous Membr. Moist/Advance Neck: Supple, Trachea Midline Lungs: Clear to Auscultation, Normal Respiratory Effort Cardiovascular: Regular Rate, Regular Rhythm GI/Abdominal Exam: Normal Bowel Sounds, Soft, Non-Tender, No Distention (Male) Exam: Deferred Back Exam: Normal Inspection, Full Range of Motion. No: CVA Tenderness (L), CVA Tenderness (R) Extremities: Normal Inspection, Normal Range of Motion, Non-Tender, No Pedal Edema, Normal Capillary Refill Skin: Warm, Dry, Intact Neurological: No New Focal Deficit Psy/Mental Status: Alert. No: Normal Affect (Flat ) Sepsis Event Note - Evaluation Sepsis Screening Result: No Definite Risk - Focused Exam Vital Signs: Vital Signs Temp Temp Pulse Resp BP Pulse Ox Pulse Ox 11/19/20 06:03 96 11/19/20 03:59 98.8 F 88 16 123/83 98 11/18/20 23:52 98.4 F 69 16 102/65 97 11/18/20 22:16 98.1 F 77 20 118/78 97 11/18/20 22:00 98.0 F - Problem List & Annotations (1) Altered mental status SNOMED Code(s): 651987834 Code(s): R41.82 - ALTERED MENTAL STATUS, UNSPECIFIED Status: Acute Priority: High Current Visit: Yes Qualifiers: Altered mental status type: unspecified Qualified Code(s): R41.82 - Altered mental status, unspecified (2) UTI (urinary tract infection) SNOMED Code(s): 52226677 Code(s): N39.0 - URINARY TRACT INFECTION, SITE NOT SPECIFIED Status: Acute Priority: High Current Visit: Yes Qualifiers: Urinary tract infection type: site unspecified Hematuria presence: with hematuria Qualified Code(s): N39.0 - Urinary tract infection, site not specified; R31.9 - Hematuria, unspecified (3) History of COVID-19 SNOMED Code(s): 944592975816222137, 369297962898189675 Code(s): Z86.16 - PERSONAL HISTORY OF COVID-19 Status: Acute Priority: High Current Visit: Yes (4) Acute on chronic renal failure SNOMED Code(s): 066923303 Code(s): N17.9 - ACUTE KIDNEY FAILURE, UNSPECIFIED; N18.9 - CHRONIC KIDNEY DISEASE, UNSPECIFIED Status: Acute Priority: High Current Visit: Yes Qualifiers: Acute renal failure type: unspecified Chronic kidney disease stage: stage 3 (moderate) Chronic kidney disease stage 3 subtype: stage 3a (GFR 45-59) Qualified Code(s): N17.9 - Acute kidney failure, unspecified; N18.31 - Chronic kidney disease, stage 3a (5) HLD (hyperlipidemia) SNOMED Code(s): 29361412 Code(s): E78.5 - HYPERLIPIDEMIA, UNSPECIFIED Status: Chronic Priority: Low Current Visit: No (6) HTN (hypertension) SNOMED Code(s): 87264009 Code(s): I10 - ESSENTIAL (PRIMARY) HYPERTENSION Status: Chronic Priority: Low Current Visit: No (7) GERD (gastroesophageal reflux disease) SNOMED Code(s): 932282422 Code(s): K21.9 - GASTRO-ESOPHAGEAL REFLUX DISEASE WITHOUT ESOPHAGITIS Status: Chronic Priority: Low Current Visit: No Qualifiers: Esophagitis presence: esophagitis presence not specified Qualified Code(s): K21.9 - Gastro-esophageal reflux disease without esophagitis (8) Urine retention SNOMED Code(s): 100991506 Code(s): R33.9 - RETENTION OF URINE, UNSPECIFIED Status: Chronic Priority: Medium Current Visit: No (9) Elevated d-dimer SNOMED Code(s): 525543700 Code(s): R79.89 - OTHER SPECIFIED ABNORMAL FINDINGS OF BLOOD CHEMISTRY Sta tus: Chronic Priority: Medium Current Visit: Yes - Problem List Review Problem List Initiated/Reviewed/Updated: Yes - My Orders Last 24 Hours: My Active Orders 11/19/20 08:19 Up With Assistance [RC] ASDIRECTED Up to Chair [RC] ASDIRECTED Consult to Case Management/Pocketed Spring Assembler [CONS] Routine - Plan Plan:: Assessment and plan: UTI * Levaquin 500mg iv daily * Pending urine culture - gram negative rods thus far * Pending blood cultures * IV fluids as ordered * History of urine retention requiring Arizmendi catheter * Monitor output and bladder scan as needed * PT/OT * CM/SW DAMARIS * Creatinine 1.4-->1.3 * BUN 18-->18 * GFR 50-->54 * creatinine 1.2 on 09/30/2020 * Avoid nephrotoxic meds * Follow labs * IVF Elevated D-Dimer * Likely secondary to prior COVID-19 infection * No respiratory symptoms * Not requiring oxygen with saturations in upper 90's * On anticoagulant (heparin) * Monitor respiratory status * No need for CTA at this time unless respiratory symptoms appear * PRN pulse oximetry HTN HLD Gout * Review/reconcile home medications GI and DVT prophylaxis: PPI and heparin Resolved: AMS * Head CT shows senescent change, nothing acute * Likely 2/2 infection * Resolved today 11/19/20
--- NOTE | 2020-11-19 08:58 | CT ---
Head CT Technique: Multiple axial sections through the brain were obtained. Reconstructed coronal and sagittal images were obtained. Comparison: No prior intracranial imaging is available. Findings: Ventricles along with basal cisterns and sulci over convexities are prominent. Mild areas of diminished density are noted within portions of the periventricular white matter which is compatible with slight small vessel ischemic demyelination change. No other abnormal parenchymal densities are seen. No evidence of intracranial hemorrhage. 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 Bone window settings were reviewed which shows no acute osseous finding. Visualized mastoid sinuses and visualized paranasal sinuses show nothing acute. Impression: 1. Senescent change as noted above. 2. Nothing acute is identified on noncontrast head CT study. Diagnostic code #2 I agree with preliminary report from [facility], finalized on 11/18/20, 9:57 PM [employer]
[2020-11-19] MEDS ORDERED: PANTOPRAZOLE 40 MG PO SCH (09:00)
[2020-11-19] MEDS ORDERED: Non-Formulary Medication 1 Each (Cholecalciferol (Vitamin D3) [Vitamin D3] 1,000 UNIT) PO SCH (09:00)
[2020-11-19] MEDS ORDERED: Dexamethasone 4 MG Tab PO SCH (09:00)
[2020-11-19] MEDS: Zinc Sulfate 220 MG Cap PO SCH (09:21)
[2020-11-19] MEDS: Sertraline 50 MG Tab PO SCH (09:21)
[2020-11-19] MEDS: Aspirin 81 MG Tab.EC PO SCH (09:22)
[2020-11-19] MEDS: Tamsulosin 0.4 MG Cap.ER PO SCH (09:22)
[2020-11-19] MEDS: Simvastatin 40 MG Tab PO SCH (09:22)
[2020-11-19] MEDS: Allopurinol 100 MG Tab PO SCH (09:22)
[2020-11-19] MEDS: Cholecalciferol (Vitamin D3) 5,000 UNIT Cap PO SCH (09:22)
[2020-11-19] MEDS: Levofloxacin/Dextrose 5%-Water 500 MG in Premix Bag 1 BAG IV SCH (20:51)
[2020-11-19] MEDS: Sodium Chloride 0.9% 1,000 ML IV SCH (22:03)
[2020-11-20] MEDS: Pantoprazole 40 MG Tab.CR PO SCH (05:20)
[2020-11-20] MEDS: Heparin Sodium 5,000 Units/ML Vial SUBCUT SCH ×3 (05:20→20:23)
[2020-11-20] MEDS: Aspirin 81 MG Tab.EC PO SCH (08:46)
[2020-11-20] MEDS: Zinc Sulfate 220 MG Cap PO SCH (08:46)
[2020-11-20] MEDS: Sertraline 50 MG Tab PO SCH (08:47)
[2020-11-20] MEDS: Tamsulosin 0.4 MG Cap.ER PO SCH (08:47)
[2020-11-20] MEDS: Allopurinol 100 MG Tab PO SCH (08:47)
[2020-11-20] MEDS: Simvastatin 40 MG Tab PO SCH (08:47)
[2020-11-20] MEDS: Cholecalciferol (Vitamin D3) 5,000 UNIT Cap PO SCH (08:47)
--- NOTE | 2020-11-20 10:04 | PCM.PN ---
- General Info Date of Service: 11/20/20 Admission Dx/Problem (Free Text): Admission Diagnosis/Problem Admission Diagnosis/Problem Pneumonia Subjective Update: And to see John this morning. Patient is sitting in bed watching TV. Reports feeling well. In fact, better than yesterday. Denies shortness of breath or cough. Denies dysuria. Functional Status: Reports: Pain Controlled, Tolerating Diet, Ambulating, Urinating - Review of Systems General: Reports: No Symptoms HEENT: Reports: No Symptoms Pulmonary: Reports: No Symptoms Cardiovascular: Reports: No Symptoms Gastrointestinal: Reports: No Symptoms Genitourinary: Reports: No Symptoms. Denies: Dysuria, Burning, Urgency Musculoskeletal: Reports: No Symptoms Skin: Reports: No Symptoms Neurological: Reports: No Symptoms Psychiatric: Reports: No Symptoms - Patient Data Vitals - Most Recent: Last Vital Signs Temp 98.1 F 11/20/20 07:43 Pulse 69 11/20/20 07:43 Resp 12 11/20/20 07:43 BP 109/68 11/20/20 08:55 Pulse Ox 99 11/20/20 07:43 Weight - Most Recent: 173 lb 3.2 oz I&O - Last 24 Hours: Intake & Output 11/19/20 11/20/20 11/20/20 22:59 06:59 14:59 Intake Total 970 1997 Output Total 350 1050 Balance 620 947 Lab Results Last 24 Hours: Laboratory Results - last 24 hr 11/19/20 11/20/20 11/20/20 Range/Units 06:35 04:47 04:47 WBC 9.31 H (4.23-9.07) K/mm3 RBC 3.96 L (4.63-6.08) M/mm3 Hgb 11.3 L (13.7-17.5) gm/dl Hct 35.5 L (40.1-51.0) % MCV 89.6 (79.0-92.2) fl MCH 28.5 (25.7-32.2) pg MCHC 31.8 L (32.2-35.5) g/dl RDW Std Deviation 50.2 H (35.1-43.9) fL Plt Count 268 (163-337) K/mm3 MPV 9.4 (9.4-12.3) fl Neut % (Auto) 74.6 H (34.0-67.9) % Lymph % (Auto) 12.7 L (21.8-53.1) % [place] % (Auto) 9.7 (5.3-12.2) % Eos % (Auto) 2.5 (0.8-7.0) Baso % (Auto) 0.3 (0.1-1.2) % Neut # (Auto) 6.95 H (1.78-5.38) K/mm3 Lymph # (Auto) 1.18 L (1.32-3.57) K/mm3 [place] # (Auto) 0.90 H (0.30-0.82) K/mm3 Eos # (Auto) 0.23 (0.04-0.54) K/mm3 Baso # (Auto) 0.03 (0.01-0.08) K/mm3 Sodium 140 (136-145) mEq/L Potassium 3.8 (3.5-5.1) mEq/L Chloride 107 (98-107) mEq/L Carbon Dioxide 21 (21-32) mEq/L Anion Gap 15.8 H (5-15) BUN 14 (7-18) mg/dL Creatinine 1.2 (0.7-1.3) mg/dL Est Cr Clr Drug Dosing 49.47 mL/min Estimated GFR (MDRD) 59 (>60) mL/min BUN/Creatinine Ratio 11.7 L (14-18) Glucose 93 (83-115) mg/dL POC Glucose 109 (83-110) mg/dL Calcium 8.3 L (8.5-10.1) mg/dL Magnesium (1.8-2.4) mg/dl Total Bilirubin 0.8 (0.2-1.0) mg/dL AST 17 (15-37) U/L ALT 16 (16-63) U/L Alkaline Phosphatase 66 (46-116) U/L C-Reactive Protein 5.8 H* (<1.0) mg/dL Total Protein 6.0 L (6.4-8.2) g/dl Albumin 2.5 L (3.4-5.0) g/dl Globulin 3.5 gm/dL Albumin/Globulin Ratio 0.7 L (1-2) 11/20/20 Range/Units 04:47 WBC (4.23-9.07) K/mm3 RBC (4.63-6.08) M/mm3 Hgb (13.7-17.5) gm/dl Hct (40.1-51.0) % MCV (79.0-92.2) fl MCH (25.7-32.2) pg MCHC (32.2-35.5) g/dl RDW Std Deviation (35.1-43.9) fL Plt Count (163-337) K/mm3 MPV (9.4-12.3) fl Neut % (Auto) (34.0-67.9) % Lymph % (Auto) (21.8-53.1) % Baker % (Auto) (5.3-12.2) % Eos % (Auto) (0.8-7.0) Baso % (Auto) (0.1-1.2) % Neut # (Auto) (1.78-5.38) K/mm3 Lymph # (Auto) (1.32-3.57) K/mm3 [place] # (Auto) (0.30-0.82) K/mm3 Eos # (Auto) (0.04-0.54) K/mm3 Baso # (Auto) (0.01-0.08) K/mm3 Sodium (136-145) mEq/L Potassium (3.5-5.1) mEq/L Chloride (98-107) mEq/L Carbon Dioxide (21-32) mEq/L Anion Gap (5-15) BUN (7-18) mg/dL Creatinine (0.7-1.3) mg/dL Est Cr Clr Drug Dosing mL/min Estimated GFR (MDRD) (>60) mL/min BUN/Creatinine Ratio (14-18) Glucose (83-115) mg/dL POC Glucose (83-110) mg/dL Calcium (8.5-10.1) mg/dL Magnesium 2.0 (1.8-2.4) mg/dl Total Bilirubin (0.2-1.0) mg/dL AST (15-37) U/L ALT (16-63) U/L Alkaline Phosphatase (46-116) U/L C-Reactive Protein (<1.0) mg/dL Total Protein (6.4-8.2) g/dl Albumin (3.4-5.0) g/dl Globulin gm/dL Albumin/Globulin Ratio (1-2) Harsha Results Last 24 Hours: Microbiology 11/18/20 18:50 Urine Culture - Final Urine, Clean Catch Serratia Marcescens 11/18/20 18:12 Aerobic Blood Culture - Preliminary Blood - Venous - Lab Draw NO GROWTH AFTER 1 DAY Anaerobic Blood Culture - Preliminary NO GROWTH AFTER 1 DAY 11/18/20 18:00 Aerobic Blood Culture - Preliminary Blood - Venous NO GROWTH AFTER 1 DAY Anaerobic Blood Culture - Preliminary NO GROWTH AFTER 1 DAY Med Orders - Current: Current Medications Acetaminophen (Tylenol) 650 mg PO Q6H PRN PRN Reason: Pain (Mild 1-3)/fever Albuterol/Ipratropium (Duoneb 3.0-0.5 Mg/3 Ml) 3 ml NEB Q4H PRN PRN Reason: Shortness Of Breath/wheezing Allopurinol (Zyloprim) 100 mg PO DAILY [facility] Last Admin: 11/20/20 08:47 Dose: 100 mg Documented by: Aspirin (Halfprin) 81 mg PO DAILY [facility] Last Admin: 11/20/20 08:46 Dose: 81 mg Documented by: Cholecalciferol (Vitamin D3) 5,000 unit PO DAILY [facility] Last Admin: 11/20/20 08:47 Dose: 5,000 unit Documented by: Docusate Sodium (Colace) 100 mg PO BID PRN PRN Reason: Constipation Heparin Sodium (Porcine) (Heparin Sodium) 5,000 units SUBCUT Q8H [facility] Last Admin: 11/20/20 05:20 Dose: 5,000 units Documented by: Hydralazine HCl (Apresoline) 10 mg IVPUSH Q4H PRN PRN Reason: Hypertension Sodium Chloride (Normal Saline) 1,000 mls @ 75 mls/hr IV ASDIRECTED [facility] Last Admin: 11/19/20 22:03 Dose: 75 mls/hr Documented by: Promethazine HCl 12.5 mg/ (Sodium Chloride) 50.5 mls @ 100 mls/hr IV Q6H PRN PRN Reason: Nausea/Vomiting Oxycodone HCl (Oxycodone) 5 mg PO Q6H PRN PRN Reason: Pain (moderate 4-6) Pantoprazole Sodium (Protonix) 40 mg PO ACBREAKFAST [facility] Last Admin: 11/20/20 05:20 Dose: 40 mg Documented by: Sertraline HCl (Zoloft) 50 mg PO DAILY [facility] Last Admin: 11/20/20 08:47 Dose: 50 mg Documented by: Simvastatin (Zocor) 40 mg PO DAILY [facility] Last Admin: 11/20/20 08:47 Dose: 40 mg Documented by: Sodium Chloride (Saline Flush) 10 ml FLUSH ASDIRECTED PRN PRN Reason: Keep Vein Open Last Admin: 11/18/20 18:00 Dose: 10 ml Documented by: Tamsulosin HCl (Flomax) 0.4 mg PO DAILY [facility] Last Admin: 11/20/20 08:47 Dose: 0.4 mg Documented by: Trimethoprim/Sulfamethoxazole (Septra Ds) 1 tab PO BID [facility] Zinc Sulfate (Zincate) 220 mg PO DAILY [facility] Last Admin: 11/20/20 08:46 Dose: 220 mg Documented by: Discontinued Medications Acetaminophen (Tylenol) 650 mg PO NOW ONE Stop: 11/18/20 17:52 Last Admin: 11/18/20 18:40 Dose: 650 mg Documented by: Dexamethasone (Dexamethasone) 6 mg PO DAILY [facility] Ceftriaxone Sodium 2 gm/ (Sodium Chloride) 100 mls @ 200 mls/hr IV ONETIME ONE Stop: 11/18/20 19:50 Last Admin: 11/18/20 19:56 Dose: 200 mls/hr Documented by: Levofloxacin/Dextrose 500 mg/ (Premix) 100 mls @ 100 mls/hr IV Q24H [facility] Last Admin: 11/19/20 20:51 Dose: 100 mls/hr Documented by: Influenza Virus Vaccine (Pharmacy To Dose - Influenza Vaccine) 1 each IM ONETIME ONE Stop: 11/18/20 23:57 Influenza Virus Vaccine (Fluzone High-Dose Quad ) 240 mcg IM .ONCE ONE Stop: 11/18/20 23:46 Insulin Human Lispro (Humalog) 0 unit SUBCUT QIDACANDBED [facility]; Protocol Last Admin: 11/19/20 13:03 Dose: Not Given Documented by: Morphine Sulfate (Morphine) 2 mg IVPUSH Q4H PRN PRN Reason: Pain (severe 7-10) Stop: 11/19/20 19:54 Non-Formulary Medication (Pantoprazole) 40 mg PO DAILY [facility] Non-Formulary Medication (Cholecalciferol (Vitamin D3) [Vitamin D3]) 1,000 unit PO DAILY [facility] - Exam Quality Assessment: DVT Prophylaxis (Heparin). No: Supplemental Oxygen General: Alert, Oriented, Cooperative, No Acute Distress HEENT: Pupils Equal, Pupils Reactive, Mucous Membr. Moist/[place] Neck: Supple Lungs: Clear to Auscultation, Normal Respiratory Effort Cardiovascular: Regular Rate, Regular Rhythm GI/Abdominal Exam: Normal Bowel Sounds, Soft, Non-Tender, No Distention (Male) Exam: Deferred Back Exam: Normal Inspection, Full Range of Motion Extremities: Normal Inspection, Normal Range of Motion, Non-Tender, No Pedal Edema, Normal Capillary Refill Peripheral Pulses: 2+: Radial (L), Radial (R), Dorsalis Pedis (L), Dorsalis Pedis (R) Skin: Warm, Dry, Intact Neurological: No New Focal Deficit Psy/Mental Status: Alert, Normal Affect, Normal Mood Sepsis Event Note - Evaluation Sepsis Screening Result: No Definite Risk - Focused Exam Vital Signs: Vital Signs Temp Pulse Resp BP Pulse Ox 11/20/20 08:55 109/68 11/20/20 07:43 98.1 F 69 12 139/101 H 99 11/20/20 03:06 97.5 F 73 134/73 96 11/19/20 23:03 99.0 F 78 16 120/59 L 96 - Problem List & Annotations (1) Acute on chronic renal failure SNOMED Code(s): 186957406 Code(s): N17.9 - ACUTE KIDNEY FAILURE, UNSPECIFIED; N18.9 - CHRONIC KIDNEY DISEASE, UNSPECIFIED Status: Acute Priority: High Current Visit: Yes Qualifiers: Acute renal failure type: unspecified Chronic kidney disease stage: stage 3 (moderate) Chronic kidney disease stage 3 subtype: stage 3a (GFR 45-59) Qualified Code(s): N17.9 - Acute kidney failure, unspecified; N18.31 - Chronic kidney disease, stage 3a (2) Altered mental status SNOMED Code(s): 153431499 Code(s): R41.82 - ALTERED MENTAL STATUS, UNSPECIFIED Status: Acute Priority: High Current Visit: Yes Qualifiers: Altered mental status type: unspecified Qualified Code(s): R41.82 - Altered mental status, unspecified (3) History of COVID-19 SNOMED Code(s): 207747674183181033, 349267687473585828 Code(s): Z86.16 - PERSONAL HISTORY OF COVID-19 Status: Acute Priority: High Current Visit: Yes (4) UTI (urinary tract infection) SNOMED Code(s): 90842632 Code(s): N39.0 - URINARY TRACT INFECTION, SITE NOT SPECIFIED Status: Acute Priority: High Current Visit: Yes Qualifiers: Urinary tract infection type: site unspecified Hematuria presence: with hematuria Qualified Code(s): N39.0 - Urinary tract infection, site not specified; R31.9 - Hematuria, unspecified (5) Elevated d-dimer SNOMED Code(s): 849638593 Code(s): R79.89 - OTHER SPECIFIED ABNORMAL FINDINGS OF BLOOD CHEMISTRY Status: Chronic Priority: Medium Current Visit: Yes (6) GERD (gastroesophageal reflux disease) SNOMED Code(s): 446375567 Code(s): K21.9 - GASTRO-ESOPHAGEAL REFLUX DISEASE WITHOUT ESOPHAGITIS Status: Chronic Priority: Low Current Visit: No Qualifiers: Esophagitis presence: esophagitis presence not specified Qualified Code(s): K21.9 - Gastro-esophageal reflux disease without esophagitis (7) HLD (hyperlipidemia) SNOMED Code(s): 51266892 Code(s): E78.5 - HYPERLIPIDEMIA, UNSPECIFIED Status: Chronic Priority: Low Current Visit: No (8) HTN (hypertension) SNOMED Code(s): 22294704 Code(s): I10 - ESSENTIAL (PRIMARY) HYPERTENSION Status: Chronic Priority: Low Current Visit: No (9) Urine retention SNOMED Code(s): 088613818 Code(s): R33.9 - RETENTION OF URINE, UNSPECIFIED Status: Chronic Priority: Medium Current Visit: No - Problem List Review Problem List Initiated/Reviewed/Updated: Yes - My Orders Last 24 Hours: My Active Orders 11/20/20 09:00 Sulfamethoxazole/Trimethoprim [Septra DS] 1 tab PO BID - Assessment Assessment:: 11/20/20 Reports feeling well today. Much better than yesterday. -Denies complaints of shortness of breath cough. 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 +[id number] on intake and output - Plan Plan:: Assessment and plan: UTI * Levaquin 500mg iv daily * Urine culture shows Serratia marcescens-fluoroquinolones not listed on grid. Bug is susceptible to Bactrim. Start Bactrim DS twice daily * Pending blood cultures * IV fluids as ordered * History of urine retention requiring Arizmendi catheter * Monitor output and bladder scan as needed * PT/OT * CM/SW * WBC 10.33-->9.31 DAMARIS * Creatinine 1.4-->1.3 * BUN 18-->18 * GFR 50-->54 * creatinine 1.2 on 09/30/2020 * Avoid nephrotoxic meds * Follow labs * IVF Elevated D-Dimer * Likely secondary to prior COVID-19 infection * No respiratory symptoms * Not requiring oxygen with saturations in upper 90's * On anticoagulant (heparin) * Monitor respiratory status * No need for CTA at this time unless respiratory symptoms appear * PRN pulse oximetry HTN HLD Gout * Review/reconcile home medications GI and DVT prophylaxis: PPI and heparin Resolved: AMS * Head CT shows senescent change, nothing acute * Likely 2/2 infection * Resolved today 11/19/20
[2020-11-20] MEDS: Sulfamethoxazole/Trimethoprim 800-160 MG Tab PO SCH ×2 (10:06→20:23)
[2020-11-20] MEDS: Sodium Chloride 0.9% 1,000 ML IV SCH (11:26)
[2020-11-21] MEDS: Sodium Chloride 0.9% 1,000 ML IV SCH (00:57)
[2020-11-21] MEDS: Heparin Sodium 5,000 Units/ML Vial SUBCUT SCH ×2 (05:37→11:22)
[2020-11-21] MEDS: Pantoprazole 40 MG Tab.CR PO SCH (05:37)
--- NOTE | 2020-11-21 07:40 | PCM.PN ---
- General Info Date of Service: 11/21/20 Admission Dx/Problem (Free Text): Admission Diagnosis/Problem Admission Diagnosis/Problem Pneumonia - Patient Data Vitals - Most Recent: Last Vital Signs Temp 97.9 F 11/21/20 04:16 Pulse 92 11/21/20 04:16 Resp 20 11/21/20 04:16 BP 132/72 11/21/20 04:16 Pulse Ox 98 11/21/20 04:16 Weight - Most Recent: 171 lb 4.8 oz I&O - Last 24 Hours: Intake & Output 11/20/20 11/21/20 11/21/20 22:59 06:59 14:59 Intake Total 1630 1468 Output Total 1999 1400 Balance -370 68 Lab Results Last 24 Hours: Laboratory Results - last 24 hr 11/21/20 11/21/20 Range/Units 05:44 05:44 WBC 13.15 H (4.23-9.07) K/mm3 RBC 4.28 L (4.63-6.08) M/mm3 Hgb 12.3 L (13.7-17.5) gm/dl Hct 38.0 L (40.1-51.0) % MCV 88.8 (79.0-92.2) fl MCH 28.7 (25.7-32.2) pg MCHC 32.4 (32.2-35.5) g/dl RDW Std Deviation 49.7 H (35.1-43.9) fL Plt Count 311 (163-337) K/mm3 MPV 9.6 (9.4-12.3) fl Neut % (Auto) 85.6 H (34.0-67.9) % Lymph % (Auto) 5.0 L (21.8-53.1) % [place] % (Auto) 6.8 (5.3-12.2) % Eos % (Auto) 2.0 (0.8-7.0) Baso % (Auto) 0.2 (0.1-1.2) % Neut # (Auto) 11.27 H (1.78-5.38) K/mm3 Lymph # (Auto) 0.66 L (1.32-3.57) K/mm3 [place] # (Auto) 0.89 H (0.30-0.82) K/mm3 Eos # (Auto) 0.26 (0.04-0.54) K/mm3 Baso # (Auto) 0.02 (0.01-0.08) K/mm3 Manual Slide Review Abnormal smear Sodium 138 (136-145) mEq/L Potassium 4.0 (3.5-5.1) mEq/L Chloride 105 (98-107) mEq/L Carbon Dioxide 21 (21-32) mEq/L Anion Gap 16.0 H (5-15) BUN 9 (7-18) mg/dL Creatinine 1.1 (0.7-1.3) mg/dL Est Cr Clr Drug Dosing 53.97 mL/min Estimated GFR (MDRD) > 60 (>60) mL/min BUN/Creatinine Ratio 8.2 L (14-18) Glucose 113 (83-115) mg/dL Calcium 8.9 (8.5-10.1) mg/dL Total Bilirubin 0.8 (0.2-1.0) mg/dL AST 21 (15-37) U/L ALT 16 (16-63) U/L Alkaline Phosphatase 79 (46-116) U/L C-Reactive Protein 4.7 H* (<1.0) mg/dL Total Protein 6.7 (6.4-8.2) g/dl Albumin 2.9 L (3.4-5.0) g/dl Globulin 3.8 gm/dL Albumin/Globulin Ratio 0.8 L (1-2) Harsha Results Last 24 Hours: Microbiology 11/18/20 18:12 Aerobic Blood Culture - Preliminary Blood - Venous - Lab Draw NO GROWTH AFTER 2 DAYS Anaerobic Blood Culture - Preliminary NO GROWTH AFTER 2 DAYS 11/18/20 18:00 Aerobic Blood Culture - Preliminary Blood - Venous NO GROWTH AFTER 2 DAYS Anaerobic Blood Culture - Preliminary NO GROWTH AFTER 2 DAYS 11/18/20 18:50 Urine Culture - Final Urine, Clean Catch Serratia Marcescens Med Orders - Current: Current Medications Acetaminophen (Tylenol) 650 mg PO Q6H PRN PRN Reason: Pain (Mild 1-3)/fever Albuterol/Ipratropium (Duoneb 3.0-0.5 Mg/3 Ml) 3 ml NEB Q4H PRN PRN Reason: Shortness Of Breath/wheezing Allopurinol (Zyloprim) 100 mg PO DAILY [facility] Last Admin: 11/20/20 08:47 Dose: 100 mg Documented by: Aspirin (Halfprin) 81 mg PO DAILY [facility] Last Admin: 11/20/20 08:46 Dose: 81 mg Documented by: Cholecalciferol (Vitamin D3) 5,000 unit PO DAILY [facility] Last Admin: 11/20/20 08:47 Dose: 5,000 unit Documented by: Docusate Sodium (Colace) 100 mg PO BID PRN PRN Reason: Constipation Heparin Sodium (Porcine) (Heparin Sodium) 5,000 units SUBCUT Q8H [facility] Last Admin: 11/21/20 05:37 Dose: 5,000 units Documented by: Hydralazine HCl (Apresoline) 10 mg IVPUSH Q4H PRN PRN Reason: Hypertension Sodium Chloride (Normal Saline) 1,000 mls @ 75 mls/hr IV ASDIRECTED [facility] Last Admin: 11/21/20 00:57 Dose: 75 mls/hr Documented by: Promethazine HCl 12.5 mg/ (Sodium Chloride) 50.5 mls @ 100 mls/hr IV Q6H PRN PRN Reason: Nausea/Vomiting Oxycodone HCl (Oxycodone) 5 mg PO Q6H PRN PRN Reason: Pain (moderate 4-6) Pantoprazole Sodium (Protonix) 40 mg PO ACBREAKFAST [facility] Last Admin: 11/21/20 05:37 Dose: 40 mg Documented by: Sertraline HCl (Zoloft) 50 mg PO DAILY [facility] Last Admin: 11/20/20 08:47 Dose: 50 mg Documented by: Simvastatin (Zocor) 40 mg PO DAILY [facility] Last Admin: 11/20/20 08:47 Dose: 40 mg Documented by: Sodium Chloride (Saline Flush) 10 ml FLUSH ASDIRECTED PRN PRN Reason: Keep Vein Open Last Admin: 11/18/20 18:00 Dose: 10 ml Documented by: Tamsulosin HCl (Flomax) 0.4 mg PO DAILY [facility] Last Admin: 11/20/20 08:47 Dose: 0.4 mg Documented by: Trimethoprim/Sulfamethoxazole (Septra Ds) 1 tab PO BID [facility] Last Admin: 11/20/20 20:23 Dose: 1 tab Documented by: Zinc Sulfate (Zincate) 220 mg PO DAILY [facility] Last Admin: 11/20/20 08:46 Dose: 220 mg Documented by: Discontinued Medications Acetaminophen (Tylenol) 650 mg PO NOW ONE Stop: 11/18/20 17:52 Last Admin: 11/18/20 18:40 Dose: 650 mg Documented by: Dexamethasone (Dexamethasone) 6 mg PO DAILY [facility] Ceftriaxone Sodium 2 gm/ (Sodium Chloride) 100 mls @ 200 mls/hr IV ONETIME ONE Stop: 11/18/20 19:50 Last Admin: 11/18/20 19:56 Dose: 200 mls/hr Documented by: Levofloxacin/Dextrose 500 mg/ (Premix) 100 mls @ 100 mls/hr IV Q24H [facility] Last Admin: 11/19/20 20:51 Dose: 100 mls/hr Documented by: Influenza Virus Vaccine (Pharmacy To Dose - Influenza Vaccine) 1 each IM ONETIME ONE Stop: 11/18/20 23:57 Influenza Virus Vaccine (Fluzone High-Dose Quad ) 240 mcg IM .ONCE ONE Stop: 11/18/20 23:46 Last Admin: 11/21/20 00:02 Dose: Not Given Documented by: Insulin Human Lispro (Humalog) 0 unit SUBCUT QIDACANDBED [facility]; Protocol Last Admin: 11/19/20 13:03 Dose: Not Given Documented by: Morphine Sulfate (Morphine) 2 mg IVPUSH Q4H PRN PRN Reason: Pain (severe 7-10) Stop: 11/19/20 19:54 Non-Formulary Medication (Pantoprazole) 40 mg PO DAILY [facility] Non-Formulary Medication (Cholecalciferol (Vitamin D3) [Vitamin D3]) 1,000 unit PO DAILY [facility] Sepsis Event Note - Evaluation Sepsis Screening Result: No Definite Risk - Focused Exam Vital Signs: Vital Signs Temp Pulse Resp BP Pulse Ox 11/21/20 04:16 97.9 F 92 20 132/72 98 11/21/20 04:00 98 11/21/20 00:41 98.4 F 87 20 155/82 H 97 11/21/20 00:00 97 11/20/20 20:17 98.1 F 73 18 129/72 99 11/20/20 20:00 97 - Problem List & Annotations (1) Altered mental status SNOMED Code(s): 132824604 Code(s): R41.82 - ALTERED MENTAL STATUS, UNSPECIFIED Status: Acute Priority: High Current Visit: Yes Qualifiers: Altered mental status type: unspecified Qualified Code(s): R41.82 - Altered mental status, unspecified (2) UTI (urinary tract infection) SNOMED Code(s): 37601059 Code(s): N39.0 - URINARY TRACT INFECTION, SITE NOT SPECIFIED Status: Acute Priority: High Current Visit: Yes Qualifiers: Urinary tract infection type: site unspecified Hematuria presence: with hematuria Qualified Code(s): N39.0 - Urinary tract infection, site not specified; R31.9 - Hematuria, unspecified (3) History of COVID-19 SNOMED Code(s): 898033995804858914, [id number] Code(s): Z86.16 - PERSONAL HISTORY OF COVID-19 Status: Acute Priority: High Current Visit: Yes (4) Acute on chronic renal failure SNOMED Code(s): 565542546 Code(s): N17.9 - ACUTE KIDNEY FAILURE, UNSPECIFIED; N18.9 - CHRONIC KIDNEY DI SEASE, UNSPECIFIED Status: Acute Priority: High Current Visit: Yes Qualifiers: Acute renal failure type: unspecified Chronic kidney disease stage: stage 3 (moderate) Chronic kidney disease stage 3 subtype: stage 3a (GFR 45-59) Qualified Code(s): N17.9 - Acute kidney failure, unspecified; N18.31 - Chronic kidney disease, stage 3a (5) HLD (hyperlipidemia) SNOMED Code(s): 00962825 Code(s): E78.5 - HYPERLIPIDEMIA, UNSPECIFIED Status: Chronic Priority: Low Current Visit: No (6) HTN (hypertension) SNOMED Code(s): 85851535 Code(s): I10 - ESSENTIAL (PRIMARY) HYPERTENSION Status: Chronic Priority: Low Current Visit: No (7) GERD (gastroesophageal reflux disease) SNOMED Code(s): 212483927 Code(s): K21.9 - GASTRO-ESOPHAGEAL REFLUX DISEASE WITHOUT ESOPHAGITIS Status: Chronic Priority: Low Current Visit: No Qualifiers: Esophagitis presence: esophagitis presence not specified Qualified Code(s): K21.9 - Gastro-esophageal reflux disease without esophagitis (8) Urine retention SNOMED Code(s): 594138731 Code(s): R33.9 - RETENTION OF URINE, UNSPECIFIED Status: Chronic Priority: Medium Current Visit: No (9) Elevated d-dimer SNOMED Code(s): 017380426 Code(s): R79.89 - OTHER SPECIFIED ABNORMAL FINDINGS OF BLOOD CHEMISTRY Status: Chronic Priority: Medium Current Visit: Yes - My Orders Last 24 Hours: My Active Orders 11/21/20 05:44 MAGNESIUM [CHEM] AM 11/22/20 05:11 MAGNESIUM [CHEM] AM 11/23/20 05:11 MAGNESIUM [CHEM] AM - Assessment Assessment:: 11/20/20 Reports feeling well today. Much better than yesterday. -Denies complaints of shortness of breath cough. 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 +1687 on intake and output - Plan Plan:: Assessment and plan: UTI * Levaquin 500mg iv daily * Urine culture shows Serratia marcescens-fluoroquinolones not listed on grid. Bug is susceptible to Bactrim. Start Bactrim DS twice daily * Pending blood cultures * IV fluids as ordered * History of urine retention requiring Arizmendi catheter * Monitor output and bladder scan as needed * PT/OT * CM/SW * WBC 10.33-->9.31 DAMARIS * Creatinine 1.4-->1.3 * BUN 18-->18 * GFR 50-->54 * creatinine 1.2 on 09/30/2020 * Avoid nephrotoxic meds * Follow labs * IVF Elevated D-Dimer * Likely secondary to prior COVID-19 infection * No respiratory symptoms * Not requiring oxygen with saturations in upper 90's * On anticoagulant (heparin) * Monitor respiratory status * No need for CTA at this time unless respiratory symptoms appear * PRN pulse oximetry HTN HLD Gout * Review/reconcile home medications GI and DVT prophylaxis: PPI and heparin Resolved: AMS * Head CT shows senescent change, nothing acute * Likely 2/2 infection * Resolved today 11/19/20
[2020-11-21] MEDS: Allopurinol 100 MG Tab PO SCH (08:58)
[2020-11-21] MEDS: Sulfamethoxazole/Trimethoprim 800-160 MG Tab PO SCH (08:58)
[2020-11-21] MEDS: Simvastatin 40 MG Tab PO SCH (08:59)
[2020-11-21] MEDS: Sertraline 50 MG Tab PO SCH (08:59)
[2020-11-21] MEDS: Tamsulosin 0.4 MG Cap.ER PO SCH (08:59)
[2020-11-21] MEDS: Zinc Sulfate 220 MG Cap PO SCH (08:59)
[2020-11-21] MEDS: Aspirin 81 MG Tab.EC PO SCH (08:59)
[2020-11-21] MEDS: Cholecalciferol (Vitamin D3) 5,000 UNIT Cap PO SCH (08:59)
--- NOTE | 2020-11-21 09:37 | PCM.DCSUM1 ---
Discharge Summary - Hospital Course HPI Initial Comments: Pt is a 74 yom with a hx of positive covid 19 who was brought to the ER from [place] [facility] due to fever, generalized weakness and being unable to walk. He was found to have oxygen desaturation. Pt is confused and almost all information is obtained from ER notes. Pt was unable to walk earlier today. He had a positive covid 19 test in Sep 2020 and was hospitalized for respiratory failure and covid 19 pneumonia. In the ER, CXR possible LL infiltrate. UA was performed, compatible with UTI. One dose of rocephin was given. Diagnosis: Stroke: No - Discharge Data Discharge Date: 11/21/20 (Admit date: 11/18/20) Discharge Disposition: DC/Tfer to Other 70 Condition: Good - Referral to Home Health Primary Care Physician: Boone Carlisle MD - Discharge Diagnosis/Problem(s) (1) Altered mental status SNOMED Code(s): 958749350 ICD Code: R41.82 - ALTERED MENTAL STATUS, UNSPECIFIED Status: Resolved Priority: High Qualifiers: Altered mental status type: unspecified Qualified Code(s): R41.82 - Altered mental status, unspecified (2) UTI (urinary tract infection) SNOMED Code(s): 89501495 ICD Code: N39.0 - URINARY TRACT INFECTION, SITE NOT SPECIFIED Status: Acute Priority: High Qualifiers: Urinary tract infection type: site unspecified Hematuria presence: with hematuria Qualified Code(s): N39.0 - Urinary tract infection, site not specified; R31.9 - Hematuria, unspecified (3) History of COVID-19 SNOMED Code(s): 561910762041907123, 822572886473489397 ICD Code: Z86.16 - PERSONAL HISTORY OF COVID-19 Status: Acute Priority: High (4) Acute on chronic renal failure SNOMED Code(s): 358513897 ICD Code: N17.9 - ACUTE KIDNEY FAILURE, UNSPECIFIED; N18.9 - CHRONIC KIDNEY DISEASE, UNSPECIFIED Status: Resolved Priority: High Qualifiers: Acute renal failure type: unspecified Chronic kidney disease stage: stage 3 (moderate) Chronic kidney disease stage 3 subtype: stage 3a (GFR 45-59) Qualified Code(s): N17.9 - Acute kidney failure, unspecified; N18.31 - Chronic kidney disease, stage 3a (5) HLD (hyperlipidemia) SNOMED Code(s): 83154707 ICD Code: E78.5 - HYPERLIPIDEMIA, UNSPECIFIED Status: Chronic Priority: Low (6) HTN (hypertension) SNOMED Code(s): 05543677 ICD Code: I10 - ESSENTIAL (PRIMARY) HYPERTENSION Status: Chronic Priority: Low (7) GERD (gastroesophageal reflux disease) SNOMED Code(s): 840090727 ICD Code: K21.9 - GASTRO-ESOPHAGEAL REFLUX DISEASE WITHOUT ESOPHAGITIS Status: Chronic Priority: Low Qualifiers: Esophagitis presence: esophagitis presence not specified Qualified Code(s): K21.9 - Gastro-esophageal reflux disease without esophagitis (8) Urine retention SNOMED Code(s): 411932762 ICD Code: R33.9 - RETENTION OF URINE, UNSPECIFIED Status: Chronic Priority: Medium (9) Elevated d-dimer SNOMED Code(s): 088886866 ICD Code: R79.89 - OTHER SPECIFIED ABNORMAL FINDINGS OF BLOOD CHEMISTRY Status: Chronic Priority: Medium - Patient Summary/Data Consults: Consultations 11/18/20 19:55 OT Evaluation and Treatment [CONS] Routine PT Evaluation and Treatment [CONS] Routine 11/19/20 08:19 Consult to Case Management/Conservation Specialist [CONS] Routine Labs Pending at D/C: None Recommended Follow-up Testing/Procedures: Follow-up with PCP within 7-10 days of discharge, sooner if needed. -Recommend repeat CBC, CMP and magnesium at that visit. Hospital Course: John is a 74-year-old male who is well-known to this service. He presented to our ED on 11/18/20 with fever, weakness, inability to walk, and confusion. Initially chest x-ray was concerning for an infiltrate but our radiologist ultimately determined this was a chronic finding and nothing acute was noted. Initially patient was started on dexamethasone given his history of COVID-19 infection. This was discontinued. He was started on Levaquin for this possible pneumonia and also urinary tract infection. Throughout his stay he was not requiring oxygen and saturations remained in the upper 90s. He had no cough or respiratory symptoms. Urine culture showed Serratia marcescens susceptible to Bactrim and he was switched to this. On admission he did have an altered mental status and this resolved over his first night of treatment. Head CT was obtained showing senescent change and nothing acute. Nursing swallow eval was performed and there were no concerns noted. Patient was seen by PT OT and there were no concerns noted. He was noted to have mild DAMARIS on admission and this resolved with IV fluids. D-dimer was noted to be elevated on admission at 1.22. This was discussed with Dr. Maria, on-call hospitalist and he agreed this wa s likely secondary to the prior COVID-19 infection and with the patient's lack of respiratory symptoms we would not work this up further. Patient ultimately did very well. He was discharged back to [facility] today. Home medications were continued. He was prescribed 4 more days of twice daily Bactrim DS. Recommend follow-up with PCP within 7 to 10 days of discharge. He was advised to return the emergency room or contact his primary care provider should symptoms return or worsen. - Patient Instructions Diet: Heart Healthy Diet Activity: As Tolerated Driving: Do Not Drive Showering/Bathing: May Shower Notify Provider of: Fever, Increased Pain, Nausea and/or Vomiting Other/Special Instructions: Follow-up with primary care provider within 7-10 days of discharge, sooner if needed. Continue home medications as ordered. You were prescribed an antibiotic for your urinary tract infection. Be sure to take this twice a day as prescrined until you run out of pills, even if you feel 100% better. Should symptoms return or worsen contact primary care provider or return to the Emergency Department. - Discharge Plan *PRESCRIPTION DRUG MONITORING PROGRAM REVIEWED*: No *COPY OF PRESCRIPTION DRUG MONITORING REPORT IN PATIENT KAYE: No Prescriptions/Med Rec: Sulfamethoxazole/Trimethoprim [Septra DS] 1 tab PO BID #7 tablet Home Medications: Home Meds Allopurinol [Zyloprim] 100 mg PO DAILY 09/20/20 [History] Aspirin [Adult Aspirin Regimen] 81 mg PO DAILY 09/20/20 [History] Sertraline [Zoloft] 50 mg PO DAILY 09/20/20 [History] Simvastatin 40 mg PO DAILY 09/20/20 [History] Pantoprazole Sodium [Protonix] 40 mg PO DAILY 09/21/20 [History] Tamsulosin [Flomax] 0.4 mg PO DAILY #20 cap.er 10/07/20 [Rx] Zinc Sulfate [Zincate] 220 mg PO DAILY #20 cap 10/07/20 [Rx] Bismuth Subsalicylate [Kaopectate] 262 mg PO ASDIRECTED PRN 11/18/20 [History] Cholecalciferol (Vitamin D3) [Vitamin D3] 1,000 unit PO DAILY 11/18/20 [History] Sulfamethoxazole/Trimethoprim [Septra DS] 1 tab PO BID #7 tablet 11/21/20 [Rx] Oxygen Therapy Mode: Room Air Patient Handouts: Urinary Tract Infection, Adult, Sepsis, Self Care, Adult Forms: ED Department Discharge Referrals: Boone Carlisle MD [Primary Care Provider] - 11/28/20 2:30 pm (please attend the scheduled follow up appointment ) - Discharge Summary/Plan Comment DC Time >30 min.: Yes (min) - General Info Date of Service: 11/21/20 Functional Status: Reports: Pain Controlled, Tolerating Diet, Ambulating, Urinating. Denies: New Symptoms - Review of Systems General: Reports: No Symptoms. Denies: Fever, Weakness, Fatigue, Malaise, Chills HEENT: Reports: No Symptoms. Denies: Headaches, Sore Throat Pulmonary: Reports: No Symptoms. Denies: Shortness of Breath, Cough, Sputum, Wheezing Cardiovascular: Reports: No Symptoms. Denies: Chest Pain, Palpitations, Dyspnea on Exertion, Edema Gastrointestinal: Reports: No Symptoms. Denies: Abdominal Pain, Constipation, Diarrhea, Nausea, Vomiting Genitourinary: Reports: No Symptoms. Denies: Pain Musculoskeletal: Reports: No Symptoms Skin: Reports: No Symptoms. Denies: Cyanosis Neurological: Reports: No Symptoms. Denies: Confusion, Difficulty Walking, Gait Disturbance Psychiatric: Reports: No Symptoms - Patient Data Vitals - Most Recent: Last Vital Signs Temp 98.8 F 11/21/20 07:44 Pulse 77 11/21/20 07:44 Resp 16 11/21/20 07:44 BP 108/59 L 11/21/20 07:44 Pulse Ox 98 11/21/20 08:00 Weight - Most Recent: 171 lb 4.8 oz I&O - Last 24 hours: Intake & Output 11/20/20 11/21/20 11/21/20 22:59 06:59 14:59 Intake Total 1630 1468 Output Total 1999 1400 Balance -370 68 Lab Results - Last 24 hrs: Laboratory Results - last 24 hr 11/21/20 11/21/20 Range/Units 05:44 05:44 WBC 13.15 H (4.23-9.07) K/mm3 RBC 4.28 L (4.63-6.08) M/mm3 Hgb 12.3 L (13.7-17.5) gm/dl Hct 38.0 L (40.1-51.0) % MCV 88.8 (79.0-92.2) fl MCH 28.7 (25.7-32.2) pg MCHC 32.4 (32.2-35.5) g/dl RDW Std Deviation 49.7 H (35.1-43.9) fL Plt Count 311 (163-337) K/mm3 MPV 9.6 (9.4-12.3) fl Neut % (Auto) 85.6 H (34.0-67.9) % Lymph % (Auto) 5.0 L (21.8-53.1) % Haskell % (Auto) 6.8 (5.3-12.2) % Eos % (Auto) 2.0 (0.8-7.0) Baso % (Auto) 0.2 (0.1-1.2) % Neut # (Auto) 11.27 H (1.78-5.38) K/mm3 Lymph # (Auto) 0.66 L (1.32-3.57) K/mm3 Haskell # (Auto) 0.89 H (0.30-0.82) K/mm3 Eos # (Auto) 0.26 (0.04-0.54) K/mm3 Baso # (Auto) 0.02 (0.01-0.08) K/mm3 Manual Slide Review Abnormal smear Sodium 138 (136-145) mEq/L Potassium 4.0 (3.5-5.1) mEq/L Chloride 105 (98-107) mEq/L Carbon Dioxide 21 (21-32) mEq/L Anion Gap 16.0 H (5-15) BUN 9 (7-18) mg/dL Creatinine 1.1 (0.7-1.3) mg/dL Est Cr Clr Drug Dosing 53.97 mL/min Estimated GFR (MDRD) > 60 (>60) mL/min BUN/Creatinine Ratio 8.2 L (14-18) Glucose 113 (83-115) mg/dL Calcium 8.9 (8.5-10.1) mg/dL Total Bilirubin 0.8 (0.2-1.0) mg/dL AST 21 (15-37) U/L ALT 16 (16-63) U/L Alkaline Phosphatase 79 (46-116) U/L C-Reactive Protein 4.7 H* (<1.0) mg/dL Total Protein 6.7 (6.4-8.2) g/dl Albumin 2.9 L (3.4-5.0) g/dl Globulin 3.8 gm/dL Albumin/Globulin Ratio 0.8 L (1-2) ABI Results - Last 24 hrs: Microbiology 11/18/20 18:12 Aerobic Blood Culture - Preliminary Blood - Venous - Lab Draw NO GROWTH AFTER 2 DAYS Anaerobic Blood Culture - Preliminary NO GROWTH AFTER 2 DAYS 11/18/20 18:00 Aerobic Blood Culture - Preliminary Blood - Venous NO GROWTH AFTER 2 DAYS Anaerobic Blood Culture - Preliminary NO GROWTH AFTER 2 DAYS 11/18/20 18:50 Urine Culture - Final Urine, Clean Catch Serratia Marcescens Med Orders - Current: Current Medications Acetaminophen (Tylenol) 650 mg PO Q6H PRN PRN Reason: Pain (Mild 1-3)/fever Albuterol/Ipratropium (Duoneb 3.0-0.5 Mg/3 Ml) 3 ml NEB Q4H PRN PRN Reason: Shortness Of Breath/wheezing Allopurinol (Zyloprim) 100 mg PO DAILY [facility] Last Admin: 11/21/20 08:58 Dose: 100 mg Documented by: Aspirin (Halfprin) 81 mg PO DAILY [facility] Last Admin: 11/21/20 08:59 Dose: 81 mg Documented by: Cholecalciferol (Vitamin D3) 5,000 unit PO DAILY [facility] Last Admin: 11/21/20 08:59 Dose: 5,000 unit Documented by: Docusate Sodium (Colace) 100 mg PO BID PRN PRN Reason: Constipation Heparin Sodium (Porcine) (Heparin Sodium) 5,000 units SUBCUT Q8H [facility] Last Admin: 11/21/20 05:37 Dose: 5,000 units Documented by: Hydralazine HCl (Apresoline) 10 mg IVPUSH Q4H PRN PRN Reason: Hypertension Sodium Chloride (Normal Saline) 1,000 mls @ 75 mls/hr IV ASDIRECTED [facility] Last Admin: 11/21/20 00:57 Dose: 75 mls/hr Documented by: Promethazine HCl 12.5 mg/ (Sodium Chloride) 50.5 mls @ 100 mls/hr IV Q6H PRN PRN Reason: Nausea/Vomiting Oxycodone HCl (Oxycodone) 5 mg PO Q6H PRN PRN Reason: Pain (moderate 4-6) Pantoprazole Sodium (Protonix) 40 mg PO ACBREAKFAST [facility] Last Admin: 11/21/20 05:37 Dose: 40 mg Documented by: Sertraline HCl (Zoloft) 50 mg PO DAILY [facility] Last Admin: 11/21/20 08:59 Dose: 50 mg Documented by: Simvastatin (Zocor) 40 mg PO DAILY [facility] Last Admin: 11/21/20 08:59 Dose: 40 mg Documented by: Sodium Chloride (Saline Flush) 10 ml FLUSH ASDIRECTED PRN PRN Reason: Keep Vein Open Last Admin: 11/18/20 18:00 Dose: 10 ml Documented by: Tamsulosin HCl (Flomax) 0.4 mg PO DAILY [facility] Last Admin: 11/21/20 08:59 Dose: 0.4 mg Documented by: Trimethoprim/Sulfamethoxazole (Septra Ds) 1 tab PO BID [facility] Last Admin: 11/21/20 08:58 Dose: 1 tab Documented by: Zinc Sulfate (Zincate) 220 mg PO DAILY [facility] Last Admin: 11/21/20 08:59 Dose: 220 mg Documented by: Discontinued Medications Acetaminophen (Tylenol) 650 mg PO NOW ONE Stop: 11/18/20 17:52 Last Admin: 11/18/20 18:40 Dose: 650 mg Documented by: Dexamethasone (Dexamethasone) 6 mg PO DAILY [facility] Ceftriaxone Sodium 2 gm/ (Sodium Chloride) 100 mls @ 200 mls/hr IV ONETIME ONE Stop: 11/18/20 19:50 Last Admin: 11/18/20 19:56 Dose: 200 mls/hr Documented by: Levofloxacin/Dextrose 500 mg/ (Premix) 100 mls @ 100 mls/hr IV Q24H [facility] Last Admin: 11/19/20 20:51 Dose: 100 mls/hr Documented by: Influenza Virus Vaccine (Pharmacy To Dose - Influenza Vaccine) 1 each IM ONETIME ONE Stop: 11/18/20 23:57 Influenza Virus Vaccine (Fluzone High-Dose Quad ) 240 mcg IM .ONCE ONE Stop: 11/18/20 23:46 Last Admin: 11/21/20 00:02 Dose: Not Given Documented by: Insulin Human Lispro (Humalog) 0 unit SUBCUT QIDACANDBED [facility]; Protocol Last Admin: 11/19/20 13:03 Dose: Not Given Documented by: Morphine Sulfate (Morphine) 2 mg IVPUSH Q4H PRN PRN Reason: Pain (severe 7-10) Stop: 11/19/20 19:54 Non-Formulary Medication (Pantoprazole) 40 mg PO DAILY [facility] Non-Formulary Medication (Cholecalciferol (Vitamin D3) [Vitamin D3]) 1,000 unit PO DAILY [facility] - Exam Quality Assessment: Reports: DVT Prophylaxis. Denies: Supplemental Oxygen, Urine Catheter General: Reports: Alert, Oriented, Cooperative, No Acute Distress HEENT: Reports: Pupils Equal, Pupils Reactive, Mucous Membr. Moist/Ruth Neck: Reports: Supple, Trachea Midline Lungs: Reports: Clear to Auscultation, Normal Respiratory Effort Cardiovascular: Reports: Regular Rate, Regular Rhythm GI/Abdominal Exam: Normal Bowel Sounds, Soft, Non-Tender, No Distention (Male) Exam: Deferred Rectal (Males) Exam: Deferred Back Exam: Reports: Normal Inspection, Full Range of Motion Extremities: Normal Inspection, Normal Range of Motion, Non-Tender, No Pedal Edema, Normal Capillary Refill Skin: Reports: Warm, Dry, Intact Neurological: Reports: No New Focal Deficit Psy/Mental Status: Reports: Alert. Denies: Normal Affect (flat )
[2020-11-21 11:29] VITALS: BP 126/68; PULSE 81
== END 2020-11-21 12:50 | disposition other institution (70) | DRG 683 ==
LOC: JD.ED 17:28 → SUPCPDRO 17:28 → JD.MS 19:50
PROVIDERS: ADMIT Family Medicine; ATTEND Family Medicine
DX: N17.9 Acute kidney failure, unspecified (principal); N39.0 Urinary tract infection, site not specified; I10 Essential (primary) hypertension; J96.11 Chronic respiratory failure with hypoxia; R31.9 Hematuria, unspecified; E78.5 Hyperlipidemia, unspecified; I12.9 Hypertensive chronic kidney disease with stage 1 through stage 4 chronic kidney disease, or unspecified chronic kidney disease; N18.31 Chronic kidney disease, stage 3a; K21.9 Gastro-esophageal reflux disease without esophagitis; R33.9 Retention of urine, unspecified; R79.89 Other specified abnormal findings of blood chemistry; B96.89 Other specified bacterial agents as the cause of diseases classified elsewhere; H54.7 Unspecified visual loss; E78.00 Pure hypercholesterolemia, unspecified; M10.9 Gout, unspecified; Z86.16 Personal history of COVID-19; Z79.82 Long term (current) use of aspirin; Z79.899 Other long term (current) drug therapy
CPT/HCPCS: 36415; 70450; 70450-26; 71046; 71046-26; 80053; 81001; 82306; 82962; 83605; 83735; 84484; 85007; 85025; 85027; 85379; 85610; 86140; 87040; 87086; 87088; 87186; 87641; 93005; 97110-GO; 97110-GP; 97116-GP; 97162-GP; 97165-GO; 97535-GO; 99222; 99232; 99233; 99239; 99284; 99285-25; A9270-GY; J0696; J1644; J1956; J7030

== ENCOUNTER 2021-09-21 18:01 | Emergency (ER) | payer MEDICARE, MEDICAID ==
[2021-09-21] MEDS ORDERED: Sodium Chloride 0.9% 10 ML Syringe FLUSH PRN (18:05)
[2021-09-21 18:10] VITALS: BP 154/84; PULSE 82
--- NOTE | 2021-09-21 18:37 | EDM.PDOC ---
ED HPI GENERAL MEDICAL PROBLEM - General Chief Complaint: Respiratory Problem Stated Complaint: [facility] Time Seen by Provider: 09/21/21 18:17 Source of Information: Reports: Patient, RN Notes Reviewed History Limitations: Reports: No Limitations - History of Present Illness INITIAL COMMENTS - FREE TEXT/NARRATIVE: Patient is a 75-year-old male presenting to the emergency department from [facility] for evaluation of fever, cough, weakness, and confusion. Patient reports that he has had a cough for the last few days. Report from the nursing facility indicates that around 330 this afternoon, patient was given Tylenol and Robitussin. At 1620, he was found to have a temperature of 101.7, a flushed face, and he was only oriented to person. Patient is currently alert and oriented x3. Afebrile on arrival to ER. He denies any chest pain or shortness of breath. He was Covid tested this morning and found to be negative. He did receive vaccinations against Covid. He has had no nausea, vomiting, or diarrhea per his report. - Related Data Allergies Allergy/AdvReac Type Severity Reaction Status Date / Time No Known Allergies Allergy Verified 09/21/21 18:12 Home Meds: Home Meds Aspirin [Adult Aspirin Regimen] 81 mg PO DAILY 09/20/20 [History] Simvastatin 40 mg PO DAILY 09/20/20 [History] allopurinoL [Zyloprim] 100 mg PO DAILY 09/20/20 [History] Tamsulosin [Flomax] 0.4 mg PO DAILY #20 cap.er 10/07/20 [Rx] Bismuth Subsalicylate [Kaopectate] 262 mg PO ASDIRECTED PRN 11/18/20 [History] Cholecalciferol (Vitamin D3) [Vitamin D3] 1,000 unit PO DAILY 11/18/20 [History] Acetaminophen [Tylenol] 650 mg PO Q4H PRN 09/21/21 [History] Famotidine [Pepcid] 20 mg PO DAILY 09/21/21 [History] guaiFENesin/Dextromethorphan [Tussin DM Cough & Chest] 10 ml PO ASDIRECTED PRN 09/21/21 [History] Past Medical History HEENT History: Reports: Impaired Vision Other HEENT History: wears eyeglasses. 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 Male Surgical History: Reports: None Musculoskeletal Surgical History: Reports: None Social & Family History - Family History Family Medical History: No Pertinent Family History Cardiac: Reports: [place] - Tobacco Use Tobacco Use Status *Q: Unknown Ever Used Tobacco Second Hand Smoke Exposure: No - Caffeine Use Caffeine Use: Reports: None ED ROS GENERAL - Review of Systems Review Of Systems: See Below Constitutional: Reports: Fever, Weakness HEENT: Reports: Sinus Problem (Congestion) Respiratory: Reports: Cough. Denies: Shortness of Breath Cardiovascular: Reports: No Symptoms. Denies: Chest Pain Endocrine: Reports: No Symptoms GI/Abdominal: Reports: No Symptoms. Denies: Abdominal Pain, Nausea, Vomiting : Reports: No Symptoms Musculoskeletal: Reports: No Symptoms Skin: Reports: No Symptoms Neurological: Reports: Confusion. Denies: Dizziness, Headache Psychiatric: Reports: No Symptoms Hematologic/Lymphatic: Reports: No Symptoms Immunologic: Reports: No Symptoms ED EXAM, GENERAL - Physical Exam Exam: See Below Exam Limited By: No Limitations General Appearance: Alert, WD/WN, No Apparent Distress Ears: Normal External Exam, Normal Canal, Hearing Grossly Normal, Normal TMs Respiratory/Chest: No Respiratory Distress, Lungs Clear, No Accessory Muscle Use, Chest Non-Tender, Decreased Breath Sounds, Other (Moist cough) Cardiovascular: Normal Peripheral Pulses, Regular Rate, Rhythm, No Edema, No Gallop, No JVD, No Murmur, No Rub GI/Abdominal: Normal Bowel Sounds, Soft, Non-Tender, No Organomegaly, No Distention, No Abnormal Bruit, No Mass Neurological: Alert, Oriented, Normal Cognition, Normal Gait, No Motor/Sensory Deficits Psychiatric: Normal Affect, Normal Mood Skin Exam: Warm, Dry, Intact, Normal Color, No Rash #1 Interpretation EKG Date: 09/21/21 Time: 18:10 Rhythm: NSR Rate (Beats/Min): 87 [place]: Normal P-Wave: Present QRS: Normal ST-T: Normal QT: Normal Course - Vital Signs Last Recorded V/S: Last Vital Signs Temp 97.8 F 09/21/21 18:04 Pulse 82 09/21/21 18:04 Resp 18 09/21/21 18:04 BP 154/84 H 09/21/21 18:04 Pulse Ox 91 L 09/21/21 18:04 - Orders/Labs/Meds Orders: Active Orders 24 hr Category Date Time Status Insert Arizmendi Catheter [Insert Urinary Catheter] [OM.PC] Care 09/21/21 19:15 Ordered Q24H Peripheral IV Care [RC] . DIRECTED Care 09/21/21 18:06 Active Urinary Catheter Assessment [RC] ASDIRECTED Care 09/21/21 19:12 Active BLOOD CULTURE [MREF] Stat Lab 09/21/21 18:30 Received BLOOD CULTURE [MREF] Stat Lab 09/21/21 18:40 Received Sodium Chloride 0.9% [Saline Flush] Med 09/21/21 18:05 Active 10 ml FLUSH ASDIRECTED PRN Blood Culture x2 Reflex Set [OM.PC] Stat Oth 09/21/21 18:18 Ordered Peripheral IV Insertion Adult [OM.PC] Stat Oth 09/21/21 18:05 Ordered Medication Orders Sodium Chloride (Sodium Chloride 0.9% 10 Ml Syringe) 10 ml FLUSH ASDIRECTED PRN PRN Reason: Keep Vein Open Last Admin: 09/21/21 18:26 Dose: 10 ml Documented by: GILLIAN Labs: Laboratory Tests 09/21/21 09/21/21 09/21/21 Range/Units 18:05 18:30 18:30 WBC 7.64 (4.23-9.07) K/mm3 RBC 5.08 (4.63-6.08) M/mm3 Hgb 15.8 D (13.7-17.5) gm/dl Hct 46.4 (40.1-51.0) % MCV 91.3 (79.0-92.2) fl MCH 31.1 (25.7-32.2) pg MCHC 34.1 (32.2-35.5) g/dl RDW Std Deviation 49.6 H (35.1-43.9) fL Plt Count 141 L D (163-337) K/mm3 MPV 9.7 (9.4-12.3) fl Neutrophils % (Manual) 82 H (40-60) % Band Neutrophils % 0 (0-10) % Lymphocytes % (Manual) 14 L (20-40) % Atypical Lymphs % 0 % Monocytes % (Manual) 4 (2-10) % Eosinophils % (Manual) 0 L (0.8-7.0) % Basophils % (Manual) 0 L (0.2-1.2) Platelet Estimate Decreased Plt Morphology Comment See note RBC Morph Comment Normal D-Dimer, Quantitative 0.66 H (0.19-0.50) mg/L Sodium (136-145) mEq/L Potassium (3.5-5.1) mEq/L Chloride (98-107) mEq/L Carbon Dioxide (21-32) mEq/L Anion Gap (5-15) BUN (7-18) mg/dL Creatinine (0.7-1.3) mg/dL Est Cr Clr Drug Dosing Estimated GFR (MDRD) (>60) mL/min BUN/Creatinine Ratio (14-18) Glucose (70-99) mg/dL Lactic Acid (0.4-2.0) mmol/L Calcium (8.5-10.1) mg/dL Total Bilirubin (0.2-1.0) mg/dL AST (15-37) U/L ALT (16-63) U/L Alkaline Phosphatase (46-116) U/L Troponin I (0.00-0.056) ng/mL C-Reactive Protein (<1.0) mg/dL NT-Pro-B Natriuret Pep (0-125) pg/mL Total Protein (6.4-8.2) g/dl Albumin (3.4-5.0) g/dl Globulin gm/dL Albumin/Globulin Ratio (1-2) Urine Color (Yellow) Urine Appearance (Clear) Urine pH (5.0-8.0) Ur Specific Hallie (1.005-1.030) Urine Protein (Negative) Urine Glucose (UA) (Negative) Urine Ketones (Negative) Urine Occult Blood (Negative) Urine Nitrite (Negative) Urine Bilirubin (Negative) Urine Urobilinogen (0.2-1.0) Ur Leukocyte Esterase (Negative) Urine RBC (0-5) /hpf Urine WBC (0-5) /hpf Ur Squamous Epith Cells (0-5) /hpf Urine Bacteria (FEW) /hpf Urine Mucus (FEW) /hpf Influenza Type A RNA Negative (NEGATIVE) Influenza Type B RNA Negative (NEGATIVE) SARS-CoV-2 RNA ([facility]) Negative (NEGATIVE) 09/21/21 09/21/21 09/21/21 Range/Units 18:30 18:30 18:30 WBC (4.23-9.07) K/mm3 RBC (4.63-6.08) M/mm3 Hgb (13.7-17.5) gm/dl Hct (40.1-51.0) % MCV (79.0-92.2) fl MCH (25.7-32.2) pg MCHC (32.2-35.5) g/dl RDW Std Deviation (35.1-43.9) fL Plt Count (163-337) K/mm3 MPV (9.4-12.3) fl Neutrophils % (Manual) (40-60) % Band Neutrophils % (0-10) % Lymphocytes % (Manual) (20-40) % Atypical Lymphs % % Monocytes % (Manual) (2-10) % Eosinophils % (Manual) (0.8-7.0) % Basophils % (Manual) (0.2-1.2) Platelet Estimate Plt Morphology Comment RBC Morph Comment D-Dimer, Quantitative (0.19-0.50) mg/L Sodium 139 (136-145) mEq/L Potassium 4.0 (3.5-5.1) mEq/L Chloride 104 (98-107) mEq/L Carbon Dioxide 22 (21-32) mEq/L Anion Gap 17.0 H (5-15) BUN 19 H (7-18) mg/dL Creatinine 1.3 (0.7-1.3) mg/dL Est Cr Clr Drug Dosing TNP Estimated GFR (MDRD) 54 (>60) mL/min BUN/Creatinine Ratio 14.6 (14-18) Glucose 113 H (70-99) mg/dL Lactic Acid 1.2 (0.4-2.0) mmol/L Calcium 8.7 (8.5-10.1) mg/dL Total Bilirubin 1.9 H (0.2-1.0) mg/dL AST 26 (15-37) U/L ALT 25 (16-63) U/L Alkaline Phosphatase 75 (46-116) U/L Troponin I < 0.017 (0.00-0.056) ng/mL C-Reactive Protein 0.4 (<1.0) mg/dL NT-Pro-B Natriuret Pep 151 H (0-125) pg/mL Total Protein 7.1 (6.4-8.2) g/dl Albumin 3.7 (3.4-5.0) g/dl Globulin 3.4 gm/dL Albumin/Globulin Ratio 1.1 (1-2) Urine Color (Yellow) Urine Appearance (Clear) Urine pH (5.0-8.0) Ur Specific Hallie (1.005-1.030) Urine Protein (Negative) Urine Glucose (UA) (Negative) Urine Ketones (Negative) Urine Occult Blood (Negative) Urine Nitrite (Negative) Urine Bilirubin (Negative) Urine Urobilinogen (0.2-1.0) Ur Leukocyte Esterase (Negative) Urine RBC (0-5) /hpf Urine WBC (0-5) /hpf Ur Squamous Epith Cells (0-5) /hpf Urine Bacteria (FEW) /hpf Urine Mucus (FEW) /hpf Influenza Type A RNA (NEGATIVE) Influenza Type B RNA (NEGATIVE) SARS-CoV-2 RNA ([facility]) (NEGATIVE) 09/21/21 Range/Units 18:35 WBC (4.23-9.07) K/mm3 RBC (4.63-6.08) M/mm3 Hgb (13.7-17.5) gm/dl Hct (40.1-51.0) % MCV (79.0-92.2) fl MCH (25.7-32.2) pg MCHC (32.2-35.5) g/dl RDW Std Deviation (35.1-43.9) fL Plt Count (163-337) K/mm3 MPV (9.4-12.3) fl Neutrophils % (Manual) (40-60) % Band Neutrophils % (0-10) % Lymphocytes % (Manual) (20-40) % Atypical Lymphs % % Monocytes % (Manual) (2-10) % Eosinophils % (Manual) (0.8-7.0) % Basophils % (Manual) (0.2-1.2) Platelet Estimate Plt Morphology Comment RBC Morph Comment D-Dimer, Quantitative (0.19-0.50) mg/L Sodium (136-145) mEq/L Potassium (3.5-5.1) mEq/L Chloride (98-107) mEq/L Carbon Dioxide (21-32) mEq/L Anion Gap (5-15) BUN (7-18) mg/dL Creatinine (0.7-1.3) mg/dL Est Cr Clr Drug Dosing Estimated GFR (MDRD) (>60) mL/min BUN/Creatinine Ratio (14-18) Glucose (70-99) mg/dL Lactic Acid (0.4-2.0) mmol/L Calcium (8.5-10.1) mg/dL Total Bilirubin (0.2-1.0) mg/dL AST (15-37) U/L ALT (16-63) U/L Alkaline Phosphatase (46-116) U/L Troponin I (0.00-0.056) ng/mL C-Reactive Protein (<1.0) mg/dL NT-Pro-B Natriuret Pep (0-125) pg/mL Total Protein (6.4-8.2) g/dl Albumin (3.4-5.0) g/dl Globulin gm/dL Albumin/Globulin Ratio (1-2) Urine Color Dark yellow (Yellow) Urine Appearance Clear (Clear) Urine pH 6.5 (5.0-8.0) Ur Specific Hallie 1.020 (1.005-1.030) Urine Protein Negative (Negative) Urine Glucose (UA) Negative (Negative) Urine Ketones Negative (Negative) Urine Occult Blood Negative (Negative) Urine Nitrite Negative (Negative) Urine Bilirubin Negative (Negative) Urine Urobilinogen 2.0 H (0.2-1.0) Ur Leukocyte Esterase Negative (Negative) Urine RBC 0-5 (0-5) /hpf Urine WBC Not seen (0-5) /hpf Ur Squamous Epith Cells Not seen (0-5) /hpf Urine Bacteria Not seen (FEW) /hpf Urine Mucus Rare (FEW) /hpf Influenza Type A RNA (NEGATIVE) Influenza Type B RNA (NEGATIVE) SARS-CoV-2 RNA ([facility]) (NEGATIVE) Meds: Medications Generic Name Dose Route Start Last Admin Trade Name Freq PRN Reason Stop Dose Admin Sodium Chloride 10 ml 12/13/21 18:05 09/21/21 18:26 Sodium Chloride 0.9% 10 Ml Syringe FLUSH 10 ml ASDIRECTED PRN Administration Keep Vein Open - Re-Assessments/Exams Free Text/Narrative Re-Assessment/Exam: Patient is a 75-year-old male presenting to the emergency department for evaluation of cough, weakness, fever, and confusion. On arrival to ER, he is alert and oriented x3 and afebrile. At the time of his confusion, his temp was 101.7. Patient reports having cough for the last few days but denies any shortness of breath or chest pain. Lung sounds are diminished but clear to auscultation throughout. I have ordered blood work, chest x-ray, urinalysis, and Covid testing. 09/21/21 19:34 Hematology is grossly unremarkable. D-dimer minimally elevated 0.66, however when converted for age this is normal. Urinalysis negative for infection. He is negative for Covid and influenza. Chest x-ray is negative for any acute abnormalities nursing staff report that when they cathed him for a urine, he returned 2000 mils of urine from his bladder. Arizmendi catheter has been inserted. Patient is likely suffering from viral illness. Transient confusion was likely related to his fever as it resolved once the fever resolved. Oxygen saturations have been maintaining 91 to 94% on room air. Results discussed with patient and his power of attorney recruiter, Ivan. We will discharge patient back to [facility] to continue symptomatic treatment. Should anything worsen, he should be reevaluated. Discharge instructions as documented. Departure - Departure Time of Disposition: 19:37 Disposition: DC/Tfer to SNF 03 Condition: Good Clinical Impression: Viral illness - Discharge Information *PRESCRIPTION DRUG MONITORING PROGRAM REVIEWED*: No *COPY OF PRESCRIPTION DRUG MONITORING REPORT IN PATIENT KAYE: No Instructions: Viral Illness, Adult Forms: ED Department Discharge Additional Instructions: John was evaluated in the emergency department for cough, congestion, weakness, fever, and transient confusion. In the ER, he was afebrile and alert and oriented x 3. Confusion was likely related to his fever. Work-up included blood work, urinalysis, chest x-ray, Covid, and influenza testing. Results of his work-up were normal. He does not have Covid or influenza, pneumonia or a urinary tract infection. There was no evidence of bacterial infection in his blood work. Symptoms are likely due to viral illness. Recommend continued symptomatic treatment including Tylenol and ibuprofen as needed for fevers. Continue to monitor his symptoms. If he should develop any new or worsening s ymptoms, I would recommend reevaluation either in the clinic or in the emergency department. Sepsis Event Note (ED) - Evaluation Sepsis Screening Result: No Definite Risk - Focused Exam Vital Signs: Vital Signs Temp Pulse Resp BP Pulse Ox 09/21/21 18:04 97.8 F 82 18 154/84 H 91 L - My Orders Last 24 Hours: My Active Orders 09/21/21 18:05 Sodium Chloride 0.9% [Saline Flush] 10 ml FLUSH ASDIRECTED PRN Peripheral IV Insertion Adult [OM.PC] Stat 09/21/21 18:06 Peripheral IV Care [RC] . DIRECTED 09/21/21 18:18 Blood Culture x2 Reflex Set [OM.PC] Stat 09/21/21 18:30 BLOOD CULTURE [MREF] Stat 09/21/21 18:40 BLOOD CULTURE [MREF] Stat 09/21/21 19:12 Urinary Catheter Assessment [RC] ASDIRECTED 09/21/21 19:15 Insert Arizmendi Catheter [Insert Urinary Catheter] [OM.PC] Q24H - Assessment/Plan Last 24 Hours: My Active Orders 09/21/21 18:05 Sodium Chloride 0.9% [Saline Flush] 10 ml FLUSH ASDIRECTED PRN Peripheral IV Insertion Adult [OM.PC] Stat 09/21/21 18:06 Peripheral IV Care [RC] . DIRECTED 09/21/21 18:18 Blood Culture x2 Reflex Set [OM.PC] Stat 09/21/21 18:30 BLOOD CULTURE [MREF] Stat 09/21/21 18:40 BLOOD CULTURE [MREF] Stat 09/21/21 19:12 Urinary Catheter Assessment [RC] ASDIRECTED 09/21/21 19:15 Insert Arizmendi Catheter [Insert Urinary Catheter] [OM.PC] Q24H
[2021-09-21 18:54] LABS: CORONAVIRUS COVID-19 NAA NEGATIVE (NEGATIVE)
--- NOTE | 2021-09-21 19:16 | CR ---
Chest: Portable view of the chest was obtained. Comparison: Prior chest x-ray of 11/18/20. Slightly limited due to rotation. Heart size and mediastinum are stable. Sternotomy wires are seen. Lungs show no definite acute parenchymal change. Bony structures show nothing acute. Impression: 1. No definite acute intrathoracic process is seen on portable chest x-ray. Diagnostic code #2
== END 2021-09-21 21:20 ==
LOC: JD.ED 18:01
DX: B34.9 Viral infection, unspecified (principal); E78.00 Pure hypercholesterolemia, unspecified; I10 Essential (primary) hypertension; K21.9 Gastro-esophageal reflux disease without esophagitis; M10.9 Gout, unspecified; Z79.899 Other long term (current) drug therapy; Z79.82 Long term (current) use of aspirin; Z20.822 Contact with and (suspected) exposure to COVID-19
CPT/HCPCS: 0240U; 36415; 51702; 71045; 80053; 81001; 83605; 83880; 84484; 85007; 85027; 85379; 86140; 87040; 93005; 99284

== ENCOUNTER → 2022-07-21 | Day surgery (SDC) | payer MEDICARE, MEDICAID ==
[~2022-07-21] MED LIST: Lactated Ringers 1,000 ML IV ONE; Lidocaine 1% 4 ML ONE; Lidocaine 1%/Sod Bicarbonate in NS 8.4% 1 ML Syringe IDERM ONE; Propofol 200 MG/20 ML SDV ONE; fentaNYL 100 MCG/2 ML SDV ONE
== END ==
LOC: JD.SDS 06:00
PROVIDERS: ATTEND Surgery
DX: Z12.11 Encounter for screening for malignant neoplasm of colon (principal); K63.5 Polyp of colon; K29.70 Gastritis, unspecified, without bleeding; K22.70 Barrett's esophagus without dysplasia; K57.30 Diverticulosis of large intestine without perforation or abscess without bleeding; K29.80 Duodenitis without bleeding; K31.7 Polyp of stomach and duodenum; K21.9 Gastro-esophageal reflux disease without esophagitis; I10 Essential (primary) hypertension; E78.2 Mixed hyperlipidemia; M10.9 Gout, unspecified; F32.A Depression, unspecified; Z90.49 Acquired absence of other specified parts of digestive tract; Z98.890 Other specified postprocedural states; Z79.899 Other long term (current) drug therapy; Z87.891 Personal history of nicotine dependence
CPT/HCPCS: 88305; J2704; J3010

== ENCOUNTER 2024-11-14 08:48 | Day surgery (SDC) | payer MEDICARE, MEDICAID ==
[~2024-11-14 08:48] MED LIST changes: -Lactated Ringers 1,000 ML IV ONE; -Lidocaine 1% 4 ML ONE; -Lidocaine 1%/Sod Bicarbonate in NS 8.4% 1 ML Syringe IDERM ONE; -Propofol 200 MG/20 ML SDV ONE; +Sodium Chloride 0.9% 10 ML Syringe FLUSH PRN; +Sodium Chloride 0.9% 10 ML Syringe FLUSH SCH; -fentaNYL 100 MCG/2 ML SDV ONE
[2024-11-14] MEDS: Lactated Ringers 1,000 ML IV SCH (09:20)
[2024-11-14] MEDS ORDERED: Propofol 200 MG/20 ML SDV ONE (09:23)
[2024-11-14] MEDS ORDERED: ePHEDrine 50 MG/ML SDV ONE (09:24)
[2024-11-14] MEDS ORDERED: Glycopyrrolate 0.2 MG/ML 2 ML SDV ONE (10:08)
[2024-11-14 12:43] VITALS: PULSE 50
[2024-11-14 12:44] VITALS: BP 147/61
== END 2024-11-14 11:20 | disposition home or self-care (01) ==
LOC: JD.SDS 08:48
PROVIDERS: ATTEND Surgery
DX: Z12.11 Encounter for screening for malignant neoplasm of colon (principal); D12.0 Benign neoplasm of cecum; D12.3 Benign neoplasm of transverse colon; D12.2 Benign neoplasm of ascending colon; D12.4 Benign neoplasm of descending colon; K21.00 Gastro-esophageal reflux disease with esophagitis, without bleeding; K31.89 Other diseases of stomach and duodenum; K44.9 Diaphragmatic hernia without obstruction or gangrene; K22.89 Other specified disease of esophagus; K57.30 Diverticulosis of large intestine without perforation or abscess without bleeding; Z86.0100 Personal history of colon polyps, unspecified; I10 Essential (primary) hypertension; E78.00 Pure hypercholesterolemia, unspecified; Z87.891 Personal history of nicotine dependence; Z79.899 Other long term (current) drug therapy
CPT/HCPCS: 43239; 45380; 88305; J2704; J7120; 00813; 99100; J3490